=== PATIENT | male | born 1930 | race Caucasian/White ===

== ENCOUNTER → 2017-03-03 | Outpatient (CLI) | payer OTHER ==
[~2017-03-03] MED LIST: CLR10 PO; GLIP1TAB60 PO; METO25TA56 PO; PANT1INJ2 IV; PRAV80TA2 PO; PROB1CAP27; TYLOTC500 PO; VITACAP26
--- NOTE | 2017-03-03 09:10 | DIAGNOSTIC IMAGING REPORT ---
DOPPLER ULTRASOUND OF THE RENAL ARTERIES CLINICAL HISTORY: Renal bruit. COMPARISON STUDY: Renal ultrasound May 13, [address] of the abdomen and pelvis August 25, 2011. FINDINGS: This exam is mildly compromised due to suboptimal penetration and inability to suspend respiration. Peak systolic velocity within the abdominal aorta is 89 cm/s. Peak systolic velocity within the right renal artery is 80 cm/s. Peak systolic velocity within the left renal artery is 158 cm/s. Both renal veins were patent. There was a 1.3 cm right renal cyst. There were a few small left renal cysts. Systolic upstrokes within the segmental vessels of the kidneys were brisk. The bilateral renal artery stents shown on CT of August 17, 2011 are not well visualized by sonography. IMPRESSION: No sonographic evidence of renal artery stenosis. Electronically signed by: Gabriel Sanchez M.D. 03/03/2017 9:09 AM Dictated Date/Time: 03/03/2017 9:06 AM
== END | disposition home or self-care (01) ==
LOC: C.ULTR 08:19
PROVIDERS: ATTEND Nurse Practitioner
DX: R09.89 Other specified symptoms and signs involving the circulatory and respiratory systems (principal)

== ENCOUNTER → 2017-08-24 | Outpatient (CLI) | payer OTHER ==
[2017-08-24 12:16] LABS: BASO ABS # 0.04 K/uL (0-0.2); COMPLETE YES; EOS % 1.9 %; IG% 0.2 %; LYMPH % 21.7 %; MEAN CELL VOLUME 98.7 fL (80-100); MEAN CORPUSCULAR HEMOGLOBIN 32.8 pg (25-34); MEAN CORPUSCULAR HGB CONC 33.2 g/dl (32-36); MEAN PLATELET VOLUME 10.1 fL (7.4-10.4); MONO % 9.2 %; PLATELET COUNT 251 K/uL (130-400); RED BLOOD COUNT 3.14 M/uL (4.7-6.1); WHITE BLOOD COUNT 4.14 K/uL (4.8-10.8)
[2017-08-24 12:33] LABS: ALB/GLOB RATIO 0.8 (0.9-2); ALKALINE PHOSPHATASE 93 U/L (45-117); ALT/SGPT 39 U/L (12-78); AST/SGOT 31 U/L (15-37); BLOOD UREA NITROGEN 36 mg/dl (7-18); BUN/CREATININE RATIO 31.3 (10-20); CARBON DIOXIDE 23 mmol/L (21-32); CHLORIDE 105 mmol/L (98-107); CREATININE 1.14 mg/dl (0.60-1.40); GLUCOSE 88 mg/dl (70-99); SODIUM 136 mmol/L (136-145)
[2017-08-24 12:39] LABS: FERRITIN 28.5 ng/ml (8.0-388.0); PROSTATE SPECIFIC ANTIGEN 0.659 ng/ml (0.000-4.000)
== END | disposition home or self-care (01) ==
LOC: C.LABBFT 07:00
PROVIDERS: ATTEND Nurse Practitioner
DX: D64.9 Anemia, unspecified (principal); E78.00 Pure hypercholesterolemia, unspecified; Z12.5 Encounter for screening for malignant neoplasm of prostate

== ENCOUNTER 2019-01-11 15:03 | Inpatient (IN) ==
[2019-01-11] MEDS ORDERED: ACETAMINOPHEN 325 MG TAB PO PRN (17:33)
--- NOTE | 2019-01-11 17:59 | History & Physical Report ---
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 Lawson presents today from [facility] office due to failed outpatient treatment of cellulitis of the right foot. He has been on 5 of a 10 day Keflex regimen with some improvement but still with significant erythema and edema. He has some pain. Denies aches, chills or fevers. He had been trimming his toenails and believes that's what started the infection initially. He also has a history of anemia. His labs from the [facility] recently showed worsening hgb so he was to follow up with Dr. Dalton in 2 days. He denies any blood in his stools or dark or tarry stools. 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 [facility] due [facility] and so patient was put on Coumadin. Medications verified via outpatient records. Allergies Allergy/AdvReac Type Severity Reaction Status Date / Time No Known Allergies Allergy Unknown Verified 03/29/18 06:54 Home Medications Home Medications Medication Instructions Recorded Confirmed Type ASPIRIN (ASPIRIN EC) 81 mg PO QDL #0 03/17/18 01/11/19 History Ascorbic Acid (Vitamin C) 1 tab PO QAM #0 03/17/18 01/11/19 History FERROUS SULFATE (IRON) 1 tab PO QAM #0 03/17/18 01/11/19 History Glipizide 1 tab PO QAM #0 03/17/18 History Metoprolol Tartrate (Lopressor) 25 mg PO BID #0 tab 03/17/18 01/11/19 History (Lopressor) Omeprazole (Omeprazole Dr) 1 tab PO QAM #0 03/17/18 01/11/19 History Pravastatin Sod (Pravastatin 1 tab PEG HS #0 03/17/18 01/11/19 History Sodium) VITAMIN D 3 2 tab PO QAM #0 03/17/18 01/11/19 History WARFARIN SODIUM (COUMADIN) 1.5 mg PO 2XWK 30 Days #0 tab 03/17/18 01/11/19 History WARFARIN SODIUM (COUMADIN) 3 mg PO 5XWK #0 tab 03/17/18 History Past Med/Surg History Social History Preferred Language: Azeri Communication Ability: Effective 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: No Beliefs That Will Affect Care: None Current Living Situation: Spouse Other Information That Helps Us Care for You: No Feels Safe at Home: Yes Safety Concerns: Feels Safe At This Time Smoking Status: Former smoker Hx Alcohol Use: No Hx Substance Use: No Physical Exam Vital Signs (Past 24 Hours): Last Vital Signs Temp 36.8 C 01/11/19 16:44 Pulse 75 01/11/19 16:44 Resp 18 01/11/19 16:44 BP 131/72 01/11/19 16:44 Pulse Ox 92 01/11/19 16:44 Physical Exam: General: no distress Eyes: normal inspection, PERLL Respiratory: chest non tender, clear to auscultation, normal breath sounds, no respiratory distress, no accessory muscle use Cardiac: regular rate and rhythm, no rub or gallop, no murmur, no edema, no jvd GI/: active bowel sounds, no abd pain or tenderness, soft, non distended Extremities: normal range of motion, normal strength, non tender Neuro: alert, moves all extremities Psych: oriented x 3, normal mood and affect Skin: normal color, dry, bilateral erythema on lower legs, right foot with erythema and edema, dried yellow exudate between toes Code Status & VTE Plan Code Status DNR VTE Prophylaxis Plan VTE Prophylaxis will be ordered: Yes Supervising Physician Co-Signing Physician Notes [employer] Physician Supervision Note: I discussed with Pina Ruano NP and agree with findings and plan as documented in the note. Any exceptions or clarifications are listed here: None Patient is a direct admission for failing outpatient treatment for diabetic foot infection likely instigated by trimming of his nails. His foot is erythematous but does not appear boggy and there is no overt signs of osteomyelitis. The patient's blood glucoses have been in reasonable control and he is subtherapeutic on his anticoagulation at this time Vitals were reviewed physical exam is he is stable with cardiovascularly with clear lungs regular heart however his total knee show some minor erythema Back to be applied considering escalating his anticoagulant dosing for his A. fib thrombolic prevention control his diabetes with basal bolus insulin Documented By: Darnell Quijano
[2019-01-11] MEDS ORDERED: VANCOMYCIN CONSULT ACTIVE PRN (18:01)
[2019-01-11] MEDS ORDERED: VANCOMYCIN HCL 1,000 MG in SODIUM CHLORIDE 0.9% 250 ML IV SCH (18:15)
[2019-01-11 18:29] LABS: INR 1.2 (0.9-1.1); Prothrombin Time 12.5 Seconds (9.0-12.0)
[2019-01-11] MEDS ORDERED: VANCOMYCIN HCL 1,250 MG in SODIUM CHLORIDE 0.9% 500 ML IV ONE (18:30)
[2019-01-11] MEDS ORDERED: VANCOMYCIN HCL 1,250 MG in SODIUM CHLORIDE 0.9% 250 ML IV ONE (18:30)
[2019-01-11 18:31] LABS: Albumin Level 2.2 gm/dl (3.4-5.0); Blood Urea Nitrogen 21 mg/dl (7-18); Carbon Dioxide 27 mmol/L (21-32); Chloride 106 mmol/L (98-107); Glucose 66 mg/dl (70-99); Potassium 4.5 mmol/L (3.5-5.1); Sodium 138 mmol/L (136-145)
[2019-01-11 18:34] LABS: Alanine Aminotransferase 35 U/L (12-78); Aspartate Aminotransferase 26 U/L (15-37); BUN Creatinine Ratio 18.4 (10-20); Est GFR (African American) 68.6; Est GFR (Non-African American) 59.2
[2019-01-11 18:38] LABS: Albumin Globulin Ratio 0.7 (0.9-2); Alkaline Phosphatase 105 U/L (45-117); Bilirubin,Total 0.2 mg/dl (0.2-1); Iron 119 mcg/dl (35-175); Total Protein 5.2 gm/dl (6.4-8.2); Transferrin 158 mg/dl (200-360)
[2019-01-11 18:45] LABS: Ferritin 64.1 ng/ml (8-388)
[2019-01-11] MEDS ORDERED: WARFARIN SOD 5 MG TAB PO ONE (19:18)
[2019-01-11 20:10] LABS: Basophils # (auto) 0.03 K/uL (0-0.2); Basophils % (auto) 0.8 %; Eosinophils # (auto) 0.05 K/uL (0-0.5); Eosinophils % (auto) 1.3 %; Hematocrit (blood only) 27.9 % (42-52); Hemoglobin 9.1 g/dL (14.0-18.0); Lymphocytes # (auto) 0.71 K/uL (1.2-3.4); Lymphocytes % (auto) 18.1 %; Mean Corpuscular Hgb Conc 32.6 g/dL (32-36); Mean Corpuscular Volume 101.5 fL (80-100); Mean Platelet Volume 10.2 fL (7.4-10.4); Monocytes # (auto) 0.42 K/uL (0.11-0.59); Monocytes % (auto) 10.7 %; Neutrophils # (auto) 2.72 K/uL (1.4-6.5); Neutrophils % (auto) 69.1 %; Platelet Count 193 K/uL (130-400); RDW Coefficient of Variation 16.6 % (11.5-14.5); RDW Standard Deviation 61.6 fL (36.4-46.3); Red Blood Count 2.75 M/uL (4.7-6.1); Reticulocyte % 2.6 % (0.5-2.0); Reticulocytes # 0.07 10^6/uL (0.02-0.10); White Blood Count 3.93 K/uL (4.8-10.8)
[2019-01-11] MEDS: METOPROLOL TARTRATE 25 MG TAB PO SCH (21:59)
[2019-01-11] MEDS: PRAVASTATIN SOD 40 MG TAB PO SCH (22:02)
[2019-01-11] MEDS: INSULIN ASPART 100 UNITS/ML 3 ML PEN SC SCH (22:13)
[2019-01-11] MEDS ORDERED: PATIENT'S HEIGHT AND/OR WEIGHT NEEDED SCH (22:45)
[2019-01-12] MEDS: PATIENT'S HEIGHT AND/OR WEIGHT NEEDED SCH ×4 (00:20→07:14)
[2019-01-12] MEDS ORDERED: DEXTROSE 50% 50 ML SYRINGE IV PRN (05:15)
[2019-01-12] MEDS ORDERED: GLUCAGON FOR INJ 1 MG VIAL SQ PRN (05:15)
[2019-01-12] MEDS ORDERED: GLUCOSE 40% GEL 15 GM TUBE PO PRN (05:15)
[2019-01-12] MEDS ORDERED: GLUCOSE 10 TABS/TUBE PO PRN (05:15)
[2019-01-12] MEDS ORDERED: CARBOHYDRATES FOR HYPOGLYCEMIA PO PRN (05:15)
[2019-01-12] MEDS: METOPROLOL TARTRATE 25 MG TAB PO SCH ×2 (08:16→21:12)
[2019-01-12] MEDS: PANTOprazole 40 MG TAB PO SCH (08:16)
[2019-01-12] MEDS: ASPIRIN 81 MG ECTAB PO SCH (08:16)
[2019-01-12] MEDS: FERROUS SULFATE 325 MG TAB PO SCH (08:16)
[2019-01-12] MEDS: CHOLECALCIFEROL 1,000 UNITS TAB PO SCH (08:16)
--- NOTE | 2019-01-12 08:17 | Pharmacy Report ---
Pharmacy Abx Initial Consult - Date of Service January 12, 2019 - Pharmacy Dosing Scope Date of Consult: 01/12/19 Consultation requested by: Pina Ruano Pharmacy is consulted to initiate vancomycin IV dosing therapy, order appropriate labs and adjust drug dose/frequency. - Subjective The patient is a 88 year old M admitted on 01/11/19 16:23 as a direct admission. Patient was on day for PO Keflex for a diabetic foot infection. Infection is not healing properly. - Objective Height: 5 ft 7 in Weight: 58.4 kg Vital Signs (Past 12hrs): Vital Signs Temp Pulse Resp BP Pulse Ox 01/12/19 07:56 36.4 C L 68 20 133/42 L 99 01/11/19 23:33 36.4 C L 75 18 139/61 94 Lab Results (24hrs): Laboratory Tests (24 Hours) 01/11/19 01/11/19 18:04 18:04 WBC 3.93 L Neut # (Auto) 2.72 Creatinine 1.12 Est Cr Clr Drug Dosing Not Reportable Micro Results: 01/11/19 17:49 Blood Culture - Pending Blood 01/11/19 18:04 Blood Culture - Pending Blood - Risk Factors for Resistance * Antimicrobial use within the last 90 days (Keflex, day ) - Assessment & Plan Assessment 88 year old M admitted with worsening diabetic foot infection Plan vancomycin for treatment of diabetic foot infection Vancomycin IV * Estimated PK Parameters: Vd 0.7 L/kg, Jalil 0.037 hr-1, t1/2 18.7 hr * Loading dose: 1250 mg (21.5 mg/kg) * Maintenance dose: 1000 mg IV (17 mg/kg) every 18 hours. start 4 hours early since inadequate load given * Goal trough level for SSTI, failed outpatient therapy : 15 to 20 mcg/mL * Trough ordered for 01/14/19 prior to 1600 Pharmacy will continue to follow and will adjust dose/frequency as necessary. Thank you.
[2019-01-12] MEDS: INSULIN ASPART 100 UNITS/ML 3 ML PEN SC SCH ×4 (09:15→21:17)
[2019-01-12] MEDS: VANCOMYCIN HCL 1,000 MG in SODIUM CHLORIDE 0.9% 250 ML IV SCH (09:26)
[2019-01-12 09:27] LABS: INR 1.3 (0.9-1.1); Prothrombin Time 12.9 Seconds (9.0-12.0)
--- NOTE | 2019-01-12 11:15 | Ultrasound Report ---
US venous doppler LE RT CLINICAL HISTORY: Right leg pain and swelling COMPARISON STUDY: July 2011 FINDINGS: Real-time and color flow Doppler imaging were performed. Flow was seen within the femoral, popliteal and calf veins with no intraluminal thrombus demonstrated. The saphenous vein is patent. IMPRESSION: No evidence of right lower extremity DVT. Electronically signed by: Jhonny Mahoney M.D. 01/12/2019 11:13 AM
[2019-01-12] MEDS ORDERED: CEFEPIME CONSULT ACTIVE PRN (13:02)
--- NOTE | 2019-01-12 13:46 | Hospitalist Progress Note ---
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 - LE doppler negative for DVT (2) Anemia: Macrocytic H & H 9.1 and 27.9 Iron normal, TIBC and transferrin low, reticulocyte count elevated , B12 and Folate normal Continue po iron (3) Atrial fibrillation: Continue Coumadin, metoprolol In (4) CAD (coronary artery disease): continue metoprolol, pravastatin, ASA, INR 1.3 - will give 5 mg again today (5) DMII (diabetes mellitus, type 2): hypoglycemic on admission hold home sulfonylurea, will give ss bsgs ac & hs (6) History of GI bleed: due to ulcer continue ppi (7) DVT prophylaxis: Warfarin, SCDs Subjective Foot feels about the same as yesterday. No aches or chills Review of Systems Review of Systems: All systems reviewed & are unremarkable except as noted in HPI & below Physical Exam Physical Exam: General: no distress Eyes: normal inspection, PERLL Respiratory: chest non tender, clear to auscultation, normal breath sounds, no respiratory distress, no accessory muscle use Cardiac: regular rate and rhythm, no rub or gallop, no murmur, no jvd GI/: active bowel sounds, no abd pain or tenderness, soft, non distended Extremities: normal range of motion, normal strength, non tender Neuro/Psych: alert and oriented x 3, normal mood and affect Skin: normal color, dry, right lower extremity and foot with edema and erythema Results & Data Vital Signs (Past 12 Hours) Vital Signs Temp Pulse Resp BP Pulse Ox 01/12/19 07:56 36.4 C L 68 20 133/42 L 99
[2019-01-12] MEDS: CEFEPIME 2,000 MG in SYRINGE 0 ML IV SCH (14:17)
[2019-01-12] MEDS ORDERED: WARFARIN SOD 5 MG TAB PO SCH (16:00)
[2019-01-12] MEDS ORDERED: WARFARIN SOD 3 MG TAB PO SCH (16:00)
[2019-01-12] MEDS: PRAVASTATIN SOD 40 MG TAB PO SCH (21:12)
[2019-01-13] MEDS: VANCOMYCIN HCL 1,000 MG in SODIUM CHLORIDE 0.9% 250 ML IV SCH ×2 (04:10→22:13)
[2019-01-13 07:09] LABS: Hematocrit (blood only) 25.8 % (42-52); Hemoglobin 8.6 g/dL (14.0-18.0); Mean Corpuscular Hgb Conc 33.3 g/dL (32-36); Mean Corpuscular Volume 101.6 fL (80-100); Mean Platelet Volume 9.9 fL (7.4-10.4); Platelet Count 173 K/uL (130-400); RDW Coefficient of Variation 15.9 % (11.5-14.5); RDW Standard Deviation 59.4 fL (36.4-46.3); Red Blood Count 2.54 M/uL (4.7-6.1); White Blood Count 3.51 K/uL (4.8-10.8)
[2019-01-13 07:39] LABS: BUN Creatinine Ratio 23.8 (10-20); Calcium 7.7 mg/dl (8.5-10.1); Creatinine Clr Calc Pharmacy 47.1 ml/min; Est GFR (African American) 85.9; Est GFR (Non-African American) 74.1; Potassium 4.4 mmol/L (3.5-5.1)
[2019-01-13] MEDS: METOPROLOL TARTRATE 25 MG TAB PO SCH ×2 (07:48→21:35)
[2019-01-13] MEDS: PANTOprazole 40 MG TAB PO SCH (07:48)
[2019-01-13] MEDS: CHOLECALCIFEROL 1,000 UNITS TAB PO SCH (07:48)
[2019-01-13] MEDS: ASPIRIN 81 MG ECTAB PO SCH (07:49)
[2019-01-13] MEDS: FERROUS SULFATE 325 MG TAB PO SCH (07:49)
[2019-01-13] MEDS: INSULIN ASPART 100 UNITS/ML 3 ML PEN SC SCH ×4 (08:50→21:35)
[2019-01-13 09:46] LABS: INR 1.5 (0.9-1.1); Prothrombin Time 15.1 Seconds (9.0-12.0)
[2019-01-13] MEDS: CEFEPIME 2,000 MG in SYRINGE 0 ML IV SCH (13:44)
[2019-01-13] MEDS ORDERED: WARFARIN SOD 5 MG TAB PO ONE (16:00)
--- NOTE | 2019-01-13 16:56 | Magnetic Resonance Report ---
MR foot RT w/o con CLINICAL HISTORY: Great toe infection. Possible osteomyelitis. COMPARISON STUDY: No previous studies for comparison. FINDINGS: Images were acquired in the axial, sagittal and coronal planes. There is soft tissue edema, most pronounced dorsally. There is subtle T1 and T2 marrow edema involvin g the tuft of the distal phalanx of the great toe. There is adjacent soft tissue ulceration. The find ings are suspicious for early osteomyelitis. There are no fluid collections to indicate an abscess. No soft tissue masses are visualized on this noncontrast examination. IMPRESSION: 1. Subtle T1 and T2 marrow edema involving the tuft of distal phalanx of the great toe with an adjace nt soft tissue ulceration. The findings are suspicious for early osteomyelitis. 2. Soft tissue edema, most pronounced dorsally Electronically signed by: Jhonny Mahoney M.D. 01/13/2019 4:54 PM
--- NOTE | 2019-01-13 17:48 | Magnetic Resonance Report ---
MR ankle RT wo con CLINICAL HISTORY: Infection. Soft tissue edema. Evaluate for osteomyelitis. COMPARISON STUDY: No previous studies for comparison. FINDINGS: Imaging was performed in the axial, sagittal, and coronal planes. There are no areas of marrow replacement to indicate neoplasm. There are no areas of marrow edema to indicate an occult fracture or osteomyelitis. There is trace fl uid within the ankle joint. There are no fluid collections to indicate an abscess. There are no abnor mal soft tissue masses. There is no evidence for significant tendinopathy. There is minor subcutaneous edema. IMPRESSION: 1. No evidence of acute osteomyelitis 2. No evidence of occult fracture 3. No evidence of abscess Electronically signed by: Jhonny Mahoney M.D. 01/13/2019 5:46 PM
--- NOTE | 2019-01-13 18:12 | Hospitalist Progress Note ---
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 (2) Anemia: Macrocytic H & H 9.1 and 27.9 Iron normal, TIBC and transferrin low, reticulocyte count elevated, B12 and Folate normal Continue po iron (3) Atrial fibrillation: Hold Coumadin as above, continue metoprolol (4) CAD (coronary artery disease): continue metoprolol, pravastatin, ASA, INR 1.5 - will hold Coumadin as above (5) DMII (diabetes mellitus, type 2): hypoglycemic on admission hold home sulfonylurea, will give ss bsgs ac & hs (6) History of GI bleed: due to ulcer continue ppi (7) DVT prophylaxis: Warfarin held, SCDs Subjective Mr. Lawson reports feeling about the same today. He has continued discomfort in his foot but otherwise feels good. Review of Systems Review of Systems: All systems reviewed & are unremarkable except as noted in HPI & below Physical Exam Physical Exam: General: no distress Eyes: normal inspection, PERLL Respiratory: chest non tender, clear to auscultation, normal breath sounds, no respiratory distress, no accessory muscle use Cardiac: regular rate and rhythm, no rub or gallop, no murmur, no edema, no jvd GI/: active bowel sounds, no abd pain or tenderness, soft, non distended Extremities: normal range of motion, normal strength, non tender Neuro/Psych: alert and oriented x 3, normal mood and affect Skin: normal color, dry, right foot/le erythematous and edematous Results & Data Vital Signs (Past 12 Hours) Vital Signs Temp Pulse Resp BP Pulse Ox 01/13/19 15:21 36.6 C 78 18 100/59 L 99 01/13/19 07:12 36.5 C 80 18 139/63 98
[2019-01-13] MEDS ORDERED: PIPERACILL/TAZOBAC CONSULT ACTIVE PRN (18:45)
[2019-01-13] MEDS ORDERED: PIPERACILLIN/TAZOBACTAM 3.375 GM in DEXTROSE 5% 100 ML IV ONE (20:30)
[2019-01-13] MEDS: PRAVASTATIN SOD 40 MG TAB PO SCH (21:35)
[2019-01-14] MEDS ORDERED: PIPERACILLIN/TAZOBACTAM 3.375 GM in DEXTROSE 5% 100 ML IV ONE (02:00)
--- NOTE | 2019-01-14 07:30 | Ultrasound Report ---
RIGHT LOWER EXTREMITY ARTERIAL DOPPLER ULTRASOUND CLINICAL HISTORY: Poor wound healing. COMPARISON STUDY: No previous studies for comparison. TECHNIQUE: Grayscale and color and duplex Doppler sonography of the arterial system of the right lowe r extremity was performed. FINDINGS: Accurate ankle to brachial indices could not be obtained due to extensive vascular calcific ation with noncompressibility of vessels. Extensive atherosclerotic plaque within the right lower ext remity was noted. There was triphasic flow within the right common femoral. Biphasic flow is noted wi thin the right superficial femoral and proximal right popliteal arteries. There is monophasic flow wi thin the distal right popliteal artery as well as the right posterior tibial, peroneal and anterior t ibial arteries as well as the dorsalis pedis. No elevated velocities were identified. IMPRESSION: 1. Extensive atherosclerotic plaque within the right lower extremity. Unable to obtain accurate ankle to brachial indices given vessel noncompressibility. 2. Triphasic and biphasic flow within the right common femoral or superficial femoral arteries with m onophasic flow within the right calf vessels. Although no elevated velocities identified, the finding s raise the possibility of an intervening stenosis. Electronically signed by: Gabriel Sanchez M.D. 01/14/2019 7:29 AM
[2019-01-14] MEDS: METOPROLOL TARTRATE 25 MG TAB PO SCH ×2 (08:10→20:46)
[2019-01-14] MEDS: PANTOprazole 40 MG TAB PO SCH (08:10)
[2019-01-14] MEDS: ASPIRIN 81 MG ECTAB PO SCH (08:10)
[2019-01-14] MEDS: CHOLECALCIFEROL 1,000 UNITS TAB PO SCH (08:10)
[2019-01-14] MEDS: FERROUS SULFATE 325 MG TAB PO SCH (08:10)
[2019-01-14] MEDS: INSULIN ASPART 100 UNITS/ML 3 ML PEN SC SCH ×4 (08:21→20:45)
[2019-01-14 10:28] LABS: Basophils # (auto) 0.03 K/uL (0-0.2); Basophils % (auto) 0.6 %; Eosinophils # (auto) 0.04 K/uL (0-0.5); Eosinophils % (auto) 0.8 %; Hematocrit (blood only) 30.4 % (42-52); Hemoglobin 9.8 g/dL (14.0-18.0); Immature Granulocytes # (auto) 0.01 K/uL (0.00-0.02); Immature Granulocytes % (auto) 0.2 %; Lymphocytes # (auto) 0.75 K/uL (1.2-3.4); Lymphocytes % (auto) 15.9 %; Mean Corpuscular Hgb Conc 32.2 g/dL (32-36); Mean Corpuscular Volume 101.7 fL (80-100); Mean Platelet Volume 9.6 fL (7.4-10.4); Monocytes # (auto) 0.44 K/uL (0.11-0.59); Monocytes % (auto) 9.3 %; Neutrophils # (auto) 3.44 K/uL (1.4-6.5); Neutrophils % (auto) 73.2 %; Platelet Count 204 K/uL (130-400); RDW Standard Deviation 59.8 fL (36.4-46.3); Red Blood Count 2.99 M/uL (4.7-6.1); White Blood Count 4.71 K/uL (4.8-10.8)
[2019-01-14 10:43] LABS: INR 1.7 (0.9-1.1); Prothrombin Time 16.7 Seconds (9.0-12.0)
[2019-01-14 10:46] LABS: BUN Creatinine Ratio 16.6 (10-20); Calcium 7.9 mg/dl (8.5-10.1); Est GFR (African American) 57.8; Est GFR (Non-African American) 49.9; Potassium 4.5 mmol/L (3.5-5.1)
--- NOTE | 2019-01-14 10:47 | Hospitalist Progress Note ---
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 Unable to obtain accurate ankle to brachial indices given vessel noncompressibility. Triphasic and biphasic flow within the right common femoral or superficial femoral arteries with monophasic flow within the right calf vessels. Although no elevated velocities identified, the findings raise the possibility of an intervening stenosis. - LE doppler negative for DVT - MRI concerning for early osteomyelitis, will hold warfarin and consult orthopedic surgery (2) Anemia: Macrocytic H & H stable around 8.5-9 Iron normal, TIBC and transferrin low, reticulocyte count elevated, B12 and Folate normal Continue po iron Patient will need follow up with Heme/onc as he is missing his appt due to this hospitalization (3) Atrial fibrillation: Hold Coumadin as above, continue metoprolol (4) CAD (coronary artery disease): continue metoprolol, pravastatin, ASA, INR 1.7 - hold Coumadin as above (5) DMII (diabetes mellitus, type 2): hypoglycemic on admission hold home sulfonylurea, will give ss bsgs ac & hs (6) History of GI bleed: due to ulcer continue ppi (7) DVT prophylaxis: Warfarin held, SCDs Subjective Mr. Lawson's foot has occasional shooting pains in it but overall is not causing him too much discomfort. Review of Systems Review of Systems: All systems reviewed & are unremarkable except as noted in HPI & below Physical Exam Physical Exam: General: no distress Eyes: normal inspection, PERLL Respiratory: chest non tender, clear to auscultation, normal breath sounds, no respiratory distress, no accessory muscle use Cardiac: regular rate and rhythm, no rub or gallop, no murmur, no edema, no jvd GI/: active bowel sounds, no abd pain or tenderness, soft, non distended Extremities: normal range of motion, normal strength, non tender Neuro/Psych: alert and oriented x 3, normal mood and affect Skin: normal color, dry, right leg erythema and edema Results & Data Vital Signs (Past 12 Hours) Vital Signs Temp Pulse Resp BP Pulse Ox 01/14/19 08:29 36.4 C L 88 16 125/72 99 01/13/19 23:01 36.5 C 81 18 110/65 94
[2019-01-14] MEDS: PIPERACILLIN/TAZOBACTAM 3.375 GM in DEXTROSE 5% 100 ML IV SCH ×2 (11:07→18:28)
[2019-01-14] MEDS ORDERED: DAPTOMYCIN CONSULT ACTIVE PRN (13:56)
[2019-01-14] MEDS: DAPTOmycin 350 MG in SYRINGE 0 ML IV SCH (14:21)
[2019-01-14] MEDS ORDERED: VANCOMYCIN TROUGH ONE (15:30)
[2019-01-14] MEDS ORDERED: WARFARIN SOD 0.5 MG TAB PO SCH (16:00)
[2019-01-14] MEDS ORDERED: WARFARIN SOD 4 MG TAB PO SCH (16:00)
[2019-01-14] MEDS: PRAVASTATIN SOD 40 MG TAB PO SCH (20:48)
--- NOTE | 2019-01-15 01:00 | Consultation Report ---
DATE OF CONSULTATION: 01/14/2019 SUBJECTIVE: The patient was seen at the request of Dr. Brayden Patrick and the medical service regarding right foot redness and swelling with great toe pain. PERTINENT HISTORY: The patient had presented to [facility] from [facility]'s office due to failed outpatient treatment of cellulitis to the right foot. It had been on day 5 of a 10 day regimen of oral Keflex. He had some minor improvement compared to when he started the course of antibiotics; however, still had persistent erythema, edema and pain. He noted that he probably caused this himself and he was trimming his toenails to short, he noted that he trimmed the great toenail and the third toe nail to shorten and had some bleeding and then developed irritation, redness, swelling and presumably infection. He had been in the hospital for the last several days and orthopedics was then asked to consult regarding findings of possible early osteomyelitis and distal phalanx of the right great toe. PAST MEDICAL HISTORY: Cellulitis right foot, chronic AFib on Coumadin, coronary artery disease, bovine aortic valve replacement, GI bleed, chronic anemia, diabetes mellitus type 2. PAST SURGICAL HISTORY: Aortic valve replacement, colonoscopy. ALLERGIES: No known drug allergies. MEDICATIONS: Please note the list provided in the medical record. SOCIAL HISTORY: He is and lives with his spouse. He is retired. He is a former smoker. Denies alcohol or drug use. PHYSICAL EXAMINATION: This is an 88-year-old gentleman sitting in his bedside. He is alert and oriented x3. Speech clear and fluent. Affect is appropriate. Examination of the lower extremities demonstrates chronic venous stasis changes with 2/4 edema bilateral lower extremities, pitting to the mid tibial level. He has palpable pulses, both dorsalis pedis and posterior tibial pulses bilateral lower extremities. Right foot demonstrates erythema, increased warmth of the forefoot, scant hair growth bilateral lower extremities and dystrophic nails in the right foot, primarily the first and third toes. He has fusiform edema of the first, second and third toes of the right foot. No pain on passive stretch. No open ulcers or abrasions of bilateral feet. Radiographs and MRI reviewed, demonstrates possibility of early osteomyelitis, distal phalanx of the right great toe with signal changes in the distal phalanx on MRI. LABORATORIES: Reviewed. IMPRESSION: 1. Right great toe distal phalanx, early osteomyelitis. 2. Cellulitis to right foot. 3. Dystrophic nails, right foot first and third toes. 4. Chronic venous stasis changes. 5. Multiple medical comorbidities including diabetes mellitus type 2. RECOMMENDATION: At this time, recommend conservative management with IV antibiotics. Suggest midline or PICC line if patient tolerates and attempt conservative IV antibiotic management at this point. Should he fail IV antibiotic management, then surgical subtotal amputation of the right great toe would be indicated involving the distal phalanx and the nail bed and nail plate. Thank you for the opportunity to consult in the care of this patient.
[2019-01-15] MEDS: PIPERACILLIN/TAZOBACTAM 3.375 GM in DEXTROSE 5% 100 ML IV SCH ×3 (02:05→18:21)
[2019-01-15 04:18] LABS: Hemoglobin 8.2 g/dL (14.0-18.0); Mean Corpuscular Hgb Conc 32.8 g/dL (32-36); Mean Platelet Volume 10.1 fL (7.4-10.4); Platelet Count 168 K/uL (130-400); RDW Coefficient of Variation 15.5 % (11.5-14.5); RDW Standard Deviation 57.3 fL (36.4-46.3); Red Blood Count 2.45 M/uL (4.7-6.1); White Blood Count 3.17 K/uL (4.8-10.8)
[2019-01-15 04:52] LABS: BUN Creatinine Ratio 14.1 (10-20); Calcium 7.7 mg/dl (8.5-10.1); Est GFR (African American) 49.8; Est GFR (Non-African American) 42.9; Potassium 3.7 mmol/L (3.5-5.1)
[2019-01-15] MEDS: CHOLECALCIFEROL 1,000 UNITS TAB PO SCH (08:12)
[2019-01-15] MEDS: FERROUS SULFATE 325 MG TAB PO SCH (08:12)
[2019-01-15] MEDS: ASPIRIN 81 MG ECTAB PO SCH (08:12)
[2019-01-15] MEDS: PANTOprazole 40 MG TAB PO SCH (08:12)
[2019-01-15] MEDS: METOPROLOL TARTRATE 25 MG TAB PO SCH ×2 (08:12→20:13)
[2019-01-15] MEDS: INSULIN ASPART 100 UNITS/ML 3 ML PEN SC SCH ×4 (08:44→20:13)
[2019-01-15 09:02] LABS: Basophils # (auto) 0.03 K/uL (0-0.2); Basophils % (auto) 0.9 %; Eosinophils # (auto) 0.03 K/uL (0-0.5); Eosinophils % (auto) 0.9 %; Hematocrit (blood only) 29.1 % (42-52); Hemoglobin 9.4 g/dL (14.0-18.0); Lymphocytes # (auto) 0.55 K/uL (1.2-3.4); Lymphocytes % (auto) 16.9 %; Mean Corpuscular Hgb Conc 32.3 g/dL (32-36); Mean Corpuscular Volume 101.4 fL (80-100); Mean Platelet Volume 9.6 fL (7.4-10.4); Monocytes # (auto) 0.31 K/uL (0.11-0.59); Monocytes % (auto) 9.5 %; Neutrophils # (auto) 2.34 K/uL (1.4-6.5); Neutrophils % (auto) 71.8 %; Platelet Count 192 K/uL (130-400); RDW Coefficient of Variation 15.8 % (11.5-14.5); RDW Standard Deviation 58.7 fL (36.4-46.3); Red Blood Count 2.87 M/uL (4.7-6.1); White Blood Count 3.26 K/uL (4.8-10.8)
[2019-01-15 09:14] LABS: INR 1.5 (0.9-1.1); Prothrombin Time 14.8 Seconds (9.0-12.0)
[2019-01-15 09:40] LABS: BUN Creatinine Ratio 14.4 (10-20); Calcium 8.5 mg/dl (8.5-10.1); Est GFR (African American) 57.8; Est GFR (Non-African American) 49.9; Potassium 3.8 mmol/L (3.5-5.1)
--- NOTE | 2019-01-15 10:34 | Orthopedic Progress Note ---
Date of Service January 15, 2019 Assessment & Plan (1) Osteomyelitis of great toe of right foot: 1. Right great toe distal phalanx, early osteomyelitis. 2. Cellulitis to right foot. 3. Dystrophic nails, right foot first and third toes. 4. Chronic venous stasis changes. 5. Multiple medical comorbidities including diabetes mellitus type 2. Continue IV antibiotics. Will continue to follow. Subjective Patient seen sitting in bedside chair eating breakfast. No current complaints Physical Exam Physical Exam: Erythema to right foot with mild swelling of 1-3 digits. No open areas or drainage Results & Data Vital Signs (Past 12 Hours) Vital Signs Temp Pulse Pulse Resp BP Pulse Ox 01/15/19 07:24 36.5 C 81 18 99/64 L 100 01/14/19 23:55 36.5 C 72 18 107/69 100
--- NOTE | 2019-01-15 11:22 | Hospitalist Progress Note ---
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 Unable to obtain accurate ankle to brachial indices given vessel noncompressibility. Triphasic and biphasic flow within the right common femoral or superficial femoral arteries with monophasic flow within the right calf vessels. Although no elevated velocities identified, the findings raise the possibility of an intervening stenosis. Will consult Dr. Wiseman on Thursday to follow up with this - LE doppler negative for DVT - MRI concerning for early osteomyelitis - per surgery, no surgery at this time, should try a few weeks of IV abx at home. Will hold Coumadin again today and consent for PICC. Consult ID for guidance on home regimen (2) Anemia: Macrocytic H & H stable around 8.5-9 Iron normal, TIBC and transferrin low, reticulocyte count elevated, B12 and Folate normal Continue po iron Patient will need follow up with Heme/onc as he is missing his appt due to this hospitalization (3) Atrial fibrillation: Hold Coumadin as above, continue metoprolol (4) CAD (coronary artery disease): continue metoprolol, pravastatin, ASA, INR 1.5 - hold Coumadin as above (5) DMII (diabetes mellitus, type 2): hypoglycemic on admission hold home sulfonylurea, will give ss - will hold sulfonylurea at discharge given hypoglycemia at admission and have him fu with primary. He had apparently just recently started with this medication bsgs ac & hs (6) History of GI bleed: due to ulcer continue ppi (7) DVT prophylaxis: Warfarin held, SCDs Subjective Mr. Lawson reports that his foot feels better. He has no other complaints Review of Systems Review of Systems: All systems reviewed & are unremarkable except as noted in HPI & below Physical Exam Physical Exam: General: no distress Eyes: normal inspection, PERLL Respiratory: chest non tender, clear to auscultation, normal breath sounds, no respiratory distress, no accessory muscle use Cardiac: regular rate and rhythm, no rub or gallop, no murmur, no edema, no jvd GI/: active bowel sounds, no abd pain or tenderness, soft, non distended Extremities: normal range of motion, normal strength, non tender Neuro/Psych: alert and oriented x 3, normal mood and affect Skin: normal color, dry, right foot erythema/edema improving Results & Data Vital Signs (Past 12 Hours) Vital Signs Temp Pulse Pulse Resp BP Pulse Ox 01/15/19 07:24 36.5 C 81 18 99/64 L 100 01/14/19 23:55 36.5 C 72 18 107/69 100
--- NOTE | 2019-01-15 11:58 | Infectious Disease Consult ---
Date of Consultation January 15, 2019 Assessment & Plan (1) Osteomyelitis of great toe of right foot: Patient with early osteomyelitis of the right great toe and cellulitis of the right foot, with clinical response to IV antibiotics. Patient will require prolonged antibiotic therapy, may be able to avoid IVs if patient has appropriate clinical response. For now would continue on current IV therapy with daptomycin and Zosyn. Will follow. (2) Cellulitis: History of Present Illness Reason for Consultation: Cellulitis/osteomyelitis, failed outpatient treatment Attending Physician: Darnell Quijano MD History of Present Illness 88-year-old male with history of diabetes mellitus, coronary artery disease, atrial fibrillation, who approximately 1 week ago developed progressively worsening redness and swelling and pain of his right foot and right great toe. He was seen as an outpatient and started on cephalexin but symptoms progressively worsened and he was admitted to the hospital. He has been started on daptomycin and Zosyn and has shown significant clinical improvement. Had x- rays and MRI of the foot which is worrisome for developing osteomyelitis of the right great toe. Previously had fevers, now resolved. Pain in the foot minimal. Tolerating his antibiotics without apparent difficulty. Allergies Allergy/AdvReac Type Severity Reaction Status Date / Time No Known Allergies Allergy Unknown Verified 03/29/18 06:54 Home Medications Home Medications Medication Instructions Recorded Confirmed Type ASPIRIN (ASPIRIN EC) 81 mg PO QDL #0 03/17/18 01/11/19 History Ascorbic Acid (Vitamin C) 1 tab PO QAM #0 03/17/18 01/11/19 History FERROUS SULFATE (IRON) 1 tab PO QAM #0 03/17/18 01/11/19 History Glipizide 1 tab PO QAM #0 03/17/18 History Metoprolol Tartrate (Lopressor) 25 mg PO BID #0 tab 03/17/18 01/11/19 History (Lopressor) Omeprazole (Omeprazole Dr) 1 tab PO QAM #0 03/17/18 01/11/19 History Pravastatin Sod (Pravastatin 1 tab PEG HS #0 03/17/18 01/11/19 History Sodium) VITAMIN D 3 2 tab PO QAM #0 03/17/18 01/11/19 History WARFARIN SODIUM (COUMADIN) 1.5 mg PO 2XWK 30 Days #0 tab 03/17/18 01/11/19 History WARFARIN SODIUM (COUMADIN) 3 mg PO 5XWK #0 tab 03/17/18 History Patient History Social History Preferred Language: Serbian Communication Ability: Effective Dye Box Operator Required: No Beliefs That Will Affect Care: None Current Living Situation: Spouse Other Information That Helps Us Care for You: No Feels Safe at Home: Yes Safety Concerns: Feels Safe At This Time Smoking Status: Former smoker Tobacco Type: cigarettes Cigarettes Per Day: 20 Smoking End Date: 1988 Hx Alcohol Use: No Hx Substance Use: No Review of Systems Review of Systems: All systems reviewed & are unremarkable except as noted in HPI & below Physical Exam Constitutional: WD/WN, vitals as above comfortable; no acute distress Eyes: PERRL, conjunctivae normal, anicteric sclerae ENMT: external ear and nose normal, oropharynx normal Neck: trachea midline, no thyromegaly neck nontender Respiratory: normal respiratory effort, lungs clear to auscultation normal percussion; does not use accessory muscles Cardiovascular: Rate/Rhythm: regular rate and regular rhythm Heart Sounds: normal S1 and normal S2; no gallop, no murmur and no cardiac rub Vessels: no JVD Gastrointestinal (Abdomen): normal bowel sounds, soft, nontender, no hepatosplenomegaly Musculoskeletal: no cyanosis or clubbing, extremities motor strength 5/5 Spine: thoracic spine normal to inspection and lumbar spine normal to inspection; no cervical spinal tenderness Skin: no rashes, warm and dry normal turgor and + erythema (Fading right foot) Neurologic: patellar DTR's 2+ bilat, sensation intact no focal motor deficits Psychiatric: A+Ox3, euthymic affect Orientation: cooperative Lymphatic: no cervical or axillary lymphadenopathy no inguinal lymphadenopathy Results & Data Vital Signs (Past 12 Hours) Vital Signs Temp Pulse Pulse Resp BP Pulse Ox 01/15/19 07:24 36.5 C 81 18 99/64 L 100 01/14/19 23:55 36.5 C 72 18 107/69 100 Laboratory Results Short CBC 01/15/19 01/15/19 Range/Units 03:51 08:48 WBC 3.17 L 3.26 L (4.8-10.8) K/uL Hgb 8.2 L 9.4 L (14.0-18.0) g/dL Hct 25.0 L 29.1 L (42-52) % Plt Count 168 192 (130-400) K/uL BMP 01/15/19 01/15/19 03:51 08:48 Sodium 137 138 Potassium 3.7 D 3.8 Chloride 106 106 Carbon Dioxide 26 25 BUN 21 H 19 H Creatinine 1.46 H 1.29 Glucose 95 84 Calcium 7.7 L 8.5 Cardiac Enzymes 01/15/19 Range/Units 03:51 Total Creatine Kinase 105 (39-308) U/L Diagnostic Findings Microbiology 01/11/19 18:04 Blood Blood Culture - Preliminary No growth to date. 01/11/19 17:49 Blood Blood Culture - Preliminary No growth to date. RIGHT LOWER EXTREMITY ARTERIAL DOPPLER ULTRASOUND CLINICAL HISTORY: Poor wound healing. COMPARISON STUDY: No previous studies for comparison. TECHNIQUE: Grayscale and color and duplex Doppler sonography of the arterial system of the right lower extremity was performed. FINDINGS: Accurate ankle to brachial indices could not be obtained due to extensive vascular calcification with noncompressibility of vessels. Extensive atherosclerotic plaque within the right lower extremity was noted. There was triphasic flow within the right common femoral. Biphasic flow is noted within the right superficial femoral and proximal right popliteal arteries. There is monophasic flow within the distal right popliteal artery as well as the right posterior tibial, peroneal and anterior tibial arteries as well as the dorsalis pedis. No elevated velocities were identified. IMPRESSION: 1. Extensive atherosclerotic plaque within the right lower extremity. Unable to obtain accurate ankle to brachial indices given vessel noncompressibility. 2. Triphasic and biphasic flow within the right common femoral or superficial femoral arteries with monophasic flow within the right calf vessels. Although no elevated velocities identified, the findings raise the possibility of an intervening stenosis. Electronically signed by: Gabriel Sanchez M.D. 01/14/2019 7:29 AM Dictated: 01/14/19 0725
[2019-01-15] MEDS: DAPTOmycin 350 MG in SYRINGE 0 ML IV SCH (13:20)
[2019-01-15] MEDS: PRAVASTATIN SOD 40 MG TAB PO SCH (20:13)
[2019-01-16] MEDS: PIPERACILLIN/TAZOBACTAM 3.375 GM in DEXTROSE 5% 100 ML IV SCH ×3 (02:11→18:49)
[2019-01-16 06:14] LABS: Hematocrit (blood only) 25.9 % (42-52); Hemoglobin 8.3 g/dL (14.0-18.0); Mean Corpuscular Volume 103.6 fL (80-100); Mean Platelet Volume 9.9 fL (7.4-10.4); Platelet Count 181 K/uL (130-400); RDW Coefficient of Variation 15.6 % (11.5-14.5); RDW Standard Deviation 59.5 fL (36.4-46.3); White Blood Count 3.23 K/uL (4.8-10.8)
[2019-01-16 06:42] LABS: INR 1.3 (0.9-1.1); Prothrombin Time 12.9 Seconds (9.0-12.0)
[2019-01-16] MEDS: FERROUS SULFATE 325 MG TAB PO SCH (07:57)
[2019-01-16] MEDS: CHOLECALCIFEROL 1,000 UNITS TAB PO SCH (07:57)
[2019-01-16] MEDS: ASPIRIN 81 MG ECTAB PO SCH (07:57)
[2019-01-16] MEDS: METOPROLOL TARTRATE 25 MG TAB PO SCH ×2 (07:57→20:34)
[2019-01-16] MEDS: PANTOprazole 40 MG TAB PO SCH (07:57)
--- NOTE | 2019-01-16 08:29 | Orthopedic Progress Note ---
Date of Service January 16, 2019 Assessment & Plan (1) Osteomyelitis of great toe of right foot: 1. Right great toe distal phalanx, early osteomyelitis. 2. Cellulitis to right foot. 3. Dystrophic nails, right foot first and third toes. 4. Chronic venous stasis changes. 5. Multiple medical comorbidities including diabetes mellitus type 2. Continue IV antibiotics. Seems to be improved mildly from yesterday. Will continue to follow. Subjective Mr. Lawson reports that his foot feels better, did have some discomfort this morning in bed so had to get up. He has no other complaints Physical Exam Physical Exam: Right foot-erythema and swelling noted. Erythema seems improved from yesterday. No open areas. Results & Data Vital Signs (Past 12 Hours) Vital Signs Temp Pulse Resp BP Pulse Ox 01/16/19 08:02 36.5 C 80 16 106/66 98 01/16/19 00:05 36.6 C 72 18 105/64 99
[2019-01-16] MEDS: INSULIN ASPART 100 UNITS/ML 3 ML PEN SC SCH ×4 (08:54→20:43)
--- NOTE | 2019-01-16 11:24 | Hospitalist Progress Note ---
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 Unable to obtain accurate ankle to brachial indices given vessel noncompressibility. Triphasic and biphasic flow within the right common femoral or superficial femoral arteries with monophasic flow within the right calf vessels. Although no elevated velocities identified, the findings raise the possibility of an intervening stenosis. Patient sees Dr. Wiseman on he could be consulted on Thursday to follow up with this - LE doppler negative for DVT - MRI concerning for early osteomyelitis - per surgery, no surgery at this time, should try a few weeks of IV abx at home. Restart Coumadin this evening - Consulted ID for guidance on home regimen (2) Anemia: Macrocytic H & H stable around 8.5-9 Iron normal, TIBC and transferrin low, reticulocyte count elevated, B12 and Marie te normal Continue po iron Patient will need follow up with Heme/onc as he is missing his appt due to this hospitalization (3) Atrial fibrillation: Restart Coumadin, continue metoprolol (4) CAD (coronary artery disease): continue metoprolol, pravastatin, ASA, INR 1.3 - restart Coumadin as above (5) DMII (diabetes mellitus, type 2): hypoglycemic on admission hold home sulfonylurea, will give ss - hold sulfonylurea at discharge given hypoglycemia at admission and have him fu with primary. He had apparently just recently started with this medication bsgs ac & hs (6) History of GI bleed: due to ulcer continue ppi (7) DVT prophylaxis: Warfarin, SCDs Supervising Physician Co-Signing Physician Notes I supervised Pina Ruano NP on the care of this patient. We discussed the patient's status and plan of care. The plan is as written in her note. Subjective Mr. Lawson is up to a chair, he has some pain in his foot at times but is overall comfortable Review of Systems Review of Systems: All systems reviewed & are unremarkable except as noted in HPI & below Physical Exam Physical Exam: General: no distress Eyes: normal inspection, PERLL Respiratory: chest non tender, clear to auscultation, normal breath sounds, no respiratory distress, no accessory muscle use Cardiac: regular rate and rhythm, no rub or gallop, no murmur, no edema, no jvd GI/: active bowel sounds, no abd pain or tenderness, soft, non distended Extremities: normal range of motion, normal strength, non tender Neuro/Psych: alert and oriented x 3, normal mood and affect Skin: normal color, dry, small amount of improvement in erythema around right foot and lower leg Results & Data Vital Signs (Past 12 Hours) Vital Signs Temp Pulse Resp BP Pulse Ox 01/16/19 08:02 36.5 C 80 16 106/66 98 01/16/19 00:05 36.6 C 72 18 105/64 99
[2019-01-16 13:05] LABS: Creatinine Clr Calc Pharmacy 36.5 ml/min; Est GFR (African American) 63.1; Est GFR (Non-African American) 54.4
[2019-01-16] MEDS: DAPTOmycin 350 MG in SYRINGE 0 ML IV SCH (14:21)
[2019-01-16] MEDS: PRAVASTATIN SOD 40 MG TAB PO SCH (20:34)
[2019-01-17] MEDS: PIPERACILLIN/TAZOBACTAM 3.375 GM in DEXTROSE 5% 100 ML IV SCH ×2 (01:57→11:10)
[2019-01-17 06:19] LABS: INR 1.1 (0.9-1.1); Prothrombin Time 11.4 Seconds (9.0-12.0)
[2019-01-17 06:23] LABS: Hematocrit (blood only) 24.5 % (42-52); Hemoglobin 7.8 g/dL (14.0-18.0); Mean Corpuscular Hgb Conc 31.8 g/dL (32-36); Mean Corpuscular Volume 103.4 fL (80-100); Mean Platelet Volume 9.8 fL (7.4-10.4); Platelet Count 164 K/uL (130-400); RDW Standard Deviation 59.8 fL (36.4-46.3); Red Blood Count 2.37 M/uL (4.7-6.1); White Blood Count 3.64 K/uL (4.8-10.8)
[2019-01-17 06:40] LABS: BUN Creatinine Ratio 9.8 (10-20); Creatinine Clr Calc Pharmacy 31.6 ml/min; Est GFR (African American) 50.2; Est GFR (Non-African American) 43.3; Potassium 4.2 mmol/L (3.5-5.1)
--- NOTE | 2019-01-17 07:47 | Orthopedic Progress Note ---
Date of Service January 17, 2019 Assessment & Plan (1) Osteomyelitis of great toe of right foot: 1. Right great toe distal phalanx, early osteomyelitis. 2. Cellulitis to right foot. 3. Dystrophic nails, right foot first and third toes. 4. Chronic venous stasis changes. 5. Multiple medical comorbidities including diabetes mellitus type 2. Continue IV antibiotics. Will sign off at this time and follow up with Dr. Macdonald's clinic in 2-3 weeks for re-evaluation. Discussed possible partial amputation if IV antibiotics do not help with the bone infection. WBAT RLE. Subjective Mr. Lawson is up to a chair. No complaints today. The pain is controlled in the right foot. States it "feels pretty good today." Physical Exam Constitutional: WD/WN, vitals as above Musculoskeletal: Right foot: 2+ edema of the lower leg. Erythema at the dorsum of the foot and dorsal 2nd/3rd toes. The great toe has mild erythema at the lateral aspect. No drainage from the great toe noted. Dystrophic nails of the great toe, 2nd and 3rd toes. No obvious tenderness with palpation of the foot today. Psychiatric: A+Ox3, euthymic affect Results & Data Vital Signs (Past 12 Hours) Vital Signs Temp Pulse Resp BP Pulse Ox 01/17/19 07:33 36.6 C 79 18 116/62 97 01/16/19 22:39 36.6 C 84 16 95 01/16/19 20:33 83 18 112/65
[2019-01-17] MEDS: PANTOprazole 40 MG TAB PO SCH (07:54)
[2019-01-17] MEDS: METOPROLOL TARTRATE 25 MG TAB PO SCH (07:54)
[2019-01-17] MEDS: CHOLECALCIFEROL 1,000 UNITS TAB PO SCH (07:54)
[2019-01-17] MEDS: FERROUS SULFATE 325 MG TAB PO SCH (07:54)
[2019-01-17] MEDS: ASPIRIN 81 MG ECTAB PO SCH (07:54)
[2019-01-17] MEDS: INSULIN ASPART 100 UNITS/ML 3 ML PEN SC SCH ×2 (08:53→12:43)
--- NOTE | 2019-01-17 11:02 | XRay Report ---
XR chest 1V portable HISTORY: 88 years-old Male left PICC tip placement status post placement of a left-sided PICC COMPARISON: Chest radiograph 09/21/2015 TECHNIQUE: Portable AP view of the chest FINDINGS: Left-sided PICC has been placed, distal tip terminating within the expected location of the inferior SVC. No postprocedural pneumothorax. Heart is normal in size with prior median sternotomy with cardia c valvular prosthesis. Calcification the thoracic aortic arch. Mild left hemidiaphragm elevation with subsegmental left basilar opacities. No overt pulmonary edema or lobar airspace consolidation. 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 IMPRESSION: 1. Left-sided PICC is noted with distal tip terminating in the expected location of the inferior SVC. 2. No pneumothorax. 3. Mild left hemidiaphragm elevation with left basilar opacities suggestive of probable atelectasis. The above report was generated using voice recognition software. It may contain grammatical, syntax o r spelling errors. Electronically signed by: Codey Dumas M.D. 01/17/2019 11:00 AM
[2019-01-17] MEDS: DAPTOmycin 350 MG in SYRINGE 0 ML IV SCH (12:44)
--- NOTE | 2019-01-17 14:33 | Infectious Disease Progress Nt ---
Date of Service January 17, 2019 Assessment & Plan (1) Osteomyelitis of great toe of right foot: Patient with early osteomyelitis of the right great toe and cellulitis of the right foot, with clinical response to IV antibiotics. Patient will require prolonged antibiotic therapy, would prefer IV antibiotics if can be arranged and daptomycin would likely give best coverage. Otherwise would consider use of Zyvox. Discussed with hospitalist. Will follow. (2) Cellulitis: Subjective Patient seen in follow-up for right foot cellulitis and right great toe osteomyelitis. Feeling better today, pain in right foot has improved. Currently 1 out of 10 in intensity. Remains afebrile. Tolerating antibiotics without apparent difficulty. No other new complaints. Review of Systems Review of Systems: All systems reviewed & are unremarkable except as noted in HPI & below Physical Exam Constitutional: WD/WN, vitals as above comfortable; no acute distress Eyes: PERRL, conjunctivae normal, anicteric sclerae ENMT: external ear and nose normal, oropharynx normal Neck: trachea midline, no thyromegaly neck nontender Respiratory: normal respiratory effort, lungs clear to auscultation normal percussion; does not use accessory muscles Cardiovascular: Rate/Rhythm: regular rate and regular rhythm Heart Sounds: normal S1 and normal S2; no gallop, no murmur and no cardiac rub Vessels: no JVD Gastrointestinal (Abdomen): normal bowel sounds, soft, nontender, no hepatosplenomegaly Musculoskeletal: no cyanosis or clubbing, extremities motor strength 5/5 Spine: thoracic spine normal to inspection and lumbar spine normal to inspection; no cervical spinal tenderness Skin: no rashes, warm and dry normal turgor and + erythema (Fading right foot) Neurologic: patellar DTR's 2+ bilat, sensation intact no focal motor deficits Psychiatric: A+Ox3, euthymic affect Orientation: cooperative Lymphatic: no cervical or axillary lymphadenopathy no inguinal lymphadenopathy Results & Data Vital Signs (Past 12 Hours) Vital Signs Temp Pulse Resp BP Pulse Ox 01/17/19 07:33 36.6 C 79 18 116/62 97 Laboratory Results Short CBC 01/17/19 Range/Units 05:56 WBC 3.64 L (4.8-10.8) K/uL Hgb 7.8 L (14.0-18.0) g/dL Hct 24.5 L (42-52) % Plt Count 164 (130-400) K/uL BMP 01/17/19 05:56 Sodium 137 Potassium 4.2 Chloride 105 Carbon Dioxide 28 BUN 14 Creatinine 1.45 H Glucose 103 H Calcium 8.0 L Diagnostic Findings Microbiology 01/11/19 18:04 Blood Blood Culture - Final No growth 01/11/19 17:49 Blood Blood Culture - Final No growth
--- NOTE | 2019-01-19 21:43 | Discharge Summary ---
Date of Service date of admission - January 11, 2019 date of discharge - January 17, 2019 Admission HPI Per Admitting Provider Mr. Lawson presents today from Ange Christy's office due to failed outpatient treatment of cellulitis of the right foot. He has been on 5 of a 10 day Keflex regimen with some improvement but still with significant erythema and edema. He has some pain. Denies aches, chills or fevers. He had been trimming his toenails and believes that's what started the infection initially. He also has a history of anemia. [facility] so he was to follow up with Dr. Dalton in 2 days. He denies any blood in his stools or dark or tarry stools. Principal Diagnosis right foot cellulitis with probable osteomyelitis of the right great toe Discharge Exam Constitutional + thin; no acute distress ENMT external ear and nose normal, oropharynx normal Respiratory normal respiratory effort, lungs clear to auscultation Cardiovascular Rate/Rhythm: regular rate; + abnormal rhythm (irregular ) Heart Sounds: normal S1, normal S2 and + murmur (1/6 MILLER ) Vessels: no JVD Extremities: no edema pulses, right foot, 1+ at best; left foot - 1+ pulses Gastrointestinal (Abdomen) normal bowel sounds, soft, nontender, no hepatosplenomegaly Skin onychomycosis of all toenails of right foot; minimal amount of erythema on right foot; in between first/2nd toes in webspace is macerated skin due to the toes rubbing together. Psychiatric A+Ox3, euthymic affect Discharge Data Allergies Allergy/AdvReac Type Severity Reaction Status Date / Time No Known Allergies Allergy Unknown Verified 03/29/18 06:54 Consultations 1. Orthopedic Surgery - Saqib Macdonald DO 2. Infectious Disease - Ab Germain MD 3. Physical Therapy Ordered Studies 1. RLE venous doppler negative for DVT. 2. Arterial Duplex Study, RLE - IMPRESSION: 1. Extensive atherosclerotic plaque within the right lower extremity. Unable to obtain accurate ankle to brachial indices given vessel noncompressibility. 2. Triphasic and biphasic flow within the right common femoral or superficial femoral arteries with monophasic flow within the right calf vessels. Although no elevated velocities identified, the findings raise the possibility of an intervening stenosis. 3. Right ankle MRI - IMPRESSION: 1. No evidence of acute osteomyelitis 2. No evidence of occult fracture 3. No evidence of abscess 4. MRI right foot - IMPRESSION: 1. Subtle T1 and T2 marrow edema involving the tuft of distal phalanx of the great toe with an adjacent soft tissue ulceration. The findings are suspicious for early osteomyelitis. 2. Soft tissue edema, most pronounced dorsally 5. 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 He initially received broad-spectrum IV antibiotics and at time of discharge was transitioned to monotherapy with once daily IV daptomycin. He had a LUE PICC line placed in order to complete a probable 6-week course of IV antibiotics. He was seen in consult by Dr. Saqib Macdonald from [facility] who will see the patient in 2-3 weeks post-discharge. The patient can weight-bear as tolerated on the right foot. While on IV daptomycin he should have weekly CBC, BMP, CPK, and Sed rate. (2) Cellulitis: The patient was treated with IV zosyn and IV daptomycin while hospitalized. His right foot cellulitis resolved prior to discharge. He was seen in consult by infectious disease and orthopedics for the right great toe osteomyelitis. Infectious disease recommended a 6-week course of IV daptomycin for the osteomyelitis. See discussion above in "osteomyelitis." (3) Anemia: Chronic. Baseline hemoglobin 8 to 10. Discharge hemoglobin was 7.8. Iron level was normal, TIBC and transferrin were low, reticulocyte count was elevated, and B12/Folate were normal. The anemia appears to be due to "chronic disease." I recommended that he INCREASE his iron to twice daily dosing. He should follow up with Heme/onc (Dr. Miguel Dalton) after discharge for surveillance of this issue. (4) Atrial fibrillation: Stable while here. Coumadin was held in the event he needed surgical intervention on the foot. Since no surgery occurred he will restart his Coumadin at his previous dosing. He will remain on metoprolol. INR 1.1 on day of discharge. (5) CAD (coronary artery disease): He will continue metoprolol, pravastatin, ASA. No ischemic symptoms while hospitalized. (6) DMII (diabetes mellitus, type 2): He was taking a sulfonylurea at home for T2DM. He had significant hypoglycemia at time of admission. Hemoglobin a1c was <5.5% in August 2018. I recommended he NOT resume the sulfonylurea at discharge and to simply monitor his BSGs at home. (7) History of GI bleed: He will continue PPI therapy. (8) Chronic kidney disease, stage 3a: Discharge creatinine was 1.4. Baseline CrCl is about 30. Total Time Total Time Spent Total Time Spent (In Minutes): 50 Total Time Includes: Examination of the Patient, Discharge Planning, Medication Reconciliation and Communication With Other Providers Discharge Plan Discharge Items Patient Disposition: Home - Self-Care Reason For Visit: CELLULITIS ON FOOT AND LEG Discharge Diagnosis: cellulitis of right foot - resolved. bone infection of right great toe. Discharge Goals: Diagnostic testing and Therapeutic intervention Activity: Resume your previous activity Non-emergency contact: Primary Care Provider Call non-emergency contact if: you have any medication questions, your symptoms worsen and your temperature is above 100.5 Follow-up/Referrals: [facility] [place] Cardiology [Provider Group] - 01/18/19 8:50 am (Please, follow up at [facility] Cardiology Office for a PT and INR check on ThursdayJanuary 18 at 8:50 am. *If you need to change this appointment, call the office at [phone].) Brittney Fitzgerald PA-C [Physician Incinerator Operator] - 01/25/19 2:30 pm (Please, follow up at [facility] [place] Office with Brittney Fitzgerald PA-C on ThursdayJanuary 25 at 2:30 pm. *If you need to change this appointment, call the office at [phone].) Kana Martínez PA-C [Physician Incinerator Operator] - (Follow up with Dr. Macdonald's clinic in 2-3 weeks after discharge. Call to make appointment.) Diet: Carb Consistent or DM2 and Gluten Free Other Ambulatory Orders: Basic Metabolic Panel (Routine) Timeframe: 1 Week Location: Determined by Patient Ordered By: Garrison Liang Complete Blood Count with Diff (Routine) Timeframe: 1 Week Location: Determined by Patient Ordered By: Garrison Liang Creatine Kinase (Routine) Timeframe: 1 Week Location: Determined by Patient Ordered By: Garrison Liang Erythrocyte Sedimentation Rate (Routine) Timeframe: 1 Week Location: Determined by Patient Ordered By: Garrison Liang Addtl Provider Instructions: From Garrison Liang - Hospitalist - You were admitted for skin infection of right foot along with bone infection of the right great toe. You were seen by the orthopedic team as well as infectious disease team. Orthopedics recommended against surgery at this time. Infectious disease is recommending a 6-week course of IV antibiotics via your PICC line. Your first infusion is at the [facility] "[facility]" (medical treatment unit) at 10am on 01/18/19. You will go there daily for IV antibiotics. Your treatment course may last up to 6 weeks in duration. It is ok to shower but keep the PICC line covered, clean, and dry. No tub baths or immersion of the arm with the PICC line. No swimming. Additionally the wound care nurse recommends placing the following in between your big toe and the 2nd toe next to it - Kaltostat rope, small piece between toes add change every day. You have had a chronic anemia (low blood count) for some time. The exact cause is uncertain. Please INCREASE your iron tablet to twice daily. You will need follow-up for this anemia. You will need blood work in 1 week - see the four order slips. This can be done in 1 week at the [facility] when you present for your antibiotic. Follow-up appointments - see separate section. Diabetes -- your hemoglobin a1c in August 2019 was less than 5.5%. This is quite low for a diabetic. When you came to the hospital recently your blood sugars were running in the 50s and 60s. I would STOP your glipizide and simply CHECK your sugars daily for now. We can always restart medication down the line if needed. Return to [facility] if -- * you have fevers over 100.5 degrees * you have severe diarrhea * you have worsening redness of the right foot * you have worsening pain of the right foot * you have drainage from any skin opening of the right foot Prescriptions: New daptomycin 350 mg recon soln 350 mg IV DAILY 42 Days Qty: 42 RF: 0 Continued ASPIRIN (ASPIRIN EC) 81 MG tablet 81 mg PO QDL Qty: 0 RF: 0 Ascorbic Acid (Vitamin C) 500 MG tablet 1 tab PO QAM Qty: 0 RF: 0 Metoprolol Tartrate (Lopressor) (Lopressor) 50 MG tablet 25 mg PO BID Qty: 0 RF: 0 Omeprazole (Omeprazole Dr) 40 MG capsule 1 tab PO QAM Qty: 0 RF: 0 VITAMIN D 3 2 tab PO QAM Qty: 0 RF: 0 WARFARIN SODIUM (COUMADIN) 3 MG tablet 3 mg PO 5XWK Qty: 0 RF: 0 WARFARIN SODIUM (COUMADIN) 3 MG tablet 1.5 mg PO 2XWK 30 Days Qty: 0 RF: 0 Changed FERROUS SULFATE (IRON) 325 MG tablet 1 tab PO BID Qty: 60 RF: 2 Discontinued Glipizide 5 MG tablet 1 tab PO QAM Qty: 0 RF: 0 Pravastatin Sod (Pravastatin Sodium) 40 MG tablet 1 tab PEG HS Qty: 0 RF: 0 Stand-Alone Forms: [facility] Discharge Orders: Discharge Order (Routine); Ordered 01/17/19 Ordered By: Garrison Liang Admission Data Admit Date/Time: 01/11/19 16:23 Attending Provider: Garrison Liang Admit Provider: Brayden Patrick Primary Care Provider: Ange Christy Other Providers: Pina Ruano ; Albin Macdonald ; Ab Germain Service: Medical Other Interventions: Discharge Summary Assessment (RN) Last Done: 01/17/19 16:44 Pending Studies at Discharge: No DC Date/Time DO NOT enter until pt leaves facility: 01/17/19 18:25
== END 2019-01-17 18:25 | disposition home or self-care (01) | DRG 603 ==
LOC: SUATTDRO 16:23 → 4W 16:23

== ENCOUNTER 2019-02-15 15:22 | Inpatient (IN) ==
[2019-02-15] MEDS ORDERED: PIPERACILL/TAZOBAC CONSULT ACTIVE PRN (17:12)
[2019-02-15] MEDS ORDERED: ACETAMINOPHEN 325 MG TAB PO PRN (17:16)
[2019-02-15] MEDS ORDERED: POLYETHYLENE (MIRALAX) 17 GM PACK PO PRN (17:16)
[2019-02-15] MEDS ORDERED: ONDANSETRON 4 MG TAB PO PRN (17:16)
[2019-02-15 17:56] LABS: Hematocrit (blood only) 29.1 % (42-52); Mean Corpuscular Hgb Conc 34.4 g/dL (32-36); Mean Corpuscular Volume 95.1 fL (80-100); Mean Platelet Volume 10.1 fL (7.4-10.4); Platelet Count 188 K/uL (130-400); RDW Coefficient of Variation 13.5 % (11.5-14.5); RDW Standard Deviation 47.5 fL (36.4-46.3); Red Blood Count 3.06 M/uL (4.7-6.1); White Blood Count 3.17 K/uL (4.8-10.8)
--- NOTE | 2019-02-15 17:56 | History & Physical Report ---
Date of Service February 15, 2019 Assessment & Plan (1) Osteomyelitis of right foot: - Presented with worsening right foot cellulitis/osteomyelitis following recent admission 01/11-01/17. - Foot MRI 01/13 showed T1 and T2 marrow edema involving distal phalanx of great toe with ulceration, ?osteomyelitis. - Discharged with course of IV Daptomycin, failed outpt IV abx. - Will start Zosyn, continue Dapto IV for empiric coverage. - Blood cultures pending collection; no discharge is present to obtain wound culture. - Consult orthopedics -- may require amputation in future. - Consult ID, follows with Dr. Germain as outpatient. - Consult Dr. Wiseman with cardiology for vascular intervention in setting of significant PAD. - Tylenol prn pain; may need to add narcotics if necessary. (2) Peripheral arterial disease: - Arterial duplex on 01/13 showed extensive plaque within RLE, could not obtain ABIs. - Consulting cardiology for intervention due to failure of IV abx in setting of osteomyelitis. - Holding Coumadin for possible procedure but okay to continue aspirin; holding statin in setting of Daptomycin therapy. - No indication for repeat arterial duplex unless requested by cardiology. - NPO after midnight for possible procedure; holding Warfarin. (3) Chronic kidney disease, stage 3a: - Renally dose all meds. - Labs from admission are pending. (4) DMII (diabetes mellitus, type 2): - Most recent A1C was WNL in Aug 2018. - Was hypoglycemic at home on oral meds -- instructed to d/c all meds. - No indication for ac/hs gluc checks, monitor qAM. (5) CAD (coronary artery disease): - S/p CABG. - Continue Metoprolol 25 mg BID as prescribed. - Holding statin in setting of Dapto therapy -Okay to continue aspirin 81 mg daily (6) Atrial fibrillation: - Currently rate controlled. - Will hold home Warfarin for procedure; INR was 1.9 this afternoon. - Continue beta onur as prescribed. - INR is 1.9, will hold Vit K and administer on 02/16 if procedure is planned. (7) Anemia of chronic disease: - Continue ferrous sulfate 325 mg BID. - Monitor CBC daily. (8) H/O aortic valve replacement: In 2010, valve is functioning well most recent echocardiogram performed as an outpatient This is a bovine bioprosthetic valve (9) HLD (hyperlipidemia): - Holding statin in setting of Daptomycin therapy. (10) History of GI bleed: - PPI daily. (11) DVT prophylaxis: - SCDs; holding pharmacologic ppx for procedure. Dispo: Med/surg for treatment of right foot osteomyelitis; cardiology, orthopedics and ID consulted. History of Present Illness Chief Complaint: Right foot cellulitis/osteomyelitis Primary Care Provider: DEMAR Rosario Mr. Ross is an 88 year old male with past medical history of anemia of chronic disease, A. fib on Coumadin, CAD status post 2v CABG, severe now status post bovine AVR, type II DM, CKD Stage III and ANDREE with stent, PAD, subclavian artery stenosis, HTN, HL, history of peptic ulcer disease with GI bleed, and recent right foot osteomyelitis who presented from the ID clinic for worsening cellulitis/osteomyelitis of the right foot. Pt. was admitted 01/11-01/17 for right foot osteomyelitis; he was discharged to home with a PICC line and has been receiving daily Daptomycin IV infusions. He presented to the ID clinic with worsening erythema of the right foot; pt. also did not have sufficient pulses of the right lower extremity/foot. Pt. reports feeling well overall with exception of right foot pain. Pain is worse with rest, improves with moving/ambulating. Denies fever/chills, SOB, chest pain, increased LE edema, URI symptoms, abd pain, constipation or diarrhea, dysuria or hematuria. Allergies Allergy/AdvReac Type Severity Reaction Status Date / Time No Known Allergies Allergy Unknown Verified 02/15/19 07:39 Home Medications Home Medications Medication Instructions Recorded Confirmed Type ascorbic acid (vitamin C) 500 mg PO DAILY #0 03/17/18 02/15/19 History aspirin 81 mg PO DAILY #0 03/17/18 02/15/19 History cholecalciferol (vitamin D3) 2,000 unit PO DAILY #0 03/17/18 02/15/19 History [Vitamin D3] metoprolol tartrate 0 mg PO BID #0 tab 03/17/18 02/15/19 History omeprazole 40 mg PO DAILY #0 03/17/18 02/15/19 History warfarin 0 mg PO DAILY #0 tab 03/17/18 02/15/19 History ferrous sulfate 325 mg PO BID 01/22/19 02/15/19 History lisinopril 0 mg PO DAILY 02/06/19 02/15/19 History Past Med/Surg History Medical History A-fib Anemia of chronic disease CKD (chronic kidney disease), stage III Coronary artery disease GERD (gastroesophageal reflux disease) HTN (hypertension), benign History of peptic ulcer disease History of stent insertion of renal artery Right, in the Hyperlipidemia Subclavian artery stenosis Diabetes mellitus (Acute) type 2 Osteomyelitis (Acute) Surgical History History of cholecystectomy History of left inguinal hernia repair Aortic valve replaced (Acute) Hx of CABG (Acute) Family History Father Family history non-contributory Social History Preferred Language: Bangladeshi Communication Ability: Effective Beliefs That Will Affect Care: None Current Living Situation: Spouse Other Information That Helps Us Care for You: No Feels Safe at Home: Yes Safety Concerns: Feels Safe At This Time Smoking Status: Former smoker Tobacco Type: cigarettes Cigarettes Per Day: 20 Do You Dip or Chew Tobacco: No Smoking End Date: 1988 Second Hand Exposure: No Tobacco Cessation Education Requested by Patient: No Hx Alcohol Use: No Hx Substance Use: No Review of Systems Review of Systems: All systems reviewed & are unremarkable except as noted in HPI & below Constitutional: no fever, no chills, no fatigue, no weakness and no anorexia Ear, Nose, Mouth, Throat: no nasal congestion, no nasal discharge, no post nasal drip, no sinus pain/pressure and no sore throat Respiratory: no cough, no dyspnea, no dyspnea on exertion and no wheezing Cardiovascular: no chest pain, no palpitations, no lightheadedness, no syncope and no edema Gastrointestinal: no abdominal pain, no nausea, no vomiting, no constipation and no diarrhea/loose stools Genitourinary: no dysuria, no difficulty urinating and no hematuria Musculoskeletal: no back pain, no joint pain, no swelling and no myalgia Integumentary: + non-healing lesions (Right foot/toe ), + sores and + erythema Hematologic / Lymphatic: no easy bleeding and no easy bruising Allergy / Immunological: no rash Physical Exam Physical Exam: General: Resting comfortably in no apparent distress HEENT: NC/AT; PERRLA with EOMI; [place] conjunctiva, MMM. No erythema of posterior pharynx Neck: Supple and nontender Cardiac: Irregular, rate controlled. Lungs: CTA bilaterally; No rhonchi, wheezing, or rales Abdomen: Bowel normoactive X 4; Nontender to palpation Back: NO spinous tenderness Extremities: Warm. +1 bilat LE edema, likely chronic. Tenderness to palpation over right foot; skin exam as noted below. Very difficult to palpate dorsalis pedis and posterior tibial pulse of right foot, used doppler machine to find very weak pulses. Neuro: No focal weakness Skin: erythema noted over right foot, extending from ankle to all digits, increased over great toe to third toe. Open wound noted on left lateral side of 2nd toe, no discharge or foul odor noted. Supervising Physician Co-Signing Physician Notes PA Supervision Note: I personally saw and examined the patient. I verified all cerrato points and agree with HALLE Ambriz with the following exceptions and/or additions: Patient here for failure of outpatient IV antibiotic therapy with daptomycin for worsening right foot osteomyelitis and cellulitis. Was sent over here by infectious disease Dr. Germain to add additional IV antibiotics and have vascular evaluation for severe PAD. Patient denies chest pain or shortness of breath, does have some pain in the foot that travels up the leg that is an 8 out of 10. He reports the swelling is may be a little bit worse than previous and the redness is worse. History reviewed and agree with above Vitals reviewed Gen: AAOx3, NAD, thin HEENT: Anicteric sclerae, EOMI CV: Irregularly irregular with normal rate, 2/6 MILLER at the [facility] Pulm: Mild bibasilar crackles that clear with deep inspiration, breathing unlabored Abd: +BS soft NT ND no masses or hernias Ext: 1+ woody edema of the legs to the mid tibia bilaterally right greater than left, nonpalpable pulses on the right dorsalis pedis and posterior tibialis, 1+ dorsalis pedis pulse on the left Skin: Right dorsal foot and all of toes on the right with erythema, wound in the lateral second toe with scab in place, no active drainage, tenderness and edema especially of the second toe Neuro: Full strength throughout 88-year-old male with history as above with severe PAD, CAD status post CABG and bioprosthetic AVR, diabetes, hypertension, hyperlipidemia, CKD stage III, here with worsening cellulitis and osteomyelitis of the right toe and foot. -Admit to medical and add on IV Zosyn to his current IV daptomycin Plan for cardiology interventional evaluation to see if any improvement of blood flow in the right lower extremity could be obtained for improved healing -Orthopedic consult to assess for need for amputation although patient reports he would decline this -Add hydrocodone for pain control
[2019-02-15 18:05] LABS: INR 1.9 (0.9-1.1); Prothrombin Time 18.9 Seconds (9.0-12.0)
[2019-02-15] MEDS ORDERED: DAPTOMYCIN CONSULT ACTIVE PRN ×2 (18:05→18:14)
[2019-02-15] MEDS ORDERED: PIPERACILLIN/TAZOBACTAM 4.5 GM in DEXTROSE 5% 100 ML IV ONE (18:15)
[2019-02-15 18:24] LABS: Alanine Aminotransferase 29 U/L (12-78); Albumin Level 2.4 gm/dl (3.4-5.0); Aspartate Aminotransferase 21 U/L (15-37); BUN Creatinine Ratio 24.7 (10-20); Blood Urea Nitrogen 30 mg/dl (7-18); Carbon Dioxide 23 mmol/L (21-32); Chloride 104 mmol/L (98-107); Creatinine Clr Calc Pharmacy 36.4 ml/min; Est GFR (African American) 62.5; Est GFR (Non-African American) 53.9; Glucose 83 mg/dl (70-99); Magnesium 1.5 mg/dl (1.8-2.4); Potassium 4.3 mmol/L (3.5-5.1); Sodium 133 mmol/L (136-145)
[2019-02-15 18:27] LABS: Albumin Globulin Ratio 0.7 (0.9-2); Alkaline Phosphatase 122 U/L (45-117); Bilirubin,Total 0.3 mg/dl (0.2-1); C Reactive Protein < 0.29 mg/dl (0-0.29); Globulin 3.3 gm/dl (2.5-4.0); Total Protein 5.7 gm/dl (6.4-8.2)
[2019-02-15] MEDS ORDERED: MAGNESIUM OXIDE 400 MG TAB PO ONE (18:30)
[2019-02-15] MEDS: DOCUSATE SODIUM/SENNA 50/8.6MG TAB PO SCH (20:41)
[2019-02-15] MEDS: METOPROLOL TARTRATE 25 MG TAB PO SCH (20:41)
[2019-02-15] MEDS: MAGNESIUM SULFATE / D5W 1 GM/100 ML BAG IV SCH ×2 (20:48→21:42)
[2019-02-15] MEDS: HYDROCODONE/ACETAMOPHEN 5/325MG TAB PO PRN (22:33)
[2019-02-15] MEDS: PIPERACILLIN/TAZOBACTAM 3.375 GM in DEXTROSE 5% 100 ML IV SCH (22:48)
[2019-02-16] MEDS ORDERED: DAPTOmycin 350 MG in SYRINGE 0 ML IV SCH (06:00)
[2019-02-16] MEDS: PIPERACILLIN/TAZOBACTAM 3.375 GM in DEXTROSE 5% 100 ML IV SCH ×3 (06:23→22:03)
[2019-02-16 06:37] LABS: Hematocrit (blood only) 28.2 % (42-52); Hemoglobin 9.6 g/dL (14.0-18.0); Mean Corpuscular Volume 95.3 fL (80-100); Mean Platelet Volume 10.1 fL (7.4-10.4); Platelet Count 190 K/uL (130-400); RDW Coefficient of Variation 13.7 % (11.5-14.5); RDW Standard Deviation 47.8 fL (36.4-46.3); Red Blood Count 2.96 M/uL (4.7-6.1); White Blood Count 3.04 K/uL (4.8-10.8)
[2019-02-16 06:46] LABS: INR 1.9 (0.9-1.1); Prothrombin Time 18.6 Seconds (9.0-12.0)
[2019-02-16 07:14] LABS: BUN Creatinine Ratio 20.1 (10-20); Calcium 8.2 mg/dl (8.5-10.1); Creatinine Clr Calc Pharmacy 28.2 ml/min; Est GFR (African American) 45.9; Est GFR (Non-African American) 39.6; Potassium 4.1 mmol/L (3.5-5.1)
[2019-02-16] MEDS ORDERED: SODIUM CHLORIDE 0.9% 1000ML 500 ML IV ONE (08:09)
[2019-02-16] MEDS: METOPROLOL TARTRATE 25 MG TAB PO SCH ×2 (08:58→22:00)
--- NOTE | 2019-02-16 09:28 | Cardiology Consultation ---
Date of Consultation February 16, 2019 Assessment & Plan (1) Osteomyelitis of right foot: 2. Ulceration of right lower extremity 3. Peripheral arterial disease 4. Coronary artery disease status post CABGx2 5. Bioprosthetic AVR 6. Atrial fibrillation 7. CKD 8. Type 2 DM Patient with a traumatic, nonhealing wound of his right lower extremity. He has evidence of osteomyelitis of right great toe with worsening cellulitis despite outpatient IV antibiotics. Arterial duplex reviewed with Dr. Wiseman. Patient appears to have significant tibial disease. Recommend lower extremity angiogram with possible intervention. Due to elevated INR and creatinine will plan for procedure tomorrow morning. Continue to hold warfarin. Recommend IV fluids today. Supervising Physician Co-Signing Physician Notes Patient seen and examined. Agree with assessment and plan as oultined by Physician Racecar Driver Zaira Robledo. Briefly, Mr. Lawson is a pleasant 88-year-old man known to me from the outpatient setting with a history of prior bioprosthetic AVR and two-vessel CABG, mild CKD, type 2 diabetes, atrial fibrillation on Coumadin, prior renal artery stenting who was admitted with right lower extremity distal ulceration, cellulitis and osteomyelitis involving his great toe. Cellulitis not responding to outpatient IV antibiotics per ID. No systemic infectious signs. Patient feeling well today with reasonably controlled right lower extremity pain. On exam appears comfortable, 1+ right lower extremity edema, nonpalpable DP/PT pulses on the right, diminished capillary refill, small superficial ulceration involving nailbed of second digit. Mild surrounding erythema extending into forefoot. Arterial duplex reviewed. Patent with multiphasic waveforms until popliteal artery which appears stenotic on 2D and heavily calcified. Diminished, monophasic waveforms and tibial arteries with heavy calcification. Foot perfusion appears impaired and in the setting of osteomyelitis, distal ulceration feel potential benefit from revascularization. Plan for angiogram tomorrow pending improvement in renal function. History of Present Illness Reason for Consultation: Peripheral arterial disease Attending Physician: Garrison Liang History of Present Illness Mr. Lawson is an 88 year old male with a medical history significant for aortic stenosis status post bioprosthetic AVR (2010), coronary artery disease status post 2 vessel CABG (vein graft to LAD, vein graft to OM; 2010), atrial fibrillation, peptic ulcer disease with prior GI bleed, type 2 diabetes, CKD and peripheral arterial disease with history of renal artery stenting. Several months ago patient developed wound of right foot after cutting his toenails. He was initially treated by his PCP with oral antibiotics but due to worsening cellulitis was admitted to [facility] on 01/11/19. MRI of his foot demonstrated probable osteomyelitis of distal phalanx of right great toe. Orthopedics at that time recommended trial of conservative therapy. Lower extremity arterial duplex noted extensive plaque in the right lower extremity with monophasic flow in the calf vessels. ABIs were unable to be obtained. TBI from November 2018 was 0.47 with toe pressure of 73 mmHg. Patient was discharged home on IV antibiotics with daptomycin. He was seen by Dr. Germain in the office yesterday and due to evidence of worsening cellulitis was sent to the hospital. Blood cultures are pending. Patient reports intermittent pain in his right foot which has been more bothersome over the past 1-2 weeks. Also notes some swelling of his lower extremities. No claudication symptoms. No chest pain or shortness of breath. No fever, chills or sweats. Allergies Allergy/AdvReac Type Severity Reaction Status Date / Time No Known Allergies Allergy Unknown Verified 02/15/19 07:39 Home Medications Home Medications Medication Instructions Recorded Confirmed Type ascorbic acid (vitamin C) 500 mg PO DAILY #0 03/17/18 02/15/19 History aspirin 81 mg PO DAILY #0 03/17/18 02/15/19 History cholecalciferol (vitamin D3) 2,000 unit PO DAILY #0 03/17/18 02/15/19 History [Vitamin D3] metoprolol tartrate 0 mg PO BID #0 tab 03/17/18 02/15/19 History omeprazole 40 mg PO DAILY #0 03/17/18 02/15/19 History warfarin 0 mg PO DAILY #0 tab 03/17/18 02/15/19 History ferrous sulfate 325 mg PO BID 01/22/19 02/15/19 History lisinopril 0 mg PO DAILY 02/06/19 02/15/19 History Patient History Medical History A-fib Anemia of chronic disease CKD (chronic kidney disease), stage III Coronary artery disease GERD (gastroesophageal reflux disease) HTN (hypertension), benign History of peptic ulcer disease History of stent insertion of renal artery Right, in the Hyperlipidemia Subclavian artery stenosis Diabetes mellitus (Acute) type 2 Osteomyelitis (Acute) Surgical History History of cholecystectomy History of left inguinal hernia repair Aortic valve replaced (Acute) Hx of CABG (Acute) Family History Father Family history non-contributory Social History Preferred Language: Hebrew Communication Ability: Effective Beliefs That Will Affect Care: None marital status: Current Living Situation: Spouse Other Information That Helps Us Care for You: No Feels Safe at Home: Yes Safety Concerns: Feels Safe At This Time Smoking Status: Former smoker Tobacco Type: cigarettes Cigarettes Per Day: 20 Do You Dip or Chew Tobacco: No Smoking End Date: 1988 Second Hand Exposure: No Tobacco Cessation Education Requested by Patient: No Hx Alcohol Use: No Hx Substance Use: No Review of Systems Review of Systems: All systems reviewed & are unremarkable except as noted in HPI & below Physical Exam Physical Exam: General: No acute distress, comfortable. HEENT: Head is normal. PERRLA. EOMI. Sclerae anicteric. Ears, nose and throat unremarkable. Mucous membranes moist. Neck: Normal carotid upstrokes, no bruits. No appreciable JVD. Lungs: Clear to auscultation bilaterally without rales, rhonchi or wheezes. Cardiac: Irregularly irregular. [place] valve sound. Grade 2/6 systolic murmur. Abdomen: Soft and nontender. Bowel sounds normal. No mass or organomegaly. No abdominal bruit. Extremities/vascular: --Ulceration of medial right second toe, eschar present. Surrounding erythema extending to surrounding toes and distal dorsum of foot --1+ lower extremity edema bilaterally; hyperpigmentation bilaterally --Right radial pulse 2+, left radial pulse 1+, PT/DP pulses nonpalpable bilaterally, femoral pulses palpable Results & Data Vital Signs (Past 12 Hours) Vital Signs Temp Pulse Pulse Resp BP Pulse Ox 02/16/19 07:45 36.4 C L 68 16 124/68 95 02/16/19 07:05 48 L 02/16/19 02:50 48 L 02/15/19 23:27 36.4 C L 44 L 16 123/60 97 02/15/19 23:25 40 L Laboratory Results Laboratory Results - last 24 hr 02/15/19 02/15/19 02/15/19 17:05 17:35 17:35 WBC 3.17 L RBC 3.06 L Hgb 10.0 L Hct 29.1 L MCV 95.1 MCH 32.7 MCHC 34.4 RDW Std Deviation 47.5 H RDW Coeff of Gilbert 13.5 Plt Count 188 MPV 10.1 ESR 5 PT INR Sodium Potassium Chloride Carbon Dioxide Anion Gap BUN Creatinine Est Cr Clr Drug Dosing Est GFR ( Amer) Est GFR (Non-Af Amer) BUN/Creatinine Ratio Glucose POC Glucose 82 Calcium Magnesium Total Bilirubin AST ALT Alkaline Phosphatase C-Reactive Protein Total Protein Albumin Globulin Albumin/Globulin Ratio 02/15/19 02/15/19 02/16/19 17:35 17:35 05:39 WBC 3.04 L RBC 2.96 L Hgb 9.6 L Hct 28.2 L MCV 95.3 MCH 32.4 MCHC 34.0 RDW Std Deviation 47.8 H RDW Coeff of Gilbert 13.7 Plt Count 190 MPV 10.1 ESR PT 18.9 H INR 1.9 H Sodium 133 L Potassium 4.3 Chloride 104 Carbon Dioxide 23 Anion Gap 6.0 BUN 30 H Creatinine 1.21 Est Cr Clr Drug Dosing 36.4 Est GFR ( Amer) 62.5 Est GFR (Non-Af Amer) 53.9 BUN/Creatinine Ratio 24.7 H Glucose 83 POC Glucose Calcium 8.0 L Magnesium 1.5 L Total Bilirubin 0.3 AST 21 ALT 29 Alkaline Phosphatase 122 H C-Reactive Protein < 0.29 Total Protein 5.7 L Albumin 2.4 L Globulin 3.3 Albumin/Globulin Ratio 0.7 L 02/16/19 02/16/19 02/16/19 05:39 05:39 06:27 WBC RBC Hgb Hct MCV MCH MCHC RDW Std Deviation RDW Coeff of Gilbert Plt Count MPV ESR PT 18.6 H INR 1.9 H Sodium 136 Potassium 4.1 Chloride 105 Carbon Dioxide 23 Anion Gap 8.0 BUN 31 H Creatinine 1.56 H D Est Cr Clr Drug Dosing 28.2 Est GFR ( Amer) 45.9 Est GFR (Non-Af Amer) 39.6 BUN/Creatinine Ratio 20.1 H Glucose 83 POC Glucose 84 Calcium 8.2 L Magnesium 2.0 Total Bilirubin AST ALT Alkaline Phosphatase C-Reactive Protein Total Protein Albumin Globulin Albumin/Globulin Ratio 02/16/19 08:02 WBC RBC Hgb Hct MCV MCH MCHC RDW Std Deviation RDW Coeff of Gilbert Plt Count MPV ESR PT INR Sodium Potassium Chloride Carbon Dioxide Anion Gap BUN Creatinine Est Cr Clr Drug Dosing Est GFR ( Amer) Est GFR (Non-Af Amer) BUN/Creatinine Ratio Glucose POC Glucose 91 Calcium Magnesium Total Bilirubin AST ALT Alkaline Phosphatase C-Reactive Protein Total Protein Albumin Globulin Albumin/Globulin Ratio
[2019-02-16] MEDS: ASPIRIN 81 MG ECTAB PO SCH (10:19)
[2019-02-16] MEDS: FERROUS SULFATE 325 MG TAB PO SCH ×2 (10:20→18:08)
[2019-02-16] MEDS: DOCUSATE SODIUM/SENNA 50/8.6MG TAB PO SCH ×2 (10:21→22:03)
[2019-02-16] MEDS: PANTOprazole 40 MG TAB PO SCH (10:21)
--- NOTE | 2019-02-16 10:48 | Infectious Disease Consult ---
Date of Consultation February 16, 2019 Assessment & Plan (1) Osteomyelitis of right foot: continue current abx, await vascular findings, suspect failure of supply of abx vs failure of abx choice. will follow cultures. (2) Peripheral arterial disease: History of Present Illness Attending Physician: Garrison Liang pt admitted from ID office due to worsening right first toe. was seen by Dr. Germain in hospital on 01/15 for osteomyelitis right toe, no previous cultures, blood cultures negative. pt has + response to IV dapto and plan was to continued prolonged course of emperic dapto. pt was tolerating well but had increased redness in toe, was seen in office and sent for admission. In ER he was continued on dapto and zosyn was added. Vascular eval also obtained, he is planning for angiogram in am. no pain in foot on my exam. tolerating abx, states only pain with deep palpation. otherwise he states he is doing well. he denies f/c. no n/v/d/abd pain, no cp, sob, cough. ESR on last admission was 5, creat 1.5, wbc 3. afebrile since admission and denies fever at home. 02/15 blood culture pending. denies any open wounds, drainage or bleeding from foot. Allergies Allergy/AdvReac Type Severity Reaction Status Date / Time No Known Allergies Allergy Unknown Verified 02/15/19 07:39 Home Medications Home Medications Medication Instructions Recorded Confirmed Type ascorbic acid (vitamin C) 500 mg PO DAILY #0 03/17/18 02/15/19 History aspirin 81 mg PO DAILY #0 03/17/18 02/15/19 History cholecalciferol (vitamin D3) 2,000 unit PO DAILY #0 03/17/18 02/15/19 History [Vitamin D3] metoprolol tartrate 0 mg PO BID #0 tab 03/17/18 02/15/19 History omeprazole 40 mg PO DAILY #0 03/17/18 02/15/19 History warfarin 0 mg PO DAILY #0 tab 03/17/18 02/15/19 History ferrous sulfate 325 mg PO BID 01/22/19 02/15/19 History lisinopril 0 mg PO DAILY 02/06/19 02/15/19 History Patient History Medical History A-fib Anemia of chronic disease CKD (chronic kidney disease), stage III Coronary artery disease GERD (gastroesophageal reflux disease) HTN (hypertension), benign History of peptic ulcer disease History of stent insertion of renal artery Right, in the Hyperlipidemia Subclavian artery stenosis Diabetes mellitus (Acute) type 2 Osteomyelitis (Acute) Surgical History History of cholecystectomy History of left inguinal hernia repair Aortic valve replaced (Acute) Hx of CABG (Acute) Family History Father Family history non-contributory Social History Preferred Language: Mongolian Communication Ability: Effective Beliefs That Will Affect Care: None Current Living Situation: Spouse Other Information That Helps Us Care for You: No Feels Safe at Home: Yes Safety Concerns: Feels Safe At This Time Smoking Status: Former smoker Tobacco Type: cigarettes Cigarettes Per Day: 20 Do You Dip or Chew Tobacco: No Smoking End Date: 1988 Second Hand Exposure: No Tobacco Cessation Education Requested by Patient: No Hx Alcohol Use: No Hx Substance Use: No Review of Systems Review of Systems: All systems reviewed & are unremarkable except as noted in HPI & below Physical Exam Constitutional: WD/WN, vitals as above Eyes: PERRL, conjunctivae normal, anicteric sclerae ENMT: external ear and nose normal, oropharynx normal Neck: normal visual inspection Respiratory: normal respiratory effort, lungs clear to auscultation Cardiovascular: RRR, no murmur, no edema Gastrointestinal (Abdomen): normal bowel sounds, soft, nontender, no hepatosplenomegaly Musculoskeletal: no cyanosis or clubbing, extremities motor strength 5/5 Skin: no rashes, warm and dry right foot with min edema and erythema first toe to mid foot, no warmth, non tender, no open wounds. Psychiatric: A+Ox3, euthymic affect Results & Data Vital Signs (Past 12 Hours) Vital Signs Temp Pulse Pulse Resp BP Pulse Ox 02/16/19 07:45 36.4 C L 68 16 124/68 95 02/16/19 07:05 48 L 02/16/19 02:50 48 L 02/15/19 23:27 36.4 C L 44 L 16 123/60 97 02/15/19 23:25 40 L
--- NOTE | 2019-02-16 11:35 | Orthopedic Consultation ---
Date of Consultation February 16, 2019 Assessment & Plan (1) Osteomyelitis of right foot: Patient has been continued on his current IV daptomycin. Continue wound care to right second toe. He has been seen by the [facility] cardiology/vascular team today. They are planning for angiogram tomorrow of the right lower extremity. I have discussing the case with Drs. Macdonald/Alisha and the possibility of a repeat MRI. We will see what the angiogram shows and order appropriate radiologic imaging as per their request. Patient seen and examined agree with above assessment and plan. History of Present Illness Reason for Consultation: Failed IV antibiotic treatment for early osteomyelitis of right great toe. Attending Physician: Garrison Liang History of Present Illness Patient is an 88-year-old white male known to our practice and was seen in December of this year at [facility], with a medical history significant for aortic stenosis status post bioprosthetic AVR (2010), coronary artery disease status post 2 vessel CABG (vein graft to LAD, vein graft to OM; 2010), atrial fibrillation, peptic ulcer disease with prior GI bleed, type 2 diabetes, CKD and peripheral arterial disease with history of renal artery stenting. At that time in December, the patient came in with cellulitis and early signs of osteomyelitis of the right great toe at the distal phalanx. Patient also had a small ulceration on the second toe of the right foot that continues to not heal. Patient was started on IV daptomycin and was treated on outpatient basis. The came back into the ID team office yesterday to be seen and had cellulitis again of the right foot that continued to worsen. He is now admitted due to failure of outpt treatment and for continued IV antibiotic therapy for his cellulitis and we have been asked to see him regarding his osteomyelitis and second toe ulcer. Allergies Allergy/AdvReac Type Severity Reaction Status Date / Time No Known Allergies Allergy Unknown Verified 02/15/19 07:39 Home Medications Home Medications Medication Instructions Recorded Confirmed Type ascorbic acid (vitamin C) 500 mg PO DAILY #0 03/17/18 02/15/19 History aspirin 81 mg PO DAILY #0 03/17/18 02/15/19 History cholecalciferol (vitamin D3) 2,000 unit PO DAILY #0 03/17/18 02/15/19 History [Vitamin D3] metoprolol tartrate 0 mg PO BID #0 tab 03/17/18 02/15/19 History omeprazole 40 mg PO DAILY #0 03/17/18 02/15/19 History warfarin 0 mg PO DAILY #0 tab 03/17/18 02/15/19 History ferrous sulfate 325 mg PO BID 01/22/19 02/15/19 History lisinopril 0 mg PO DAILY 02/06/19 02/15/19 History Patient History Medical History A-fib Anemia of chronic disease CKD (chronic kidney disease), stage III Coronary artery disease GERD (gastroesophageal reflux disease) HTN (hypertension), benign History of peptic ulcer disease History of stent insertion of renal artery Right, in the 1990s Hyperlipidemia Subclavian artery stenosis Diabetes mellitus (Acute) type 2 Osteomyelitis (Acute) Surgical History History of cholecystectomy History of left inguinal hernia repair Aortic valve replaced (Acute) Hx of CABG (Acute) Family History Father Family history non-contributory Social History Preferred Language: Samoan Communication Ability: Effective Beliefs That Will Affect Care: None marital status: Current Living Situation: Spouse Other Information That Helps Us Care for You: No Feels Safe at Home: Yes Safety Concerns: Feels Safe At This Time Smoking Status: Former smoker Tobacco Type: cigarettes Cigarettes Per Day: 20 Do You Dip or Chew Tobacco: No Smoking End Date: 1988 Second Hand Exposure: No Tobacco Cessation Education Requested by Patient: No Hx Alcohol Use: No Hx Substance Use: No Physical Exam Physical Exam: Focusing the exam on the right foot, the patient has noted erythema over all the toes and dorsum of his foot. He states that this point is looking much better than it did when he first came in. He has no open wounds on the right great toe and the right great toe has only mild discomfort on palpation. Second toe has an ulceration medially that is covered with partial eschar and slough not overtly draining. The toe is tender on palpation and gentle range of motion. He has no pain of the third, fourth, and fifth toes at this time with palpation and gentle passive range of motion. He denies any decreased sensation in the toes at this time. He has good range of motion of his right ankle. Noted edema of the lower extremities. Dorsalis pedis pulse not palpable at this time. Results & Data Vital Signs (Past 12 Hours) Vital Signs Temp Pulse Resp BP Pulse Ox 02/16/19 07:45 36.4 C L 68 16 124/68 95 02/16/19 07:05 48 L 02/16/19 02:50 48 L
[2019-02-16] MEDS: SODIUM CHLORIDE 0.9% 1000ML 1,000 ML IV SCH (14:11)
[2019-02-16 14:31] LABS: BUN Creatinine Ratio 19.6 (10-20); Calcium 8.2 mg/dl (8.5-10.1); Creatinine Clr Calc Pharmacy 31.2 ml/min; Est GFR (African American) 51.9; Est GFR (Non-African American) 44.8; Potassium 4.3 mmol/L (3.5-5.1)
--- NOTE | 2019-02-16 14:50 | Hospitalist Progress Note ---
Date of Service February 16, 2019 Assessment & Plan (1) Osteomyelitis of right foot: - Presented with worsening right foot cellulitis/osteomyelitis following recent admission 01/11-01/17. Was receiving daily Dapto IV as outpatient. - Foot MRI 01/13 showed T1 and T2 marrow edema involving distal phalanx of great toe with ulceration, ?osteomyelitis. - Plan to repeat foot MRI w/ contrast per ortho recs. - Continue Zosyn/Dapto IV for empiric coverage. - Blood cultures pending. - Consulted orthopedics, appreciate input. May require amputation in future. - Consulted ID, appreciate input. - Consulted Dr. Wiseman, plan for lower extremity angiogram on 02/17/19. (2) Peripheral arterial disease: - Arterial duplex on 01/13 showed extensive plaque within RLE, could not obtain ABIs. - Consulted cardiology due to failure of IV abx in setting of osteomyelitis and significant tibial disease. - Holding Coumadin for procedure; holding statin in setting of Dapto therapy. - Plan for lower extremity angiogram on 02/17/19. (3) KYLE (acute kidney injury): - Creatinine increased to 1.56, now trending down to 1.41; baseline ~0.9- 1.3. - Likely pre-renal related to dehydration. - Received 500 cc bolus; will continue IV fluids at 80 cc/hr. - Monitor renal function daily. (4) Chronic kidney disease, stage 3a: - Renally dose all meds. (5) DMII (diabetes mellitus, type 2): - Most recent A1C was WNL in Aug 2018. - Was hypoglycemic at home on oral meds -- instructed to d/c all meds. - Monitor glucose qAM. (6) CAD (coronary artery disease): - S/p CABG. - Continue Metoprolol 25 mg BID & Aspirin 81 mg daily as prescribed. - Holding statin in setting of Dapto therapy (7) Atrial fibrillation: - Currently rate controlled. - Will hold home Warfarin for procedure. - Continue beta onur as prescribed. - INR is 1.9 this morning, will hold Vit K reversal agent. (8) Anemia of chronic disease: - Continue ferrous sulfate 325 mg BID. - Monitor CBC daily. (9) H/O aortic valve replacement: - In 2010; Valve is functioning well per most recent TTE performed as an outpatient - This is a bovine bioprosthetic valve. (10) HLD (hyperlipidemia): - Holding statin in setting of Dapto therapy. (11) History of GI bleed: - PPI daily. (12) DVT prophylaxis: - SCDs; holding pharmacologic ppx for procedure. Dispo: Med/surg for treatment of right foot osteomyelitis with IV abx; plan for LE angiogram on 02/17/19. Supervising Physician Co-Signing Physician Notes Attending Attestation - Chart reviewed in detail, care plan d/w PA Grace Ambriz. I agree w/ the cerrato components of her documentation. Pt with worsening right foot infection, possibly due to poor arterial circulation. Coumadin on hold; arteriogram by Dr Wiseman planned for 02/17. Cont IV abx in meantime along with pain control. Garrison Liang MD Subjective Pt. is doing well with exception of right foot osteo. Has intermittent pain in right foot. Denies chest pain, SOB, N/V, constipation. Review of Systems Review of Systems: All systems reviewed & are unremarkable except as noted in HPI & below Constitutional: no fever, no chills, no fatigue and no weakness Respiratory: no cough, no dyspnea, no dyspnea on exertion and no wheezing Cardiovascular: + edema (Bilat LE ); no chest pain, no palpitations, no lightheadedness and no syncope Gastrointestinal: no abdominal pain, no nausea, no vomiting and no constipation Genitourinary: no difficulty urinating Musculoskeletal: no back pain and no joint pain Integumentary: + non-healing lesions, + skin ulcer and + erythema Allergy / Immunological: no rash Physical Exam Physical Exam: General: Resting comfortably in no apparent distress HEENT: NC/AT; PERRLA with EOMI; [place] conjunctiva, MMM. No erythema of posterior pharynx Neck: Supple and nontender Cardiac: Irregular, rate controlled. Lungs: CTA bilaterally; No rhonchi, wheezing, or rales Abdomen: Bowel normoactive X 4; Nontender to palpation Extremities: Warm. +1-2 bilat LE edema. Skin exam as noted below. Cannot palpate right dorsalis pedis and posterior tibial pulse. Neuro: No focal weakness Skin: erythema noted over right foot improving. Open wound noted on left lateral side of 2nd toe, no discharge or foul odor noted. Results & Data Vital Signs (Past 12 Hours) Vital Signs Temp Pulse Resp BP Pulse Ox 02/16/19 07:45 36.4 C L 68 16 124/68 95 02/16/19 07:05 48 L 02/16/19 02:50 48 L Laboratory Results 02/16/19 02/16/19 02/16/19 Range/Units 13:44 11:49 08:02 WBC (4.8-10.8) K/uL RBC (4.7-6.1) M/uL Hgb (14.0-18.0) g/dL Hct (42-52) % MCV (80-100) fL MCH (25-34) pg MCHC (32-36) g/dL RDW Std Deviation (36.4-46.3) fL RDW Coeff of Gilbert (11.5-14.5) % Plt Count (130-400) K/uL MPV (7.4-10.4) fL ESR (0-14) mm/hr PT (9.0-12.0) Seconds INR (0.9-1.1) Sodium 135 L (136-145) mmol/L Potassium 4.3 (3.5-5.1) mmol/L Chloride 106 (98-107) mmol/L Carbon Dioxide 22 (21-32) mmol/L Anion Gap 7.0 (3-11) BUN 28 H (7-18) mg/dl Creatinine 1.41 H (0.6-1.4) mg/dl Est Cr Clr Drug Dosing 31.2 ml/min Est GFR ( Amer) 51.9 Est GFR (Non-Af Amer) 44.8 BUN/Creatinine Ratio 19.6 (10-20) Glucose 186 H (70-99) mg/dl POC Glucose 169 H 91 (70-99) Calcium 8.2 L (8.5-10.1) mg/dl Magnesium (1.8-2.4) mg/dl Total Bilirubin (0.2-1) mg/dl AST (15-37) U/L ALT (12-78) U/L Alkaline Phosphatase (45-117) U/L C-Reactive Protein (0-0.29) mg/dl Total Protein (6.4-8.2) gm/dl Albumin (3.4-5.0) gm/dl Globulin (2.5-4.0) gm/dl Albumin/Globulin Ratio (0.9-2) 02/16/19 02/16/19 02/16/19 Range/Units 06:27 05:39 05:39 WBC (4.8-10.8) K/uL RBC (4.7-6.1) M/uL Hgb (14.0-18.0) g/dL Hct (42-52) % MCV (80-100) fL MCH (25-34) pg MCHC (32-36) g/dL RDW Std Deviation (36.4-46.3) fL RDW Coeff of Gilbert (11.5-14.5) % Plt Count (130-400) K/uL MPV (7.4-10.4) fL ESR (0-14) mm/hr PT 18.6 H (9.0-12.0) Seconds INR 1.9 H (0.9-1.1) Sodium 136 (136-145) mmol/L Potassium 4.1 (3.5-5.1) mmol/L Chloride 105 (98-107) mmol/L Carbon Dioxide 23 (21-32) mmol/L Anion Gap 8.0 (3-11) BUN 31 H (7-18) mg/dl Creatinine 1.56 H D (0.6-1.4) mg/dl Est Cr Clr Drug Dosing 28.2 ml/min Est GFR ( Amer) 45.9 Est GFR (Non-Af Amer) 39.6 BUN/Creatinine Ratio 20.1 H (10-20) Glucose 83 (70-99) mg/dl POC Glucose 84 (70-99) Calcium 8.2 L (8.5-10.1) mg/dl Magnesium 2.0 (1.8-2.4) mg/dl Total Bilirubin (0.2-1) mg/dl AST (15-37) U/L ALT (12-78) U/L Alkaline Phosphatase (45-117) U/L C-Reactive Protein (0-0.29) mg/dl Total Protein (6.4-8.2) gm/dl Albumin (3.4-5.0) gm/dl Globulin (2.5-4.0) gm/dl Albumin/Globulin Ratio (0.9-2) 05/22/19 05/21/19 05/21/19 Range/Units 05:39 17:35 17:35 WBC 3.04 L (4.8-10.8) K/uL RBC 2.96 L (4.7-6.1) M/uL Hgb 9.6 L (14.0-18.0) g/dL Hct 28.2 L (42-52) % MCV 95.3 (80-100) fL MCH 32.4 (25-34) pg MCHC 34.0 (32-36) g/dL RDW Std Deviation 47.8 H (36.4-46.3) fL RDW Coeff of Gilbert 13.7 (11.5-14.5) % Plt Count 190 (130-400) K/uL MPV 10.1 (7.4-10.4) fL ESR (0-14) mm/hr PT 18.9 H (9.0-12.0) Seconds INR 1.9 H (0.9-1.1) Sodium 133 L (136-145) mmol/L Potassium 4.3 (3.5-5.1) mmol/L Chloride 104 (98-107) mmol/L Carbon Dioxide 23 (21-32) mmol/L Anion Gap 6.0 (3-11) BUN 30 H (7-18) mg/dl Creatinine 1.21 (0.6-1.4) mg/dl Est Cr Clr Drug Dosing 36.4 ml/min Est GFR ( Amer) 62.5 Est GFR (Non-Af Amer) 53.9 BUN/Creatinine Ratio 24.7 H (10-20) Glucose 83 (70-99) mg/dl POC Glucose (70-99) Calcium 8.0 L (8.5-10.1) mg/dl Magnesium 1.5 L (1.8-2.4) mg/dl Total Bilirubin 0.3 (0.2-1) mg/dl AST 21 (15-37) U/L ALT 29 (12-78) U/L Alkaline Phosphatase 122 H (45-117) U/L C-Reactive Protein < 0.29 (0-0.29) mg/dl Total Protein 5.7 L (6.4-8.2) gm/dl Albumin 2.4 L (3.4-5.0) gm/dl Globulin 3.3 (2.5-4.0) gm/dl Albumin/Globulin Ratio 0.7 L (0.9-2) 02/15/19 02/15/19 02/15/19 Range/Units 17:35 17:35 17:05 WBC 3.17 L (4.8-10.8) K/uL RBC 3.06 L (4.7-6.1) M/uL Hgb 10.0 L (14.0-18.0) g/dL Hct 29.1 L (42-52) % MCV 95.1 (80-100) fL MCH 32.7 (25-34) pg MCHC 34.4 (32-36) g/dL RDW Std Deviation 47.5 H (36.4-46.3) fL RDW Coeff of Gilbert 13.5 (11.5-14.5) % Plt Count 188 (130-400) K/uL MPV 10.1 (7.4-10.4) fL ESR 5 (0-14) mm/hr PT (9.0-12.0) Seconds INR (0.9-1.1) Sodium (136-145) mmol/L Potassium (3.5-5.1) mmol/L Chloride (98-107) mmol/L Carbon Dioxide (21-32) mmol/L Anion Gap (3-11) BUN (7-18) mg/dl Creatinine (0.6-1.4) mg/dl Est Cr Clr Drug Dosing ml/min Est GFR ( Amer) Est GFR (Non-Af Amer) BUN/Creatinine Ratio (10-20) Glucose (70-99) mg/dl POC Glucose 82 (70-99) Calcium (8.5-10.1) mg/dl Magnesium (1.8-2.4) mg/dl Total Bilirubin (0.2-1) mg/dl AST (15-37) U/L ALT (12-78) U/L Alkaline Phosphatase (45-117) U/L C-Reactive Protein (0-0.29) mg/dl Total Protein (6.4-8.2) gm/dl Albumin (3.4-5.0) gm/dl Globulin (2.5-4.0) gm/dl Albumin/Globulin Ratio (0.9-2)
[2019-02-16] MEDS ORDERED: GADOBUTROL 65ML VIAL IV PRN (21:34)
--- NOTE | 2019-02-16 21:53 | Magnetic Resonance Report ---
MR foot RT wo/w con CLINICAL HISTORY: Foot infection possible osteomyelitis. COMPARISON STUDY: MRI dated 01/13/2019 FINDINGS: Imaging was performed in the axial, sagittal, and coronal planes. Imaging was performed bef ore and after the administration of 5.5 cc of intravenous Gadavist. The study is somewhat limited from a technical standpoint due to motion artifact. There is diffuse soft tissue edema. There are no fluid collections to indicate a focal abscess. There is mild T2 edema involving the thir d fourth and fifth distal phalanges. The findings are consistent with an osteitis. There is no defini tive T1 marrow edema to indicate osteomyelitis. The previously described T1 and T2 edema involving th e tuft of distal phalanx of the great toe is less pronounced. IMPRESSION: 1. Moderately limited study from a technical standpoint secondary to motion artifact. This makes excl usion of subtle osteomyelitis difficult 2. Resolving marrow edema involving the tuft of distal phalanx the great toe. The findings suggest re solving osteomyelitis 3. Osteitis but no evidence of osteomyelitis involving the tuft of the distal phalanges of the third fourth and fifth digits 4. Dorsal soft tissue edema 5. No evidence of soft tissue abscess Electronically signed by: Jhonny Mahoney M.D. 02/16/2019 9:52 PM
[2019-02-16] MEDS: HYDROCODONE/ACETAMOPHEN 5/325MG TAB PO PRN (23:57)
[2019-02-17] MEDS: SODIUM CHLORIDE 0.9% 1000ML 1,000 ML IV SCH (03:13)
[2019-02-17] MEDS: PIPERACILLIN/TAZOBACTAM 3.375 GM in DEXTROSE 5% 100 ML IV SCH ×3 (05:38→22:13)
[2019-02-17 06:19] LABS: Hematocrit (blood only) 26.2 % (42-52); Hemoglobin 8.9 g/dL (14.0-18.0); Mean Corpuscular Volume 94.9 fL (80-100); Mean Platelet Volume 9.7 fL (7.4-10.4); Platelet Count 166 K/uL (130-400); RDW Coefficient of Variation 13.7 % (11.5-14.5); RDW Standard Deviation 47.5 fL (36.4-46.3); Red Blood Count 2.76 M/uL (4.7-6.1); White Blood Count 2.67 K/uL (4.8-10.8)
[2019-02-17 06:49] LABS: BUN Creatinine Ratio 18.1 (10-20); Creatinine Clr Calc Pharmacy 36.1 ml/min; Est GFR (African American) 61.8; Est GFR (Non-African American) 53.4; Potassium 4.2 mmol/L (3.5-5.1)
[2019-02-17 07:17] LABS: INR 1.7 (0.9-1.1); Prothrombin Time 16.5 Seconds (9.0-12.0)
--- NOTE | 2019-02-17 08:12 | Orthopedic Progress Note ---
Date of Service February 17, 2019 Assessment & Plan (1) Osteomyelitis of right foot: Patient's foot continues to improve on the current antibiotic regimen. MRI results as noted above. Planning for angiogram today with Dr. Wiseman. We will wait and see with the results of the angiogram are. I will have Dr. Macdonald review the MRI results. Most likely he will see the patient tomorrow between surgical cases to give his input. Subjective Patient is currently sitting in his chair at the bedside with his feet propped up on his bed. He states that it feels better to have his feet propped up because when he has his foot hanging down that he has increased pain in the second toe. No new complaints today. Physical Exam Physical Exam: In looking at his right foot, it is markedly improved with much less erythema. He still has some discomfort with the second toe on range of motion and palpation. His second toe ulcer looks about the same with it may be a little more eschar forming but no drainage. Results & Data Vital Signs (Past 12 Hours) Vital Signs Temp Pulse Resp BP Pulse Ox 02/17/19 06:54 36.5 C 59 L 16 146/72 H 98 02/16/19 23:13 36.4 C L 65 18 156/70 H 96 02/16/19 21:59 72 149/71 H Diagnostic Findings MR foot RT wo/w con CLINICAL HISTORY: Foot infection possible osteomyelitis. COMPARISON STUDY: MRI dated 01/13/2019 FINDINGS: Imaging was performed in the axial, sagittal, and coronal planes. Imaging was performed before and after the administration of 5.5 cc of intravenous Gadavist. The study is somewhat limited from a technical standpoint due to motion artifact. There is diffuse soft tissue edema. There are no fluid collections to indicate a focal abscess. There is mild T2 edema involving the third fourth and fifth distal phalanges. The findings are consistent with an osteitis. There is no definitive T1 marrow edema to indicate osteomyelitis. The previously described T1 and T2 edema involving the tuft of distal phalanx of the great toe is less pronounced. IMPRESSION: 1. Moderately limited study from a technical standpoint secondary to motion artifact. This makes exclusion of subtle osteomyelitis difficult 2. Resolving marrow edema involving the tuft of distal phalanx the great toe. The findings suggest resolving osteomyelitis 3. Osteitis but no evidence of osteomyelitis involving the tuft of the distal phalanges of the third fourth and fifth digits 4. Dorsal soft tissue edema 5. No evidence of soft tissue abscess
[2019-02-17] MEDS ORDERED: NITROGLYCERIN/D5W 100MCG/ML 20ML SYR ONE (08:21)
[2019-02-17] MEDS ORDERED: NITROGLYCERIN 5 MG/ML 10 ML VIAL ONE (08:23)
[2019-02-17] MEDS ORDERED: NiCARDipine HCL INJ 2.5 MG/ML 10 ML AMP ONE (08:26)
[2019-02-17] MEDS ORDERED: LIDOCAINE HCL 1% 20 ML VIAL ONE (08:26)
--- NOTE | 2019-02-17 09:39 | Cardiology Progress Note ---
Date of Service February 17, 2019 Assessment & Plan (1) Osteomyelitis of right foot: 2. Ulceration of right lower extremity 3. Peripheral arterial disease 4. Coronary artery disease status post CABGx2 5. Bioprosthetic AVR 6. Atrial fibrillation 7. CKD 8. Type 2 DM Proceed with bilateral LE angiogram. Subjective Feeling well today. Some pain overnight in right leg. No other new concerns. Review of Systems Review of Systems: All systems reviewed & are unremarkable except as noted in HPI & below Physical Exam Constitutional: WD/WN, vitals as above Eyes: + anicteric sclerae Respiratory: normal respiratory effort, lungs clear to auscultation Cardiovascular: Rate/Rhythm: regular rate Heart Sounds: no murmur Extremities: + edema (1+ RLE) Non-palpable DP/PT pulses on right. dimished cap refill. ulcer on medial aspect of 2nd digit and involving nailbed of 3rd. Gastrointestinal (Abdomen): Percussion/Palpation: abdomen soft; abdomen nontender Skin: no rashes Psychiatric: Orientation: alert Results & Data Vital Signs (Past 12 Hours) Vital Signs Temp Pulse Pulse Resp BP Pulse Ox 02/17/19 09:23 36.5 C 63 20 155/74 H 100 02/17/19 06:54 36.5 C 59 L 16 146/72 H 98 02/16/19 23:13 36.4 C L 65 18 156/70 H 96 02/16/19 21:59 72 149/71 H
--- NOTE | 2019-02-17 09:40 | Pre Anesthesia Assessment ---
Date of Service February 17, 2019 Pre Sedation Assessment Vital Signs Temp Pulse Pulse Resp BP Pulse Ox 02/17/19 09:23 36.5 C 63 20 155/74 H 100 02/17/19 06:54 36.5 C 59 L 16 146/72 H 98 02/16/19 23:13 36.4 C L 65 18 156/70 H 96 02/16/19 21:59 72 149/71 H 02/16/19 15:14 36.2 C L 66 18 121/63 92 Cardiovascular RRR, no murmur, no edema Respiratory normal respiratory effort, lungs clear to auscultation Pre-Sedation Airway Assessment Smoking Status: Former smoker Hx Sleep Apnea: No Hx Difficult Intubation: No Short, Thick Neck: No Thyromental Distance: > or= 3.5 Finger Breadths Oral Cavity: + Dentures Mallampati Class: I ASA: ASA3 NPO Status Date of Last Intake of Fluids: 02/16/19 Time of Last Intake of Fluids: 20:00 Date of Last Intake of Solid Food: 02/16/19 Time of Last Intake of Solid Foods: 20:00 Procedure Planning Contraindications for Sedation: none Current Medications Reviewed: Yes Notes The planned sedation has been discussed with the patient. Informed Consent was obtained. I have identified the patient, determined the appropriateness of sedation and have assessed the patient immediately prior to the procedure. All medicine(s) and interventions are by my order.
[2019-02-17] MEDS ORDERED: HEPARIN SOD (PORCINE) 1000 UNIT/ML 10 ML VIAL ONE (09:49)
[2019-02-17] MEDS ORDERED: fentaNYL citrate 100 MCG/2 ML VIAL ONE (09:49)
[2019-02-17] MEDS ORDERED: MIDAZOLAM HCL 1 MG/ML 2ML VIAL ONE (09:49)
--- NOTE | 2019-02-17 10:38 | Infectious Disease Progress Nt ---
Date of Service February 17, 2019 Assessment & Plan (1) Osteomyelitis of right foot: continue current abx, await vascular findings, repeat mri with osteitis not osteomyelitis, may be able to give shorter course of abx, will follow. (2) Peripheral arterial disease: Subjective pt scheduled for angiogram. tolerating dapto and zosyn. repeat mri limited but less suspicious for ostemyelitis, recent ESR only 5 (last admission). remains afebrile, wbc 2.6, creat 1.2. No wound cultures for review, blood cultures 02/15 negative to date. Results & Data Vital Signs (Past 12 Hours) Vital Signs Temp Pulse Pulse Pulse Resp BP Pulse Ox 02/17/19 10:27 48 L 12 126/56 L 98 02/17/19 10:22 43 L 14 122/56 L 99 02/17/19 10:17 43 L 14 125/55 L 100 02/17/19 10:12 40 L 15 128/53 L 95 02/17/19 10:07 42 L 20 138/55 L 96 02/17/19 09:57 47 L 15 145/58 H 99 02/17/19 09:23 36.5 C 63 20 155/74 H 100 02/17/19 06:54 36.5 C 59 L 16 146/72 H 98 02/16/19 23:13 36.4 C L 65 18 156/70 H 96 Laboratory Results Microbiology 02/15/19 17:45 Blood Aerobic Blood Culture - Preliminary No growth in Aerobic bottle after 24 hours. 02/15/19 17:45 Blood Anaerobic Blood Culture - Preliminary No growth in Anaerobic bottle after 24 hours. 02/15/19 17:35 Blood Aerobic Blood Culture - Preliminary No growth in Aerobic bottle after 24 hours. 02/15/19 17:35 Blood Anaerobic Blood Culture - Preliminary No growth in Anaerobic bottle after 24 hours.
[2019-02-17] MEDS ORDERED: VISIPAQUE IV PRN (11:41)
--- NOTE | 2019-02-17 11:58 | Post Anesthesia Assessment ---
Date of Service February 17, 2019 Post Sedation Assessment Vital Signs Temp Pulse Pulse Pulse Resp BP Pulse Ox 02/17/19 11:47 44 L 15 148/70 H 97 02/17/19 11:42 42 L 15 142/66 H 97 02/17/19 11:37 54 L 16 143/81 H 96 02/17/19 11:32 42 L 16 142/69 H 95 02/17/19 11:27 50 L 15 148/70 H 96 02/17/19 11:22 45 L 15 139/56 L 97 02/17/19 11:17 42 L 15 133/57 L 95 02/17/19 11:12 39 L 15 145/56 H 98 02/17/19 11:07 44 L 15 138/57 L 97 02/17/19 11:02 41 L 14 128/53 L 98 02/17/19 10:57 43 L 15 127/52 L 98 02/17/19 10:52 38 L 13 128/51 L 98 02/17/19 10:47 39 L 14 117/53 L 97 02/17/19 10:42 42 L 12 123/62 99 02/17/19 10:37 43 L 12 121/47 L 99 02/17/19 10:32 36 L 12 118/53 L 98 02/17/19 10:27 48 L 12 126/56 L 98 02/17/19 10:22 43 L 14 122/56 L 99 02/17/19 10:17 43 L 14 125/55 L 100 02/17/19 10:12 40 L 15 128/53 L 95 02/17/19 10:07 42 L 20 138/55 L 96 02/17/19 09:57 47 L 15 145/58 H 99 02/17/19 09:23 36.5 C 63 20 155/74 H 100 02/17/19 06:54 36.5 C 59 L 16 146/72 H 98 02/16/19 23:13 36.4 C L 65 18 156/70 H 96 02/16/19 21:59 72 149/71 H 02/16/19 15:14 36.2 C L 66 18 121/63 92 Recovery Score Activity: Moves 4 extremities Respiration: Deep Breath/Cough Circulation: +/-20% PreAnes Value Consciousness: Fully Awake Oxygen Saturation: O2 needed for >90% Post Sedation Plan On clinical assessment, the patient appears to have tolerated the sedation without complications. Patient is recovering as anticipated. Patient will continue to be monitored by nursing and may be discharged when sedation discharge criteria are met per below protocol. Upon Completions of procedure and additional 15 minutes continue every 5 minute vital signs and the P.A.R. score; then discharge to a Phase I or Fast Track to Phase II per the following guidelines: * Discharge Patient to appropriate Phase II area if PAR is 8 or greater or return to pre- procedure baseline. The post - procedure orders will be as directed. * If PAR score is less than 8 or not return to pre-procedure baseline then patient will follow Phase I monitoring till PAR is reached for Phase II. The Phase I may be done in procedure room or may call to secure a Phase I area. * If naloxone or flumazenil are used for reversal, hold in Phase I for continued monitoring from when last reversal dose was given for a minimum of 60 minutes or longer pending the nurse and/or physician discretion of patient condition before discharge to Phase II. Please call the Sedation Physician to re-evaluate and complete post-note for discharge to Phase II area. Do NOT discharge from procedure sedation or Phase 1 until post- sedation evaluation note is complete by procedure /sedation MD Sedation Discharge Instructions to be given to the patient at discharge to home.
--- NOTE | 2019-02-17 12:05 | Post Operative Brief Note ---
Immediate Post Op Note v1 Date of Surgery February 17, 2019 Pre & Post Diagnosis Operation Date: 02/17/19 09:30 Pre-Op Diagnosis: Peripheral Arterial Disease Post-Op Diagnosis: Peripheral Arterial Disease Procedure Operation Date: 02/17/19 09:30 Actual Procedures p Bilateral Lower Extremity Angiogram, Percutaneous Transluminal Angioplasty and Stenting of Bilateral Iliac Arteries , Mechanical Closure of Bilateral Femoral Artery; Moderate Sedation From 1007 to (Bilateral) - Manuelito Wiseman MD Surgeon Larry Wiseman MD [employer] Former Jacqueline Estimated Blood Loss 30 Findings Consistent with Post-Op Diagnosis 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 Mild RT popliteal disease. Patent peroneal. Short proximal [employer] occlusion then reconstitutes in the mid seg ment and patent to foot giving off patent medial and lateral plantar arteries. Occluded STEFFANY. Moderate to severe LT common iliac, external iliac disease. Successful bilateral ostial common iliac artery stenting with 2 covered stents (RT VBX 8.0 x 39, LT VBX 8.0 x 39).
[2019-02-17] MEDS ORDERED: CLOPIDOGREL BISULFATE 300 MG TAB PO STA (12:10)
[2019-02-17] MEDS ORDERED: SODIUM CHLORIDE 0.9% 500 ML IV SCH (12:15)
--- NOTE | 2019-02-17 12:30 | Hospitalist Progress Note ---
Date of Service February 17, 2019 Assessment & Plan (1) Osteomyelitis of right foot: - Presented with worsening right foot cellulitis/osteomyelitis following recent admission 01/11-01/17. Was receiving daily Dapto IV as outpatient. - Foot MRI 01/13 showed T1 and T2 marrow edema involving distal phalanx of great toe with ulceration, ?osteomyelitis. - Repeat MRI of foot showed resolving osteomyelitis. - Continue Zosyn/Dapto IV for empiric coverage. - Blood cultures negative to date. - Consulted orthopedics, will be evaluated by Dr. Macdonald on 02/18. - Consulted ID, appreciate input. - Consulted Dr. Wiseman, s/p bilateral ostial common iliac artery stenting with 2 covered stents this morning. (2) Peripheral arterial disease: - Arterial duplex on 01/13 showed extensive plaque within RLE, could not obtain ABIs. - Consulted cardiology due to failure of IV abx in setting of osteomyelitis and significant tibial disease. - Holding statin in setting of Dapto therapy. - Continue aspirin; will add Plavix 75 mg daily starting 02/18/19. - S/p bilateral ostial common iliac artery stenting with 2 covered stents this morning. - Plan for toe brachial index on 02/18; may require further intervention/?stenting pending results for below the knee stenosis. (3) Bradycardia: - Has been bradycardic with HR 40-50's throughout most of this admission; telemetry with A. flutter and significant bradycardia (into the 30's) following procedure. - Will hold beta onur and monitor for improvement. - Cardiology following, discussed with primary clinical statistics manager Dr. Wiseman. (4) KYLE (acute kidney injury): - Creatinine peaked at 1.56, now improved; baseline ~0.9-1.3. - Was likely pre-renal related to dehydration. - Monitor volume status; receiving IV fluids post procedure. (5) Chronic kidney disease, stage 3a: - Renally dose all meds. (6) HTN (hypertension): - Holding home Metoprolol due to bradycardia. - Will restart home Lisinopril 5 mg PO daily. (7) DMII (diabetes mellitus, type 2): - Most recent A1C was WNL in Aug 2018. - Was hypoglycemic at home on oral meds -- instructed to d/c all meds. - Monitor glucose qAM. (8) CAD (coronary artery disease): - S/p CABG. - Continue Aspirin 81 mg daily as prescribed. - Holding statin in setting of Dapto therapy; holding Metoprolol due to bradycardia. (9) Atrial fibrillation: - Currently bradycardic on monitor, in A. flutter. - Holding home Warfarin for procedure. - Holding beta onur due to bradycardia. - INR was 1.7, did not receive reversal agent prior to procedure. (10) Anemia of chronic disease: - Continue ferrous sulfate 325 mg BID. - Monitor CBC daily. (11) H/O aortic valve replacement: - In 2010; Valve is functioning well per most recent TTE performed as an outpatient - This is a bovine bioprosthetic valve. (12) HLD (hyperlipidemia): - Holding statin in setting of Dapto therapy. (13) History of GI bleed: - PPI daily. (14) DVT prophylaxis: - SCDs; holding pharmacologic ppx for procedure. Dispo: Med/surg for treatment of right foot osteomyelitis with IV abx; s/p LE angiogram with stent placement this morning. May require repeat vascular intervention over next 2-3 days. Supervising Physician Co-Signing Physician Notes Attending Attestation - Chart reviewed in detail, care plan d/w HALLE Ambriz. I agree w/ the cerrato components of her documentation. s/p arteriogram today by Dr Wiseman with intervention on b/l iliac artery stenoses. Remains on IV antibiotic therapy. Agree with holding AV mary agents for a.flutter in light of bradycardia. Fortunately he is NOT symptomatic from the bradycardia. Cont to monitor on telemetry. Garrison Liang MD Subjective Pt. is doing well post op. He complains of pain in left groin region but states pain in right foot is now significantly improved. Erythema of right foot resolving, lesion on 2nd toe is unchanged. Pt. is significantly bradycardic on exam, A. flutter with bradycardia into the 30's following procedure on monitor. Will discuss with cardiology -- baseline HR has been 40-50's since admission. Review of Systems Review of Systems: All systems reviewed & are unremarkable except as noted in HPI & below Constitutional: no fever, no chills, no fatigue and no weakness Respiratory: no cough, no dyspnea, no dyspnea on exertion and no wheezing Cardiovascular: no chest pain, no palpitations, no lightheadedness and no edema Gastrointestinal: no abdominal pain, no nausea and no constipation Genitourinary: no difficulty urinating Musculoskeletal: + joint pain; no back pain Integumentary: + lesions; no erythema Neurologic: no dizziness Allergy / Immunological: no rash Physical Exam Physical Exam: General: Resting comfortably in no apparent distress HEENT: NC/AT; PERRLA with EOMI; [place] conjunctiva, MMM. No erythema of posterior pharynx Neck: Supple and nontender Cardiac: Irregular, bradycardic. Lungs: CTA bilaterally; No rhonchi, wheezing, or rales Abdomen: Bowel normoactive X 4; Nontender to palpation Extremities: Warm. +1 bilat LE edema. Skin exam as noted below. Cannot palpate right dorsalis pedis and posterior tibial pulse. Neuro: No focal weakness Skin: erythema noted over right foot resolved. Open wound noted on left lateral side of 2nd toe is unchanged. Results & Data Vital Signs (Past 12 Hours) Vital Signs Temp Pulse Pulse Pulse Resp BP Pulse Ox 02/17/19 12:03 51 L 14 147/69 H 94 02/17/19 11:58 45 L 16 147/61 H 94 02/17/19 11:57 46 L 15 147/61 H 97 02/17/19 11:52 48 L 16 147/61 H 98 02/17/19 11:47 44 L 15 148/70 H 97 02/17/19 11:42 42 L 15 142/66 H 97 02/17/19 11:37 54 L 16 143/81 H 96 02/17/19 11:32 42 L 16 142/69 H 95 02/17/19 11:27 50 L 15 148/70 H 96 02/17/19 11:22 45 L 15 139/56 L 97 02/17/19 11:17 42 L 15 133/57 L 95 02/17/19 11:12 39 L 15 145/56 H 98 02/17/19 11:07 44 L 15 138/57 L 97 02/17/19 11:02 41 L 14 128/53 L 98 02/17/19 10:57 43 L 15 127/52 L 98 02/17/19 10:52 38 L 13 128/51 L 98 02/17/19 10:47 39 L 14 117/53 L 97 02/17/19 10:42 42 L 12 123/62 99 02/17/19 10:37 43 L 12 121/47 L 99 02/17/19 10:32 36 L 12 118/53 L 98 02/17/19 10:27 48 L 12 126/56 L 98 02/17/19 10:22 43 L 14 122/56 L 99 02/17/19 10:17 43 L 14 125/55 L 100 02/17/19 10:12 40 L 15 128/53 L 95 02/17/19 10:07 42 L 20 138/55 L 96 02/17/19 09:57 47 L 15 145/58 H 99 02/17/19 09:23 36.5 C 63 20 155/74 H 100 02/17/19 06:54 36.5 C 59 L 16 146/72 H 98 Laboratory Results 02/17/19 02/17/19 02/17/19 Range/Units 11:20 06:55 05:42 WBC (4.8-10.8) K/uL RBC (4.7-6.1) M/uL Hgb (14.0-18.0) g/dL Hct (42-52) % MCV (80-100) fL MCH (25-34) pg MCHC (32-36) g/dL RDW Std Deviation (36.4-46.3) fL RDW Coeff of Gilbert (11.5-14.5) % Plt Count (130-400) K/uL MPV (7.4-10.4) fL PT 16.5 H INR 1.7 H Activ Coag Time Kaolin 230 H (94-140) SECONDS Sodium 138 (136-145) mmol/L Potassium 4.2 (3.5-5.1) mmol/L Chloride 110 H (98-107) mmol/L Carbon Dioxide 22 (21-32) mmol/L Anion Gap 7.0 (3-11) BUN 22 H (7-18) mg/dl Creatinine 1.22 (0.6-1.4) mg/dl Est Cr Clr Drug Dosing 36.1 ml/min Est GFR ( Amer) 61.8 Est GFR (Non-Af Amer) 53.4 BUN/Creatinine Ratio 18.1 (10-20) Glucose 89 (70-99) mg/dl POC Glucose (70-99) Calcium 8.0 L (8.5-10.1) mg/dl 02/17/19 02/17/19 02/17/19 Range/Units 05:42 05:42 05:37 WBC 2.67 L (4.8-10.8) K/uL RBC 2.76 L (4.7-6.1) M/uL Hgb 8.9 L (14.0-18.0) g/dL Hct 26.2 L (42-52) % MCV 94.9 (80-100) fL MCH 32.2 (25-34) pg MCHC 34.0 (32-36) g/dL RDW Std Deviation 47.5 H (36.4-46.3) fL RDW Coeff of Gilbert 13.7 (11.5-14.5) % Plt Count 166 (130-400) K/uL MPV 9.7 (7.4-10.4) fL PT Cancelled INR Cancelled Activ Coag Time Kaolin (94-140) SECONDS Sodium (136-145) mmol/L Potassium (3.5-5.1) mmol/L Chloride (98-107) mmol/L Carbon Dioxide (21-32) mmol/L Anion Gap (3-11) BUN (7-18) mg/dl Creatinine (0.6-1.4) mg/dl Est Cr Clr Drug Dosing ml/min Est GFR ( Amer) Est GFR (Non-Af Amer) BUN/Creatinine Ratio (10-20) Glucose (70-99) mg/dl POC Glucose 94 (70-99) Calcium (8.5-10.1) mg/dl 02/16/19 02/16/19 Range/Units 13:44 11:49 WBC (4.8-10.8) K/uL RBC (4.7-6.1) M/uL Hgb (14.0-18.0) g/dL Hct (42-52) % MCV (80-100) fL MCH (25-34) pg MCHC (32-36) g/dL RDW Std Deviation (36.4-46.3) fL RDW Coeff of Gilbert (11.5-14.5) % Plt Count (130-400) K/uL MPV (7.4-10.4) fL PT INR Activ Coag Time Kaolin (94-140) SECONDS Sodium 135 L (136-145) mmol/L Potassium 4.3 (3.5-5.1) mmol/L Chloride 106 (98-107) mmol/L Carbon Dioxide 22 (21-32) mmol/L Anion Gap 7.0 (3-11) BUN 28 H (7-18) mg/dl Creatinine 1.41 H (0.6-1.4) mg/dl Est Cr Clr Drug Dosing 31.2 ml/min Est GFR ( Amer) 51.9 Est GFR (Non-Af Amer) 44.8 BUN/Creatinine Ratio 19.6 (10-20) Glucose 186 H (70-99) mg/dl POC Glucose 169 H (70-99) Calcium 8.2 L (8.5-10.1) mg/dl
[2019-02-17] MEDS: FERROUS SULFATE 325 MG TAB PO SCH ×2 (12:39→17:37)
[2019-02-17] MEDS: METOPROLOL TARTRATE 25 MG TAB PO SCH (12:40)
[2019-02-17] MEDS: DOCUSATE SODIUM/SENNA 50/8.6MG TAB PO SCH ×2 (12:41→20:55)
[2019-02-17] MEDS: PANTOprazole 40 MG TAB PO SCH (12:41)
[2019-02-17] MEDS: DAPTOmycin 350 MG in SYRINGE 0 ML IV SCH (12:59)
[2019-02-17] MEDS: ASPIRIN 81 MG ECTAB PO SCH (12:59)
[2019-02-17] MEDS: LISINOPRIL 5 MG TAB PO SCH (13:52)
--- NOTE | 2019-02-17 22:19 | Operative Report ---
Post Operative Report Pre & Post Diagnosis Operation Date: 02/17/19 09:30 Pre-Op Diagnosis: Peripheral Arterial Disease Post-Op Diagnosis: Peripheral Arterial Disease Procedure Operation Date: 02/17/19 09:30 Actual Procedures p Bilateral Lower Extremity Angiogram, Percutaneous Transluminal Angioplasty and Stenting of Bilateral Iliac Arteries , Mechanical Closure of Bilateral Femoral Artery; Moderate Sedation From 1007 to 1203.(Bilateral) - Manuelito Wiseman MD Surgeon Larry Wiseman MD Machine Sander Jacqueline Estimated Blood Loss 30 Findings Consistent with Post-Op Diagnosis Aorta: Ectatic, calcified no significant stenosis Left lower extremity: Common iliac -calcified, 50 to 60% proximal disease External iliac -heavily calcified, tortuous, 60% focal disease Internal iliac -calcified, diffuse disease MECHANICAL APPRENTICE -heavily calcified distally at bifurcation with moderate stenosis Right lower extremity: Common iliac -heavily calcified 80 to 90% ostial stenosis External iliac -calcified, mild diffuse disease Internal iliac -calcified, diffuse disease MECHANICAL APPRENTICE -calcified, minimal Profunda - Minimal disease SFA - Mild diffuse atherosclerosis Popliteal -40% calcified disease TPT -mild disease AT -severe diffuse disease before occluded proximally PT -Short proximal occlusion, reconstitutes in the mid segment and extends into the foot giving rise to medial and lateral plantar arteries Peroneal -patent Specimens None Complications none Disposition Accompanied Patient To Recovery: No Disposition: PCU Description of Procedure Left common femoral access obtained under ultrasound guide, short 5Fr sheath place LLE angiogram performed with RIM catheter Noted to have severe ostial right common iliac disease and moderate to severe left common iliac disease Upsized to 7 Fr sheath in left MECHANICAL APPRENTICE Under ultrasound guidance right MECHANICAL APPRENTICE access obtained and 7 Fr sheath placed With aid of an angled glide catheter glide advantage wire navigated across right JUNG stenosis in retrograde fashion from right MECHANICAL APPRENTICE Ostial RT JUNG stenosis dilated with 5.0 balloon Proximal JUNG/external iliac dilated with 5.0 balloon. Kissing stent delivery to bilateral ostial CIAs (RT 8.0 x 29 mm VBX, LT 8.0 x 29 mm VBX). Post procedure good angiographic result, no evidence of dissection or perforation. Access closure: RT MECHANICAL APPRENTICE Starclose, LT MECHANICAL APPRENTICE Starclose failed--manual compression. Summary: 1. Right lower extremity -- 80-90% ostial common iliac stenosis, 40% popliteal disease. 2 vessel run-off to foot via peroneal and FREEZER ASSISTANT (FREEZER ASSISTANT with short proximal occlusion). 2. Left lower extremity -- 60% proximal common iliac stenosis, 50% external iliac stenosis, moderate to severe MECHANICAL APPRENTICE disease. 3. Successful stenting of bilateral ostial common iliac arteries with 2 covered stents (LT 8.0 x 39 VBX, RT 8.0 x 39 VBX). Recommendations: Start clopidogrel for 1 month Check TBI in AM. If toe pressures suggestive of persistent ischemia consider intervention to RT posterior tibial artery. Continue ASCVD risk factor modification Can resume coumadin tomorrow if no need for additional intervention. I attest to the content of the Intraoperative Record and any orders documented therein. Any exceptions are noted below.
[2019-02-18] MEDS ORDERED: DAPTOmycin 350 MG in SYRINGE 0 ML IV SCH (06:00)
[2019-02-18] MEDS: PIPERACILLIN/TAZOBACTAM 3.375 GM in DEXTROSE 5% 100 ML IV SCH (06:04)
[2019-02-18 06:39] LABS: Hematocrit (blood only) 22.6 % (42-52); Hemoglobin 8.1 g/dL (14.0-18.0); Mean Corpuscular Hgb Conc 35.8 g/dL (32-36); Mean Corpuscular Volume 94.2 fL (80-100); Mean Platelet Volume 9.7 fL (7.4-10.4); Platelet Count 141 K/uL (130-400); RDW Coefficient of Variation 13.5 % (11.5-14.5); White Blood Count 3.64 K/uL (4.8-10.8)
[2019-02-18 06:49] LABS: INR 1.3 (0.9-1.1); Prothrombin Time 13.2 Seconds (9.0-12.0)
[2019-02-18 07:07] LABS: BUN Creatinine Ratio 12.9 (10-20); Calcium 7.8 mg/dl (8.5-10.1); Creatinine Clr Calc Pharmacy 30.6 ml/min; Est GFR (African American) 48.2; Est GFR (Non-African American) 41.6; Potassium 4.4 mmol/L (3.5-5.1)
[2019-02-18] MEDS: PANTOprazole 40 MG TAB PO SCH (08:11)
[2019-02-18] MEDS: FERROUS SULFATE 325 MG TAB PO SCH ×2 (08:11→17:20)
[2019-02-18] MEDS: CLOPIDOGREL BISULFATE 75 MG TAB PO SCH (08:11)
[2019-02-18] MEDS: DOCUSATE SODIUM/SENNA 50/8.6MG TAB PO SCH ×2 (08:12→20:07)
[2019-02-18] MEDS: ASPIRIN 81 MG ECTAB PO SCH (08:12)
[2019-02-18] MEDS: LISINOPRIL 5 MG TAB PO SCH (08:12)
--- NOTE | 2019-02-18 09:33 | Ultrasound Report ---
US ankle/brachial index ltd CLINICAL HISTORY: 88 years-old Male presenting with post LE stent. TECHNIQUE: Ankle brachial indices were obtained. COMPARISON: None. FINDINGS: Brachial: Right: 122 mmHg. Left: mmHg. Ankle (posterior tibial): Right: 115 mmHg. Left: 83 mmHg. Ankle (dorsalis pedis): Right: 104 mmHg. Left: 221 mmHg. Ankle/brachial index: Right: 0.94, Left: 1.81. Reference ranges: Normal STANTON 1.0-1.4; 0.9-0.99 borderline; less than 0.9 abnormal. IMPRESSION: 1. Borderline abnormal right ankle-brachial index. 2. Normal left ankle brachial index. Electronically signed by: Deondre Schulz M.D. 02/18/2019 9:32 AM
[2019-02-18] MEDS: DAPTOmycin 350 MG in SYRINGE 0 ML IV SCH (09:38)
--- NOTE | 2019-02-18 10:17 | Infectious Disease Progress Nt ---
Date of Service February 18, 2019 Assessment & Plan (1) Osteomyelitis of right foot: will continue dapto for now, follow blood cultures, negative to date. for surgery eval. would suggest he complete course of dapto upon d/c, improvement on MRI and now with increased vascular supply hope is that he will continue to improved. (2) Peripheral arterial disease: Subjective pt s/o vascular procedure, tolerated well. afebrile continues on abx. blood cultures negative, surgery eval later today. tolerating abx. MRI improved. wbc 3.6, creat 1.5 today. Results & Data Vital Signs (Past 12 Hours) Vital Signs Temp Pulse Pulse Resp BP Pulse Ox 02/18/19 07:40 36.5 C 82 18 139/66 100 02/18/19 06:20 81 02/18/19 03:11 36.7 C 82 18 132/65 94 02/18/19 00:16 36.8 C 59 L 18 125/60 99 Laboratory Results Microbiology 02/15/19 17:45 Blood Aerobic Blood Culture - Preliminary No growth in Aerobic bottle after 48 hours. 02/15/19 17:45 Blood Anaerobic Blood Culture - Preliminary No growth in Anaerobic bottle after 48 hours. 02/15/19 17:35 Blood Aerobic Blood Culture - Preliminary No growth in Aerobic bottle after 48 hours. 02/15/19 17:35 Blood Anaerobic Blood Culture - Preliminary No growth in Anaerobic bottle after 48 hours.
--- NOTE | 2019-02-18 11:20 | Cardiology Progress Note ---
Date of Service February 18, 2019 Assessment & Plan (1) Osteomyelitis of right foot: 2. Ulceration of right lower extremity 3. Peripheral arterial disease 4. Coronary artery disease status post CABGx2 5. Bioprosthetic AVR 6. Atrial fibrillation 7. CKD 8. Type 2 DM Stable post procedure today. Mild KYLE, mild drop in hemoglobin. STANTON on right 0.94 (PT). Unable to get TBIs Foot reasonably perfused. Feel would benefit from intervention to RT [place] HAND. Can schedule as an outpatient. Can resume coumadin. continue plavix. Ok from a vascular standpoint for discharge over the weekend. Subjective Feeling well today. No pain at access sites. No other new complaints. SCr 1.5 Hgb 8.1 Physical Exam Physical Exam: ecchymosis at LT groin access site, pulse intact. RT groin without ecchymosis/hematoma. Pulse intact Constitutional: WD/WN, vitals as above Eyes: + anicteric sclerae ENMT: Mallampati Class: I Respiratory: normal respiratory effort, lungs clear to auscultation Cardiovascular: RRR, no murmur, no edema Rate/Rhythm: regular rate Heart Sounds: no murmur Extremities: + edema (1+ RLE) Gastrointestinal (Abdomen): Percussion/Palpation: abdomen soft; abdomen nontender Skin: no rashes Psychiatric: Orientation: alert Results & Data Vital Signs (Past 12 Hours) Vital Signs Temp Pulse Pulse Resp BP Pulse Ox 02/18/19 07:40 36.5 C 82 18 139/66 100 02/18/19 06:20 81 02/18/19 03:11 36.7 C 82 18 132/65 94 02/18/19 00:16 36.8 C 59 L 18 125/60 99
--- NOTE | 2019-02-18 11:53 | Hospitalist Progress Note ---
Date of Service February 18, 2019 Assessment & Plan (1) Osteomyelitis of right foot: - Presented with worsening right foot cellulitis/osteomyelitis following recent admission 01/11-01/17. Was receiving daily Dapto IV as outpatient. - Foot MRI 01/13 showed T1 and T2 marrow edema involving distal phalanx of great toe with ulceration, ?osteomyelitis. - Repeat MRI of foot showed resolving osteomyelitis. - Continue Dapto IV; d/c Zosyn per ID recs. - Blood cultures negative. - Consulted orthopedics, appreciate input. - Consulted ID, appreciate input. - Consulted Dr. Wiseman, s/p bilateral ostial common iliac artery stenting with 2 covered stents on 02/17/19. Will likely require repeat vascular intervention as outpatient. (2) Peripheral arterial disease: - Arterial duplex on 01/13 showed extensive plaque within RLE, could not obtain ABIs. - Consulted cardiology due to failure of IV abx in setting of osteomyelitis and significant tibial disease. - Holding statin in setting of Dapto therapy. - Continue aspirin; added Plavix 75 mg daily. - S/p bilateral ostial common iliac artery stenting with 2 covered stents on 02/17/19. - Toe brachial index completed this morning; will likely need further vascular intervention, can be completed as outpatient. F/u with cardiology. (3) Bradycardia: - Has been bradycardic with HR 40's, as low as 30's; telemetry with A. fib/flutter. - Continue to hold beta onur and monitor for improvement. - Cardiology following, discussed with primary extractions technologist Dr. Wiseman. No intervention indicated. (4) KYLE (acute kidney injury): - Creatinine is fluctuating, was increased to 1.50; baseline ~0.9-1.3. - Likely pre-renal related to dehydration vs. contrast during angioplasty on 02/17. - Monitor volume status; holding IV fluids. (5) Chronic kidney disease, stage 3a: - Renally dose all meds. (6) HTN (hypertension): - Holding home Metoprolol due to bradycardia. - Restarted home Lisinopril 5 mg PO daily. (7) DMII (diabetes mellitus, type 2): - Most recent A1C was WNL in Aug 2018. - Was hypoglycemic at home on oral meds -- instructed to d/c all meds. - Monitor glucose qAM. (8) CAD (coronary artery disease): - S/p CABG. - Continue Aspirin 81 mg daily as prescribed. - Holding statin in setting of Dapto therapy; holding Metoprolol due to bradycardia. (9) Atrial fibrillation: - In A. fib on monitor, bradycardic intermittently. - Will resume home Warfarin this evening, 5 mg daily. - Holding beta onur due to bradycardia. - INR is subtherapeutic, will monitor daily. (10) Anemia of chronic disease: - Continue ferrous sulfate 325 mg BID. - Monitor CBC daily. (11) H/O aortic valve replacement: - In 2010; Valve is functioning well per most recent TTE performed as an outpatient - This is a bovine bioprosthetic valve. (12) HLD (hyperlipidemia): - Holding statin in setting of Dapto therapy. (13) History of GI bleed: - PPI daily. (14) DVT prophylaxis: - SCDs; resume Coumadin this evening. Dispo: Med/surg for treatment of right foot osteomyelitis with IV abx; s/p LE angiogram with stent placement on 02/17 PT/OT ordered, discharge over weekend pending recs. Will need to resume IV abx in infusion center, arranged to start on Thursday at 8 am. Will need to follow up with cardiology over next 7-10 days. Supervising Physician Co-Signing Physician Notes Attending Attestation - Chart reviewed in detail, care plan d/w HALLE Ambriz. I agree w/ the cerrato components of her documentation. Telemetry with ongoing bradycardia due to slow a flutter but not as severe relative to yesterday. AV mary agents on hold. POD #1 from iliac artery stenosis s/p stenting of same. Cont IV daptomycin. Dispo planning. Garrison Liang MD Subjective Pt. is doing well post op. Denies foot pain, chest pain, SOB, N/V, diarrhea or constipation. Will order PT/OT for discharge planning. Will likely need outpatient vascular intervention following toe brachial index results. Review of Systems Review of Systems: All systems reviewed & are unremarkable except as noted in HPI & below Constitutional: no fever, no chills, no fatigue and no weakness Respiratory: no cough, no dyspnea, no dyspnea on exertion and no wheezing Cardiovascular: no chest pain, no palpitations and no edema Gastrointestinal: no abdominal pain, no nausea and no constipation Genitourinary: no difficulty urinating Musculoskeletal: no back pain and no joint pain Integumentary: no non-healing lesions Allergy / Immunological: no rash Physical Exam Physical Exam: General: Resting comfortably in no apparent distress HEENT: NC/AT; PERRLA with EOMI; [place] conjunctiva, MMM. No erythema of posterior pharynx Neck: Supple and nontender Cardiac: Irregular, regular rate. Lungs: CTA bilaterally; No rhonchi, wheezing, or rales Abdomen: Bowel normoactive X 4; Nontender to palpation Extremities: Skin exam - see below. Barely palpable right dorsalis pedis and posterior tibial pulse on RLE. Neuro: No focal weakness Skin: erythema noted over right foot resolved. Open wound noted on left lateral side of 2nd toe unchanged. Results & Data Vital Signs (Past 12 Hours) Vital Signs Temp Pulse Pulse Resp BP Pulse Ox 02/18/19 07:40 36.5 C 82 18 139/66 100 02/18/19 06:20 81 02/18/19 03:11 36.7 C 82 18 132/65 94 02/18/19 00:16 36.8 C 59 L 18 125/60 99 Laboratory Results 02/18/19 02/18/19 02/18/19 Range/Units 11:17 07:36 05:55 WBC (4.8-10.8) K/uL RBC (4.7-6.1) M/uL Hgb (14.0-18.0) g/dL Hct (42-52) % MCV (80-100) fL MCH (25-34) pg MCHC (32-36) g/dL RDW Std Deviation (36.4-46.3) fL RDW Coeff of Gilbert (11.5-14.5) % Plt Count (130-400) K/uL MPV (7.4-10.4) fL PT (9.0-12.0) Seconds INR (0.9-1.1) Sodium 136 (136-145) mmol/L Potassium 4.4 (3.5-5.1) mmol/L Chloride 108 H (98-107) mmol/L Carbon Dioxide 24 (21-32) mmol/L Anion Gap 4.0 (3-11) BUN 19 H (7-18) mg/dl Creatinine 1.50 H (0.6-1.4) mg/dl Est Cr Clr Drug Dosing 30.6 ml/min Est GFR ( Amer) 48.2 Est GFR (Non-Af Amer) 41.6 BUN/Creatinine Ratio 12.9 (10-20) Glucose 88 (70-99) mg/dl POC Glucose 153 H 98 (70-99) Calcium 7.8 L (8.5-10.1) mg/dl 02/18/19 02/18/19 02/17/19 Range/Units 05:55 05:55 16:22 WBC 3.64 L (4.8-10.8) K/uL RBC 2.40 L (4.7-6.1) M/uL Hgb 8.1 L (14.0-18.0) g/dL Hct 22.6 L (42-52) % MCV 94.2 (80-100) fL MCH 33.8 (25-34) pg MCHC 35.8 (32-36) g/dL RDW Std Deviation 47.0 H (36.4-46.3) fL RDW Coeff of Gilbert 13.5 (11.5-14.5) % Plt Count 141 (130-400) K/uL MPV 9.7 (7.4-10.4) fL PT 13.2 H (9.0-12.0) Seconds INR 1.3 H (0.9-1.1) Sodium (136-145) mmol/L Potassium (3.5-5.1) mmol/L Chloride (98-107) mmol/L Carbon Dioxide (21-32) mmol/L Anion Gap (3-11) BUN (7-18) mg/dl Creatinine (0.6-1.4) mg/dl Est Cr Clr Drug Dosing ml/min Est GFR ( Amer) Est GFR (Non-Af Amer) BUN/Creatinine Ratio (10-20) Glucose (70-99) mg/dl POC Glucose 106 H (70-99) Calcium (8.5-10.1) mg/dl
[2019-02-18] MEDS: WARFARIN SOD 5 MG TAB PO SCH (15:37)
[2019-02-18 16:10] LABS: Hematocrit (blood only) 24.2 % (42-52); Hemoglobin 8.1 g/dL (14.0-18.0)
--- NOTE | 2019-02-18 23:25 | Consultation Report ---
DATE OF CONSULTATION: 02/18/2019 PERTINENT HISTORY: This is an 88-year-old gentleman seen at request of Dr. Garrison Liang for a question regarding right great toe osteomyelitis. The patient has been seen at [facility] during consultation in 12/2018 and he was continued on conservative management with IV antibiotics. The patient had admission on 02/15/2019 due to worsening cellulitis, possible osteomyelitis of the right foot. He was admitted. After he was doing well with the IV daptomycin infusions, he had worsening erythema of the right foot. He had been feeling well with the exception of right foot pain. He is having pain with rest, improves with moving and ambulating. Denies fevers, chills, shortness of breath, and chest pain. Admitted to the hospital, continued on IV antibiotics and Orthopedics was consulted. The patient then had a repeat MRI of the foot which actually showed improvement with the MRI; however, he has had worsening vascular function and then underwent bilateral arterial procedure by Dr. Wiseman. PAST MEDICAL HISTORY: Anemia of chronic disease, AFib, coronary artery disease, severe aortic stenosis, type 2 diabetes mellitus, CKD stage III, peripheral artery disease, hypertension, hyperlipidemia, gastroesophageal reflux disease, osteomyelitis of the right foot. PAST SURGICAL HISTORY: CABG x2, status post bovine arterial valve replacement, coronary artery stenting, bilateral femoral arteries angioplasties, cholecystectomy, left inguinal hernia repair. ALLERGIES: No known drug allergies. MEDICATIONS: Please note the list within the medical record. SOCIAL HISTORY: and lives with his spouse. He is retired. He is a former smoker. Denies alcohol or drug use. PHYSICAL EXAMINATION: GENERAL: This is an 88-year-old gentleman sitting in his bedside chair with a granddaughter present. He is alert and oriented x3. Speech clear and fluent. Affect is appropriate. EXTREMITIES: Examination of the lower extremities demonstrates chronic venous stasis changes bilateral lower extremities. Edema is 2+/4 bilateral lower extremities pitting to mid tibia. He has weakly palpable pulses. Feet are warm. Both lower extremities demonstrate some erythema, however, the right appears to be worse than the left. He has scant hair growth on bilateral lower extremities, dystrophic nails particularly on the right foot in the first and third toes. He has edema of the first, second and third toes of the right foot compared to the left. He has an open ulceration of the second toe medial aspect with nguyễn's wool over the ulceration. No significant foul odor. No discharge or purulence. There is an eschar over the ulceration measuring approximately 8 mm x 8 mm. Radiographs and MRI reviewed. MRI during this hospital admission compared to previous MRI demonstrates decreased marrow edema within the great toe. No obvious osteomyelitis of any other lesser toes. No fluid collections or abscess formation. LABORATORIES: Reviewed. IMPRESSION: 1. Right great toe osteitis/improving osteomyelitis. 2. Ulcer, second toe. 3. Cellulitis, right foot. 4. Dystrophic nails right foot first and third toes. 5. Chronic venous stasis changes. 6. Diabetes mellitus type 2. 7. Peripheral vascular disease. 8. Multiple medical comorbidities. RECOMMENDATION: In light of the fact the patient has had recent arterial procedure bilateral lower extremities and has demonstrated improvement on the MRI. Would recommend continued conservative management, despite his recent exacerbation of symptoms prior to admission. Continue IV antibiotics, monitoring with infectious disease and followup in clinic with Orthopedics in 1-2 weeks for reassessment. I did explain to the patient that if he should have another exacerbation of cellulitis with question of osteomyelitis, he may be better served having a partial amputation of the first and second toes as those are the most likely culprits of his repetitive recurrent cellulitis and possibly resolving osteomyelitis. He understands this and will follow up on as needed basis. At this time, I recommend nonoperative management. Thank you for the opportunity to consult care of this patient.
[2019-02-19] MEDS: HYDROCODONE/ACETAMOPHEN 5/325MG TAB PO PRN (01:30)
[2019-02-19 06:21] LABS: Hematocrit (blood only) 24.4 % (42-52); Hemoglobin 8.3 g/dL (14.0-18.0); Mean Corpuscular Volume 96.4 fL (80-100); Mean Platelet Volume 9.3 fL (7.4-10.4); Platelet Count 146 K/uL (130-400); RDW Standard Deviation 49.4 fL (36.4-46.3); Red Blood Count 2.53 M/uL (4.7-6.1); White Blood Count 4.07 K/uL (4.8-10.8)
[2019-02-19 06:30] LABS: INR 1.1 (0.9-1.1); Prothrombin Time 11.5 Seconds (9.0-12.0)
[2019-02-19 06:47] LABS: Calcium 8.2 mg/dl (8.5-10.1); Creatinine Clr Calc Pharmacy 36.7 ml/min; Est GFR (Non-African American) 51.8; Magnesium 1.7 mg/dl (1.8-2.4); Potassium 4.6 mmol/L (3.5-5.1)
[2019-02-19] MEDS: PANTOprazole 40 MG TAB PO SCH (07:54)
[2019-02-19] MEDS: FERROUS SULFATE 325 MG TAB PO SCH (07:54)
[2019-02-19] MEDS: ASPIRIN 81 MG ECTAB PO SCH (07:54)
[2019-02-19] MEDS: CLOPIDOGREL BISULFATE 75 MG TAB PO SCH (07:54)
[2019-02-19] MEDS: LISINOPRIL 5 MG TAB PO SCH (07:55)
[2019-02-19] MEDS: DOCUSATE SODIUM/SENNA 50/8.6MG TAB PO SCH (07:58)
[2019-02-19] MEDS ORDERED: MAGNESIUM OXIDE 400 MG TAB PO ONE (08:00)
[2019-02-19] MEDS: DAPTOmycin 350 MG in SYRINGE 0 ML IV SCH (09:19)
[2019-02-19] MEDS: WARFARIN SOD 5 MG TAB PO SCH (15:52)
--- NOTE | 2019-02-19 16:17 | Discharge Summary ---
Date of Service February 19, 2019 Admission HPI Per Admitting Provider Mr. Ross is an 88 year old male with past medical history of anemia of chronic disease, A. fib on Coumadin, CAD status post 2v CABG, severe now status post bovine AVR, type II DM, CKD Stage III and ANDREE with stent, PAD, subclavian artery stenosis, HTN, HL, history of peptic ulcer disease with GI bleed, and recent right foot osteomyelitis who presented from the ID clinic for worsening cellulitis/osteomyelitis of the right foot. Pt. was admitted 01/11-01/17 for right foot osteomyelitis; he was discharged to home with a PICC line and has been receiving daily Daptomycin IV infusions. He presented to the ID clinic with worsening erythema of the right foot; pt. also did not have sufficient pulses of the right lower extremity/foot. Pt. reports feeling well overall with exception of right foot pain. Pain is worse with rest, improves with moving/ambulating. Denies fever/chills, SOB, chest pain, increased LE edema, URI symptoms, abd pain, constipation or diarrhea, dysuria or hematuria. Admission Exam Per Admitting Provider General: Resting comfortably in no apparent distress HEENT: NC/AT; PERRLA with EOMI; Harvest conjunctiva, MMM. No erythema of posterior pharynx Neck: Supple and nontender Cardiac: Irregular, rate controlled. Lungs: CTA bilaterally; No rhonchi, wheezing, or rales Abdomen: Bowel normoactive X 4; Nontender to palpation Back: NO spinous tenderness Extremities: Warm. +1 bilat LE edema, likely chronic. Tenderness to palpation over right foot; skin exam as noted below. Very difficult to palpate dorsalis pe dis and posterior tibial pulse of right foot, used doppler machine to find very weak pulses. Neuro: No focal weakness Skin: erythema noted over right foot, extending from ankle to all digits, increa sed over great toe to third toe. Open wound noted on left lateral side of 2nd toe, no discharge or foul odor noted. Principal Diagnosis Osteomyelitis of the right foot Discharge Exam General: Resting comfortably in no apparent distress HEENT: NC/AT; PERRLA with EOMI; Harvest conjunctiva, MMM. No erythema of posterior pharynx Neck: Supple and nontender Cardiac: Irregular, regular rate. Lungs: CTA bilaterally; No rhonchi, wheezing, or rales Abdomen: Bowel normoactive X 4; Nontender to palpation Extremities: Skin exam - see below. Non palpable right dorsalis pedis and posterior tibial pulse on RLE. Neuro: No focal weakness Skin: Open wound noted on left lateral side of 2nd toe. Discharge Data Allergies Allergy/AdvReac Type Severity Reaction Status Date / Time No Known Allergies Allergy Unknown Verified 02/26/19 08:44 Consultations 02/15/19 17:12 Consult Infectious Diseases Routine 02/15/19 17:14 Consult Orthopedic Surgery Routine 02/15/19 17:45 Consult Cardiology Routine 02/19/19 09:39 Consult [facility] heat pump installer Routine Procedures Performed Operation Date: 02/17/19 09:30 Actual Procedures p Bilateral Lower Extremity Angiogram, Percutaneous Transluminal Angioplasty and Stenting of Bilateral Iliac Arteries , Mechanical Closure of Bilateral Femoral Artery; Moderate Sedation From 1007 to 1203.(Bilateral) - Manuelito Wiseman MD Ordered Studies 02/16/19 14:47 MR foot RT wo/w con Urgent 02/17/19 07:19 EV angio LE BI Routine US guide vascular access Routine 02/18/19 22:50 US ankle/brachial index ltd Routine Hospital Course (1) Osteomyelitis of right foot: Presented with worsening right foot cellulitis/osteomyelitis following recent admission 01/11-01/17. Was receiving daily Dapto IV as outpatient. Foot MRI 01/13 showed T1 and T2 marrow edema involving distal phalanx of great toe with ulceration, ?osteomyelitis. Repeat MRI of foot showed resolving osteomyelitis. Started Dapto/Zosyn at admission; d/c'ed Zosyn, will continue Dapto IV as outpt in infusion center. Blood cultures were negative. Consulted orthopedics, appreciate input. Will f/u as outpt in 2-3 weeks. Consulted ID, appreciate input. Will f/u in 1-[address] Wiseman, s/p bilateral ostial common iliac artery stenting with 2 covered stents on 02/17/19. Will likely require repeat vascular intervention as outpatient, f/u with cardiology in 1-2 weeks. (2) Peripheral arterial disease: Arterial duplex on 01/13 showed extensive plaque within RLE, could not obtain ABIs. Consulted cardiology due to failure of IV abx in setting of osteomyelitis and significant tibial disease. Held statin in setting of Dapto therapy. Continued aspirin; added Plavix 75 mg daily. S/p bilateral ostial common iliac artery stenting with 2 covered stents on 02/17/19. Toe brachial index completed this morning; will likely need further vascular intervention, can be completed as outpatient. F/u with cardiology. (3) Bradycardia: Was bradycardic with HR into the 30's on monitor. Held beta onur with improvement. HR improved to 60-70's. HR did not increase with ambulation prior to discharge. Will continue to hold beta onur at discharge. (4) KYLE (acute kidney injury): Creatinine fluctuated, baseline ~0.9-1.3. (5) Chronic kidney disease, stage 3a: Renally dosed all meds. (6) HTN (hypertension): D/c'ed home beta onur due to bradycardia. Home Lisinopril 5 mg PO daily. (7) DMII (diabetes mellitus, type 2): Most recent A1C was WNL in Aug 2018. Does not take meds at home, did not require blood glucose monitoring. (8) CAD (coronary artery disease): S/p CABG. Continued Aspirin 81 mg daily as prescribed. Held statin in setting of Dapto therapy; d/c'ed beta onur due to bradycardia. (9) Atrial fibrillation: In A. fib on monitor, bradycardic intermittently. Resumed home Warfarin at 5 mg daily; was subtherapeutic on discharge. Should continue 3 mg PO daily. Script provided for outpt INR in 3 days. D/c'ed beta onur due to bradycardia. (10) Anemia of chronic disease: Continued ferrous sulfate 325 mg BID. (11) H/O aortic valve replacement: In 2010; Valve is functioning well per most recent TTE performed as an outpatient This is a bovine bioprosthetic valve. (12) HLD (hyperlipidemia): Held statin in setting of Dapto therapy. (13) History of GI bleed: PPI daily. (14) DVT prophylaxis: SCDs; resumed Coumadin. Discharged to home on 02/19/19. Total Time Total Time Spent Total Time Spent (In Minutes): >30 minutes Total Time Includes: Examination of the Patient, Discharge Planning, Medication Reconciliation, Communication With Other Providers and Other Discharge Plan Discharge Items Patient Disposition: Home - Self-Care Reason For Visit: CELLULITIS RT GREAT TOE, OSTEOMYLITIS Discharge Diagnosis: Osteomyelitis Right Great Toe Condition: Good Discharge Goals: Decrease discomfort, Improve disease control, Improve function, Increase independence, Improve nutritional status, Prevent disease and Therapeutic intervention Activity: As commented below Exercise/Sports: Gradually increase as tolerated Non-emergency contact: Primary Care Provider and Oncology Navigator Call non-emergency contact if: you have any medication questions, your symptoms worsen, your pain is not controlled, your pain is worsening, your pain is unusual for you, your pain is concerning for you, you have a fever, your wound has increased redness, your wound has increased drainage and your wound pain has increased Follow-up/Referrals: Ab Germain MD [Physician] - 02/23/19 3:45 pm (Please follow up with infectious disease in 1-2 weeks. ) Ange Christy CRNP [Primary Care Provider] - Manuelito Wiseman MD [Physician] - 02/25/19 2:15 pm (Please follow up with cardiology in 1-2 weeks.) Albin Macdonald DO [Surgeon] - (Please follow up with orthopedics in 2-3 weeks. ) Diet: Carb Consistent or DM2 Other Ambulatory Orders: Prothrombin Time INR (Timed) Timeframe: 3 Days Location: Determined by Patient Ordered By: Grace Barkley Provider Instructions: 1. Osteomyelitis of the right foot/toe * Please continue daily Daptomycin infusions starting ThursdayFebruary 20 at 8 am. * Please continue daily wound care for open toe lesion. * Please schedule a follow up with orthopedics in 2-3 weeks for evaluation. * Please schedule an appointment with infectious disease in 1-2 weeks for evaluation. 2. Peripheral Arterial Disease * Please continue Aspirin as prescribed. * Plavix 75 mg daily has been added -- prescription for new medication was sent to your pharmacy. * Please hold statin therapy in the setting of Daptomycin IV (due to interaction) * Please schedule an appointment with cardiology (Dr. Wiseman) in 1-2 weeks. 3. Bradycardia (low heart rate) * Metoprolol has been discontinued due to low heart rates during this admission. * You will need to discuss resuming this medication with Dr. Wiseman. 4. Atrial Fibrillation * Please hold home Metoprolol due to low heart rate. * Please continue Coumadin 3 mg daily. * You will need a follow up PT/INR level in 3 days (on Thursday) -- script was provided at discharge. Results will be faxed to DEMAR Jenkins. 5. Please schedule follow up appointment with EDMAR Jenkins, in 1-2 weeks to discuss this hospital admission. Prescriptions: New clopidogrel 75 mg Tablet 75 mg PO QAM 30 Days Qty: 30 RF: 0 daptomycin 350 mg recon soln 350 mg IV DAILY Qty: 1 RF: 0 Continued omeprazole 40 mg Capsule,Delayed Release(Dr/Ec) 40 mg PO DAILY Qty: 0 RF: 0 aspirin 81 mg Tablet,Delayed Release (Dr/Ec) 81 mg PO DAILY Qty: 0 RF: 0 ascorbic acid (vitamin C) 500 mg Tablet 500 mg PO DAILY Qty: 0 RF: 0 cholecalciferol (vitamin D3) [Vitamin D3] 1,000 unit Capsule 2,000 unit PO DAILY Qty: 0 RF: 0 ferrous sulfate 325 mg (65 mg iron) Tablet 325 mg PO BID RF: 0 lisinopril 5 mg tablet PO DAILY RF: 0 Changed warfarin 3 mg Tablet 3 mg PO DAILY Qty: 0 RF: 0 Discontinued metoprolol tartrate 25 mg Tablet PO BID Qty: 0 RF: 0 Stand-Alone Forms: [facility] Discharge Orders: Discharge Order (Routine); Ordered 02/19/19 Ordered By: Grace Ambriz Admission Data Admit Date/Time: 02/15/19 15:32 Attending Provider: Garrison Liang Admit Provider: Sarah Otoole Primary Care Provider: Ange Christy Other Providers: Manuelito Wiseman ; Albin Macdonald ; Sea rBito ; Keena Nava Service: Medical Other Interventions: Discharge Summary Assessment (RN) Last Done: 02/19/19 14:51 Pending Studies at Discharge: Yes Studies:: Blood cultures 02/15: negative to date. DC Date/Time DO NOT enter until pt leaves facility: 02/19/19 16:27 Supervising Physician Co-Signing Physician Notes Attending Discharge note and attestation - Pt seen/examined, chart reviewed, discharge care plan d/w HALLE Ambriz on day of discharge. I agree w/ the cerrato components of her discharge documentation. 88yo male with multiple medical problems - well known to me from previous hospital stay - who presented with worsening cellulitis of the right foot in the setting of known osteomyelitis. The foot had worsened despite use of IV daptomycin as an outpatient. During this stay seen by orthopedics, ID, and cardiology (Dr Larry Wiseman). Repeat MRI of the right foot, when compared with MRI in December, actually showed improved right great toe osteomyelitis. Orthopedics did not recommend surgical intervention in light of improved MRI findings. ID advised ongoing use of IV daptomycin at d/c. And Dr Wiseman performed b/l iliac artery stenting. Course complicated by a.fib/flutter with bradycardia. Beta onur was held, and bradycardia improved. At discharge he will need plavix for at least 1 month for new stents of the iliac arteries, ongoing IV daptomycin for right foot infection, and close ortho/ID/cardiology follow-up. Discharge exam- gen - NAD heart - irregular, s1, s2, 1-2/6 systolic murmur RUSB lungs - CTA b/l abd - soft NT ext - no edema musculo - right foot - dystrophic toenails, right great edema with mild erythema, mild erythema of other toes/dorsum of foot; but not hot or tender vascular - right foot - 2+ pulses Garrison Liang MD
== END 2019-02-19 16:27 | disposition home or self-care (01) | DRG 253 ==
LOC: 3W 15:32 → SUATTDRO 15:32 → 2S 02-17 12:17
DX: L97.511 Non-pressure chronic ulcer of other part of right foot limited to breakdown of skin; L03.115 Cellulitis of right lower limb; Z87.891 Personal history of nicotine dependence; Z79.82 Long term (current) use of aspirin; E78.5 Hyperlipidemia, unspecified; I25.10 Atherosclerotic heart disease of native coronary artery without angina pectoris; Z79.01 Long term (current) use of anticoagulants; Z95.1 Presence of aortocoronary bypass graft; M86.9 Osteomyelitis, unspecified; I70.221 Atherosclerosis of native arteries of extremities with rest pain, right leg; I70.202 Unspecified atherosclerosis of native arteries of extremities, left leg; Z79.899 Other long term (current) drug therapy; E11.621 Type 2 diabetes mellitus with foot ulcer; E11.51 Type 2 diabetes mellitus with diabetic peripheral angiopathy without gangrene; N18.3 Chronic kidney disease, stage 3 (moderate); I48.91 Unspecified atrial fibrillation; K21.9 Gastro-esophageal reflux disease without esophagitis; I12.9 Hypertensive chronic kidney disease with stage 1 through stage 4 chronic kidney disease, or unspecified chronic kidney disease; E11.22 Type 2 diabetes mellitus with diabetic chronic kidney disease; N17.9 Acute kidney failure, unspecified; Z95.2 Presence of prosthetic heart valve; D63.1 Anemia in chronic kidney disease; E11.69 Type 2 diabetes mellitus with other specified complication

== ENCOUNTER 2019-03-07 08:11 | Inpatient (IN) ==
--- NOTE | 2019-03-07 09:32 | XRay Report ---
XR foot RT min 3V routine CLINICAL HISTORY: 88 years-old Male presenting with right 2nd toe ? osteo, foot cellulitis. TECHNIQUE: Frontal, oblique, and lateral views of the right foot were obtained. COMPARISON: Correlation made to MR from 02/16/2019. FINDINGS: Severe osteopenia. Joint space loss, subchondral sclerosis, and osteophytosis at the first metatarsop halangeal joint consistent with degenerative change. The right second toe is radiographically normal allowing for the degree of osteopenia. No osseous erosion or periosteal reaction. Joint spaces preser katja. No acute fracture or malalignment. Enthesophyte at the origin of the plantar fascia. Some degree of joint space loss is also suggested at the ankle mortise. Advanced atherosclerosis. Surgical clip noted in the soft tissues of the lower leg. IMPRESSION: 1. No radiographic evidence of osteomyelitis allowing for the severity of osteopenia, which degrades evaluation. 2. 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 3. No acute osseous injury. Electronically signed by: Deondre Schulz M.D. 03/07/2019 9:31 AM
[2019-03-07] MEDS ORDERED: ONDANSETRON INJ 2 MG/ML 2 ML VIAL IV STA (09:48)
[2019-03-07] MEDS ORDERED: MoRPHine SULFATE 2 MG/ML CARP IV STA (09:48)
--- NOTE | 2019-03-07 10:32 | Emergency Department Note ---
Entered by Dorinda Mao acting as a scribe for Audi Ruiz DO History of Present Illness General Chief complaint: Toe Injury/Pain Stated complaint: LEFT TOE BLISTERED Time Seen by Provider: 03/07/19 08:19 Source: family Mode of arrival: ambulatory Limitations: no limitations History of Present Illness Provider complaint: infection Onset (ago): week(s) 1 Location: foot and right Pain Consistency: + other (worsening) Quality: + other (ulcer) Treatments prior to arrival: other (antibiotics) The patient is an 88 year old male with a past medical history of diabetes who presents to the ER with a worsening wound infection that began a week ago. The patients family member at bedside reports that the patient has had an ulcer in his right second toe for about a week and has been being [facility] She states that they were at the [facility] today and referred to the ER after noticing his toe was black and cold. She also notes that he has been evaluated by Dr. Wiseman and that it was planned to have a stent placed for blood toe. Home Medications Home Medications Medication Instructions Recorded Confirmed Type ascorbic acid (vitamin C) 500 mg PO DAILY #0 03/17/18 03/07/19 History aspirin 81 mg PO DAILY #0 03/17/18 03/07/19 History cholecalciferol (vitamin D3) 2,000 unit PO DAILY #0 03/17/18 03/07/19 History [Vitamin D3] omeprazole 40 mg PO DAILY #0 03/17/18 03/07/19 History ferrous sulfate 325 mg PO BID 01/22/19 03/07/19 History lisinopril 0 mg PO DAILY 02/06/19 03/07/19 History clopidogrel 75 mg PO QAM 30 Days #30 tab 02/19/19 03/07/19 Rx daptomycin 350 mg IV DAILY #1 ea 02/19/19 03/07/19 Rx warfarin 3 mg PO DAILY #0 tab 02/19/19 03/07/19 Rx hydrocodone 5 mg-acetaminophen 325 See Rx Instructions PO Q4H PRN #60 03/02/19 03/07/19 Rx mg tablet tab Allergies Allergy/AdvReac Type Severity Reaction Status Date / Time No Known Allergies Allergy Unknown Verified 03/07/19 08:45 Past Med/Surg History Medical History Inguinal hernia (Resolved) Cellulitis (Resolved) History of GI bleed (Resolved) KYLE (acute kidney injury) (Resolved) S/P arteriogram of extremity (Acute) 2 stents in the lower legs Diabetes mellitus (Acute) type 2 Osteomyelitis (Acute) A-fib Anemia of chronic disease CKD (chronic kidney disease), stage III Coronary artery disease GERD (gastroesophageal reflux disease) HTN (hypertension), benign History of peptic ulcer disease History of stent insertion of renal artery Right, in the 1990s Hyperlipidemia Subclavian artery stenosis Surgical History H/O aortic valve replacement with tissue graft (Resolved) H/O left inguinal hernia repair (Resolved) H/O aortic valve replacement (Resolved) Aortic valve replaced (Acute) Hx of CABG (Acute) History of cholecystectomy History of left inguinal hernia repair Family History Father Family history non-contributory Social History Preferred Language: Sinhala Communication Ability: Effective Beliefs That Will Affect Care: None marital status: Current Living Situation: Spouse Feels Safe at Home: Yes Smoking Status: Former smoker Tobacco Type: cigarettes Cigarettes Per Day: 20 Second Hand Exposure: No Hx Alcohol Use: No Hx Substance Use: No Review of Systems See HPI for pertinent positives & negatives. and A total of 10 systems reviewed and were otherwise negative Physical Exam Vital Signs Vital Signs - 24 hr 03/07/19 08:16 Temperature 36.4 C L Temperature Source Oral Sepsis Recent Fever Within 48 Hours No Sepsis New/Unexplained Change in Mental Status No Sepsis Action Taken by Nursing No Action Required Pulse Rate 67 Pulse Rhythm Regular Respiratory Rate 20 Respiratory Effort / Characteristics Non-Labored Spontaneous Respiratory Depth Normal Respiratory Pattern Regular Blood Pressure 164/77 H Blood Pressure Mean 106 Blood Pressure Position Sitting Pulse Oximetry 98 Oxygen Delivery Method Room Air CONSTITUTIONAL/VITAL SIGNS: Reviewed / noted above. GENERAL: Non-toxic in appearance. INTEGUMENTARY: Warm, dry, and [place]. HEAD: Normocephalic. EYES: without scleral icterus or trauma. ENT/OROPHARYNX: clear and moist. LYMPHADENOPATHY/NECK: Is supple without lymphadenopathy or meningismus. RESPIRATORY: Lungs clear and equal. CARDIOVASCULAR: Regular rate and rhythm. GI/ABDOMEN: Soft and nontender. No organomegaly or pulsatile mass. No rebound or guarding. Normal bowel sounds. EXTREMITIES: Right foot reveals some dorsal erythema.The right second toe is cool and light purple distally with a blackened eschar proximally. No drainage. BACK: No CVA tenderness. NEUROLOGICAL: Intact without focal deficits. PSYCHIATRIC: normal affect. MUSCULOSKELETAL: Normally developed with good muscle tone. Course 0850: Past medical records reviewed. The patient was evaluated in room A2. A complete history and physical examination was performed. 0954: I discussed the patients case with MANI Cardzoo. He rec ommends admission of the patient. 1015: I reviewed the patient's case with Dr. Glass - [facility] Hospitalist. She will evaluate the patient for further management. Administered Medications Discontinued Medications Morphine Sulfate (Morphine Sulfate) 2 mg IV NOW STA Stop: 03/07/19 09:49 Last Admin: 03/07/19 09:53 Dose: 2 mg Documented by: [id number] Ondansetron HCl (Zofran) 4 mg IV NOW STA Stop: 03/07/19 09:49 Last Admin: 03/07/19 09:53 Dose: 4 mg Documented by: [id number] Medical Decision Making Differential Diagnosis Differential diagnosis: cellulitis, abscess, MRSA, infection, DVT, necrotizing fasciitis, dermatitis, drug eruption, as well as others were entertained. Medical Records Attestation: I reviewed the patient's medical records. Home Medications Current Medication List: was personally reviewed by me Laboratory Data Attestation: I reviewed the patient's lab results. Imaging Data Radiologist's Impression: Radiology results as stated below per my review and the radiologist's interpretation: XR foot RT min 3V routine CLINICAL HISTORY: 88 years-old Male presenting with right 2nd toe ? osteo, foot cellulitis. TECHNIQUE: Frontal, oblique, and lateral views of the right foot were obtained. COMPARISON: Correlation made to MR from 02/16/2019. FINDINGS: Severe osteopenia. Joint space loss, subchondral sclerosis, and osteophytosis at the first metatarsophalangeal joint consistent with degenerative change. The right second toe is radiographically normal allowing for the degree of osteopenia. No osseous erosion or periosteal reaction. Joint spaces preserved. No acute fracture or malalignment. Enthesophyte at the origin of the plantar fascia. Some degree of joint space loss is also suggested at the ankle mortise. Advanced atherosclerosis. Surgical clip noted in the soft tissues of the lower leg. IMPRESSION: 1. No radiographic evidence of osteomyelitis allowing for the severity of osteopenia, which degrades evaluation. 2. 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 3. No acute osseous injury. Electronically signed by: Deondre Schulz M.D. 03/07/2019 9:31 AM Blood Pressure Blood Pressure Findings: Elevated blood pressure Blood Pressure Disposition: further management by hospitalist MDM Narrative This is an 88-year-old male who presents to the ED with a chief complaint of ischemia to the right middle toe and foot infection. The patient's symptoms have been ongoing for the past month or more. Over the past 2 or 3 days, the right middle toe has shown coolness and discoloration compared to the other toes. The patient has been seen by Dr. Wiseman for possible vascular stent in the right leg, Dr. Germain for his infection and Dr. Macdonald for his foot. The patient has the noted exam above. The right middle toe appears to be ischemic and is cool to touch compared to the other toes. It is also discolored. X-ray of the foot did not reveal osteomyelitis. Hemoglobin is 9.4. Sodium is 129. BUN is 28. Sed rate is 6. The patient was told the results. I spoke with Toi adame. He request that the patient be admitted via the hospitalist. I spoke with Sandy Glass, the patient was seen by her. Impression & Plan Cellulitis of right foot, Ischemic ulcer of toe of right foot Discharge Plan Visit Data Chief Complaint: Toe Injury/Pain Stated Complaint: LEFT TOE BLISTERED ED Provider: Audi Ruiz Discharge Problem: Cellulitis of right foot, Ischemic ulcer of toe of right foot Patient Disposition: Being Evaluated by Hospitalist Forms Stand Alone Forms: My [facility]onym[facility] Prescriptions Prescriptions: No Action omeprazole 40 mg Capsule,Delayed Release(Dr/Ec) 40 mg PO DAILY Qty: 0 RF: 0 aspirin 81 mg Tablet,Delayed Release (Dr/Ec) 81 mg PO DAILY Qty: 0 RF: 0 ascorbic acid (vitamin C) 500 mg Tablet 500 mg PO DAILY Qty: 0 RF: 0 cholecalciferol (vitamin D3) [Vitamin D3] 1,000 unit Capsule 2,000 unit PO DAILY Qty: 0 RF: 0 hydrocodone-acetaminophen 5-325 mg tablet See Rx Instructions PO Q4H PRN (Reason: pain) Qty: 60 RF: 0 clopidogrel 75 mg Tablet 75 mg PO QAM 30 Days Qty: 30 RF: 0 daptomycin 350 mg recon soln 350 mg IV DAILY Qty: 1 RF: 0 warfarin 3 mg Tablet 3 mg PO DAILY Qty: 0 RF: 0 ferrous sulfate 325 mg (65 mg iron) Tablet 325 mg PO BID RF: 0 lisinopril 5 mg tablet PO DAILY RF: 0 Referrals Referrals: Ange Christy CRNP [Primary Care Provider] - Discharge Problem: Ischemic ulcer of toe of right foot Qualifiers: Non-pressure ulcer stage: unspecified non-pressure ulcer stage Qualified Code( s): L97.519 - Non-pressure chronic ulcer of other part of right foot with unspecified severity The scribe's documentation has been prepared under my direction and personally reviewed by me in its entirety. I confirm that the note above accurately reflects all work, treatment, procedures, and medical decision making performed by me.
[2019-03-07 10:53] LABS: Basophils # (auto) 0.01 K/uL (0-0.2); Basophils % (auto) 0.3 %; Eosinophils # (auto) 0.01 K/uL (0-0.5); Eosinophils % (auto) 0.3 %; Hematocrit (blood only) 28.3 % (42-52); Hemoglobin 9.3 g/dL (14.0-18.0); Lymphocytes # (auto) 0.39 K/uL (1.2-3.4); Lymphocytes % (auto) 12.4 %; Mean Corpuscular Hgb Conc 32.9 g/dL (32-36); Mean Corpuscular Volume 96.3 fL (80-100); Mean Platelet Volume 9.5 fL (7.4-10.4); Monocytes # (auto) 0.27 K/uL (0.11-0.59); Monocytes % (auto) 8.6 %; Neutrophils # (auto) 2.46 K/uL (1.4-6.5); Neutrophils % (auto) 78.4 %; Platelet Count 262 K/uL (130-400); RDW Coefficient of Variation 14.4 % (11.5-14.5); RDW Standard Deviation 50.9 fL (36.4-46.3); Red Blood Count 2.94 M/uL (4.7-6.1); White Blood Count 3.14 K/uL (4.8-10.8)
[2019-03-07 10:59] LABS: BUN Creatinine Ratio 23.2 (10-20); Calcium 8.3 mg/dl (8.5-10.1); Creatinine Clr Calc Pharmacy 41.5 ml/min; Est GFR (African American) 68.6; Est GFR (Non-African American) 59.2; Potassium 4.5 mmol/L (3.5-5.1)
[2019-03-07 11:01] LABS: INR 3.3 (0.9-1.1); Partial Thromboplastin Ratio 1.9; Prothrombin Time 31.1 Seconds (9.0-12.0)
[2019-03-07 11:06] LABS: Partial Thromboplastin Time 50.4 Seconds (21.0-31.0)
--- NOTE | 2019-03-07 11:23 | History & Physical Report ---
Date of Service March 07, 2019 Assessment & Plan (1) Gangrene of toe of right foot: XR neg MRI pending Appearance is c/w osteomyelitis Ortho c/s pending Continue dapto for now (2) Atrial fibrillation: continue home meds Holding coumadin for elevated INR and possible need for OR Has had issues with INR being subtherapeutic recently, current dose was 3mg daily Heparin drip (3) DMII (diabetes mellitus, type 2): No current meds due to hypoglycemia Monitor (4) CAD (coronary artery disease): Aspirin/plavix Monitor Heparin given significant disease (5) Chronic kidney disease, stage 3a: Hx of renal stent Cr WNL on admission (6) HLD (hyperlipidemia): Has been off of medication for this (7) Peripheral arterial disease: Follows with Dr. Wiseman Planning for stenting on 03/15 Heparin drip while off of aspirin, plavix, warfarin (8) HTN (hypertension): continue home meds (9) DVT prophylaxis: Heparin for DVT proph History of Present Illness Primary Care Provider: DEMAR Rosario 88 y/o M c/o R 2nd toe discoloration. states that pt had been noted with dry and flaking skin on the R 2nd toe with underlying redness. She states [facility] and advised to use Eucerin cream. Over the last few days pt has had an eruption of black discoloration after the flaking skin peeled away and his toe his now purple distal to that black discoloration. There is swelling. There are no issues with other toes. No bleeding noted. He has pain to this toe. He has been following with Dr. Germain and has been on dapto for an ongoing cellulitis. He has been seen by Dr. Macdonald in the past. No hx with [facility]. Pt follows with Dr. Wiseman for vascular care. He has hx of stenting and there was plan for a new stent on 03/15. Pt has no other current health concerns. Pt denies fever, SOB, chest pain, abd pain, n/v/c/d, LE pain or swelling. Allergies Allergy/AdvReac Type Severity Reaction Status Date / Time No Known Allergies Allergy Unknown Verified 03/07/19 08:45 Home Medications Home Medications Medication Instructions Recorded Confirmed Type ascorbic acid (vitamin C) 500 mg PO DAILY #0 03/17/18 03/07/19 History aspirin 81 mg PO DAILY #0 03/17/18 03/07/19 History cholecalciferol (vitamin D3) 2,000 unit PO DAILY #0 03/17/18 03/07/19 History [Vitamin D3] omeprazole 40 mg PO DAILY #0 03/17/18 03/07/19 History ferrous sulfate 325 mg PO BID 01/22/19 03/07/19 History lisinopril 0 mg PO DAILY 02/06/19 03/07/19 History clopidogrel 75 mg PO QAM 30 Days #30 tab 02/19/19 03/07/19 Rx daptomycin 350 mg IV DAILY #1 ea 02/19/19 03/07/19 Rx warfarin 3 mg PO DAILY #0 tab 02/19/19 03/07/19 Rx hydrocodone 5 mg-acetaminophen 325 See Rx Instructions PO Q4H PRN #60 03/02/19 03/07/19 Rx mg tablet tab Past Med/Surg History Medical History Inguinal hernia (Resolved) Cellulitis (Resolved) History of GI bleed (Resolved) KYLE (acute kidney injury) (Resolved) Diabetes mellitus (Acute) type 2 Osteomyelitis (Acute) S/P arteriogram of extremity (Acute) 2 stents in the lower legs A-fib Anemia of chronic disease CKD (chronic kidney disease), stage III Coronary artery disease GERD (gastroesophageal reflux disease) HTN (hypertension), benign History of peptic ulcer disease History of stent insertion of renal artery Right, in the Hyperlipidemia Subclavian artery stenosis Surgical History H/O aortic valve replacement with tissue graft (Resolved) H/O left inguinal hernia repair (Resolved) H/O aortic valve replacement (Resolved) Aortic valve replaced (Acute) Hx of CABG (Acute) History of cholecystectomy History of left inguinal hernia repair Family History Father Unknown family medical history Social History Preferred Language: Swedish Communication Ability: Effective Chief Unit Forester Required: No Beliefs That Will Affect Care: None marital status: Current Living Situation: Spouse Other Information That Helps Us Care for You: No Feels Safe at Home: Yes Safety Concerns: Feels Safe At This Time Smoking Status: Former smoker Tobacco Type: cigarettes Cigarettes Per Day: 20 Do You Dip or Chew Tobacco: No Smoking End Date: 1988 Second Hand Exposure: No Tobacco Cessation Education Requested by Patient: No Hx Alcohol Use: Yes (hx of heavy use, quit in 1995) Hx Substance Use: No Review of Systems Review of Systems: Pertinent positives and negatives reviewed in HPI--all others negative Physical Exam Constitutional: WD/WN, vitals as above Eyes: normal visual mcallister by confrontation and + anicteric sclerae Neck: normal visual inspection and trachea midline Respiratory: normal respiratory effort, lungs clear to auscultation Cardiovascular: Rate/Rhythm: regular rate and regular rhythm Gastrointestinal (Abdomen): Inspection/Auscultation: abdomen not distended Percussion/Palpation: abdomen soft; abdomen nontender Musculoskeletal: Head/Neck/Chest: normocephalic and head atraumatic peripheral pulses intact Skin: b/l feet cool to touch R 2nd toe with black discoloration just distal to toe base and purple discoloration distal to that TTP along foot bridge Neurologic: awake; not confused Speech / Cognition: normal speech Psychiatric: A+Ox3, euthymic affect Results & Data Vital Signs (Past 12 Hours) Vital Signs Temp Pulse Pulse Resp BP BP Pulse Ox 03/07/19 11:18 66 20 148/92 H 98 03/07/19 10:32 65 20 151/82 H 98 03/07/19 08:16 36.4 C L 67 20 164/77 H 98 Diagnostic Findings R foot XR: neg for osteo Code Status & VTE Plan Code Status Other: Full code, although pt states no prolonged mechanical life support, feeding tubes, etc
[2019-03-07] MEDS ORDERED: GLUCAGON FOR INJ 1 MG VIAL SQ PRN (12:33)
[2019-03-07] MEDS ORDERED: ACETAMINOPHEN 325 MG TAB PO PRN (12:33)
[2019-03-07] MEDS ORDERED: GLUCOSE 10 TABS/TUBE PO PRN (12:33)
[2019-03-07] MEDS ORDERED: Heparin IV Standard *NO* Bolus IV SCH (12:33)
[2019-03-07] MEDS ORDERED: DEXTROSE 50% 50 ML SYRINGE IV PRN (12:33)
[2019-03-07] MEDS ORDERED: MAGNESIUM HYDROXIDE SUSP 30 ML UDC PO PRN (12:33)
[2019-03-07] MEDS ORDERED: Heparin Adult STANDARD Wt-Based Dextrose 5% 25,000 units/500 mL IV SCH (13:30)
[2019-03-07] MEDS: INSULIN ASPART 100 UNITS/ML 3 ML PEN SC SCH ×3 (13:38→21:07)
--- NOTE | 2019-03-07 14:37 | Infectious Disease Consult ---
Date of Consultation March 07, 2019 Assessment & Plan (1) Gangrene of toe of right foot: Patient with gangrene of the right second toe in the setting of diabetes and severe peripheral arterial disease. Await MRI scanning to assess for osteomyelitis, plain x-ray shows no evidence. Would continue on daptomycin for now. Will follow. History of Present Illness Reason for Consultation: Daptomycin use, patient known to you Attending Physician: Sandy Glass DO History of Present Illness 88-year-old male well-known to the infectious disease service, with a history of diabetes mellitus, peripheral neuropathy, severe peripheral arterial disease, status post recent iliac artery stenting, under treatment for osteomyelitis with daptomycin, with improvement last seen on MRI February 16. Now presents with 1 week history of ulceration of his right second toe, with blackening of the toe and blistering of the skin. No significant spreading erythema. Denies any fever or chills. Has MRI pending. Currently without pain. Allergies Allergy/AdvReac Type Severity Reaction Status Date / Time No Known Allergies Allergy Unknown Verified 03/07/19 08:45 Home Medications Home Medications Medication Instructions Recorded Confirmed Type ascorbic acid (vitamin C) 500 mg PO DAILY #0 03/17/18 03/07/19 History aspirin 81 mg PO DAILY #0 03/17/18 03/07/19 History cholecalciferol (vitamin D3) 2,000 unit PO DAILY #0 03/17/18 03/07/19 History [Vitamin D3] omeprazole 40 mg PO DAILY #0 03/17/18 03/07/19 History ferrous sulfate 325 mg PO BID 01/22/19 03/07/19 History lisinopril 0 mg PO DAILY 02/06/19 03/07/19 History clopidogrel 75 mg PO QAM 30 Days #30 tab 02/19/19 03/07/19 Rx daptomycin 350 mg IV DAILY #1 ea 02/19/19 03/07/19 Rx warfarin 3 mg PO DAILY #0 tab 02/19/19 03/07/19 Rx hydrocodone 5 mg-acetaminophen 325 See Rx Instructions PO Q4H PRN #60 03/02/19 03/07/19 Rx mg tablet tab Patient History Medical History Inguinal hernia (Resolved) Cellulitis (Resolved) History of GI bleed (Resolved) KYLE (acute kidney injury) (Resolved) Diabetes mellitus (Acute) type 2 Osteomyelitis (Acute) S/P arteriogram of extremity (Acute) 2 stents in the lower legs A-fib Anemia of chronic disease CKD (chronic kidney disease), stage III Coronary artery disease GERD (gastroesophageal reflux disease) HTN (hypertension), benign History of peptic ulcer disease History of stent insertion of renal artery Right, in the Hyperlipidemia Subclavian artery stenosis Surgical History H/O aortic valve replacement with tissue graft (Resolved) H/O left inguinal hernia repair (Resolved) H/O aortic valve replacement (Resolved) Aortic valve replaced (Acute) Hx of CABG (Acute) History of cholecystectomy History of left inguinal hernia repair Family History Father Unknown family medical history Social History Preferred Language: Portuguese Communication Ability: Effective State Pilot Required: No Beliefs That Will Affect Care: None marital status: Current Living Situation: Spouse Other Information That Helps Us Care for You: No Feels Safe at Home: Yes Safety Concerns: Feels Safe At This Time Smoking Status: Former smoker Tobacco Type: cigarettes Cigarettes Per Day: 20 Do You Dip or Chew Tobacco: No Smoking End Date: 1988 Second Hand Exposure: No Tobacco Cessation Education Requested by Patient: No Hx Alcohol Use: Yes (hx of heavy use, quit in 1995) Hx Substance Use: No Review of Systems Review of Systems: All systems reviewed & are unremarkable except as noted in HPI & below Physical Exam Constitutional: WD/WN, vitals as above comfortable; no acute distress Eyes: PERRL, conjunctivae normal, anicteric sclerae ENMT: external ear and nose normal, oropharynx normal Neck: trachea midline, no thyromegaly neck nontender Respiratory: normal respiratory effort, lungs clear to auscultation normal percussion; does not use accessory muscles Cardiovascular: Rate/Rhythm: regular rate and regular rhythm Heart Sounds: normal S1 and normal S2; no gallop, no murmur and no cardiac rub Vessels: normal peripheral pulses; no JVD Gastrointestinal (Abdomen): normal bowel sounds, soft, nontender, no hepatosplenomegaly Musculoskeletal: no cyanosis or clubbing, extremities motor strength 5/5 Spine: thoracic spine normal to inspection and lumbar spine normal to inspection; no cervical spinal tenderness Skin: normal turgor; no rashes Right second toe with gangrenous changes, some early skin sloughing Neurologic: moves all extremities and awake; no focal motor deficits Psychiatric: A+Ox3, euthymic affect Orientation: cooperative Lymphatic: no cervical or axillary lymphadenopathy no inguinal lymphadenopathy Results & Data Vital Signs (Past 12 Hours) Vital Signs Temp Pulse Pulse Resp BP BP Pulse Ox 03/07/19 12:35 36.4 C L 66 15 168/72 H 94 03/07/19 11:29 36.4 C L 66 20 148/92 H 98 03/07/19 11:18 66 20 148/92 H 98 03/07/19 10:32 65 20 151/82 H 98 03/07/19 08:16 36.4 C L 67 20 164/77 H 98 Laboratory Results Short CBC 03/07/19 Range/Units 10:30 WBC 3.14 L (4.8-10.8) K/uL Hgb 9.3 L (14.0-18.0) g/dL Hct 28.3 L (42-52) % Plt Count 262 (130-400) K/uL BMP 03/07/19 10:30 Sodium 130 L Potassium 4.5 Chloride 96 L Carbon Dioxide 26 BUN 26 H Creatinine 1.12 Glucose 126 H Calcium 8.3 L Diagnostic Findings Laboratory Results - last 48 hr 03/07/19 03/07/19 03/07/19 10:30 10:30 10:30 WBC 3.14 L RBC 2.94 L Hgb 9.3 L Hct 28.3 L MCV 96.3 MCH 31.6 MCHC 32.9 RDW Std Deviation 50.9 H RDW Coeff of Gilbert 14.4 Plt Count 262 MPV 9.5 Immature Gran % (Auto) 0.0 Neut % (Auto) 78.4 Lymph % (Auto) 12.4 [place] % (Auto) 8.6 Eos % (Auto) 0.3 Baso % (Auto) 0.3 Immature Gran # (Auto) 0.00 Neut # (Auto) 2.46 Lymph # (Auto) 0.39 L [place] # (Auto) 0.27 Eos # (Auto) 0.01 Baso # (Auto) 0.01 ESR 5 PT INR APTT PTT Ratio Sodium 130 L Potassium 4.5 Chloride 96 L Carbon Dioxide 26 Anion Gap 8.0 BUN 26 H Creatinine 1.12 Est Cr Clr Drug Dosing 41.5 Est GFR ( Amer) 68.6 Est GFR (Non-Af Amer) 59.2 BUN/Creatinine Ratio 23.2 H Glucose 126 H POC Glucose Calcium 8.3 L 03/07/19 03/07/19 10:30 13:02 WBC RBC Hgb Hct MCV MCH MCHC RDW Std Deviation RDW Coeff of [place] Plt Count MPV Immature Gran % (Auto) Neut % (Auto) Lymph % (Auto) [place] % (Auto) Eos % (Auto) Baso % (Auto) Immature Gran # (Auto) Neut # (Auto) Lymph # (Auto) [place] # (Auto) Eos # (Auto) Baso # (Auto) ESR PT 31.1 H INR 3.3 H APTT 50.4 H* PTT Ratio 1.9 Sodium Potassium Chloride Carbon Dioxide Anion Gap BUN Creatinine Est Cr Clr Drug Dosing Est GFR ( Amer) Est GFR (Non-Af Amer) BUN/Creatinine Ratio Glucose POC Glucose 118 H Calcium XR foot RT min 3V routine CLINICAL HISTORY: 88 years-old Male presenting with right 2nd toe ? osteo, foot cellulitis. TECHNIQUE: Frontal, oblique, and lateral views of the right foot were obtained. COMPARISON: Correlation made to MR from 02/16/2019. FINDINGS: Severe osteopenia. Joint space loss, subchondral sclerosis, and osteophytosis at the first metatarsophalangeal joint consistent with degenerative change. The right second toe is radiographically normal allowing for the degree of osteopenia. No osseous erosion or periosteal reaction. Joint spaces preserved. No acute fracture or malalignment. Enthesophyte at the origin of the plantar fascia. Some degree of joint space loss is also suggested at the ankle mortise. Advanced atherosclerosis. Surgical clip noted in the soft tissues of the lower leg. IMPRESSION: 1. No radiographic evidence of osteomyelitis allowing for the severity of osteopenia, which degrades evaluation. 2. 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 3. No acute osseous injury.
[2019-03-07] MEDS: ONDANSETRON INJ 2 MG/ML 2 ML VIAL IV PRN (18:27)
--- NOTE | 2019-03-07 19:42 | Magnetic Resonance Report ---
MR foot RT w/o con HISTORY: Right second toe swelling. possible osteo TECHNIQUE: Multiplanar multisequence MRI of the right foot was performed without contrast. COMPARISON STUDY: Prior right foot MRI 02/16/2019 use for comparison. FINDINGS: The study is difficult from a technical standpoint due to the motion artifact. There is tom gamaliel subcutaneous edema within the forefoot. No definite fluid collections to suggest an abscess. The flexor and extensor tendons appear intact. There appears be increased T2 signal within the distal pha langes of the first, third, fourth, and fifth toes. However, no definite abnormal T1 signal. Therefor e, this favors areas of osteitis without evidence for osteomyelitis. No definite pleural effusion edelmira ntified. However, this is difficult to assess due to the motion artifact. IMPRESSION: 1. Study is difficult from a technical standpoint due to the mild motion artifact. 2. However, there does not appear to be significant change compared to the prior study. 2. Areas of osteitis without definite evidence for osteomyelitis within the distal phalanges of the f irst, third, fourth, and fifth toes as described above. Electronically signed by: Pipo Basurto M.D. 03/07/2019 7:40 PM
[2019-03-07] MEDS ORDERED: PROMETHAZINE HCL 6.25 MG in SODIUM CHLORIDE 0.9% 50 ML IV STA (19:53)
--- NOTE | 2019-03-07 20:07 | Orthopedic Consultation ---
Date of Consultation March 07, 2019 Assessment & Plan (1) Gangrene of toe of right foot: Will likely benefit from surgical debridement and likely amputation of the second digit. Will discuss with Dr. Macdonald, to review MRI results to determine appropriate treatment plan moving forward. Continue IV antibiotics per infectious disease at this time. Ice and elevation of the right lower extremity, may weight-bear as tolerated through the heel, postop shoe, pain control. Thank you for the consultation. History of Present Illness Reason for Consultation: Right foot 2nd digit necrosis Attending Physician: Sandy Glass DO History of Present Illness The patient is an 88-year-old male with significant past medical history for diabetes type 2, A. fib, anemia of chronic disease, GERD, hypertension, hyperlipidemia, peripheral vascular disease status post stents, recent history for cellulitis of his right foot with an admission 01/11/2019 and underwent angio presents now with Cellulitis of the right foot and gangrene of the second toe. Admitted to the hospital for further inpatient treatment. Patient admits to pain to the right foot. States that 2 days prior to today's evaluation he noticed discoloration of the second toe and increasing in his pain. Currently denies fevers and chills. Denies trauma. Follows with Dr. Macdonald. Allergies Allergy/AdvReac Type Severity Reaction Status Date / Time No Known Allergies Allergy Unknown Verified 03/07/19 08:45 Home Medications Home Medications Medication Instructions Recorded Confirmed Type ascorbic acid (vitamin C) 500 mg PO DAILY #0 03/17/18 03/07/19 History aspirin 81 mg PO DAILY #0 03/17/18 03/07/19 History cholecalciferol (vitamin D3) 2,000 unit PO DAILY #0 03/17/18 03/07/19 History [Vitamin D3] omeprazole 40 mg PO DAILY #0 03/17/18 03/07/19 History ferrous sulfate 325 mg PO BID 01/22/19 03/07/19 History lisinopril 0 mg PO DAILY 02/06/19 03/07/19 History clopidogrel 75 mg PO QAM 30 Days #30 tab 02/19/19 03/07/19 Rx daptomycin 350 mg IV DAILY #1 ea 02/19/19 03/07/19 Rx warfarin 3 mg PO DAILY #0 tab 02/19/19 03/07/19 Rx hydrocodone 5 mg-acetaminophen 325 See Rx Instructions PO Q4H PRN #60 03/02/19 03/07/19 Rx mg tablet tab Patient History Medical History Inguinal hernia (Resolved) Cellulitis (Resolved) History of GI bleed (Resolved) KYLE (acute kidney injury) (Resolved) Diabetes mellitus (Acute) type 2 Osteomyelitis (Acute) S/P arteriogram of extremity (Acute) 2 stents in the lower legs A-fib Anemia of chronic disease CKD (chronic kidney disease), stage III Coronary artery disease GERD (gastroesophageal reflux disease) HTN (hypertension), benign History of peptic ulcer disease History of stent insertion of renal artery Right, in the 1990s Hyperlipidemia Subclavian artery stenosis Surgical History H/O aortic valve replacement with tissue graft (Resolved) H/O left inguinal hernia repair (Resolved) H/O aortic valve replacement (Resolved) Aortic valve replaced (Acute) Hx of CABG (Acute) History of cholecystectomy History of left inguinal hernia repair Family History Father Unknown family medical history Social History Preferred Language: Lithuanian Communication Ability: Effective 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 Beliefs That Will Affect Care: None marital status: Current Living Situation: Spouse Other Information That Helps Us Care for You: No Feels Safe at Home: Yes Safety Concerns: Feels Safe At This Time Smoking Status: Former smoker Tobacco Type: cigarettes Cigarettes Per Day: 20 Do You Dip or Chew Tobacco: No Smoking End Date: 1988 Second Hand Exposure: No Tobacco Cessation Education Requested by Patient: No Hx Alcohol Use: Yes (hx of heavy use, quit in 1995) Hx Substance Use: No Review of Systems Review of Systems: All systems reviewed & are unremarkable except as noted in HPI & below Constitutional: as per Subjective / HPI Physical Exam Physical Exam: RLE NVSI +EHL/FHL/TA/GS SILT grossly, +2 DP pulse, compartments soft NT, Tenderness to palpation to dorsal foot and second digit. Positive edema dorsal forefoot and mild cellulitis, dusky appearing second digit necrosis, no active drainage or purulence noted. Constitutional: WD/WN, vitals as above Results & Data Vital Signs (Past 12 Hours) Vital Signs Temp Pulse Pulse Resp BP BP Pulse Ox 03/07/19 15:12 36.4 C L 66 16 145/75 H 97 03/07/19 12:35 36.4 C L 66 15 168/72 H 94 03/07/19 11:29 36.4 C L 66 20 148/92 H 98 03/07/19 11:18 66 20 148/92 H 98 03/07/19 10:32 65 20 151/82 H 98 03/07/19 08:16 36.4 C L 67 20 164/77 H 98 Diagnostic Findings XR foot RT min 3V routine CLINICAL HISTORY: 88 years-old Male presenting with right 2nd toe ? osteo, foot cellulitis. TECHNIQUE: Frontal, oblique, and lateral views of the right foot were obtained. COMPARISON: Correlation made to MR from 02/16/2019. FINDINGS: Severe osteopenia. Joint space loss, subchondral sclerosis, and osteophytosis at the first metatarsophalangeal joint consistent with degenerative change. The right second toe is radiographically normal allowing for the degree of osteopenia. No osseous erosion or periosteal reaction. Joint spaces preserved. No acute fracture or malalignment. Enthesophyte at the origin of the plantar fascia. Some degree of joint space loss is also suggested at the ankle mortise. Advanced atherosclerosis. Surgical clip noted in the soft tissues of the lower leg. IMPRESSION: 1. No radiographic evidence of osteomyelitis allowing for the severity of osteopenia, which degrades evaluation. 2. 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 3. No acute osseous injury. MR foot RT w/o con HISTORY: Right second toe swelling. possible osteo TECHNIQUE: Multiplanar multisequence MRI of the right foot was performed without contrast. COMPARISON STUDY: Prior right foot MRI 02/16/2019 use for comparison. FINDINGS: The study is difficult from a technical standpoint due to the motion artifact. There is dorsal subcutaneous edema within the forefoot. No definite fluid collections to suggest an abscess. The flexor and extensor tendons appear intact. There appears be increased T2 signal within the distal phalanges of the first, third, fourth, and fifth toes. However, no definite abnormal T1 signal. Therefore, this favors areas of osteitis without evidence for osteomyelitis. No definite pleural effusion identified. However, this is difficult to assess due to the motion artifact. IMPRESSION: 1. Study is difficult from a technical standpoint due to the mild motion artifact. 2. However, there does not appear to be significant change compared to the prior study. 2. Areas of osteitis without definite evidence for osteomyelitis within the distal phalanges of the first, third, fourth, and fifth toes as described above.
[2019-03-07 20:32] LABS: Partial Thromboplastin Time 81.1 Seconds (21.0-31.0)
[2019-03-07] MEDS: FERROUS SULFATE 325 MG TAB PO SCH (20:40)
[2019-03-07] MEDS ORDERED: DAPTOmycin 350 MG in SYRINGE 0 ML IV SCH (22:00)
[2019-03-08] MEDS: ONDANSETRON INJ 2 MG/ML 2 ML VIAL IV PRN ×2 (01:08→14:47)
[2019-03-08 02:57] LABS: Partial Thromboplastin Ratio > 5.1
[2019-03-08 03:07] LABS: Partial Thromboplastin Time > 139.0 Seconds (21.0-31.0)
[2019-03-08 04:27] LABS: Basophils # (auto) 0.02 K/uL (0-0.2); Basophils % (auto) 0.5 %; Eosinophils # (auto) 0.02 K/uL (0-0.5); Eosinophils % (auto) 0.5 %; Hematocrit (blood only) 28.9 % (42-52); Hemoglobin 9.7 g/dL (14.0-18.0); Lymphocytes # (auto) 0.68 K/uL (1.2-3.4); Mean Corpuscular Hgb Conc 33.6 g/dL (32-36); Mean Corpuscular Volume 94.4 fL (80-100); Mean Platelet Volume 9.1 fL (7.4-10.4); Monocytes # (auto) 0.42 K/uL (0.11-0.59); Monocytes % (auto) 9.9 %; Neutrophils # (auto) 3.12 K/uL (1.4-6.5); Neutrophils % (auto) 73.1 %; Platelet Count 278 K/uL (130-400); RDW Coefficient of Variation 14.2 % (11.5-14.5); RDW Standard Deviation 48.9 fL (36.4-46.3); Red Blood Count 3.06 M/uL (4.7-6.1); White Blood Count 4.26 K/uL (4.8-10.8)
[2019-03-08 04:43] LABS: BUN Creatinine Ratio 18.2 (10-20); Calcium 7.7 mg/dl (8.5-10.1); Creatinine Clr Calc Pharmacy 37.5 ml/min; Est GFR (African American) 60.6; Est GFR (Non-African American) 52.3; Potassium 4.5 mmol/L (3.5-5.1)
[2019-03-08 04:47] LABS: INR 3.1 (0.9-1.1); Partial Thromboplastin Ratio 2.7; Prothrombin Time 29.2 Seconds (9.0-12.0)
[2019-03-08 04:52] LABS: Partial Thromboplastin Time 73.6 Seconds (21.0-31.0)
[2019-03-08 07:16] LABS: Estimated Average Glucose 100 mg/dl; Hemoglobin A1C 5.1 % (4.5-5.6)
[2019-03-08] MEDS: LISINOPRIL 5 MG TAB PO SCH (08:38)
[2019-03-08] MEDS: FERROUS SULFATE 325 MG TAB PO SCH ×2 (08:38→21:23)
[2019-03-08] MEDS: PANTOprazole 40 MG TAB PO SCH (08:38)
[2019-03-08] MEDS: ASCORBIC ACID 500 MG TAB PO SCH (08:38)
[2019-03-08] MEDS: INSULIN ASPART 100 UNITS/ML 3 ML PEN SC SCH ×4 (08:43→21:20)
[2019-03-08] MEDS ORDERED: DAPTOmycin 500 MG VIAL IV SCH (09:00)
--- NOTE | 2019-03-08 10:30 | Infectious Disease Progress Nt ---
Date of Service March 08, 2019 Assessment & Plan (1) Gangrene of toe of right foot: Patient with gangrene of the right second toe in the setting of diabetes and severe peripheral arterial disease. Patient will likely require amputation of the toe. We will continue current antibiotics pending orthopedic follow-up. Will follow. Subjective Patient seen in follow-up for gangrene of the right second toe. Orthopedic consultation reviewed. Remains afebrile. Tolerating antibiotic without apparent difficulty. No increase in pain. MRI scan shows no evidence of worsening osteomyelitis. Review of Systems Review of Systems: All systems reviewed & are unremarkable except as noted in HPI & below Physical Exam Constitutional: WD/WN, vitals as above comfortable; no acute distress Eyes: PERRL, conjunctivae normal, anicteric sclerae ENMT: external ear and nose normal, oropharynx normal Neck: trachea midline, no thyromegaly neck nontender Respiratory: normal respiratory effort, lungs clear to auscultation normal percussion; does not use accessory muscles Cardiovascular: Rate/Rhythm: regular rate and regular rhythm Heart Sounds: normal S1 and normal S2; no gallop, no murmur and no cardiac rub Vessels: normal peripheral pulses; no JVD Gastrointestinal (Abdomen): normal bowel sounds, soft, nontender, no hepatosplenomegaly Musculoskeletal: no cyanosis or clubbing, extremities motor strength 5/5 Spine: thoracic spine normal to inspection and lumbar spine normal to inspection; no cervical spinal tenderness Skin: normal turgor; no rashes Neurologic: moves all extremities and awake; no focal motor deficits Psychiatric: A+Ox3, euthymic affect Orientation: cooperative Lymphatic: no cervical or axillary lymphadenopathy no inguinal lymphadenopathy Results & Data Vital Signs (Past 12 Hours) Vital Signs Temp Pulse Resp BP Pulse Ox Pulse Ox 03/08/19 07:38 36.6 C 63 15 133/56 L 96 03/07/19 23:45 96 03/07/19 22:48 36.6 C 59 L 16 112/52 L 96 Laboratory Results Short CBC 03/07/19 03/08/19 Range/Units 10:30 04:08 WBC 3.14 L 4.26 L (4.8-10.8) K/uL Hgb 9.3 L 9.7 L (14.0-18.0) g/dL Hct 28.3 L 28.9 L (42-52) % Plt Count 262 278 (130-400) K/uL BMP 03/07/19 03/08/19 10:30 04:08 Sodium 130 L 127 L Potassium 4.5 4.5 Chloride 96 L 96 L Carbon Dioxide 26 25 BUN 26 H 23 H Creatinine 1.12 1.24 Glucose 126 H 106 H Calcium 8.3 L 7.7 L Diagnostic Findings Ordering Phy: Sandy Glass DO cc: ~ MR foot RT w/o con HISTORY: Right second toe swelling. possible osteo TECHNIQUE: Multiplanar multisequence MRI of the right foot was performed without contrast. COMPARISON STUDY: Prior right foot MRI 02/16/2019 use for comparison. FINDINGS: The study is difficult from a technical standpoint due to the motion artifact. There is dorsal subcutaneous edema within the forefoot. No definite fluid collections to suggest an abscess. The flexor and extensor tendons appear intact. There appears be increased T2 signal within the distal phalanges of the first, third, fourth, and fifth toes. However, no definite abnormal T1 signal. Therefore, this favors areas of osteitis without evidence for osteomyelitis. No definite pleural effusion identified. However, this is difficult to assess due to the motion artifact. IMPRESSION: 1. Study is difficult from a technical standpoint due to the mild motion artifact. 2. However, there does not appear to be significant change compared to the prior study. 2. Areas of osteitis without definite evidence for osteomyelitis within the distal phalanges of the first, third, fourth, and fifth toes as described above. Electronically signed by: Pipo Basurto M.D. 03/07/2019 7:40 PM Dictated: 03/07/191935 Transcribed: 03/07/191935
--- NOTE | 2019-03-08 15:13 | Orthopedic Progress Note ---
Date of Service March 08, 2019 Assessment & Plan (1) Gangrene of toe of right foot: Planning for amputation of right second toe. Dr. Macdonald is reviewing the MRI and discussing the case with LEROY CORLEY who is operating here tomorrow. Will need to bring the INR down as close to 1.5 as possible. Heparin will be discontinued 4 to 6 hours prior to surgery. Most likely, surgery would be in the late afternoon. Subjective Patient currently lying in bed resting. Easily aroused. No complaints this time. Physical Exam Physical Exam: Right second toe with gangrene on the dorsum of the toe that travels medially and laterally at the PIP joint. It has a slight foul odor at this time but no overt drainage. Results & Data Vital Signs (Past 12 Hours) Vital Signs Temp Pulse Resp BP Pulse Ox 03/08/19 14:58 36.6 C 71 16 130/65 98 03/08/19 07:38 36.6 C 63 15 133/56 L 96
[2019-03-08] MEDS ORDERED: PHYTONADIONE 5 MG TAB PO STA (16:22)
[2019-03-08] MEDS ORDERED: METOCLOPRAMIDE HCL 5 MG TABLET PO ONE (16:39)
[2019-03-08] MEDS: ASPIRIN 81 MG ECTAB PO SCH (17:09)
--- NOTE | 2019-03-08 18:53 | Hospitalist Progress Note ---
Date of Service March 08, 2019 Assessment & Plan (1) Gangrene of toe of right foot: XR neg IMPRESSION: Areas of osteitis without definite evidence for osteomyelitis within the distal phalanges of the first, third, fourth, and fifth toes as described above. Ortho to take patient to OR tomorrow Continue dapto per ID Patient denies any current chest pain or sob. No chest pain with exertion. Has history of CABG and tissue valve replacement. No heart failure history. DM but last few A1cs have been wnl and patient does not require medication. RCRI is 6%. Hyponatremic on chemistry today, will repeat for morning. Has been fluid restricted today. Asymptomatic (2) Atrial fibrillation: continue home meds Reverse coumadin with 10 mg po vitamin k and recheck at midnight Patient is higher risk for clotting but is also high risk for bleed - CHADs VASc 5, HAS BLED 3 - will avoid bridging (3) DMII (diabetes mellitus, type 2): No current meds due to hypoglycemia Monitor (4) CAD (coronary artery disease): Aspirin/plavix - discussed with surgery - will hold Plavix but give ASA as patient had recent iliac stenting end of January (5) Chronic kidney disease, stage 3a: Hx of renal stent Cr WNL on admission (6) HLD (hyperlipidemia): Has been off of medication for this (7) Peripheral arterial disease: Follows with Dr. Wiseman - Dr. Wiseman currently out of town - will have patient follow with him upon his return Planning for stenting on 03/15 ASA, plavix as above (8) HTN (hypertension): continue home meds (9) DVT prophylaxis: Heparin for DVT proph (10) Hyponatremia: Na 127, FR Asymptomatic, recheck am. Subjective Mr. Lawson is comfortable. No complaints. Answered family's questions and updated daughter again this afternoon Review of Systems Review of Systems: All systems reviewed & are unremarkable except as noted in HPI & below Physical Exam Physical Exam: General: no distress Eyes: normal inspection, PERLL Respiratory: chest non tender, clear to auscultation, normal breath sounds, no respiratory distress, no accessory muscle use Cardiac: irregular rate and rhythm, no rub or gallop, no murmur, no edema, no jvd GI/: active bowel sounds, no abd pain or tenderness, soft, non distended Extremities: normal range of motion, normal strength, non tender Neuro/Psych: alert and oriented x 3, normal mood and affect Skin: normal color, dry, right second toe dusky with area of eschar Results & Data Vital Signs (Past 12 Hours) Vital Signs Temp Pulse Resp BP Pulse Ox 03/08/19 14:58 36.6 C 71 16 130/65 98 03/08/19 07:38 36.6 C 63 15 133/56 L 96
[2019-03-08] MEDS: PROMETHAZINE HCL 6.25 MG in SODIUM CHLORIDE 0.9% 50 ML IV PRN (20:52)
[2019-03-08] MEDS: DAPTOmycin 375 MG in SYRINGE 0 ML IV SCH (21:37)
--- NOTE | 2019-03-08 22:12 | XRay Report ---
KUB CLINICAL HISTORY: Abdominal distention. Generalized abdominal pain. FINDINGS: 2 AP supine abdominal radiographs are compared to study dated 08/27/2011. There is a nonobs tructed abdominal bowel gas pattern. No evidence of intraperitoneal free air is seen on these supine images. There are no abnormal abdominal calcifications. Vascular coils and cholecystectomy clips are seen in the right upper quadrant. Bilateral renal artery stents are noted. There are also bilateral i liac artery stents. Phleboliths are observed in the pelvis. The skeletal structures are osteopenic. L umbosacral spondylosis and scoliosis is observed. IMPRESSION: Nonobstructed abdominal bowel gas pattern. Electronically signed by: Piero Escalante M.D. 03/08/2019 10:11 PM
[2019-03-08] MEDS ORDERED: Nursing to Pharmacy Communication ONE (23:49)
[2019-03-09] MEDS: INSULIN ASPART 100 UNITS/ML 3 ML PEN SC SCH ×5 (00:08→21:06)
[2019-03-09 01:00] LABS: INR 2.7 (0.9-1.1); Prothrombin Time 26.1 Seconds (9.0-12.0)
[2019-03-09] MEDS ORDERED: PHYTONADIONE 5 MG TAB PO STA (01:30)
[2019-03-09] MEDS: ONDANSETRON INJ 2 MG/ML 2 ML VIAL IV PRN (05:34)
[2019-03-09 06:12] LABS: INR 2.5 (0.9-1.1); Partial Thromboplastin Ratio 1.6; Partial Thromboplastin Time 43.5 Seconds (21.0-31.0); Prothrombin Time 24.4 Seconds (9.0-12.0)
--- NOTE | 2019-03-09 07:15 | Ultrasound Report ---
US arterial duplex LE BI HISTORY: 88 years-old Male decreased STANTON peripheral arterial disease COMPARISON: Duplex arterial study of the right lower extremity 01/14/2019, STANTON study 02/18/2018. TECHNIQUE: Multiple real-time sonographic images of the bilateral lower extremity arterial structures were obtained assessing grayscale appearance, color and spectral flow FINDINGS: RIGHT: Extensive atherosclerotic plaque of the right lower extremity. Triphasic waveforms within the common femoral and profunda femoris arteries. Biphasic waveforms within the superficial femoral and poplite al arteries. Monophasic waveforms noted about the calf arteries. No significantly elevated peak systo lic velocities identified. LEFT: Extensive atherosclerotic plaque of the left lower extremity. Triphasic waveforms noted within the co mmon femoral and profunda femoris arteries. Biphasic waveforms within the superficial femoral and pop liteal arteries proximally. Monophasic waveforms about the distal popliteal artery. Monophasic wavefo kiran are noted about the left calf arteries. Markedly blunted waveforms about the posterior tibial art dayami with blunted waveforms demonstrated spectral broadening about the dorsalis petrous artery. No sig nificantly elevated peak systolic velocities to suggest high-grade stenosis. No occlusion. IMPRESSION: 1. Extensive atherosclerotic plaque about the bilateral lower extremities. 2. Triphasic waveforms noted within the bilateral common femoral arteries with biphasic waveforms abo ut the superficial femoral arteries. 3. Monophasic waveforms about the lower legs bilaterally, left greater than right. 4. No arterial occlusion or significantly elevated peak systolic velocities identified to suggest hig h-grade stenosis. The above report was generated using voice recognition software. It may contain grammatical, syntax o r spelling errors. Electronically signed by: Codey Dumas M.D. 03/09/2019 7:14 AM
--- NOTE | 2019-03-09 07:56 | Anesthesiology Consultation ---
Date of Service March 09, 2019 Assessment & Plan (1) Encounter for pre-operative examination: Chart Review Chart Review: Acceptable Risk for Surgery and Patient NOT seen in Pre Admission Testing Consults Requested none Proposed Anesthesia Risk / Benefits Reviewed With: PT / POA / Parent / Guardian, Accepts Plan and Informed Consent Obtained History Surgery Operation Date: 03/10/19 13:05 Proposed Procedures p Right 2nd Toe Amputation - Miki Ramos MD Height/Weight Height: 5 ft 7 in Weight: 62 kg Allergies Allergy/AdvReac Type Severity Reaction Status Date / Time No Known Allergies Allergy Unknown Verified 03/07/19 08:45 Medications Home Medications Medication Instructions Recorded Confirmed Last Taken ascorbic acid (vitamin C) 500 mg PO DAILY #0 03/17/18 03/07/19 03/07/19 aspirin 81 mg PO DAILY #0 03/17/18 03/07/19 03/06/19 cholecalciferol (vitamin D3) 2,000 unit PO DAILY #0 03/17/18 03/07/19 03/07/19 [Vitamin D3] omeprazole 40 mg PO DAILY #0 03/17/18 03/07/19 03/06/19 ferrous sulfate 325 mg PO BID 01/22/19 03/07/19 03/07/19 lisinopril 0 mg PO DAILY 02/06/19 03/07/19 03/06/19 clopidogrel 75 mg PO QAM 30 Days #30 tab 02/19/19 03/07/19 03/06/19 daptomycin 350 mg IV DAILY #1 ea 02/19/19 03/07/19 03/06/19 warfarin 3 mg PO DAILY #0 tab 02/19/19 03/07/19 03/07/19 hydrocodone 5 mg-acetaminophen 325 See Rx Instructions PO Q4H PRN #60 03/02/19 03/07/19 03/06/19 mg tablet tab Active Medications Generic Name Dose Route Start Last Admin Trade Name Freq PRN Reason Stop Dose Admin Acetaminophen 650 mg 03/07/19 12:33 03/08/19 03:39 Tylenol PO 04/06/19 12:32 650 mg Q4H PRN Administration pain/fever Ascorbic Acid 500 mg 03/08/19 09:00 03/09/19 12:58 Vitamin C PO 04/07/19 08:59 500 mg DAILY NIKIA Administration Aspirin 81 mg 03/08/19 16:30 03/09/19 12:58 Ecotrin Ectab PO 04/07/19 16:29 81 mg DAILY NIKIA Administration Ferrous Sulfate 325 mg 03/07/19 21:00 03/09/19 12:59 Feosol PO 04/06/19 20:59 325 mg BID NIKIA Administration Heparin Sodium (Beef Lung) 5 ml 03/08/19 01:55 03/09/19 13:11 Heparin Sod 10 Unit/Ml Flush FLUSH 04/07/19 01:54 5 ml PRN PRN Administration Flush Daptomycin 375 mg/ Syringe 7.5 mls @ 3.75 mls/min 03/08/19 22:00 03/08/19 21:37 IV 04/18/19 21:59 3.75 mls/min Q24H NIKIA Administration Protocol Promethazine HCl 6.25 mg/ 50.25 mls @ 201 mls/hr 03/08/19 19:49 03/09/19 09:16 Sodium Chloride IV 04/07/19 19:48 Infused Q6H PRN Infusion Nausea And Vomiting Insulin Aspart 0 units 03/09/19 12:00 03/09/19 13:02 Novolog Flexpen SC 04/08/19 11:59 4 units ACHS NIKIA Administration Lisinopril 5 mg 03/08/19 09:00 03/09/19 12:58 Zestril PO 04/07/19 08:59 5 mg DAILY NIKIA Administration Ondansetron HCl 4 mg 03/07/19 12:33 03/09/19 05:34 Zofran IV 04/06/19 12:32 4 mg Q6H PRN Administration Nausea Pantoprazole Sodium 40 mg 03/08/19 09:00 03/09/19 12:57 Protonix PO 04/07/19 08:59 40 mg DAILY NIKIA Administration Protocol NPO Date Last Intake of Fluids: 03/08/19 Time Last Intake of Fluids: 23:59 Date Last Intake of Solids: 03/08/19 Time Last Intake of Solids: 23:59 Past Medical History Medical History Inguinal hernia (Resolved) Cellulitis (Resolved) History of GI bleed (Resolved) KYLE (acute kidney injury) (Resolved) Peripheral vascular disease Diabetes mellitus (Acute) type 2 Osteomyelitis (Acute) S/P arteriogram of extremity (Acute) 2 stents in the lower legs A-fib Anemia of chronic disease CKD (chronic kidney disease), stage III Coronary artery disease GERD (gastroesophageal reflux disease) HTN (hypertension), benign History of peptic ulcer disease History of stent insertion of renal artery Right, in the Hyperlipidemia Subclavian artery stenosis Exercise / Class Metabolic Activity III < 4 Walking/Shop/Light housework uses walker - no cp or sob Past Family History Family History Father Unknown family medical history Past Surgical History Surgical History H/O aortic valve replacement with tissue graft (Resolved) H/O left inguinal hernia repair (Resolved) H/O aortic valve replacement (Resolved) History of thoracentesis Aortic valve replaced (Acute) Hx of CABG (Acute) History of cholecystectomy History of left inguinal hernia repair Past Anesthesia History No Hx of Anesthesia Complications History of PONV No Hx of PONV and No Hx of Motion Sickness Social History Smoking Status: Former smoker tobacco type: cigarettes Smoking cigarettes per day: 20 Do You Dip or Chew Tobacco: No Smoking End Date: 1988 Hx Alcohol Use: Yes (hx of heavy use, quit in 1995) Hx Substance Use: No substance use type: does not use Physical Exam Vital Signs Last Vital Signs Temp 36.5 C 03/09/19 11:05 Pulse 66 03/09/19 11:05 Resp 14 03/09/19 11:05 BP 141/67 H 03/09/19 11:05 Pulse Ox 94 03/09/19 11:05 Constitutional not obese ENMT Mouth: + dentures and + edentulous Thyromental Distance: > or= 3.5 Finger Breadths Mallampati Class: I Neck normal visual inspection; neck extension not limited Respiratory normal respiratory effort Auscultation: lungs clear to auscultation bilaterally Cardiovascular Rate/Rhythm: + abnormal rate and + abnormal rhythm Heart Sounds: no murmur Psychiatric Orientation: alert and oriented x 3 Testing Laboratory Results 03/08/19 04:08 03/08/19 04:08 03/08/19 03/09/19 03/09/19 10:56 00:45 05:42 PT 26.1 H 24.4 H INR 2.7 H 2.5 H APTT 53.0 H* 43.5 H Electrocardiogram Date: 02/15/19 Findings: + AFIB @ (61) Left axis deviation, Incomplete right bundle branch block, When compared with ECG of 19-MAR-2018 09:53, Atrial fibrillation has replaced Sinus rhythm, Inverted T waves have replaced nonspecific T wave abnormality in Lateral leads Echocardiogram Date: 09/22/15 EF: >70% grade 1 DD, mild cLVH, no RWMA, bioprosthetic AV with expected transvalvular velocity and gradient
[2019-03-09] MEDS ORDERED: PHYTONADIONE 10 MG in SODIUM CHLORIDE 0.9% 50 ML IV STA (07:57)
[2019-03-09] MEDS: PROMETHAZINE HCL 6.25 MG in SODIUM CHLORIDE 0.9% 50 ML IV PRN (08:57)
[2019-03-09 09:16] LABS: Hematocrit (blood only) 27.3 % (42-52); Hemoglobin 9.4 g/dL (14.0-18.0); Mean Corpuscular Hgb Conc 34.4 g/dL (32-36); Mean Corpuscular Volume 96.1 fL (80-100); Mean Platelet Volume 9.7 fL (7.4-10.4); Platelet Count 291 K/uL (130-400); RDW Coefficient of Variation 14.4 % (11.5-14.5); RDW Standard Deviation 50.1 fL (36.4-46.3); Red Blood Count 2.84 M/uL (4.7-6.1); White Blood Count 3.41 K/uL (4.8-10.8)
[2019-03-09 09:24] LABS: BUN Creatinine Ratio 21.3 (10-20); Calcium 7.9 mg/dl (8.5-10.1); Creatinine Clr Calc Pharmacy 45.1 ml/min; Est GFR (African American) 75.9; Est GFR (Non-African American) 65.5; Potassium 3.9 mmol/L (3.5-5.1)
[2019-03-09 11:14] LABS: Prothrombin Time 19.8 Seconds (9.0-12.0)
[2019-03-09] MEDS ORDERED: Nursing to Pharmacy Communication ONE (11:42)
--- NOTE | 2019-03-09 12:06 | Communication Note ---
Date of Service: March 09, 2019 Discussed case with Pina BENZ. INR still 2.0 after 10mg IV Vit K given this AM. INR still too high for OR today. Plan for OR tomorrow if INR 1.5 or less.
[2019-03-09] MEDS: PANTOprazole 40 MG TAB PO SCH (12:57)
[2019-03-09] MEDS: ASPIRIN 81 MG ECTAB PO SCH (12:58)
[2019-03-09] MEDS: ASCORBIC ACID 500 MG TAB PO SCH (12:58)
[2019-03-09] MEDS: LISINOPRIL 5 MG TAB PO SCH (12:58)
[2019-03-09] MEDS: FERROUS SULFATE 325 MG TAB PO SCH ×2 (12:59→21:05)
--- NOTE | 2019-03-09 13:05 | Hospitalist Progress Note ---
Date of Service March 09, 2019 Assessment & Plan (1) Gangrene of toe of right foot: XR neg MRI IMPRESSION: Areas of osteitis without definite evidence for osteomyelitis within the distal phalanges of the first, third, fourth, and fifth toes as described above. Ortho to take patient to OR tomorrow Continue dapto per ID Patient denies any current chest pain or sob. No chest pain with exertion. Has history of CABG and tissue valve replacement. No heart failure history. DM but last few A1cs have been wnl and patient does not require medication. RCRI is 6%. Hyponatremic on chemistry today, will repeat for morning. Has been fluid restricted today. Asymptomatic (2) Atrial fibrillation: continue home meds Patient has had 30 mg total of Vitamin K, INR 2.0, continue reversing for surgery tomorrow Patient is higher risk for clotting but is also high risk for bleed - CHADs VASc 5, HAS BLED 3 - will avoid bridging (3) DMII (diabetes mellitus, type 2): No current meds due to hypoglycemia Monitor (4) CAD (coronary artery disease): Aspirin/plavix - discussed with surgery - will hold Plavix but give ASA as patient had recent iliac stenting end of January (5) Chronic kidney disease, stage 3a: Hx of renal stent Cr WNL on admission (6) HLD (hyperlipidemia): Has been off of medication for this (7) Peripheral arterial disease: Follows with Dr. Wiseman - Dr. Wiseman currently out of town - will have patient follow with him upon his return Planning for stenting on 03/15 ASA, plavix as above Repeat arterial doppler showed: IMPRESSION: 1. Extensive atherosclerotic plaque about the bilateral lower extremities. 2. Triphasic waveforms noted within the bilateral common femoral arteries with biphasic waveforms about the superficial femoral arteries. 3. Monophasic waveforms about the lower legs bilaterally, left greater than right. 4. No arterial occlusion or significantly elevated peak systolic velocities identified to suggest high-grade stenosis. (8) HTN (hypertension): continue home meds (9) DVT prophylaxis: SCDs, reversing coumadin (10) Hyponatremia: Na improved to 132, FR Asymptomatic, recheck am. Subjective Mr. Lawson has been a bit nauseas today but felt much better after some phenergan. His pain is well controlled. Review of Systems Review of Systems: All systems reviewed & are unremarkable except as noted in HPI & below Physical Exam Physical Exam: General: no distress Eyes: normal inspection, PERLL Respiratory: chest non tender, clear to auscultation, normal breath sounds, no respiratory distress, no accessory muscle use Cardiac: regular rate and rhythm, no rub or gallop, no murmur, no edema, no jvd GI/: active bowel sounds, no abd pain or tenderness, soft, non distended Extremities: normal range of motion, normal strength, non tender Neuro/Psych: alert and oriented x 3, normal mood and affect Skin: normal color, dry Results & Data Vital Signs (Past 12 Hours) Vital Signs Temp Pulse Pulse Pulse Resp BP Pulse Ox 03/09/19 11:05 36.5 C 66 14 141/67 H 94 03/09/19 10:05 36.5 C 66 14 143/69 H 94 03/09/19 09:37 36.5 C 66 14 140/67 94 03/09/19 09:03 36.3 C L 66 14 138/65 94 03/09/19 07:46 36.5 C 74 14 148/67 H 93
[2019-03-09 13:35] LABS: INR 1.7 (0.9-1.1); Prothrombin Time 16.9 Seconds (9.0-12.0)
--- NOTE | 2019-03-09 14:36 | Infectious Disease Progress Nt ---
Date of Service March 09, 2019 Assessment & Plan (1) Gangrene of toe of right foot: Patient with gangrene of the right second toe in the setting of diabetes and severe peripheral arterial disease. Patient will require amputation of the toe. We will continue current antibiotics pending surgery. Will follow. Subjective Patient seen in follow-up for gangrenous toe. Remains comfortable, afebrile, no new complaints. Awaiting correction of INR for surgery. Review of Systems Review of Systems: All systems reviewed & are unremarkable except as noted in HPI & below Physical Exam Constitutional: WD/WN, vitals as above comfortable; no acute distress Eyes: PERRL, conjunctivae normal, anicteric sclerae ENMT: external ear and nose normal, oropharynx normal Neck: trachea midline, no thyromegaly neck nontender Respiratory: normal respiratory effort, lungs clear to auscultation normal percussion; does not use accessory muscles Cardiovascular: Rate/Rhythm: regular rate and regular rhythm Heart Sounds: normal S1 and normal S2; no gallop, no murmur and no cardiac rub Vessels: normal peripheral pulses; no JVD Gastrointestinal (Abdomen): normal bowel sounds, soft, nontender, no hepatosplenomegaly Musculoskeletal: no cyanosis or clubbing, extremities motor strength 5/5 Spine: thoracic spine normal to inspection and lumbar spine normal to inspection; no cervical spinal tenderness Skin: normal turgor; no rashes Gangrenous right second toe Neurologic: moves all extremities and awake; no focal motor deficits Psychiatric: A+Ox3, euthymic affect Orientation: cooperative Lymphatic: no cervical or axillary lymphadenopathy no inguinal lymphadenopathy Results & Data Vital Signs (Past 12 Hours) Vital Signs Temp Pulse Pulse Pulse Resp BP Pulse Ox 03/09/19 11:05 36.5 C 66 14 141/67 H 94 03/09/19 10:05 36.5 C 66 14 143/69 H 94 03/09/19 09:37 36.5 C 66 14 140/67 94 03/09/19 09:03 36.3 C L 66 14 138/65 94 03/09/19 07:46 36.5 C 74 14 148/67 H 93 Laboratory Results Short CBC 03/09/19 Range/Units 05:41 WBC 3.41 L (4.8-10.8) K/uL Hgb 9.4 L (14.0-18.0) g/dL Hct 27.3 L (42-52) % Plt Count 291 (130-400) K/uL BMP 03/09/19 05:41 Sodium 132 L Potassium 3.9 Chloride 100 Carbon Dioxide 24 BUN 22 H Creatinine 1.03 Glucose 88 Calcium 7.9 L
[2019-03-09] MEDS: CARBOHYDRATES FOR HYPOGLYCEMIA PO PRN (17:08)
[2019-03-09] MEDS: DAPTOmycin 375 MG in SYRINGE 0 ML IV SCH (21:06)
[2019-03-10] MEDS ORDERED: Nursing to Pharmacy Communication ONE (01:31)
[2019-03-10 05:32] LABS: Hematocrit (blood only) 27.1 % (42-52); Hemoglobin 9.2 g/dL (14.0-18.0); Mean Corpuscular Hgb Conc 33.9 g/dL (32-36); Mean Corpuscular Volume 95.8 fL (80-100); Platelet Count 252 K/uL (130-400); RDW Coefficient of Variation 14.5 % (11.5-14.5); RDW Standard Deviation 51.2 fL (36.4-46.3); Red Blood Count 2.83 M/uL (4.7-6.1)
[2019-03-10 05:47] LABS: INR 1.4 (0.9-1.1); Partial Thromboplastin Ratio 1.4; Partial Thromboplastin Time 36.7 Seconds (21.0-31.0); Prothrombin Time 13.7 Seconds (9.0-12.0)
[2019-03-10] MEDS: INSULIN ASPART 100 UNITS/ML 3 ML PEN SC SCH ×2 (05:57→12:38)
[2019-03-10] MEDS: PANTOprazole 40 MG TAB PO SCH (07:45)
[2019-03-10] MEDS: FERROUS SULFATE 325 MG TAB PO SCH ×2 (07:45→20:26)
[2019-03-10] MEDS: LISINOPRIL 5 MG TAB PO SCH (07:45)
[2019-03-10] MEDS: ASCORBIC ACID 500 MG TAB PO SCH (07:45)
[2019-03-10] MEDS: ASPIRIN 81 MG ECTAB PO SCH (07:45)
[2019-03-10 08:40] LABS: BUN Creatinine Ratio 18.3 (10-20); Creatinine Clr Calc Pharmacy 42.3 ml/min; Est GFR (African American) 70.1; Est GFR (Non-African American) 60.5; Potassium 4.5 mmol/L (3.5-5.1)
[2019-03-10] MEDS ORDERED: INSULIN ASPART 100 UNITS/ML 3 ML PEN SC SCH (13:10)
--- NOTE | 2019-03-10 13:11 | Hospitalist Progress Note ---
Date of Service March 10, 2019 Assessment & Plan (1) Gangrene of toe of right foot: - XR was negative. - MRI IMPRESSION: Areas of osteitis without definite evidence for osteomyelitis within the distal phalanges of the first, third, fourth, and fifth toes as described above. - BC negative to date. - Orthopedics consulted, will go to the OR today. - ID following, continue Daptomycin IV. - Patient denies any current chest pain or sob. No chest pain with exertion. Has history of CABG and tissue valve replacement. No heart failure history. DM but last few A1cs have been wnl and patient does not require medication. RCRI is 6% - Continue Aspirin, holding Plavix for procedure. (2) Atrial fibrillation: - Holding home Warfarin for procedure; required reversal of INR. - Monitor INR daily -- will resume Warfarin post op per ortho. - Patient is higher risk for clotting but is also high risk for bleed - CHADs VASc 5, HAS BLED 3 - avoid bridging therapy. (3) DMII (diabetes mellitus, type 2): - Most recent A1C was 5.1 - No indication for insulin. (4) CAD (coronary artery disease): - Holding Plavix, continue Aspirin due to recent iliac stenting at end of January. (5) Chronic kidney disease, stage 3a: - Monitor renal function daily. (6) HLD (hyperlipidemia): - Not currently on statin agent. (7) Peripheral arterial disease: - Follows with Dr. Wiseman - Dr. Wiseman currently out of town - will have patient follow with him upon his return - Planning for stenting on 03/15 - Continue aspirin, holding plavix as noted above. - Repeat arterial doppler showed: IMPRESSION: 1. Extensive atherosclerotic plaque about the bilateral lower extremities. 2. Triphasic waveforms noted within the bilateral common femoral arteries with biphasic waveforms about the superficial femoral arteries 3. Monophasic waveforms about the lower legs bilaterally, left greater than right. 4. No arterial occlusion or significantly elevated peak systolic velocities identified to suggest high-grade stenosis. (8) HTN (hypertension): - Continue home ACEI with close monitoring of renal function. (9) Hyponatremia: - Now resolved. (10) DVT prophylaxis: - SCDs; holding Coumadin for procedure. Subjective Pt. is doing well. Denies pain in right foot, chest pain, SOB, N/V, consti pation. Will go to the OR today. Review of Systems Review of Systems: All systems reviewed & are unremarkable except as noted in HPI & below Constitutional: no fever, no chills, no fatigue, no weakness and no anorexia Respiratory: no cough, no dyspnea, no dyspnea on exertion and no wheezing Cardiovascular: no chest pain, no palpitations and no edema Gastrointestinal: no abdominal pain, no nausea, no vomiting and no constipa tion Genitourinary: no difficulty urinating Musculoskeletal: + joint pain; no back pain Integumentary: + non-healing lesions Allergy / Immunological: no rash Physical Exam Physical Exam: General: Resting comfortably HEENT: NC/AT; PERRLA with EOMI; [place] conjunctiva, MMM. No erythema of posterior pharynx Neck: Supple and nontender Cardiac: RRR Lungs: CTA bilaterally Abdomen: Bowel normoactive X 4; Nontender to palpation Extremities: Warm. No edema present. Right second toe with necrosis, open drainage. Neuro: No focal weakness Skin: No rash Results & Data Vital Signs (Past 12 Hours) Vital Signs Temp Pulse Resp BP Pulse Ox 03/10/19 07:17 36.2 C L 69 19 157/77 H 98 Laboratory Results 03/10/19 03/10/19 03/10/19 Range/Units 12:01 05:55 05:25 WBC (4.8-10.8) K/uL RBC (4.7-6.1) M/uL Hgb (14.0-18.0) g/dL Hct (42-52) % MCV (80-100) fL MCH (25-34) pg MCHC (32-36) g/dL RDW Std Deviation (36.4-46.3) fL RDW Coeff of Gilbert (11.5-14.5) % Plt Count (130-400) K/uL MPV (7.4-10.4) fL PT (9.0-12.0) Seconds INR (0.9-1.1) APTT (21.0-31.0) Seconds PTT Ratio Sodium 139 D (136-145) mmol/L Potassium 4.5 D (3.5-5.1) mmol/L Chloride 106 (98-107) mmol/L Carbon Dioxide 26 (21-32) mmol/L Anion Gap 7.0 (3-11) BUN 20 H (7-18) mg/dl Creatinine 1.10 (0.6-1.4) mg/dl Est Cr Clr Drug Dosing 42.3 ml/min Est GFR ( Amer) 70.1 Est GFR (Non-Af Amer) 60.5 BUN/Creatinine Ratio 18.3 (10-20) Glucose 83 (70-99) mg/dl POC Glucose 102 H 92 (70-99) Calcium 8.0 L (8.5-10.1) mg/dl Stool Occult Bld Scrn (Negative) Stl C. diff Tox B Gene 03/10/19 03/10/19 03/09/19 Range/Units 05:22 05:22 21:00 WBC 4.30 L (4.8-10.8) K/uL RBC 2.83 L (4.7-6.1) M/uL Hgb 9.2 L (14.0-18.0) g/dL Hct 27.1 L (42-52) % MCV 95.8 (80-100) fL MCH 32.5 (25-34) pg MCHC 33.9 (32-36) g/dL RDW Std Deviation 51.2 H (36.4-46.3) fL RDW Coeff of Gilbert 14.5 (11.5-14.5) % Plt Count 252 (130-400) K/uL MPV 9.0 (7.4-10.4) fL PT 13.7 H (9.0-12.0) Seconds INR 1.4 H (0.9-1.1) APTT 36.7 H (21.0-31.0) Seconds PTT Ratio 1.4 Sodium (136-145) mmol/L Potassium (3.5-5.1) mmol/L Chloride (98-107) mmol/L Carbon Dioxide (21-32) mmol/L Anion Gap (3-11) BUN (7-18) mg/dl Creatinine (0.6-1.4) mg/dl Est Cr Clr Drug Dosing ml/min Est GFR ( Amer) Est GFR (Non-Af Amer) BUN/Creatinine Ratio (10-20) Glucose (70-99) mg/dl POC Glucose 100 H (70-99) Calcium (8.5-10.1) mg/dl Stool Occult Bld Scrn (Negative) Stl C. diff Tox B Gene 03/09/19 03/09/19 03/09/19 Range/Units 18:30 18:30 17:24 WBC (4.8-10.8) K/uL RBC (4.7-6.1) M/uL Hgb (14.0-18.0) g/dL Hct (42-52) % MCV (80-100) fL MCH (25-34) pg MCHC (32-36) g/dL RDW Std Deviation (36.4-46.3) fL RDW Coeff of Gilbert (11.5-14.5) % Plt Count (130-400) K/uL MPV (7.4-10.4) fL PT (9.0-12.0) Seconds INR (0.9-1.1) APTT (21.0-31.0) Seconds PTT Ratio Sodium (136-145) mmol/L Potassium (3.5-5.1) mmol/L Chloride (98-107) mmol/L Carbon Dioxide (21-32) mmol/L Anion Gap (3-11) BUN (7-18) mg/dl Creatinine (0.6-1.4) mg/dl Est Cr Clr Drug Dosing ml/min Est GFR ( Amer) Est GFR (Non-Af Amer) BUN/Creatinine Ratio (10-20) Glucose (70-99) mg/dl POC Glucose 73 (70-99) Calcium (8.5-10.1) mg/dl Stool Occult Bld Scrn Positive A (Negative) Stl C. diff Tox B Gene TNP 03/09/19 03/09/19 Range/Units 17:08 17:04 WBC (4.8-10.8) K/uL RBC (4.7-6.1) M/uL Hgb (14.0-18.0) g/dL Hct (42-52) % MCV (80-100) fL MCH (25-34) pg MCHC (32-36) g/dL RDW Std Deviation (36.4-46.3) fL RDW Coeff of Gilbert (11.5-14.5) % Plt Count (130-400) K/uL MPV (7.4-10.4) fL PT (9.0-12.0) Seconds INR (0.9-1.1) APTT (21.0-31.0) Seconds PTT Ratio Sodium (136-145) mmol/L Potassium (3.5-5.1) mmol/L Chloride (98-107) mmol/L Carbon Dioxide (21-32) mmol/L Anion Gap (3-11) BUN (7-18) mg/dl Creatinine (0.6-1.4) mg/dl Est Cr Clr Drug Dosing ml/min Est GFR ( Amer) Est GFR (Non-Af Amer) BUN/Creatinine Ratio (10-20) Glucose (70-99) mg/dl POC Glucose 66 L* 68 L* (70-99) Calcium (8.5-10.1) mg/dl Stool Occult Bld Scrn (Negative) Stl C. diff Tox B Gene
[2019-03-10] MEDS ORDERED: LIDOCAINE HCL 2% 2 ML VIAL/AMP(20MG/ML) INFIL ONE (13:27)
[2019-03-10] MEDS ORDERED: fentaNYL citrate 100 MCG/2 ML VIAL ONE (13:27)
[2019-03-10] MEDS ORDERED: PROPOFOL IV EMULSION 10 MG/ML 20 ML VIAL IV ONE ×2 (13:27→16:30)
[2019-03-10] MEDS ORDERED: CEFAZOLIN 1,000 MG/7.5 ML IV PUSH IV ONE (15:02)
[2019-03-10] MEDS ORDERED: BACITRACIN INJ 50,000 UNIT VIAL ONE (15:03)
[2019-03-10] MEDS ORDERED: LIDOCAINE HCL 1% 20 ML VIAL ONE (15:04)
--- NOTE | 2019-03-10 15:05 | History & Physical Bridge Note ---
Date of Service March 10, 2019 History & Physical Bridge Note I have examined the patient, reviewed the History & Physical and in the interval since the performance of the History & Physical I have noted the following changes of clinical significance: no changes noted
--- NOTE | 2019-03-10 16:51 | Post Operative Brief Note ---
Immediate Post Op Note v1 Date of Surgery March 10, 2019 Pre & Post Diagnosis Operation Date: 03/10/19 13:05 Pre-Op Diagnosis: gangrene right second toe Post-Op Diagnosis: gangrene right second toe Procedure Operation Date: 03/10/19 13:05 Actual Procedures p Right 2nd Toe Amputation - Miki Ramos MD Surgeon Miki Ramos MD Online Retailer none Estimated Blood Loss 1 Findings Consistent with Post-Op Diagnosis Specimens toe Anesthesia Type Local Complications none Disposition Accompanied Patient To Recovery: No Disposition: Recovery Room Overlapping Procedure I was immediately available: during the entire case.
--- NOTE | 2019-03-10 17:07 | Anesthesiology Progress Note ---
Date of Service March 10, 2019 Anesthesia Post Procedure Vital Signs Vital Signs: Temp Pulse Pulse Pulse Resp BP Pulse Ox 03/10/19 17:00 97.2 F L 57 L 12 158/73 H 100 03/10/19 16:50 55 L 13 158/82 H 100 03/10/19 16:42 98.1 F 66 16 148/64 H 100 03/10/19 14:22 97.9 F 78 20 164/113 H 99 03/10/19 07:17 97.2 F L 69 19 157/77 H 98 03/09/19 22:55 98.2 F 72 16 137/53 L 98 Pain Intensity Bilateral Foot: Pain Intensity: 3 Transfer of Care Handoff Completed per policy Notes Mental Status: alert / awake / arousable and participated in evaluation Patient Amnestic to Procedure: Yes Nausea / Vomiting: adequately controlled Pain: adequately controlled Airway Patency, RR, SpO2: stable & adequate BP & HR: stable & adequate Hydration State: stable & adequate Anesthetic Complications: no major complications apparent and Pt Satisfied with anesthetic care
[2019-03-10] MEDS ORDERED: MAGNESIUM HYDROXIDE SUSP 30 ML UDC PO PRN (17:13)
[2019-03-10] MEDS ORDERED: SODIUM CHLORIDE 0.9% 1000ML 1,000 ML IV SCH (17:13)
[2019-03-10] MEDS ORDERED: NALOXONE HCL 0.4 MG/1 ML VIAL/CARP IV PRN (17:13)
[2019-03-10] MEDS: HYDROCODONE/ACETAMOPHEN 5/325MG TAB PO PRN (20:24)
--- NOTE | 2019-03-10 21:01 | Infectious Disease Progress Nt ---
Date of Service March 10, 2019 Assessment & Plan (1) Gangrene of toe of right foot: Patient with gangrene of the right second toe in the setting of diabetes and severe peripheral arterial disease. Now s/p amputation of the toe. We will continue current antibiotics pending further culture results.. Will follow. Subjective Patient seen in follow-up for gangrenous right second toe. Now status post amputation. Expected postoperative discomfort. Remains afebrile and hemodynamically stable. Review of Systems Review of Systems: All systems reviewed & are unremarkable except as noted in HPI & below Physical Exam Constitutional: WD/WN, vitals as above comfortable; no acute distress Eyes: PERRL, conjunctivae normal, anicteric sclerae ENMT: external ear and nose normal, oropharynx normal Neck: trachea midline, no thyromegaly neck nontender Respiratory: normal respiratory effort, lungs clear to auscultation normal percussion; does not use accessory muscles Cardiovascular: Rate/Rhythm: regular rate and regular rhythm Heart Sounds: normal S1 and normal S2; no gallop, no murmur and no cardiac rub Vessels: normal peripheral pulses; no JVD Gastrointestinal (Abdomen): normal bowel sounds, soft, nontender, no hepatosplenomegaly Musculoskeletal: no cyanosis or clubbing, extremities motor strength 5/5 Spine: thoracic spine normal to inspection and lumbar spine normal to inspection; no cervical spinal tenderness Skin: normal turgor; no rashes Surgical dressing intact Neurologic: moves all extremities and awake; no focal motor deficits Psychiatric: A+Ox3, euthymic affect Orientation: cooperative Lymphatic: no cervical or axillary lymphadenopathy no inguinal lymphadenopathy Results & Data Vital Signs (Past 12 Hours) Vital Signs Temp Pulse Pulse Pulse Pulse Resp BP 03/10/19 20:15 36.2 C L 77 16 157/76 H 03/10/19 19:10 36.4 C L 59 L 18 148/70 H 03/10/19 19:09 36.3 C L 68 15 162/77 H 03/10/19 18:13 36.4 C L 81 17 185/80 H 03/10/19 17:45 36.3 C L 60 18 162/79 H 03/10/19 17:10 36.3 C L 64 18 169/87 H 03/10/19 17:00 36.2 C L 57 L 12 158/73 H 03/10/19 16:50 55 L 13 158/82 H 03/10/19 16:42 36.7 C 66 16 148/64 H 03/10/19 14:22 36.6 C 78 20 164/113 H Pulse Ox 03/10/19 20:15 03/10/19 19:10 100 03/10/19 19:09 99 03/10/19 18:13 100 03/10/19 17:45 100 03/10/19 17:10 98 03/10/19 17:00 100 03/10/19 16:50 100 03/10/19 16:42 100 03/10/19 14:22 99
[2019-03-10] MEDS: DAPTOmycin 375 MG in SYRINGE 0 ML IV SCH (22:04)
--- NOTE | 2019-03-10 23:33 | Operative Report ---
DATE OF OPERATION: 03/10/2019 DATE OF PROCEDURE: 03/10/2019 INDICATION FOR PROCEDURE: The patient is an 88-year-old male with a long history of issues with his right foot. He started with osteomyelitis of his great toe, was treated conservatively, did better with that, developed an cellulitis infection of his second toe which were on the gangrene. He had multiple comorbidities including coronary artery disease, peripheral vascular disease, type 2 diabetes, aortic valve replacements. He also has hypertension. He has developed gangrene over the second toe at this time now and presents for amputation of second toe. PREOPERATIVE DIAGNOSES: Gangrene, right second toe; history of prior cellulitis. POSTOPERATIVE DIAGNOSES: Gangrene, right second toe; history of prior cellulitis. PROCEDURE: Right second toe amputation with disarticulation at the metatarsophalangeal joint. SURGEON: Miki Ramos MD COIN BOX INSPECTOR: None. ANESTHESIA: IV sedation with local infiltration. COMPLICATIONS: None. BLOOD LOSS: 1 mL or less. SPECIMENS: Second gangrenous toe. OPERATIVE PROCEDURE: The patient was identified and his right lower extremity was prepped and draped with ChloraPrep. First, attention was taken to perform a digital block. I performed digital block in the second toe using 1% plain lidocaine. Then, some of the skin was debrided, so we could see the true liner demarcation between the gangrene and the skin with good blood supply. Then, the incision was marked. Then, the leg was elevated and we exsanguinated the leg with an Esmarch bandage and kept the Esmarch about the ankle for tourniquet. A fishmouth type incision was made at the base of the second toe on the right foot. We stayed just proximal to the line of demarcation of the gangrenous skin. The skin was incised sharply. Subcutaneous tissues were dissected down to identify both the digital nerve and artery on the medial lateral aspect of the second toe. The arteries were dissected out, tied off with silk tie and allowed to retract and the nerves were cut and allowed to retract. Flexor tendon was cut and allowed to retract. The extensor tendons were cut. Then, I dissected around the base of the proximal phalanx with a periosteal elevator to get back to the metatarsophalangeal joint and upon manipulating the toe, the toe snapped off and we removed the specimen. Remainder of the proximal piece, we had to remove piecemeal because of a so friable that I removed it in several pieces using a rongeur and soft tissue dissection, removed the soft tissues from the remainder of the proximal phalanx. The entire phalynx was removed .The wound was copiously irrigated out with saline with bacitracin, the skin was closed with interrupted 3-0 nylon vertical mattress sutures and closure was complete and the tourniquet was taken off and he had good capillary refill back to all the toes that remained. He did have some nail issues where the nail was sloughing off of the great toe and there was also some crusty skin and the sloughing nail tissue off the third toe which was debrided back to better appearing tissue. This was cleaned. Xeroform bandages were placed. Xeroform was placed over the incisional area that we placed a sterile gauze, Kerlix gauze, some Webril and then an Nghia wrap. The patient tolerated the procedure well. I attest to the content of the Intraoperative Record and any orders documented therein. Any exceptions are noted below. JAIME
[2019-03-11] MEDS: HYDROCODONE/ACETAMOPHEN 5/325MG TAB PO PRN ×3 (00:38→22:19)
[2019-03-11] MEDS: MoRPHine SULFATE 2 MG/ML CARP IV PRN (04:43)
[2019-03-11 06:09] LABS: Hematocrit (blood only) 26.9 % (42-52); Mean Corpuscular Hgb Conc 33.5 g/dL (32-36); Mean Corpuscular Volume 95.4 fL (80-100); Platelet Count 256 K/uL (130-400); RDW Coefficient of Variation 14.6 % (11.5-14.5); Red Blood Count 2.82 M/uL (4.7-6.1); White Blood Count 5.97 K/uL (4.8-10.8)
[2019-03-11 06:21] LABS: INR 1.3 (0.9-1.1); Prothrombin Time 13.1 Seconds (9.0-12.0)
[2019-03-11 06:36] LABS: BUN Creatinine Ratio 17.9 (10-20); Calcium 7.7 mg/dl (8.5-10.1); Creatinine Clr Calc Pharmacy 39.4 ml/min; Est GFR (African American) 64.4; Est GFR (Non-African American) 55.5; Magnesium 1.5 mg/dl (1.8-2.4); Potassium 4.3 mmol/L (3.5-5.1)
[2019-03-11] MEDS: ONDANSETRON INJ 2 MG/ML 2 ML VIAL IV PRN ×2 (08:27→21:31)
[2019-03-11] MEDS: ASCORBIC ACID 500 MG TAB PO SCH (09:06)
[2019-03-11] MEDS: ASPIRIN 81 MG ECTAB PO SCH (09:06)
[2019-03-11] MEDS: FERROUS SULFATE 325 MG TAB PO SCH ×2 (09:06→22:20)
[2019-03-11] MEDS: PANTOprazole 40 MG TAB PO SCH (09:06)
[2019-03-11] MEDS: LISINOPRIL 5 MG TAB PO SCH (09:06)
[2019-03-11] MEDS: INSULIN ASPART 100 UNITS/ML 3 ML PEN SC SCH ×4 (09:08→22:27)
[2019-03-11] MEDS: MAGNESIUM SULFATE / D5W 1 GM/100 ML BAG IV SCH ×2 (09:11→10:13)
[2019-03-11] MEDS: CLOPIDOGREL BISULFATE 75 MG TAB PO SCH (10:20)
[2019-03-11] MEDS: PROMETHAZINE HCL 6.25 MG in SODIUM CHLORIDE 0.9% 50 ML IV PRN (11:22)
--- NOTE | 2019-03-11 11:54 | Orthopedic Progress Note ---
Date of Service March 11, 2019 Assessment & Plan (1) Gangrene of toe of right foot: POD 1 s/p Right 2nd toe amputation secondary to gangrene. PT/OT. WBAT on the heel only Plan for dressing change tomorrow. Can change pain medications if nausea continues. Subjective POD 1 s/p right second toe amputation. Pt sitting up in bed reading the paper. Having some pain in the operative area. Denies SOB,CP,LH. Did have an episode of N/V earlier this AM. No problems since. Physical Exam Physical Exam: Dressings C/D/I. Moving the other toes/ankle well. Results & Data Vital Signs (Past 12 Hours) Vital Signs Temp Pulse Resp BP Pulse Ox 03/11/19 06:55 36.7 C 73 20 153/79 H 99 03/11/19 03:55 36.6 C 76 17 157/77 H 97
--- NOTE | 2019-03-11 13:47 | Infectious Disease Progress Nt ---
Date of Service March 11, 2019 Assessment & Plan (1) Gangrene of toe of right foot: Patient with gangrene of the right second toe in the setting of diabetes and severe peripheral arterial disease. Now s/p amputation of the toe. We will continue current antibiotics pending further culture results.. Will follow. Subjective Patient seen in follow-up for gangrenous right second toe. Now status post amputation. Expected postoperative discomfort. Remains afebrile and hemodynamically stable. Review of Systems Review of Systems: All systems reviewed & are unremarkable except as noted in HPI & below Physical Exam Constitutional: WD/WN, vitals as above comfortable; no acute distress Eyes: PERRL, conjunctivae normal, anicteric sclerae ENMT: external ear and nose normal, oropharynx normal Neck: trachea midline, no thyromegaly neck nontender Respiratory: normal respiratory effort, lungs clear to auscultation normal percussion; does not use accessory muscles Cardiovascular: Rate/Rhythm: regular rate and regular rhythm Heart Sounds: normal S1 and normal S2; no gallop, no murmur and no cardiac rub Vessels: normal peripheral pulses; no JVD Gastrointestinal (Abdomen): normal bowel sounds, soft, nontender, no hepatosplenomegaly Musculoskeletal: no cyanosis or clubbing, extremities motor strength 5/5 Spine: thoracic spine normal to inspection and lumbar spine normal to inspection; no cervical spinal tenderness Skin: normal turgor; no rashes Surgical dressing intact right foot Neurologic: moves all extremities and awake; no focal motor deficits Psychiatric: A+Ox3, euthymic affect Orientation: cooperative Lymphatic: no cervical or axillary lymphadenopathy no inguinal lymphadenopathy Results & Data Vital Signs (Past 12 Hours) Vital Signs Temp Pulse Resp BP Pulse Ox 03/11/19 12:00 36.6 C 69 18 116/74 98 03/11/19 06:55 36.7 C 73 20 153/79 H 99 03/11/19 03:55 36.6 C 76 17 157/77 H 97
--- NOTE | 2019-03-11 13:52 | Hospitalist Progress Note ---
Date of Service March 11, 2019 Assessment & Plan (1) Gangrene of toe of right foot: - XR was negative. - MRI IMPRESSION: Areas of osteitis without definite evidence for osteomyelitis within the distal phalanges of the first, third, fourth, and fifth toes as described above. - BC negative to date. - Orthopedics consulted, OR for toe amputation and debridement 03/10. - ID following, continue Daptomycin IV. - PT/OT. (2) Atrial fibrillation: - Procedure required reversal of INR. - Monitor INR daily -- resume Warfarin today - Patient is higher risk for clotting but is also high risk for bleed - CHADs VASc 5, HAS BLED 3 - avoid bridging therapy. (3) DMII (diabetes mellitus, type 2): - Most recent A1C was 5.1 - No indication for insulin. (4) CAD (coronary artery disease): - Resume Plavix, continue Aspirin due to recent iliac stenting at end of January. (5) Chronic kidney disease, stage 3a: - Monitor renal function daily. (6) HLD (hyperlipidemia): - Not currently on statin agent. (7) Peripheral arterial disease: - Follows with Dr. Wiseman - Planning for follow up with Dr. Wiseman 03/15 - Continue aspirin and plavix as noted above. - Repeat arterial doppler showed: IMPRESSION: 1. Extensive atherosclerotic plaque about the bilateral lower extremities. 2. Triphasic waveforms noted within the bilateral common femoral arteries with biphasic waveforms about the superficial femoral arteries 3. Monophasic waveforms about the lower legs bilaterally, left greater than right. 4. No arterial occlusion or significantly elevated peak systolic velocities identified to suggest high-grade stenosis. (8) HTN (hypertension): - Continue home ACEI with close monitoring of renal function. (9) Hyponatremia: - Now resolved. (10) DVT prophylaxis: - SCDs; Coumadin restarted (11) Nausea & vomiting: continue phenergan and Zofran prn KUB without obstruction, no abdominal pain or distention Subjective Mr. Lawson continues to be nauseas with vomiting. He otherwise has no complaints. Review of Systems Review of Systems: All systems reviewed & are unremarkable except as noted in HPI & below Physical Exam Physical Exam: General: no distress Eyes: normal inspection, PERLL Respiratory: chest non tender, clear to auscultation, normal breath sounds, no respiratory distress, no accessory muscle use Cardiac: regular rate and rhythm, no rub or gallop, no murmur, no edema, no jvd GI/: active bowel sounds, no abd pain or tenderness, soft, non distended Extremities: normal range of motion, normal strength, non tender Neuro/Psych: alert and oriented x 3, normal mood and affect Skin: normal color, dry Results & Data Vital Signs (Past 12 Hours) Vital Signs Temp Pulse Resp BP Pulse Ox 03/11/19 12:00 36.6 C 69 18 116/74 98 03/11/19 06:55 36.7 C 73 20 153/79 H 99 03/11/19 03:55 36.6 C 76 17 157/77 H 97 PG Care Time/CCT Total # of Minutes Spent Total Time Spent with Patient: Total time spent is greater than 50% in coordination of care (as documented) at patient's floor/unit and/or counseling patient:
--- NOTE | 2019-03-11 14:30 | XRay Report ---
KUB HISTORY: nausea, vomiting COMPARISON: KUB 03/08/2019. FINDINGS: Borderline dilated gas-filled loops of large and small bowel. This favors a mild ileus. No evidence for bowel obstruction. Vascular stents are noted. Embolization coils within the right upper quadrant, unchanged. Prior cholecystectomy. Vascular calcifications. No renal calculi. No ureteral ca lculi. No pneumoperitoneum or pneumatosis. IMPRESSION: Multiple borderline dilated gas-filled loops of large and small bowel seen throughout the abdomen. Th is favors a mild ileus. Electronically signed by: Pipo Basurto M.D. 03/11/2019 2:28 PM
[2019-03-11] MEDS: WARFARIN SOD 5 MG TAB PO SCH (15:58)
--- NOTE | 2019-03-11 16:33 | Cardiology Progress Note ---
Date of Service March 11, 2019 Assessment & Plan (1) Peripheral arterial disease: 2. 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 PAF on coumadin 4. Type 2 DM 5. CAD post 2vCABG 6. History of bioprosthetic AVR 7. Anemia Reviewed recent repeat lower extremity arterial duplex. Triphasic waveforms to popliteal artery. Patent RELIEF MAN, peroneal. Prior STANTON normal post intervention. On exam normal capillary refill in remaining digits. For now think that arterial perfusion should be adequate for wound healing. Will defer additional procedures. Continue clopidogrel. On longstanding coumadin due to PAF. INRs have variable for sometime as an outpatient. Discussed transition to NOAC with patient and family. No interested at this time. Will continue coumadin. On discharge follow-up with me with repeat TBI in 2 weeks. Subjective Some pain at right ankle from dressing. Denies significant pain at toes. Reports some vomiting after breakfast this morning. Currently though feeling well. No other new complaints. Review of Systems Review of Systems: All systems reviewed & are unremarkable except as noted in HPI & below Physical Exam Physical Exam: General: Comfortable, no acute distress Eyes: Sclerae anicteric, extraocular movements intact HENT: Oropharynx clear mucous membranes moist Lungs: Clear to auscultation bilaterally, no rhonchi or wheezes Cardiac: Regular rate and rhythm, 2/6 systolic ejection murmur Vascular: Surgical site dressed, clean, no surrounding erythema. Normal capillary refill in digits 134 and 5 Abdomen: Soft, nontender, nondistended, positive bowel sounds. Extremities: Edema improved from last visit Neuro: Nonfocal Psych: Alert and oriented Results & Data Vital Signs (Past 12 Hours) Vital Signs Temp Pulse Resp BP Pulse Ox 03/11/19 15:22 36.6 C 66 16 130/60 99 03/11/19 12:00 36.6 C 69 18 116/74 98 03/11/19 06:55 36.7 C 73 20 153/79 H 99
[2019-03-11] MEDS: CARBOHYDRATES FOR HYPOGLYCEMIA PO PRN ×2 (20:59→21:20)
[2019-03-11] MEDS: DAPTOmycin 375 MG in SYRINGE 0 ML IV SCH (21:28)
[2019-03-12] MEDS: MoRPHine SULFATE 2 MG/ML CARP IV PRN (00:10)
[2019-03-12] MEDS: HYDROCODONE/ACETAMOPHEN 5/325MG TAB PO PRN (02:17)
[2019-03-12 06:05] LABS: Hemoglobin 8.9 g/dL (14.0-18.0); Mean Corpuscular Volume 96.8 fL (80-100); Platelet Count 240 K/uL (130-400); RDW Coefficient of Variation 14.6 % (11.5-14.5); RDW Standard Deviation 52.1 fL (36.4-46.3); Red Blood Count 2.79 M/uL (4.7-6.1); White Blood Count 5.35 K/uL (4.8-10.8)
[2019-03-12 06:18] LABS: INR 1.4 (0.9-1.1); Prothrombin Time 13.6 Seconds (9.0-12.0)
[2019-03-12 06:33] LABS: Albumin Level 2.1 gm/dl (3.4-5.0); Bilirubin Direct 0.2 mg/dl (0-0.2); Calcium 7.5 mg/dl (8.5-10.1); Creatinine Clr Calc Pharmacy 39.7 ml/min; Est GFR (Non-African American) 56.1; Magnesium 1.7 mg/dl (1.8-2.4); Potassium 4.4 mmol/L (3.5-5.1)
[2019-03-12 06:36] LABS: Bilirubin,Total 0.4 mg/dl (0.2-1); Total Protein 4.9 gm/dl (6.4-8.2)
[2019-03-12] MEDS: ONDANSETRON INJ 2 MG/ML 2 ML VIAL IV PRN ×3 (08:34→23:27)
--- NOTE | 2019-03-12 08:42 | Orthopedic Progress Note ---
Date of Service March 12, 2019 Assessment & Plan (1) Gangrene of toe of right foot: POD 2 s/p Right 2nd toe amputation secondary to gangrene. PT/OT. WBAT on the heel only Plan for dressing change today. Can change pain medications if nausea continues. Results & Data Vital Signs (Past 12 Hours) Vital Signs Temp Pulse Pulse Resp BP Pulse Ox 03/12/19 08:13 36.3 C L 68 16 130/70 98 03/11/19 23:32 36.7 C 85 18 134/64 98
[2019-03-12] MEDS: ASPIRIN 81 MG ECTAB PO SCH (09:20)
[2019-03-12] MEDS: LISINOPRIL 5 MG TAB PO SCH (09:20)
[2019-03-12] MEDS: CLOPIDOGREL BISULFATE 75 MG TAB PO SCH (09:20)
[2019-03-12] MEDS: ASCORBIC ACID 500 MG TAB PO SCH (09:20)
[2019-03-12] MEDS: PANTOprazole 40 MG TAB PO SCH (09:20)
[2019-03-12] MEDS: FERROUS SULFATE 325 MG TAB PO SCH ×2 (09:20→20:41)
[2019-03-12] MEDS: INSULIN ASPART 100 UNITS/ML 3 ML PEN SC SCH ×4 (09:40→21:13)
[2019-03-12] MEDS: PROMETHAZINE HCL 6.25 MG in SODIUM CHLORIDE 0.9% 50 ML IV PRN ×2 (10:23→17:47)
[2019-03-12] MEDS: OXYCODONE HCL IR 5 MG TAB (IMMEDIATE RELEASE) PO PRN (10:47)
--- NOTE | 2019-03-12 14:37 | Hospitalist Progress Note ---
Date of Service March 12, 2019 Assessment & Plan (1) Gangrene of toe of right foot: - MRI IMPRESSION: Areas of osteitis without definite evidence for osteomyelitis within the distal phalanges of the first, third, fourth, and fifth toes as described above. - BC negative to date. - Orthopedics consulted, OR toe amputation and debridement 03/10. - ID following, continue Daptomycin IV. - PT/OT. - dressing changed today, hopefully able to dc tomorrow (2) Atrial fibrillation: - Procedure required reversal of INR. - Monitor INR daily -- resumed Warfarin 03/11 today - Patient is higher risk for clotting but is also high risk for bleed - CHADs [facility] Sc 5, HAS BLED 3 - avoid bridging therapy. - will give 7.5 mg Warfarin today - INR was 1.4 (3) DMII (diabetes mellitus, type 2): - Most recent A1C was 5.1 - SS discontinued for hypoglycemia (4) CAD (coronary artery disease): - ASA, Plavic - recent iliac stenting at end of January. (5) Chronic kidney disease, stage 3a: - Monitor renal function daily. (6) HLD (hyperlipidemia): - Not currently on statin agent. (7) Peripheral arterial disease: - Follows with Dr. Wiseman - Planning for follow up with Dr. Wiseman 03/15 - Continue aspirin and plavix as noted above. - Repeat arterial doppler showed: IMPRESSION: 1. Extensive atherosclerotic plaque about the bilateral lower extremities. 2. Triphasic waveforms noted within the bilateral common femoral arteries with biphasic waveforms about the superficial femoral arteries 3. Monophasic waveforms about the lower legs bilaterally, left greater than right. 4. No arterial occlusion or significantly elevated peak systolic velocities identified to suggest high-grade stenosis. (8) HTN (hypertension): - Continue home ACEI with close monitoring of renal function. (9) Hyponatremia: - Now resolved. (10) DVT prophylaxis: - SCDs; Coumadin (11) Nausea & vomiting: continue phenergan and Zofran prn KUB without obstruction, no abdominal pain or distention Will discontinue morphine and hydrocodone and try oxycodone instead Subjective Continues to be nauseas. No other complaints. Review of Systems Review of Systems: All systems reviewed & are unremarkable except as noted in HPI & below Physical Exam Physical Exam: General: no distress Eyes: normal inspection, PERLL Respiratory: chest non tender, clear to auscultation, normal breath sounds, no respiratory distress, no accessory muscle use Cardiac: regular rate and rhythm, no rub or gallop, no murmur, no edema, no jvd GI/: active bowel sounds, no abd pain or tenderness, soft, non distended Extremities: normal range of motion, normal strength, non tender Neuro/Psych: alert and oriented x 3, normal mood and affect Skin: normal color, dry Results & Data Vital Signs (Past 12 Hours) Vital Signs Temp Pulse Resp BP Pulse Ox 03/12/19 11:59 36.2 C L 78 16 96/58 L 98 03/12/19 08:13 36.3 C L 68 16 130/70 98 PG Care Time/CCT Total # of Minutes Spent Total Time Spent with Patient: Total time spent is greater than 50% in coordination of care (as documented) at patient's floor/unit and/or counseling patient:
[2019-03-12] MEDS ORDERED: WARFARIN SOD 5 MG TAB PO ONE (16:00)
[2019-03-12] MEDS ORDERED: WARFARIN SOD 2.5 MG TAB PO ONE (16:00)
[2019-03-12] MEDS ORDERED: WARFARIN SOD 5 MG TAB PO STA (17:09)
[2019-03-12] MEDS: SODIUM CHLORIDE 0.9% 1000ML 1,000 ML IV SCH (17:49)
[2019-03-12] MEDS: ACETAMINOPHEN 500 MG TAB PO SCH (20:41)
[2019-03-12] MEDS: DAPTOmycin 375 MG in SYRINGE 0 ML IV SCH (21:08)
[2019-03-13] MEDS: OXYCODONE HCL IR 5 MG TAB (IMMEDIATE RELEASE) PO PRN ×2 (01:27→23:55)
[2019-03-13] MEDS: ACETAMINOPHEN 500 MG TAB PO SCH ×3 (06:15→21:52)
[2019-03-13] MEDS: SODIUM CHLORIDE 0.9% 1000ML 1,000 ML IV SCH ×2 (06:15→19:32)
[2019-03-13 06:21] LABS: INR 1.5 (0.9-1.1); Prothrombin Time 14.9 Seconds (9.0-12.0)
--- NOTE | 2019-03-13 09:12 | Orthopedic Progress Note ---
Date of Service March 13, 2019 Assessment & Plan (1) Gangrene of toe of right foot: POD 3 s/p Right 2nd toe amputation secondary to gangrene. PT/OT. WBAT on the heel only Can change pain medications if nausea continues. Ortho will sign off, please contact us if questions. Follow with Dr. Ramos at [facility] 10-12 days post op, call [phone] for appt. Daily dressing changes and wound checks to right foot. Weight bear as tolerated on the heel only with walker. Elevate as needed. Pain medications as needed. Subjective POD #3, Patient sitting comfortably at bedside. Denies significant foot pain. Physical Exam Physical Exam: Sitting comfortably at bedside. Right Foot dressings c/d/i, no bleeding or drainage. Dressings changed yesterday and wound benign. Patient A&Ox3 Results & Data Vital Signs (Past 12 Hours) Vital Signs Temp Pulse Resp BP Pulse Ox 03/13/19 07:05 36.6 C 85 16 133/72 97 03/12/19 23:18 36.6 C 92 H 16 106/62 97
[2019-03-13] MEDS: ONDANSETRON INJ 2 MG/ML 2 ML VIAL IV PRN (09:35)
[2019-03-13] MEDS: INSULIN ASPART 100 UNITS/ML 3 ML PEN SC SCH ×4 (09:40→22:10)
[2019-03-13] MEDS: LISINOPRIL 5 MG TAB PO SCH (09:47)
[2019-03-13] MEDS: CLOPIDOGREL BISULFATE 75 MG TAB PO SCH (09:47)
[2019-03-13] MEDS: ASPIRIN 81 MG ECTAB PO SCH (09:47)
[2019-03-13] MEDS: ASCORBIC ACID 500 MG TAB PO SCH (09:47)
[2019-03-13] MEDS: FERROUS SULFATE 325 MG TAB PO SCH ×2 (09:47→21:39)
[2019-03-13] MEDS: PANTOprazole 40 MG TAB PO SCH (09:47)
[2019-03-13] MEDS: PROMETHAZINE HCL 6.25 MG in SODIUM CHLORIDE 0.9% 50 ML IV PRN (11:46)
--- NOTE | 2019-03-13 12:43 | Hospitalist Progress Note ---
Date of Service March 13, 2019 Assessment & Plan (1) Gangrene of toe of right foot: - MRI IMPRESSION: Areas of osteitis without definite evidence for osteomyelitis within the distal phalanges of the first, third, fourth, and fifth toes as described above. - BC negative to date. - Orthopedics consulted, OR toe amputation and debridement 03/10. - ID following, continue Daptomycin IV. - PT/OT - return home - dressing changed 03/12, hopefully able to dc tomorrow if nausea resolves and able to eat and drink consistently (2) Atrial fibrillation: - Procedure required reversal of INR. - Monitor INR daily -- resumed Warfarin 03/11 - Patient is higher risk for clotting but is also high risk for bleed - CHADs VASc 5, HAS BLED 3 - avoid bridging therapy. - INR 1.5 (3) DMII (diabetes mellitus, type 2): - Most recent A1C was 5.1 - SS discontinued for hypoglycemia (4) CAD (coronary artery disease): - ASA, Plavix - recent iliac stenting at end of January. (5) Chronic kidney disease, stage 3a: - Monitor renal function daily. (6) HLD (hyperlipidemia): - Not currently on statin agent. (7) Peripheral arterial disease: - Follows with Dr. Wiseman - Planning for follow up with Dr. Wiseman 03/15 - Continue aspirin and plavix as noted above. - Repeat arterial doppler showed: IMPRESSION: 1. Extensive atherosclerotic plaque about the bilateral lower extremities. 2. Triphasic waveforms noted within the bilateral common femoral arteries with biphasic waveforms about the superficial femoral arteries 3. Monophasic waveforms about the lower legs bilaterally, left greater than right. 4. No arterial occlusion or significantly elevated peak systolic velocities identified to suggest high-grade stenosis. (8) HTN (hypertension): - Continue home ACEI (9) Hyponatremia: - Now resolved. (10) DVT prophylaxis: - SCDs; Coumadin (11) Nausea & vomiting: continue phenergan and Zofran prn, will add Reglan achs for one day KUB without obstruction, does show mild ileus Will discontinue morphine and hydrocodone and try oxycodone instead Subjective Continues to be quite nauseas although nursing did update me that patient had a large bowel movement and did feel better after that. No abdominal pain. Foot pain well controlled Review of Systems Review of Systems: All systems reviewed & are unremarkable except as noted in HPI & below Physical Exam Physical Exam: General: no distress Eyes: normal inspection, PERLL Respiratory: chest non tender, clear to auscultation, normal breath sounds, no respiratory distress, no accessory muscle use Cardiac: regular rate and rhythm, no rub or gallop, no murmur, no edema, no jvd GI/: active bowel sounds, no abd pain or tenderness, soft, non distended Extremities: normal range of motion, normal strength, non tender Neuro/Psych: alert and oriented x 3, normal mood and affect Skin: normal color, dry Results & Data Vital Signs (Past 12 Hours) Vital Signs Temp Pulse Resp BP Pulse Ox 03/13/19 07:05 36.6 C 85 16 133/72 97 PG Care Time/CCT Total # of Minutes Spent Total Time Spent with Patient: Total time spent is greater than 50% in coordination of care (as documented) at patient's floor/unit and/or counseling patient:
[2019-03-13] MEDS: WARFARIN SOD 5 MG TAB PO SCH (17:42)
[2019-03-13] MEDS: METOCLOPRAMIDE HCL 5 MG TABLET PO SCH ×2 (17:42→21:39)
[2019-03-13] MEDS: DAPTOmycin 375 MG in SYRINGE 0 ML IV SCH (21:39)
[2019-03-14 05:18] LABS: Basophils # (auto) 0.01 K/uL (0-0.2); Basophils % (auto) 0.2 %; Eosinophils # (auto) 0.05 K/uL (0-0.5); Eosinophils % (auto) 1.2 %; Hematocrit (blood only) 27.2 % (42-52); Hemoglobin 9.1 g/dL (14.0-18.0); Immature Granulocytes # (auto) 0.01 K/uL (0.00-0.02); Immature Granulocytes % (auto) 0.2 %; Lymphocytes # (auto) 0.81 K/uL (1.2-3.4); Lymphocytes % (auto) 20.1 %; Mean Corpuscular Hgb Conc 33.5 g/dL (32-36); Mean Corpuscular Volume 95.4 fL (80-100); Monocytes # (auto) 0.63 K/uL (0.11-0.59); Monocytes % (auto) 15.7 %; Neutrophils # (auto) 2.51 K/uL (1.4-6.5); Neutrophils % (auto) 62.6 %; Platelet Count 222 K/uL (130-400); RDW Coefficient of Variation 14.8 % (11.5-14.5); RDW Standard Deviation 51.8 fL (36.4-46.3); Red Blood Count 2.85 M/uL (4.7-6.1); White Blood Count 4.02 K/uL (4.8-10.8)
[2019-03-14 05:33] LABS: INR 1.9 (0.9-1.1); Prothrombin Time 18.9 Seconds (9.0-12.0)
[2019-03-14 05:43] LABS: Calcium 7.2 mg/dl (8.5-10.1); Creatinine Clr Calc Pharmacy 45.1 ml/min; Est GFR (African American) 75.9; Est GFR (Non-African American) 65.5; Potassium 3.9 mmol/L (3.5-5.1)
[2019-03-14] MEDS: ACETAMINOPHEN 500 MG TAB PO SCH ×3 (06:10→22:32)
[2019-03-14] MEDS: SODIUM CHLORIDE 0.9% 1000ML 1,000 ML IV SCH (08:13)
[2019-03-14] MEDS: METOCLOPRAMIDE HCL 5 MG TABLET PO SCH ×4 (08:14→20:46)
[2019-03-14] MEDS: ASCORBIC ACID 500 MG TAB PO SCH (08:14)
[2019-03-14] MEDS: CLOPIDOGREL BISULFATE 75 MG TAB PO SCH (08:14)
[2019-03-14] MEDS: LISINOPRIL 5 MG TAB PO SCH (08:14)
[2019-03-14] MEDS: PANTOprazole 40 MG TAB PO SCH (08:14)
[2019-03-14] MEDS: ASPIRIN 81 MG ECTAB PO SCH (08:14)
[2019-03-14] MEDS: FERROUS SULFATE 325 MG TAB PO SCH ×2 (08:14→20:46)
[2019-03-14] MEDS: INSULIN ASPART 100 UNITS/ML 3 ML PEN SC SCH ×4 (08:50→21:21)
[2019-03-14] MEDS ORDERED: CALCIUM GLUCONATE 10% 1,000 MG in SODIUM CHLORIDE 0.9% 50 ML IV ONE (09:00)
--- NOTE | 2019-03-14 14:52 | Infectious Disease Progress Nt ---
Date of Service March 14, 2019 Assessment & Plan (1) Gangrene of toe of right foot: Patient with gangrene of the right second toe in the setting of diabetes and severe peripheral arterial disease. Now s/p amputation of the toe. Continue daptomycin, would give minimum of 2 weeks more then will see in follow- up to determined need for additional Rx. Subjective POD #3, Patient sitting comfortably at bedside. Denies significant foot pain. Review of Systems Review of Systems: All systems reviewed & are unremarkable except as noted in HPI & below Physical Exam Constitutional: WD/WN, vitals as above comfortable; no acute distress Eyes: PERRL, conjunctivae normal, anicteric sclerae ENMT: external ear and nose normal, oropharynx normal Neck: trachea midline, no thyromegaly neck nontender Respiratory: normal respiratory effort, lungs clear to auscultation normal percussion; does not use accessory muscles Cardiovascular: Rate/Rhythm: regular rate and regular rhythm Heart Sounds: normal S1 and normal S2; no gallop, no murmur and no cardiac rub Vessels: normal peripheral pulses; no JVD Gastrointestinal (Abdomen): normal bowel sounds, soft, nontender, no hepatosplenomegaly Musculoskeletal: no cyanosis or clubbing, extremities motor strength 5/5 Spine: thoracic spine normal to inspection and lumbar spine normal to inspection; no cervical spinal tenderness Skin: normal turgor; no rashes Dressing intact, no increase in erythema of foot Neurologic: moves all extremities and awake; no focal motor deficits Psychiatric: A+Ox3, euthymic affect Orientation: cooperative Lymphatic: no cervical or axillary lymphadenopathy no inguinal lymphadenopathy Results & Data Vital Signs (Past 12 Hours) Vital Signs Temp Pulse Resp BP Pulse Ox 03/14/19 11:55 36.4 C L 74 150/64 H 95 03/14/19 07:45 36.5 C 87 16 108/56 L 92 Laboratory Results Short CBC 03/14/19 Range/Units 05:02 WBC 4.02 L (4.8-10.8) K/uL Hgb 9.1 L (14.0-18.0) g/dL Hct 27.2 L (42-52) % Plt Count 222 (130-400) K/uL BMP 03/14/19 05:02 Sodium 139 Potassium 3.9 Chloride 111 H Carbon Dioxide 21 BUN 34 H Creatinine 1.03 Glucose 77 Calcium 7.2 L
--- NOTE | 2019-03-14 15:33 | Discharge Summary ---
Date of Service March 14, 2019 Admission HPI Per Admitting Provider 88 y/o M c/o R 2nd toe discoloration. states that pt had been noted with dry and flaking skin on the R 2nd toe with underlying redness. She states he was seen by the [facility] clinical coordinator and advised to use Eucerin cream. Over the last few days pt has had an eruption of black discoloration after the flaking skin peeled away and his toe his now purple distal to that black discoloration. There is swelling. There are no issues with other toes. No bleeding noted. He has pain to this toe. He has been following with Dr. Germain and has been on dapto for an ongoing cellulitis. He has been seen by Dr. Macdonald in the past. No hx with [facility]. Pt follows with Dr. Wiseman for vascular care. He has hx of stenting and there was plan for a new stent on 03/15. Pt has no other current health concerns. Pt denies fever, SOB, chest pain, abd pain, n/v/c/d, LE pain or swelling. Admission Exam Per Admitting Provider Constitutional: WD/WN, vitals as above Eyes: normal visual mcallister by confrontation and + anicteric sclerae Neck: normal visual inspection and trachea midline Respiratory: normal respiratory effort, lungs clear to auscultation Cardiovascular: Rate/Rhythm: regular rate and regular rhythm Gastrointestinal (Abdomen): Inspection/Auscultation: abdomen not distended Percussion/Palpation: abdomen soft; abdomen nontender Musculoskeletal: Head/Neck/Chest: normocephalic and head atraumatic peripheral pulses intact Skin: b/l feet cool to touch R 2nd toe with black discoloration just distal to toe base and purple discoloration distal to that TTP along foot bridge Neurologic: awake; not confused Speech / Cognition: normal speech Psychiatric: A+Ox3, euthymic affect Principal Diagnosis Gangrene of the right foot Discharge Exam General: Resting comfortably in no apparent distress HEENT: NC/AT; PERRLA with EOMI; [place] conjunctiva, MMM. No erythema of posterior pharynx Neck: Supple and nontender Cardiac: RRR Lungs: CTA bilaterally Abdomen: Bowel normoactive X 4; Nontender to palpation Extremities: Warm. +2 bilat LE pitting edema. Dressing in place over right toe. Neuro: No focal weakness Skin: No rash Discharge Data Allergies Allergy/AdvReac Type Severity Reaction Status Date / Time No Known Allergies Allergy Unknown Verified 03/07/19 08:45 Consultations 03/07/19 10:33 ED Decision to Admit Stat 03/07/19 12:33 Consult Case Management - Discharge Planning Routine Consult Infectious Diseases Routine Consult Orthopedic Surgery Routine Procedures Performed Operation Date: 03/10/19 13:05 Actual Procedures p Right 2nd Toe Amputation - Miki Ramos MD Ordered Studies 03/07/19 12:33 MR foot RT w/o con Stat 03/08/19 16:35 US arterial duplex LE BI Routine Hospital Course (1) Gangrene of toe of right foot: MRI IMPRESSION: Areas of osteitis without definite evidence for osteomyelitis within the distal phalanges of the first, third, fourth, and fifth toes as described above. BC negative to date. Orthopedics consulted, s/p toe amputation and debridement on 03/10. ID following, will continue Daptomycin for 2 weeks in [facility] then f/u with Dr. Germain in the clinic. Will need to change dressing at home. F/u with orthopedics in 10-12 days post op. WBAT on right heel only. Discharged to home on 03/14/19. (2) Atrial fibrillation: Procedure required reversal of INR. Monitor INR daily -- resumed Warfarin 03/11 INR was 1.9 on day of discharge -- instructed to take 3 mg daily. Script provided for INR in 3 days with anticoagulation clinic. (3) DMII (diabetes mellitus, type 2): Most recent A1C was 5.1 Did not require SSI coverage -- was hypoglycemic. (4) CAD (coronary artery disease): ASA, Plavix - recent iliac stenting at end of January. (5) Chronic kidney disease, stage 3a: Monitored renal function daily. (6) HLD (hyperlipidemia): Not currently on statin agent. (7) Peripheral arterial disease: Follows with Dr. Wiseman. Will need to follow up as outpatient. Continued aspirin and plavix as noted above. Repeat arterial doppler showed: 1. Extensive atherosclerotic plaque about the bilateral lower extremities. 2. Triphasic waveforms noted within the bilateral common femoral arteries with biphasic waveforms about the superficial femoral arteries 3. Monophasic waveforms about the lower legs bilaterally, left greater than right. 4. No arterial occlusion or significantly elevated peak systolic velocities identified to suggest high-grade stenosis. (8) HTN (hypertension): Continued home ACEI (9) Hyponatremia: Now resolved. (10) Nausea & vomiting: KUB was negative for obstruction, showed possible ileus. Received IV fluids, Reglan scheduled ac/hs. N/V resolved by time of disharge. (11) DVT prophylaxis: SCDs; Coumadin. Total Time Total Time Spent Total Time Spent (In Minutes): >30 minutes Total Time Includes: Examination of the Patient, Discharge Planning, Medication Reconciliation, Communication With Other Providers and Other Discharge Plan Discharge Items Patient Disposition: Home - Home Health Services Reason For Visit: OSTEOMYELITIS Discharge Diagnosis: Gangrene of the right foot/toe Condition: Good Discharge Goals: Improve disease control, Improve function, Increase independence, Improve nutritional status and Prevent disease Activity: As commented below Weightbearing: Right partial Weightbearing Comment: Right weight bear as tolerated on the heel only Non-emergency contact: Primary Care Provider and Surgeon Call non-emergency contact if: you have any medication questions, your symptoms worsen, your pain is not controlled, your pain is worsening, your pain is unusual for you, your pain is concerning for you, you have a fever, your wound has increased redness and your wound has increased drainage Follow-up/Referrals: Ab Germain MD [Physician] - 03/29/19 1:30 pm (A follow up appt. has been made for you with Dr. Germain on March 29 at 1:30pm.) Fito Oakley III, MD [Physician] - 03/28/19 1:50 pm (Please follow up with Dr. Oakley at PCP office on March 28 at 1:50pm.) Ange Christy CRNP [Primary Care Provider] - Manuelito Wiseman MD [Physician] - (F/u within the next 7 days. ) Albin Macdonald DO [Surgeon] - 03/22/19 3:00 pm (A follow up appt. has been made with Jaleel Figueroa PA-C for March 22 at 3:00pm.) Diet: Carb Consistent or DM2 and Gluten Free Other Ambulatory Orders: Prothrombin Time INR (Timed) Timeframe: 3 Days Location: Determined by Patient Ordered By: Grace Barkley Provider Instructions: 1. Gangrene of the right foot/toe * S/p right 2nd toe amputation on 03/10/19. * Please take Zyvox 600 mg twice daily to complete a 2 week course. Prescription was sent to your pharmacy. * Continue weight bearing as tolerated on the right heel; use a walker at all times. * Pain control: Tylenol 1 gm every 8 hours scheduled with Oxycodone 5 mg every 6 hours as needed. * Please follow up with Dr. Macdonald as scheduled on 03/22/19. * Please follow up with Dr. Germain as scheduled on 03/29/19. * Continue dressing changes with Optifoam every 1-2 days. 2. Atrial Fibrillation * Please continue Coumadin 2.5 mg daily. * A script was provided for a PT/INR in 3 days -- results will be faxed to your clerical production worker. 3 Peripheral arterial disease * Continue aspirin/plavix as prescribed. * Please follow up with Dr. Wiseman as an outpatient for re-evaluation. 4. Please follow up with Dr. Oakley as scheduled on 03/28/19. Prescriptions: New linezolid [Zyvox] 600 mg tablet 600 mg PO BID Qty: 26 RF: 0 Continued omeprazole 40 mg Capsule,Delayed Release(Dr/Ec) 40 mg PO DAILY Qty: 0 RF: 0 aspirin 81 mg Tablet,Delayed Release (Dr/Ec) 81 mg PO DAILY Qty: 0 RF: 0 ascorbic acid (vitamin C) 500 mg Tablet 500 mg PO DAILY Qty: 0 RF: 0 cholecalciferol (vitamin D3) [Vitamin D3] 1,000 unit Capsule 2,000 unit PO DAILY Qty: 0 RF: 0 clopidogrel 75 mg Tablet 75 mg PO QAM 30 Days Qty: 30 RF: 0 ferrous sulfate 325 mg (65 mg iron) Tablet 325 mg PO BID RF: 0 Changed lisinopril 5 mg tablet 5 mg PO DAILY Qty: 0 RF: 0 warfarin 3 mg Tablet 2.5 mg PO DAILY Qty: 0 RF: 0 Discontinued hydrocodone-acetaminophen 5-325 mg tablet See Rx Instructions PO Q4H PRN (Reason: pain) Qty: 60 RF: 0 daptomycin 350 mg recon soln 350 mg IV DAILY Qty: 1 RF: 0 Stand-Alone Forms: [employer], Opioid Pain Management [employer]/Other Patient Handouts: Surgery Prevent DVT After, Coumadin Admission Data Admit Date/Time: 03/07/19 10:59 Attending Provider: Garrison Liang Admit Provider: Sandy Glass Primary Care Provider: Ange Christy Other Providers: Sandy Glass ; Ab Germian ; Albin Macdonald Service: Medical Other Interventions: Discharge Summary Assessment (RN) Last Done: 03/14/19 15:35 Pending Studies at Discharge: No Supervising Physician Co-Signing Physician Notes Attending note - patient was to be discharged today, but discharge ultimately was canceled. please see my attestation note on Ms Ambriz's progress note with date of 03/14/19. Garrison Liang MD
--- NOTE | 2019-03-14 17:11 | Hospitalist Progress Note ---
Date of Service March 14, 2019 Assessment & Plan (1) Gangrene of toe of right foot: - MRI IMPRESSION: Areas of osteitis without definite evidence for osteomyelitis within the distal phalanges of the first, third, fourth, and fifth toes as described above. - BC negative to date. - Orthopedics consulted, s/p toe amputation and debridement on 03/10. - ID following, continue Daptomycin for 2 weeks in [facility] then f/u with Dr. Germain in the clinic. - F/u with orthopedics in 10-12 days post op. WBAT on right heel only. Consider walking boot. - Will need daily dressing changes -- cannot have home nursing due to infusion appt. Will need patient education on dressing changes -- at this point, they do not feel comfortable with home care. (2) Atrial fibrillation: - Procedure required reversal of INR. - Monitor INR daily -- resumed Warfarin 03/11 - Continue Warfarin 5 mg daily. (3) DMII (diabetes mellitus, type 2): - Most recent A1C was 5.1 - Does not require SSI coverage -- hypoglycemic. (4) CAD (coronary artery disease): - ASA, Plavix - recent iliac stenting at end of January. (5) Chronic kidney disease, stage 3a: - Monitor renal function daily. (6) HLD (hyperlipidemia): - Not currently on statin agent. (7) Peripheral arterial disease: - Follows with Dr. Wiseman. Will need to follow up as outpatient. - Continue aspirin and plavix as noted above. - Repeat arterial doppler showed: 1. Extensive atherosclerotic plaque about the bilateral lower extremities. 2. Triphasic waveforms noted within the bilateral common femoral arteries with biphasic waveforms about the superficial femoral arteries 3. Monophasic waveforms about the lower legs bilaterally, left greater than right. 4. No arterial occlusion or significantly elevated peak systolic velocities identified to suggest high-grade stenosis. (8) HTN (hypertension): - Continue home ACEI (9) Hyponatremia: - Now resolved. (10) Nausea & vomiting: - KUB was negative for obstruction, showed possible ileus. - Reglan scheduled ac/hs. (11) DVT prophylaxis: - SCDs; Coumadin. Dispo: Discharge to home pending home arrangements -- at this point, patient and his do not feel comfortable with dressing changes. Supervising Physician Co-Signing Physician Notes Attending Note and Attestation - Pt seen/examined, chart reviewed, care plan d/w HALLE Ambriz. I agree w/ the cerrato components of her documentation. In preparation for discharge home I went to see Mr Lawson. While performing my exam his came into the room and sat down. After completing my exam I introduced myself to his . She seemed upset and I asked her what was bothering her / on her mind. She reported symptoms of caregiver fatigue, was bothered by the fact he has had numerous hospitalizations, complained about the fact she would need to bring him to the [facility] for IV antibiotics, etc. I offered support to the and told her that she needed to feel comfortable with the discharge plan. I also offered to cancel his discharge to try and secure more services to help them outside the hospital. She kept saying "I'm just going to take him home." In the midst of this conversation she also expressed concern about his recent n ausea/emesis and "only having liquids this morning." Exam - gen- NAD, thin mouth- MMM, no thrush heart- irregular, s1, s2 lungs- CTA b/l abd- minimal distension, BS+, NT ext- right foot- 2nd toe absent; dressings intact vascular- right foot- pulses 2+ A/P: right 2nd toe gangrene - s/p amputation. PAD. a.fib on chronic coumadin. recent nausea/emesis post-op -- likely ileus but improved (has tolerated diet today). CKD stage 3. A short time following my visit Ms Ambriz and I were informed that the indeed DID change her mind about hospital discharge and wishes for him to stay. This will allow us more time to see if we can help her with post-discharge care. does seem to have caregiver burn-out and will ask social work tomorrow to look into ways to help the patient and his . Cont to follow GI issues carefully. Cont antibiotics. Garrison Liang MD Subjective Pt. is doing well today. Nausea/vomiting now resolved. He had multiple large BMs yesterday. Denies pain in foot. Will hold discharge as pt. and his are not prepared for home care. Review of Systems Review of Systems: All systems reviewed & are unremarkable except as noted in HPI & below Constitutional: no fever, no chills, no fatigue and no weakness Respiratory: no cough, no dyspnea and no dyspnea on exertion Cardiovascular: no chest pain, no palpitations and no edema Gastrointestinal: no abdominal pain, no nausea, no vomiting and no cons tipation Genitourinary: no difficulty urinating Musculoskeletal: no back pain and no joint pain Integumentary: no non-healing lesions Allergy / Immunological: no rash Physical Exam Physical Exam: General: Resting comfortably in no apparent distress HEENT: NC/AT; PERRLA with EOMI; [place] conjunctiva, MMM. No erythema of posterior pharynx Neck: Supple and nontender Cardiac: RRR Lungs: CTA bilaterally Abdomen: Bowel normoactive X 4; Nontender to palpation Extremities: Warm. +2 bilat LE pitting edema. Dressing in place over right toe. Neuro: No focal weakness Skin: No rash Results & Data Vital Signs (Past 12 Hours) Vital Signs Temp Pulse Resp BP Pulse Ox 03/14/19 15:35 36.3 C L 85 18 149/71 H 100 03/14/19 11:55 36.4 C L 74 150/64 H 95 03/14/19 07:45 36.5 C 87 16 108/56 L 92 Laboratory Results 03/14/19 03/14/19 03/14/19 Range/Units 12:23 08:21 05:02 WBC (4.8-10.8) K/uL RBC (4.7-6.1) M/uL Hgb (14.0-18.0) g/dL Hct (42-52) % MCV (80-100) fL MCH (25-34) pg MCHC (32-36) g/dL RDW Std Deviation (36.4-46.3) fL RDW Coeff of Gilbert (11.5-14.5) % Plt Count (130-400) K/uL MPV (7.4-10.4) fL Immature Gran % (Auto) % Neut % (Auto) % Lymph % (Auto) % Williamson % (Auto) % Eos % (Auto) % Baso % (Auto) % Immature Gran # (Auto) (0.00-0.02) K/uL Neut # (Auto) (1.4-6.5) K/uL Lymph # (Auto) (1.2-3.4) K/uL Williamson # (Auto) (0.11-0.59) K/uL Eos # (Auto) (0-0.5) K/uL Baso # (Auto) (0-0.2) K/uL PT 18.9 H (9.0-12.0) Seconds INR 1.9 H (0.9-1.1) Sodium (136-145) mmol/L Potassium (3.5-5.1) mmol/L Chloride (98-107) mmol/L Carbon Dioxide (21-32) mmol/L Anion Gap (3-11) BUN (7-18) mg/dl Creatinine (0.6-1.4) mg/dl Est Cr Clr Drug Dosing ml/min Est GFR ( Amer) Est GFR (Non-Af Amer) BUN/Creatinine Ratio (10-20) Glucose (70-99) mg/dl POC Glucose 91 73 (70-99) Calcium (8.5-10.1) mg/dl 03/14/19 03/14/19 03/13/19 Range/Units 05:02 05:02 21:06 WBC 4.02 L (4.8-10.8) K/uL RBC 2.85 L (4.7-6.1) M/uL Hgb 9.1 L (14.0-18.0) g/dL Hct 27.2 L (42-52) % MCV 95.4 (80-100) fL MCH 31.9 (25-34) pg MCHC 33.5 (32-36) g/dL RDW Std Deviation 51.8 H (36.4-46.3) fL RDW Coeff of Gilbert 14.8 H (11.5-14.5) % Plt Count 222 (130-400) K/uL MPV 9.0 (7.4-10.4) fL Immature Gran % (Auto) 0.2 % Neut % (Auto) 62.6 % Lymph % (Auto) 20.1 % Williamson % (Auto) 15.7 % Eos % (Auto) 1.2 % Baso % (Auto) 0.2 % Immature Gran # (Auto) 0.01 (0.00-0.02) K/uL Neut # (Auto) 2.51 (1.4-6.5) K/uL Lymph # (Auto) 0.81 L (1.2-3.4) K/uL Williamson # (Auto) 0.63 H (0.11-0.59) K/uL Eos # (Auto) 0.05 (0-0.5) K/uL Baso # (Auto) 0.01 (0-0.2) K/uL PT (9.0-12.0) Seconds INR (0.9-1.1) Sodium 139 (136-145) mmol/L Potassium 3.9 (3.5-5.1) mmol/L Chloride 111 H (98-107) mmol/L Carbon Dioxide 21 (21-32) mmol/L Anion Gap 7.0 (3-11) BUN 34 H (7-18) mg/dl Creatinine 1.03 (0.6-1.4) mg/dl Est Cr Clr Drug Dosing 45.1 ml/min Est GFR ( Amer) 75.9 Est GFR (Non-Af Amer) 65.5 BUN/Creatinine Ratio 33.0 H (10-20) Glucose 77 (70-99) mg/dl POC Glucose 115 H (70-99) Calcium 7.2 L (8.5-10.1) mg/dl 03/13/19 Range/Units 17:11 WBC (4.8-10.8) K/uL RBC (4.7-6.1) M/uL Hgb (14.0-18.0) g/dL Hct (42-52) % MCV (80-100) fL MCH (25-34) pg MCHC (32-36) g/dL RDW Std Deviation (36.4-46.3) fL RDW Coeff of Gilbert (11.5-14.5) % Plt Count (130-400) K/uL MPV (7.4-10.4) fL Immature Gran % (Auto) % Neut % (Auto) % Lymph % (Auto) % [place] % (Auto) % Eos % (Auto) % Baso % (Auto) % Immature Gran # (Auto) (0.00-0.02) K/uL Neut # (Auto) (1.4-6.5) K/uL Lymph # (Auto) (1.2-3.4) K/uL Williamson # (Auto) (0.11-0.59) K/uL Eos # (Auto) (0-0.5) K/uL Baso # (Auto) (0-0.2) K/uL PT (9.0-12.0) Seconds INR (0.9-1.1) Sodium (136-145) mmol/L Potassium (3.5-5.1) mmol/L Chloride (98-107) mmol/L Carbon Dioxide (21-32) mmol/L Anion Gap (3-11) BUN (7-18) mg/dl Creatinine (0.6-1.4) mg/dl Est Cr Clr Drug Dosing ml/min Est GFR ( Amer) Est GFR (Non-Af Amer) BUN/Creatinine Ratio (10-20) Glucose (70-99) mg/dl POC Glucose 97 (70-99) Calcium (8.5-10.1) mg/dl PG Care Time/CCT Total # of Minutes Spent Total Time Spent with Patient: Total time spent is greater than 50% in coordination of care (as documented) at patient's floor/unit and/or counseling patient:
[2019-03-14] MEDS: WARFARIN SOD 5 MG TAB PO SCH (18:21)
[2019-03-14] MEDS: ONDANSETRON INJ 2 MG/ML 2 ML VIAL IV PRN (22:31)
[2019-03-14] MEDS: DAPTOmycin 375 MG in SYRINGE 0 ML IV SCH (22:32)
[2019-03-15] MEDS: PROMETHAZINE HCL 6.25 MG in SODIUM CHLORIDE 0.9% 50 ML IV PRN (01:11)
[2019-03-15] MEDS ORDERED: LORazepam 1 MG/2 ML VIAL IV STA (02:38)
[2019-03-15 06:04] LABS: Hematocrit (blood only) 27.5 % (42-52); Hemoglobin 9.4 g/dL (14.0-18.0); Mean Corpuscular Hgb Conc 34.2 g/dL (32-36); Mean Corpuscular Volume 94.8 fL (80-100); Mean Platelet Volume 9.4 fL (7.4-10.4); Platelet Count 225 K/uL (130-400); RDW Coefficient of Variation 14.6 % (11.5-14.5); RDW Standard Deviation 50.8 fL (36.4-46.3); White Blood Count 3.85 K/uL (4.8-10.8)
[2019-03-15 06:15] LABS: INR 2.5 (0.9-1.1); Prothrombin Time 23.6 Seconds (9.0-12.0)
[2019-03-15 06:20] LABS: Calcium 7.7 mg/dl (8.5-10.1); Creatinine Clr Calc Pharmacy 43.3 ml/min; Est GFR (African American) 70.9; Est GFR (Non-African American) 61.1; Potassium 4.2 mmol/L (3.5-5.1)
[2019-03-15] MEDS: ACETAMINOPHEN 500 MG TAB PO SCH ×3 (06:24→23:18)
[2019-03-15 06:45] LABS: Basophils # (auto) 0.01 K/uL (0-0.2); Basophils % (auto) 0.3 %; Echinocytes 1+; Eosinophils # (auto) 0.02 K/uL (0-0.5); Eosinophils % (auto) 0.5 %; Giant Platelets 1+; Immature Granulocytes # (auto) 0.02 K/uL (0.00-0.02); Immature Granulocytes % (auto) 0.5 %; Lymphocytes # (auto) 0.66 K/uL (1.2-3.4); Lymphocytes % (auto) 17.1 %; Monocytes # (auto) 0.35 K/uL (0.11-0.59); Monocytes % (auto) 9.1 %; Neutrophils # (auto) 2.79 K/uL (1.4-6.5); Neutrophils % (auto) 72.5 %
[2019-03-15] MEDS: INSULIN ASPART 100 UNITS/ML 3 ML PEN SC SCH (10:25)
--- NOTE | 2019-03-15 11:23 | XRay Report ---
XR KUB/Abdomen 1 view CLINICAL HISTORY: Rule out obstruction ABDOMINAL DISTENTION COMPARISON STUDY: 03/11/2019 FINDINGS: There is gas present within large and small bowel loops. There are no transition zones patricia brittany bowel obstruction. There are bilateral iliac stents. There are bilateral renal artery stents. Am bulation: The visualized right upper quadrant. There are surgical clips within the right upper quadra nt consistent with a prior cholecystectomy. IMPRESSION: Gaseous prominence of both large and small bowel loops, but no transition zones to indic ate bowel obstruction. Electronically signed by: Jhonny Mahoney M.D. 03/15/2019 11:22 AM
[2019-03-15] MEDS: ASPIRIN 81 MG ECTAB PO SCH (14:07)
--- NOTE | 2019-03-15 14:08 | Hospitalist Progress Note ---
Date of Service March 15, 2019 Assessment & Plan (1) Gangrene of toe of right foot: - MRI IMPRESSION: Areas of osteitis without definite evidence for osteomyelitis within the distal phalanges of the first, third, fourth, and fifth toes as described above. - BC were negative. - Orthopedics consulted, s/p toe amputation and debridement on 03/10. - ID following, will convert Daptomycin IV to Zyvox PO to avoid infusion appointments and allow for home nursing -- continue for a 2 week course. Will need close follow up in the ID clinic. - Will change dressing to Optifoam -- change q2-3 days at home. His is comfortable with dressing changes, discussed during rounds. (2) Nausea & vomiting: - Previous KUB was negative for obstruction. - Developed recurrent N/V overnight, responded well to Phenergan/Ativan but pt. was lethargic due to sedating meds. - Repeat KUB showed bowel gas pattern, negative for obstruction or ileus. - Continue Phenergan, Zofran prn; avoid further doses of Ativan IV. (3) Lethargy: - Likely medication induced related to Phenergan/Ativan combination overnight. - VBG is pending this afternoon. - Avoid sedating meds, including further doses of Ativan PO/IV. (4) Atrial fibrillation: - Procedure required reversal of INR. - Monitor INR daily -- was therapeutic at 2.5 today. - Continue Warfarin - will decrease to 3 mg daily. (5) DMII (diabetes mellitus, type 2): - Most recent A1C was 5.1 - Does not require SSI coverage. (6) CAD (coronary artery disease): - ASA, Plavix - recent iliac stenting at end of January. (7) Chronic kidney disease, stage 3a: - Monitor renal function daily. (8) HLD (hyperlipidemia): - Not currently on statin agent. (9) Peripheral arterial disease: - Follows with Dr. Wiseman. Will need to follow up as outpatient. - Continue aspirin and plavix as noted above. - Repeat arterial doppler showed: 1. Extensive atherosclerotic plaque about the bilateral lower extremities. 2. Triphasic waveforms noted within the bilateral common femoral arteries with biphasic waveforms about the superficial femoral arteries 3. Monophasic waveforms about the lower legs bilaterally, left greater than right. 4. No arterial occlusion or significantly elevated peak systolic velocities identified to suggest high-grade stenosis. (10) HTN (hypertension): - Continue home ACEI. (11) Hyponatremia: - Now resolved. (12) DVT prophylaxis: - SCDs; Coumadin. Dispo: Discharge to home pending resolution of lethargy (medication induced) and nausea/vomiting. Will need home nursing arranged. Supervising Physician Co-Signing Physician Notes Attending Note and Attestation - Chart reviewed, care plan d/w HAL[facility] Ambriz. I agree w/ the cerrato components of her documentation. Pt with toxic encephalopathy s/p IV ativan/phenergan overnight due to recurrent nausea/emesis. Latter - ongoing post-op ileus? other? supportive care for now. NO FURTHER SEDATING MEDS INCLUDING ANTI-EMETICS WITH SEDATING PROPERTIES. Labs acceptable today. KUB findings noted. cont antibiotics for right foot. Garrison Liang MD Subjective Pt. had nausea/vomiting overnight, received Phenergan and Ativan -- he is very sedated this morning, likely related to medication side effects. Last BM was on Thursday -- had multiple large BMs. KUB showed bowel gas pattern, negative for obstruction. Will continue to monitor over next 24 hours, avoid additional doses of sedating meds. Review of Systems Review of Systems: Unobtainable due to cognitive status (Pt. is very lethargic. ) Physical Exam Physical Exam: General: Resting comfortably, very lethargic. HEENT: NC/AT; PERRLA with EOMI; [place] conjunctiva, MMM. No erythema of posterior pharynx Neck: Supple and nontender Cardiac: RRR Lungs: CTA bilaterally Abdomen: Bowel normoactive X 4; Nontender to palpation Extremities: Warm. +1 bilat LE pitting edema. Dressing on right foot, did not remove. Skin: No rash Results & Data Vital Signs (Past 12 Hours) Vital Signs Temp Pulse Resp BP Pulse Ox 03/15/19 07:01 36.5 C 93 H 15 144/74 H 99 Laboratory Results 03/15/19 03/15/19 03/15/19 Range/Units 11:53 08:02 05:50 WBC (4.8-10.8) K/uL RBC (4.7-6.1) M/uL Hgb (14.0-18.0) g/dL Hct (42-52) % MCV (80-100) fL MCH (25-34) pg MCHC (32-36) g/dL RDW Std Deviation (36.4-46.3) fL RDW Coeff of Gilbert (11.5-14.5) % Plt Count (130-400) K/uL MPV (7.4-10.4) fL Immature Gran % (Auto) % Neut % (Auto) % Lymph % (Auto) % Stephens % (Auto) % Eos % (Auto) % Baso % (Auto) % Immature Gran # (Auto) (0.00-0.02) K/uL Neut # (Auto) (1.4-6.5) K/uL Lymph # (Auto) (1.2-3.4) K/uL Stephens # (Auto) (0.11-0.59) K/uL Eos # (Auto) (0-0.5) K/uL Baso # (Auto) (0-0.2) K/uL Giant Platelets Echinocytes PT 23.6 H (9.0-12.0) Seconds INR 2.5 H (0.9-1.1) Sodium (136-145) mmol/L Potassium (3.5-5.1) mmol/L Chloride (98-107) mmol/L Carbon Dioxide (21-32) mmol/L Anion Gap (3-11) BUN (7-18) mg/dl Creatinine (0.6-1.4) mg/dl Est Cr Clr Drug Dosing ml/min Est GFR ( Amer) Est GFR (Non-Af Amer) BUN/Creatinine Ratio (10-20) Glucose (70-99) mg/dl POC Glucose 96 113 H (70-99) Calcium (8.5-10.1) mg/dl 03/15/19 03/15/19 03/14/19 Range/Units 05:50 05:50 20:48 WBC 3.85 L (4.8-10.8) K/uL RBC 2.90 L (4.7-6.1) M/uL Hgb 9.4 L (14.0-18.0) g/dL Hct 27.5 L (42-52) % MCV 94.8 (80-100) fL MCH 32.4 (25-34) pg MCHC 34.2 (32-36) g/dL RDW Std Deviation 50.8 H (36.4-46.3) fL RDW Coeff of Gilbert 14.6 H (11.5-14.5) % Plt Count 225 (130-400) K/uL MPV 9.4 (7.4-10.4) fL Immature Gran % (Auto) 0.5 % Neut % (Auto) 72.5 % Lymph % (Auto) 17.1 % Stephens % (Auto) 9.1 % Eos % (Auto) 0.5 % Baso % (Auto) 0.3 % Immature Gran # (Auto) 0.02 (0.00-0.02) K/uL Neut # (Auto) 2.79 (1.4-6.5) K/uL Lymph # (Auto) 0.66 L (1.2-3.4) K/uL Stephens # (Auto) 0.35 (0.11-0.59) K/uL Eos # (Auto) 0.02 (0-0.5) K/uL Baso # (Auto) 0.01 (0-0.2) K/uL Giant Platelets 1+ Echinocytes 1+ PT (9.0-12.0) Seconds INR (0.9-1.1) Sodium 139 (136-145) mmol/L Potassium 4.2 (3.5-5.1) mmol/L Chloride 110 H (98-107) mmol/L Carbon Dioxide 22 (21-32) mmol/L Anion Gap 8.0 (3-11) BUN 33 H (7-18) mg/dl Creatinine 1.09 (0.6-1.4) mg/dl Est Cr Clr Drug Dosing 43.3 ml/min Est GFR ( Amer) 70.9 Est GFR (Non-Af Amer) 61.1 BUN/Creatinine Ratio 30.0 H (10-20) Glucose 114 H (70-99) mg/dl POC Glucose 114 H (70-99) Calcium 7.7 L (8.5-10.1) mg/dl 03/14/19 Range/Units 17:30 WBC (4.8-10.8) K/uL RBC (4.7-6.1) M/uL Hgb (14.0-18.0) g/dL Hct (42-52) % MCV (80-100) fL MCH (25-34) pg MCHC (32-36) g/dL RDW Std Deviation (36.4-46.3) fL RDW Coeff of Gilbert (11.5-14.5) % Plt Count (130-400) K/uL MPV (7.4-10.4) fL Immature Gran % (Auto) % Neut % (Auto) % Lymph % (Auto) % Stephens % (Auto) % Eos % (Auto) % Baso % (Auto) % Immature Gran # (Auto) (0.00-0.02) K/uL Neut # (Auto) (1.4-6.5) K/uL Lymph # (Auto) (1.2-3.4) K/uL Stephens # (Auto) (0.11-0.59) K/uL Eos # (Auto) (0-0.5) K/uL Baso # (Auto) (0-0.2) K/uL Giant Platelets Echinocytes PT (9.0-12.0) Seconds INR (0.9-1.1) Sodium (136-145) mmol/L Potassium (3.5-5.1) mmol/L Chloride (98-107) mmol/L Carbon Dioxide (21-32) mmol/L Anion Gap (3-11) BUN (7-18) mg/dl Creatinine (0.6-1.4) mg/dl Est Cr Clr Drug Dosing ml/min Est GFR ( Amer) Est GFR (Non-Af Amer) BUN/Creatinine Ratio (10-20) Glucose (70-99) mg/dl POC Glucose 132 H (70-99) Calcium (8.5-10.1) mg/dl PG Care Time/CCT Total # of Minutes Spent Total Time Spent with Patient: Total time spent is greater than 50% in coordi nation of care (as documented) at patient's floor/unit and/or counseling patient:
[2019-03-15] MEDS: ASCORBIC ACID 500 MG TAB PO SCH (14:09)
[2019-03-15] MEDS: PANTOprazole 40 MG TAB PO SCH (14:09)
[2019-03-15] MEDS: LISINOPRIL 5 MG TAB PO SCH (14:09)
[2019-03-15] MEDS: FERROUS SULFATE 325 MG TAB PO SCH ×3 (14:09→20:06)
[2019-03-15] MEDS: CLOPIDOGREL BISULFATE 75 MG TAB PO SCH (14:10)
[2019-03-15] MEDS: LINEZOLID 600 MG TAB PO SCH ×2 (14:15→20:04)
[2019-03-15 14:42] LABS: Base Excess VBG -5.9 mEq/L; Oxygen Saturation VBG 73.2 %; pH VBG 7.41 (7.36-7.41)
[2019-03-15] MEDS: WARFARIN SOD 3 MG TAB PO SCH (16:22)
--- NOTE | 2019-03-15 19:29 | Infectious Disease Progress Nt ---
Date of Service March 15, 2019 Assessment & Plan (1) Gangrene of toe of right foot: Patient with gangrene of the right second toe in the setting of diabetes and severe peripheral arterial disease. Now s/p amputation of the toe. Given difficulty with treating with daptomycin, patient be tried on oral Zyvox 600 mg twice daily. Will follow. Subjective POD #3, Patient sitting comfortably at bedside. Denies significant foot pain. Review of Systems Review of Systems: All systems reviewed & are unremarkable except as noted in HPI & below Physical Exam Constitutional: WD/WN, vitals as above comfortable; no acute distress Eyes: PERRL, conjunctivae normal, anicteric sclerae ENMT: external ear and nose normal, oropharynx normal Neck: trachea midline, no thyromegaly neck nontender Respiratory: normal respiratory effort, lungs clear to auscultation normal percussion; does not use accessory muscles Cardiovascular: Rate/Rhythm: regular rate and regular rhythm Heart Sounds: normal S1 and normal S2; no gallop, no murmur and no cardiac rub Vessels: normal peripheral pulses; no JVD Gastrointestinal (Abdomen): normal bowel sounds, soft, nontender, no hepatosplenomegaly Musculoskeletal: no cyanosis or clubbing, extremities motor strength 5/5 Spine: thoracic spine normal to inspection and lumbar spine normal to insp ection; no cervical spinal tenderness Skin: normal turgor; no rashes Neurologic: moves all extremities and awake; no focal motor deficits Psychiatric: A+Ox3, euthymic affect Orientation: cooperative Lymphatic: no cervical or axillary lymphadenopathy no inguinal lymphadenopathy Results & Data Vital Signs (Past 12 Hours) Vital Signs Temp Pulse Resp BP Pulse Ox 03/15/19 15:13 36.5 C 92 H 16 128/73 98 Laboratory Results Short CBC 03/15/19 Range/Units 05:50 WBC 3.85 L (4.8-10.8) K/uL Hgb 9.4 L (14.0-18.0) g/dL Hct 27.5 L (42-52) % Plt Count 225 (130-400) K/uL [facility] 03/15/19 05:50 Sodium 139 Potassium 4.2 Chloride 110 H Carbon Dioxide 22 BUN 33 H Creatinine 1.09 Glucose 114 H Calcium 7.7 L Diagnostic Findings XR KUB/Abdomen 1 view CLINICAL HISTORY: Rule out obstruction ABDOMINAL DISTENTION COMPARISON STUDY: 03/11/2019 FINDINGS: There is gas present within large and small bowel loops. There are no transition zones indicate bowel obstruction. There are bilateral iliac stents. There are bilateral renal artery stents. Ambulation: The visualized right upper quadrant. There are surgical clips within the right upper quadrant consistent with a prior cholecystectomy. IMPRESSION: Gaseous prominence of both large and small bowel loops, but no transition zones to indicate bowel obstruction. Electronically signed by: Jhonny Mahoney M.D. 03/15/2019 11:22 AM Dictated: 03/15/19 1121 Transcribed: 03/15/19 1121
[2019-03-16 06:12] LABS: Basophils # (auto) 0.01 K/uL (0-0.2); Basophils % (auto) 0.2 %; Eosinophils # (auto) 0.03 K/uL (0-0.5); Eosinophils % (auto) 0.6 %; Hematocrit (blood only) 28.7 % (42-52); Hemoglobin 9.7 g/dL (14.0-18.0); Immature Granulocytes # (auto) 0.01 K/uL (0.00-0.02); Immature Granulocytes % (auto) 0.2 %; Lymphocytes # (auto) 0.59 K/uL (1.2-3.4); Lymphocytes % (auto) 12.5 %; Mean Corpuscular Hgb Conc 33.8 g/dL (32-36); Mean Corpuscular Volume 94.1 fL (80-100); Mean Platelet Volume 9.6 fL (7.4-10.4); Monocytes # (auto) 0.44 K/uL (0.11-0.59); Monocytes % (auto) 9.3 %; Neutrophils # (auto) 3.63 K/uL (1.4-6.5); Neutrophils % (auto) 77.2 %; Platelet Count 231 K/uL (130-400); RDW Coefficient of Variation 14.8 % (11.5-14.5); RDW Standard Deviation 50.6 fL (36.4-46.3); Red Blood Count 3.05 M/uL (4.7-6.1); White Blood Count 4.71 K/uL (4.8-10.8)
[2019-03-16] MEDS: ACETAMINOPHEN 500 MG TAB PO SCH ×3 (06:22→21:25)
[2019-03-16 06:47] LABS: BUN Creatinine Ratio 26.8 (10-20); Calcium 7.5 mg/dl (8.5-10.1); Est GFR (African American) 64.4; Est GFR (Non-African American) 55.5; Potassium 3.9 mmol/L (3.5-5.1)
[2019-03-16 08:46] LABS: INR 2.6 (0.9-1.1)
[2019-03-16] MEDS: ASCORBIC ACID 500 MG TAB PO SCH (09:45)
[2019-03-16] MEDS: LINEZOLID 600 MG TAB PO SCH ×2 (09:45→20:11)
[2019-03-16] MEDS: FERROUS SULFATE 325 MG TAB PO SCH ×2 (09:45→20:11)
[2019-03-16] MEDS: CLOPIDOGREL BISULFATE 75 MG TAB PO SCH (09:46)
[2019-03-16] MEDS: LISINOPRIL 5 MG TAB PO SCH (09:46)
[2019-03-16] MEDS: PANTOprazole 40 MG TAB PO SCH (09:46)
[2019-03-16] MEDS: ASPIRIN 81 MG ECTAB PO SCH (09:46)
--- NOTE | 2019-03-16 13:02 | Hospitalist Progress Note ---
Date of Service March 16, 2019 Assessment & Plan (1) Gangrene of toe of right foot: - MRI IMPRESSION: Areas of osteitis without definite evidence for osteomyelitis within the distal phalanges of the first, third, fourth, and fifth toes as described above. - Orthopedics consulted, s/p right second toe amputation and debridement on 03/10. - ID following, converted Daptomycin IV to Zyvox PO to avoid infusion appointments (end date: 03/29/19); will need f/u with ID as outpatient. - Optifoam dressing q2-3 days or as needed. - Orthopedics will stop by today to re-evaluate wound. (2) Nausea & vomiting: - Developed recurrent N/V throughout this admission - N/V is now resolved. - Significant lethargy with Ativan/Phenergan combo -- avoid sedating meds if possible. - Most recent KUB on 03/15 showed bowel gas pattern, negative for obstruction or ileus. - Continue Phenergan, Zofran prn; avoid Ativan IV. (3) Lethargy: - Likely medication induced related to Phenergan/Ativan combination, now resolving. - Avoid sedating meds, including further doses of Ativan PO/IV. (4) Atrial fibrillation: - Procedure required reversal of INR. - Monitor INR daily -- was therapeutic at 2.6 today. - Continue Warfarin 3 mg daily. (5) DMII (diabetes mellitus, type 2): - Most recent A1C was 5.1 - Does not require SSI coverage. (6) CAD (coronary artery disease): - ASA, Plavix - recent iliac stenting at end of January. (7) Chronic kidney disease, stage 3a: - Monitor renal function daily. (8) HLD (hyperlipidemia): - Not currently on statin agent. (9) Peripheral arterial disease: - Follows with Dr. Wiseman - will need to reschedule follow up appointment. - Continue aspirin and plavix as noted above. - Repeat arterial doppler showed: 1. Extensive atherosclerotic plaque about the bilateral lower extremities. 2. Triphasic waveforms noted within the bilateral common femoral arteries with biphasic waveforms about the superficial femoral arteries 3. Monophasic waveforms about the lower legs bilaterally, left greater than right. 4. No arterial occlusion or significantly elevated peak systolic velocities identified to suggest high-grade stenosis. (10) HTN (hypertension): - Continue home ACEI. (11) DVT prophylaxis: - SCDs; Coumadin. Dispo: Discharge to SNF vs. [facility] pending placement. Supervising Physician Co-Signing Physician Notes Attending Note and Attestation - Chart reviewed, care plan d/w HAL[facility] Ambriz. I agree w/ the cerrato components of her documentation. Pt's toxic encephalopathy s/p IV ativan/phenergan 2 nights ago resolved. Nausea/vomiting resolved. Eating today w/o intolerance. PT/OT re-eval -- SNF recommended. Will involve geriatric social work professor for SNF assistance. Cont abx for right foot. Garrison Liang MD Subjective Pt. is more awake, alert today after effects of Phenergan/Ativan are resolving. His was present at bedside -- she is very frustrated with care during this hospital stay. Pt. is very weak - family is uncomfortable with discharge planning. PT re-evaluation was ordered -- recommending SNF placement. Will also need OT evaluation prior to placement. He has not had any further episodes of na usea/vomiting over last 24 hours. Is eating well, drinking adequate amount. Review of Systems Review of Systems: All systems reviewed & are unremarkable except as noted in HPI & below Constitutional: + fatigue and + weakness; no fever, no chills and no anorexia Respiratory: no cough, no dyspnea and no dyspnea on exertion Cardiovascular: + edema; no chest pain and no palpitations Gastrointestinal: no abdominal pain, no nausea, no vomiting and no co nstipation Genitourinary: no difficulty urinating Musculoskeletal: no back pain and no joint pain Integumentary: + non-healing lesions (Right second toe ), + erythema and + urticaria (Bilat LE ) Allergy / Immunological: no rash Physical Exam Physical Exam: General: Pt. is sitting up in chair, in no acute distress. HEENT: NC/AT; PERRLA with EOMI; [place] conjunctiva, MMM. No erythema of posterior pharynx Neck: Supple and nontender Cardiac: RRR w/o murmurs, gallops or rubs Lungs: CTA bilaterally; No rhonchi, wheezing, or rales Abdomen: Bowel normoactive X 4; Nontender to palpation Extremities: Warm. +2 bilat LE edema, chronic. Erythema of bilat LE calves, chronic appearing. Dark tissue noted at area of amputation, slightly foul odor after removing dressing. Neuro: No focal weakness Results & Data Vital Signs (Past 12 Hours) Vital Signs Temp Pulse Resp BP Pulse Ox 03/16/19 07:18 36.4 C L 78 15 150/76 H 96 Laboratory Results 03/16/19 03/16/19 03/16/19 Range/Units 12:27 08:26 08:04 WBC (4.8-10.8) K/uL RBC (4.7-6.1) M/uL Hgb (14.0-18.0) g/dL Hct (42-52) % MCV (80-100) fL MCH (25-34) pg MCHC (32-36) g/dL RDW Std Deviation (36.4-46.3) fL RDW Coeff of Gilbert (11.5-14.5) % Plt Count (130-400) K/uL MPV (7.4-10.4) fL Immature Gran % (Auto) % Neut % (Auto) % Lymph % (Auto) % [place] % (Auto) % Eos % (Auto) % Baso % (Auto) % Immature Gran # (Auto) (0.00-0.02) K/uL Neut # (Auto) (1.4-6.5) K/uL Lymph # (Auto) (1.2-3.4) K/uL [place] # (Auto) (0.11-0.59) K/uL Eos # (Auto) (0-0.5) K/uL Baso # (Auto) (0-0.2) K/uL PT 25.0 H (9.0-12.0) Seconds INR 2.6 H (0.9-1.1) VBG pH (7.36-7.41) VBG pCO2 (38-50) mmHg VBG pO2 mmHg VBG HCO3 mmol/L VBG O2 Saturation % VBG Base Excess mEq/L Barometric Pressure mm/Hg Sodium (136-145) mmol/L Potassium (3.5-5.1) mmol/L Chloride (98-107) mmol/L Carbon Dioxide (21-32) mmol/L Anion Gap (3-11) BUN (7-18) mg/dl Creatinine (0.6-1.4) mg/dl Est Cr Clr Drug Dosing ml/min Est GFR ( Amer) Est GFR (Non-Af Amer) BUN/Creatinine Ratio (10-20) Glucose (70-99) mg/dl POC Glucose 153 H 159 H (70-99) Calcium (8.5-10.1) mg/dl 03/16/19 03/16/19 03/15/19 Range/Units 05:33 05:33 20:45 WBC 4.71 L (4.8-10.8) K/uL RBC 3.05 L (4.7-6.1) M/uL Hgb 9.7 L (14.0-18.0) g/dL Hct 28.7 L (42-52) % MCV 94.1 (80-100) fL MCH 31.8 (25-34) pg MCHC 33.8 (32-36) g/dL RDW Std Deviation 50.6 H (36.4-46.3) fL RDW Coeff of Gilbert 14.8 H (11.5-14.5) % Plt Count 231 (130-400) K/uL MPV 9.6 (7.4-10.4) fL Immature Gran % (Auto) 0.2 % Neut % (Auto) 77.2 % Lymph % (Auto) 12.5 % [place] % (Auto) 9.3 % Eos % (Auto) 0.6 % Baso % (Auto) 0.2 % Immature Gran # (Auto) 0.01 (0.00-0.02) K/uL Neut # (Auto) 3.63 (1.4-6.5) K/uL Lymph # (Auto) 0.59 L (1.2-3.4) K/uL [place] # (Auto) 0.44 (0.11-0.59) K/uL Eos # (Auto) 0.03 (0-0.5) K/uL Baso # (Auto) 0.01 (0-0.2) K/uL PT (9.0-12.0) Seconds INR (0.9-1.1) VBG pH (7.36-7.41) VBG pCO2 (38-50) mmHg VBG pO2 mmHg VBG HCO3 mmol/L VBG O2 Saturation % VBG Base Excess mEq/L Barometric Pressure mm/Hg Sodium 139 (136-145) mmol/L Potassium 3.9 (3.5-5.1) mmol/L Chloride 111 H (98-107) mmol/L Carbon Dioxide 22 (21-32) mmol/L Anion Gap 6.0 (3-11) BUN 32 H (7-18) mg/dl Creatinine 1.18 (0.6-1.4) mg/dl Est Cr Clr Drug Dosing 40.0 ml/min Est GFR ( Amer) 64.4 Est GFR (Non-Af Amer) 55.5 BUN/Creatinine Ratio 26.8 H (10-20) Glucose 126 H (70-99) mg/dl POC Glucose 168 H (70-99) Calcium 7.5 L (8.5-10.1) mg/dl 03/15/19 03/15/19 Range/Units 17:27 14:26 WBC (4.8-10.8) K/uL RBC (4.7-6.1) M/uL Hgb (14.0-18.0) g/dL Hct (42-52) % MCV (80-100) fL MCH (25-34) pg MCHC (32-36) g/dL RDW Std Deviation (36.4-46.3) fL RDW Coeff of Gilbert (11.5-14.5) % Plt Count (130-400) K/uL MPV (7.4-10.4) fL Immature Gran % (Auto) % Neut % (Auto) % Lymph % (Auto) % [place] % (Auto) % Eos % (Auto) % Baso % (Auto) % Immature Gran # (Auto) (0.00-0.02) K/uL Neut # (Auto) (1.4-6.5) K/uL Lymph # (Auto) (1.2-3.4) K/uL [place] # (Auto) (0.11-0.59) K/uL Eos # (Auto) (0-0.5) K/uL Baso # (Auto) (0-0.2) K/uL PT (9.0-12.0) Seconds INR (0.9-1.1) VBG pH 7.41 (7.36-7.41) VBG pCO2 29 L (38-50) mmHg VBG pO2 39 mmHg VBG HCO3 18 mmol/L VBG O2 Saturation 73.2 % VBG Base Excess -5.9 mEq/L Barometric Pressure 729.7 mm/Hg Sodium (136-145) mmol/L Potassium (3.5-5.1) mmol/L Chloride (98-107) mmol/L Carbon Dioxide (21-32) mmol/L Anion Gap (3-11) BUN (7-18) mg/dl Creatinine (0.6-1.4) mg/dl Est Cr Clr Drug Dosing ml/min Est GFR ( Amer) Est GFR (Non-Af Amer) BUN/Creatinine Ratio (10-20) Glucose (70-99) mg/dl POC Glucose 138 H (70-99) Calcium (8.5-10.1) mg/dl PG Care Time/CCT Total # of Minutes Spent Total Time Spent with Patient: Total time spent is greater than 50% in coordination of care (as documented) at patient's floor/unit and/or counseling patient:
[2019-03-16] MEDS: WARFARIN SOD 3 MG TAB PO SCH (16:17)
--- NOTE | 2019-03-16 19:41 | Orthopedic Progress Note ---
Date of Service March 16, 2019 Assessment & Plan (1) Gangrene of toe of right foot: POD 3 s/p Right 2nd toe amputation secondary to gangrene. PT/OT. WBAT on the heel only Can change pain medications if nausea continues. Ortho will sign off, please contact us if questions. Follow with Dr. Ramos at [facility] 10-12 days post op, call [phone] for appt. Daily dressing changes and wound checks to right foot. Weight bear as tolerated on the heel only with walker. Elevate as needed. Pain medications as needed. Subjective POD #3, Patient sitting comfortably at bedside. Denies significant foot pain. Results & Data Vital Signs (Past 12 Hours) Vital Signs Temp Pulse Resp BP Pulse Ox 03/16/19 15:08 36.6 C 84 18 157/70 H 95
--- NOTE | 2019-03-16 19:51 | Orthopedic Progress Note ---
Date of Service March 16, 2019 Assessment & Plan (1) Gangrene of toe of right foot: Gangrene second toe status post amputation postop day #6. Some further superficial skin necrosis. No clear evidence of any deep abscess that needs drainage. Would recommend leaving the sutures in place as they are holding incision together to some extent still even though there was necrosis. Need further observation to see if there is further necrosis over time that may require debridement or not. Recommend daily dressing changes and consult wound nurse for appropriate type of bandage dressing. Today I did copiously irrigate the wound with saline and hydrogen peroxide and did a superficial debridement with a gauze sponge removing some of the superficial material. Antibiotics would be recommended until the wound is stabilized and healing with antibiotic choice per infectious disease team. Patient can be weightbearing on heel. Patient okay for discharge on antibiotics with appropriate dressing changes. [place] [facility] [place]. Subjective Patient comfortable with no complaint of any pain in his right foot. Physical Exam Physical Exam: Dressing changed and patient has clear drainage from his incisional site. Since the surgery he has had some further necrosis of the skin edges but no separation of the subcutaneous tissues. I expressed his foot and put pressure and there was no pus that was able to be expressed out of the incision at all. There is mild erythema about the foot possibly related to infection. The sutures were still in place although some of the skin superficially necrosed through the sutures that were placed but they are holding the dermis together. The toenails of the great toe and third toes look better than on day of surgery. Results & Data Vital Signs (Past 12 Hours) Vital Signs Temp Pulse Resp BP Pulse Ox 03/16/19 15:08 36.6 C 84 18 157/70 H 95
[2019-03-17] MEDS: ACETAMINOPHEN 500 MG TAB PO SCH ×3 (05:28→22:22)
[2019-03-17 06:26] LABS: Basophils # (auto) 0.01 K/uL (0-0.2); Basophils % (auto) 0.2 %; Eosinophils # (auto) 0.06 K/uL (0-0.5); Hematocrit (blood only) 28.4 % (42-52); Hemoglobin 9.5 g/dL (14.0-18.0); Immature Granulocytes # (auto) 0.02 K/uL (0.00-0.02); Immature Granulocytes % (auto) 0.3 %; Lymphocytes # (auto) 0.77 K/uL (1.2-3.4); Lymphocytes % (auto) 13.3 %; Mean Corpuscular Hgb Conc 33.5 g/dL (32-36); Mean Corpuscular Volume 95.9 fL (80-100); Mean Platelet Volume 9.5 fL (7.4-10.4); Monocytes # (auto) 0.46 K/uL (0.11-0.59); Neutrophils # (auto) 4.45 K/uL (1.4-6.5); Neutrophils % (auto) 77.2 %; Platelet Count 207 K/uL (130-400); RDW Coefficient of Variation 14.7 % (11.5-14.5); RDW Standard Deviation 52.2 fL (36.4-46.3); Red Blood Count 2.96 M/uL (4.7-6.1); White Blood Count 5.77 K/uL (4.8-10.8)
[2019-03-17 06:35] LABS: INR 2.9 (0.9-1.1); Prothrombin Time 27.2 Seconds (9.0-12.0)
[2019-03-17 07:00] LABS: BUN Creatinine Ratio 26.8 (10-20); Calcium 7.8 mg/dl (8.5-10.1); Creatinine Clr Calc Pharmacy 35.5 ml/min; Est GFR (African American) 55.7; Est GFR (Non-African American) 48.1; Potassium 4.1 mmol/L (3.5-5.1)
[2019-03-17] MEDS: LISINOPRIL 5 MG TAB PO SCH (07:55)
[2019-03-17] MEDS: PANTOprazole 40 MG TAB PO SCH (07:55)
[2019-03-17] MEDS: LINEZOLID 600 MG TAB PO SCH ×2 (07:55→20:58)
[2019-03-17] MEDS: CLOPIDOGREL BISULFATE 75 MG TAB PO SCH (07:55)
[2019-03-17] MEDS: ASCORBIC ACID 500 MG TAB PO SCH (07:55)
[2019-03-17] MEDS: ASPIRIN 81 MG ECTAB PO SCH (07:55)
[2019-03-17] MEDS: FERROUS SULFATE 325 MG TAB PO SCH ×2 (07:56→20:57)
[2019-03-17] MEDS: DOCUSATE SODIUM 100 MG CAP PO SCH ×2 (09:18→20:56)
--- NOTE | 2019-03-17 11:00 | Hospitalist Progress Note ---
Date of Service March 17, 2019 Assessment & Plan (1) Gangrene of toe of right foot: - MRI: Areas of osteitis without definite evidence for osteomyelitis within the distal phalanges of the first, third, fourth, and fifth toes as described above. - Orthopedics consulted, s/p right second toe amputation and debridement on 03/10. - ID following, continue Zyvox PO to avoid infusion appointments (end date: 03/29/19); will need to f/u with ID in 5-7 days. - Optifoam dressing q1-2 days or as needed; will also consult wound care nurse for evaluation. - Orthopedics re-evaluated wound on 03/16, superficial debridement of necrotic tissue completed. Will need to f/u with ortho on Thursday03/22/19. (2) Nausea & vomiting: - Developed recurrent N/V throughout this admission; episode this afternoon -- may be related to MOM administration vs. constipation. - Significant lethargy with Ativan/Phenergan combo -- avoid sedating meds. - KUB showed diffuse gaseous distention and stool at site of rectum. - Manually disimpacted at bedside; will also give fleet enema. - Continue Phenergan, Zofran prn; avoid Ativan IV. (3) Lethargy: - Likely medication induced related to Phenergan/Ativan combination, now resolved. - Avoid sedating meds, including further doses of Ativan. (4) Atrial fibrillation: - Procedure required reversal of INR. - Monitor INR daily -- was therapeutic at 2.9 today. - Continue Warfarin -- will decrease to 2.5 mg daily to avoid supratherapeutic levels. (5) DMII (diabetes mellitus, type 2): - Most recent A1C was 5.1 - Does not require SSI coverage. (6) CAD (coronary artery disease): - ASA, Plavix - recent iliac stenting at end of January. (7) Chronic kidney disease, stage 3a: - Monitor renal function daily. (8) HLD (hyperlipidemia): - Not currently on statin agent. (9) Peripheral arterial disease: - Follows with Dr. Wiseman - will need to reschedule follow up appointment. - Continue aspirin and plavix as noted above. - Repeat arterial doppler showed: 1. Extensive atherosclerotic plaque about the bilateral lower extremities. 2. Triphasic waveforms noted within the bilateral common femoral arteries with biphasic waveforms about the superficial femoral arteries 3. Monophasic waveforms about the lower legs bilaterally, left greater than right. 4. No arterial occlusion or significantly elevated peak systolic velocities identified to suggest high-grade stenosis. (10) HTN (hypertension): - Continue home ACEI. (11) DVT prophylaxis: - SCDs; Coumadin. Dispo: Discharge to home pending improvement in N/V -- likely on 03/18/19. Home health is arranged starting Thursday03/19/19. Supervising Physician Co-Signing Physician Notes Attending Note and Attestation - Chart reviewed, care plan d/w HALLE Ambriz. I agree w/ the cerrato components of her documentation. Patient with recurrent GI symptoms today; specifically had nausea/emesis after he drank mild of magnesia for constipation. X-rays suggestive of ileus. I personally reviewed this x-ray with Ms Ambriz. Had distal stool on that x-ray and Ms Ambriz performed rectal exam confirming presence of copious rectal stool. Agree w/ enema. Try to limit any narcotics. Electrolytes noted to be normal. Dispo planning in process. Ms Ambriz has been keeping Mrs Lawson informed daily. Garrison Liang MD Subjective Pt. is doing well overall. He is eating/drinking well. Denies further episodes of nausea/vomiting over last 48 hours. Is having regular BMs per nursing staff. Denies urinary retention. Plan for rehab placement pending acceptance -- [facility] vs. SNF. Family has been updated with plan of care. Pt. had an episode of vomiting this afternoon. Has stool at site of rectum on KUB but no obstruction noted. Will give enema and monitor overnight. Review of Systems Review of Systems: All systems reviewed & are unremarkable except as noted in HPI & below Constitutional: no fever, no chills, no fatigue and no weakness Respiratory: no cough, no dyspnea and no dyspnea on exertion Cardiovascular: no chest pain, no palpitations and no edema Gastrointestinal: no abdominal pain, no nausea, no vomiting and no constipation Genitourinary: no difficulty urinating Musculoskeletal: no back pain and no joint pain Integumentary: no non-healing lesions Allergy / Immunological: no rash Physical Exam Physical Exam: General: In no acute distress. HEENT: NC/AT; PERRLA with EOMI; [place] conjunctiva, MMM. No erythema of posterior pharynx Neck: Supple and nontender Cardiac: RRR w/o murmurs, gallops or rubs Lungs: CTA bilaterally; No rhonchi, wheezing, or rales Abdomen: Bowel normoactive X 4; Nontender to palpation Extremities: Warm. +1 bilat LE edema, chronic. Erythema of bilat LE calves, chronic. Optifoam at site of amputation. Neuro: No focal weakness Results & Data Vital Signs (Past 12 Hours) Vital Signs Temp Pulse Resp BP Pulse Ox 03/17/19 07:32 36.5 C 76 18 146/74 H 97 03/16/19 23:08 36.8 C 97 H 18 139/60 95 Laboratory Results 03/17/19 03/17/19 03/17/19 Range/Units 05:42 05:42 05:42 WBC 5.77 (4.8-10.8) K/uL RBC 2.96 L (4.7-6.1) M/uL Hgb 9.5 L (14.0-18.0) g/dL Hct 28.4 L (42-52) % MCV 95.9 (80-100) fL MCH 32.1 (25-34) pg MCHC 33.5 (32-36) g/dL RDW Std Deviation 52.2 H (36.4-46.3) fL RDW Coeff of Gilbert 14.7 H (11.5-14.5) % Plt Count 207 (130-400) K/uL MPV 9.5 (7.4-10.4) fL Immature Gran % (Auto) 0.3 % Neut % (Auto) 77.2 % Lymph % (Auto) 13.3 % Saline % (Auto) 8.0 % Eos % (Auto) 1.0 % Baso % (Auto) 0.2 % Immature Gran # (Auto) 0.02 (0.00-0.02) K/uL Neut # (Auto) 4.45 (1.4-6.5) K/uL Lymph # (Auto) 0.77 L (1.2-3.4) K/uL Saline # (Auto) 0.46 (0.11-0.59) K/uL Eos # (Auto) 0.06 (0-0.5) K/uL Baso # (Auto) 0.01 (0-0.2) K/uL PT 27.2 H (9.0-12.0) Seconds INR 2.9 H (0.9-1.1) Sodium 140 (136-145) mmol/L Potassium 4.1 (3.5-5.1) mmol/L Chloride 111 H (98-107) mmol/L Carbon Dioxide 22 (21-32) mmol/L Anion Gap 7.0 (3-11) BUN 36 H (7-18) mg/dl Creatinine 1.33 (0.6-1.4) mg/dl Est Cr Clr Drug Dosing 35.5 ml/min Est GFR ( Amer) 55.7 Est GFR (Non-Af Amer) 48.1 BUN/Creatinine Ratio 26.8 H (10-20) Glucose 109 H (70-99) mg/dl POC Glucose (70-99) Calcium 7.8 L (8.5-10.1) mg/dl 03/16/19 03/16/19 03/16/19 Range/Units 20:33 17:03 12:27 WBC (4.8-10.8) K/uL RBC (4.7-6.1) M/uL Hgb (14.0-18.0) g/dL Hct (42-52) % MCV (80-100) fL MCH (25-34) pg MCHC (32-36) g/dL RDW Std Deviation (36.4-46.3) fL RDW Coeff of Gilbert (11.5-14.5) % Plt Count (130-400) K/uL MPV (7.4-10.4) fL Immature Gran % (Auto) % Neut % (Auto) % Lymph % (Auto) % Saline % (Auto) % Eos % (Auto) % Baso % (Auto) % Immature Gran # (Auto) (0.00-0.02) K/uL Neut # (Auto) (1.4-6.5) K/uL Lymph # (Auto) (1.2-3.4) K/uL Saline # (Auto) (0.11-0.59) K/uL Eos # (Auto) (0-0.5) K/uL Baso # (Auto) (0-0.2) K/uL PT (9.0-12.0) Seconds INR (0.9-1.1) Sodium (136-145) mmol/L Potassium (3.5-5.1) mmol/L Chloride (98-107) mmol/L Carbon Dioxide (21-32) mmol/L Anion Gap (3-11) BUN (7-18) mg/dl Creatinine (0.6-1.4) mg/dl Est Cr Clr Drug Dosing ml/min Est GFR ( Amer) Est GFR (Non-Af Amer) BUN/Creatinine Ratio (10-20) Glucose (70-99) mg/dl POC Glucose 142 H 126 H 153 H (70-99) Calcium (8.5-10.1) mg/dl PG Care Time/CCT Total # of Minutes Spent Total Time Spent with Patient: Total time spent is greater than 50% in coordination of care (as documented) at patient's floor/unit and/or counseling patient:
[2019-03-17] MEDS: ONDANSETRON INJ 2 MG/ML 2 ML VIAL IV PRN ×2 (14:21→19:56)
--- NOTE | 2019-03-17 15:20 | XRay Report ---
XR KUB/Abdomen 1 view CLINICAL HISTORY: 88 years-old Male presenting with Rule out obstruction. TECHNIQUE: Single supine view of the abdomen was obtained. COMPARISON: 03/15/2019. FINDINGS: Cholecystectomy clips, renal artery stents, bilateral common iliac stents, and endovascular coils not ed. Mild diffuse gaseous distention of large and small bowel. Small bowel wall thickening may be pres ent in the right abdomen. Nonobstructive bowel gas pattern. No gross pneumoperitoneum allowing for gregory pine technique. Limited evaluation for calcifications given the bowel gas and stool. Atherosclerotic calcifications n oted in the iliac and femoral regions. Degenerative changes of the spine. Lung bases clear. IMPRESSION: 1. Diffuse gaseous distention of large and small bowel without convincing evidence of obstruction. 2. Small bowel wall thickening may be present, which suggests enteritis. Electronically signed by: Deondre Schulz M.D. 03/17/2019 3:18 PM
[2019-03-17] MEDS: WARFARIN SOD 2.5 MG TAB PO SCH (17:09)
[2019-03-17] MEDS: SOD PHOSPHATE/SOD BIPHOSPHATE ENEMA 132 ML BTL PR STA ×2 (17:10→17:51)
[2019-03-17] MEDS ORDERED: IOVERSOL 100ml IV PRN (21:55)
--- NOTE | 2019-03-17 22:26 | CT Scan Report ---
CT OF THE ABDOMEN AND PELVIS WITH CONTRAST CLINICAL HISTORY: Persistent nausea/vomiting. COMPARISON STUDY: CT of the abdomen and pelvis August 25, 2011. KUB March 17, 2019. TECHNIQUE: Following IV administration of 94 mL of Optiray-320, axial images of the abdomen and pelvi s were obtained from the lung bases to the proximal femurs. Images were reviewed in the axial, sagitt al, and coronal planes. IV contrast was administered without complication. Automated exposure contro l was utilized for the study. A dose lowering technique was utilized adhering to the principles of A SUE. Oral contrast was administered. CT DOSE: 308.14 mGy.cm FINDINGS: Visualized portions of the lower chest demonstrate moderate cardiomegaly with small right a nd trace left pleural effusions. No pneumatosis, free air or portal venous gas is present. There is f atty infiltration of the liver. There is no biliary ductal dilatation status post cholecystectomy. A few renal cysts are noted. Several subcentimeter bilateral renal lesions are too small to characteriz e. There is no hydronephrosis. The spleen, adrenal glands and pancreas are unremarkable. There is no pancreatic ductal dilatation. Anasarca is noted. There is no evidence for a bowel obstruction. A mode rate amount of stool within the colon is noted. Prominent mesenteric lymph nodes measure up to 1 cm i n short axis diameter. There is extensive atherosclerotic plaque within the major vessels. Bilateral renal artery stents are noted. These are suboptimally assessed on this non-CTA exam. The infrarenal b owel aorta is ectatic. No suspicious osseous lesions are noted. Hypodensities within the proximal bi lateral inguinal canals could reflect fluid or hernia repairs with mesh. IMPRESSION: 1. No bowel obstruction. Moderate amount of stool within the colon. 2. Anasarca. Small right and trace left pleural effusions. 3. Fatty infiltration of the liver. 4. Prominent mesenteric lymph nodes which are probably benign. Electronically signed by: Gabriel Sanchez M.D. 03/17/2019 10:24 PM
[2019-03-18] MEDS: ONDANSETRON INJ 2 MG/ML 2 ML VIAL IV PRN (02:59)
[2019-03-18] MEDS: ACETAMINOPHEN 500 MG TAB PO SCH ×3 (05:52→21:47)
[2019-03-18 06:24] LABS: BUN Creatinine Ratio 28.1 (10-20); Creatinine Clr Calc Pharmacy 41.8 ml/min; Est GFR (African American) 67.8; Est GFR (Non-African American) 58.5; Magnesium 1.6 mg/dl (1.8-2.4); Potassium 4.1 mmol/L (3.5-5.1)
[2019-03-18] MEDS ORDERED: MAGNESIUM CITRATE 296 ML/BTL PO SCH (08:30)
[2019-03-18] MEDS: DOCUSATE SODIUM 100 MG CAP PO SCH ×2 (08:33→20:25)
[2019-03-18] MEDS: PANTOprazole 40 MG TAB PO SCH ×2 (08:33→20:25)
[2019-03-18] MEDS: CLOPIDOGREL BISULFATE 75 MG TAB PO SCH (08:33)
[2019-03-18] MEDS: LISINOPRIL 5 MG TAB PO SCH (08:33)
[2019-03-18] MEDS: MAGNESIUM SULFATE / D5W 1 GM/100 ML BAG IV SCH ×2 (08:34→09:46)
[2019-03-18] MEDS: ASCORBIC ACID 500 MG TAB PO SCH (08:34)
[2019-03-18] MEDS: LINEZOLID 600 MG TAB PO SCH ×2 (08:34→20:25)
[2019-03-18] MEDS: FERROUS SULFATE 325 MG TAB PO SCH ×2 (08:34→20:26)
[2019-03-18] MEDS: ASPIRIN 81 MG ECTAB PO SCH (08:34)
[2019-03-18 09:11] LABS: Prothrombin Time 38.3 Seconds (9.0-12.0)
[2019-03-18 09:14] LABS: INR 4.1 (0.9-1.1)
[2019-03-18] MEDS ORDERED: METOCLOPRAMIDE HCL INJ 5 MG/ML 2 ML VIAL IV PRN (10:17)
[2019-03-18] MEDS ORDERED: BISACODYL 5 MG TABEC PO ONE (10:34)
[2019-03-18] MEDS: POLYETHYLENE (MIRALAX) 17 GM PACK PO SCH ×2 (11:00→14:13)
--- NOTE | 2019-03-18 12:31 | Hospitalist Progress Note ---
Date of Service March 18, 2019 Assessment & Plan (1) Gangrene of toe of right foot: - MRI: Areas of osteitis without definite evidence for osteomyelitis within the distal phalanges of the first, third, fourth, and fifth toes as described above. - Orthopedics consulted, s/p right second toe amputation and debridement on 03/10. - ID following, continue Zyvox PO (end date: 03/29/19); will need to f/u with ID after discharge. - Optifoam dressing q1-2 days or as needed; also consulted wound care nurse. - Orthopedics re-evaluated wound on 03/16, superficial debridement of necrotic tissue completed. Will need to f/u with ortho on Thursday03/22/19. (2) Nausea & vomiting: - Has had N/V throughout admission; had resolved but reoccurred starting 03/17/19. - Acute N/V may be related to constipation vs. new antibiotic (Zyvox) vs. gastritis. - CT A/P on 03/17 was negative for SBO, had moderate amount of stool within the colon and numerous small bowel diverticula with no evidence of diverticulitis. - Colace BID, will also started Miralax q4hr and give Dulcolax 5 mg x 1 dose for constipation. Consider enema if necessary. - Increase PPI to BID for gastritis. Consider GI consult for EGD if no improvement. - Will continue Zyvox at this point -- limited options for treatment choices, would require [facility] appt for Daptomycin. - Schedule Reglan 5 mg IV q6hr, Zofran prn; avoid Ativan IV due to recent sedating side effects. (3) Lethargy: - Likely medication induced related to Phenergan/Ativan combination, now resolved. - Avoid sedating meds, including further doses of Ativan. (4) Atrial fibrillation: - Procedure required reversal of INR. - Monitor INR daily -- was supratherapeutic at 4.1 today. - Will hold medication this evening, re-evaluate on 03/19/19. (5) DMII (diabetes mellitus, type 2): - Most recent A1C was 5.1 - Does not require SSI coverage. (6) CAD (coronary artery disease): - ASA, Plavix - recent iliac stenting at end of January. (7) Chronic kidney disease, stage 3a: - Monitor renal function daily. (8) HLD (hyperlipidemia): - Not currently on statin agent. (9) Peripheral arterial disease: - Follows with Dr. Wiseman - will need to reschedule follow up appointment. - Continue aspirin and plavix as noted above. - Repeat arterial doppler showed: 1. Extensive atherosclerotic plaque about the bilateral lower extremities. 2. Triphasic waveforms noted within the bilateral common femoral arteries with biphasic waveforms about the superficial femoral arteries 3. Monophasic waveforms about the lower legs bilaterally, left greater than right. 4. No arterial occlusion or significantly elevated peak systolic velocities identified to suggest high-grade stenosis. (10) HTN (hypertension): - Continue home ACEI. (11) Electrolyte abnormality: - Mag level 1.6 - ordered mag sulfate 2 gm IV. (12) DVT prophylaxis: - SCDs; Coumadin currently on hold due to elevated INR levels. Dispo: Discharge to home pending improvement in N/V/C -- will need home nursing. Supervising Physician Co-Signing Physician Notes Attending Note and Attestation - Chart reviewed, care plan d/w HALLE Ambriz. I agree w/ the cerrato components of her documentation. CT abd/pelvis was ultimately obtained last PM due to going GI intolerance/nausea/emesis. This did NOT show obstruction. A few loops of small bowel were mildly dilated. Copious colonic stool seen. I believe he has had a low-grade post-op ileus / obstipation since his right 2nd toe amputation. Cont bowel regimen and symptomatic care. Agree with increase in PPI. VERY LOW THRESHOLD for GI consultation if we cannot get his GI symptoms to resolve. Electrolytes and other labs continue to be acceptable. Cont antibiotics. Garrison Liang MD Subjective Pt. had recurrent nausea throughout the night. He ate breakfast this morning but developed nausea after meal. Last episode of vomiting was in the evening. He had a large BM after [place] yesterday but CT A/P showed moderate stool burden. Will continue to give meds for constipation. Pt. is not appropriate for discharge to home at this point. Review of Systems Review of Systems: All systems reviewed & are unremarkable except as noted in HPI & below Constitutional: no fever, no chills, no fatigue, no weakness and no anorexia Respiratory: no cough, no dyspnea and no dyspnea on exertion Cardiovascular: no chest pain, no palpitations and no edema Gastrointestinal: + nausea, + vomiting and + constipation; no abdominal pain and no diarrhea/loose stools Genitourinary: no difficulty urinating Musculoskeletal: no back pain and no joint pain Integumentary: no non-healing lesions Allergy / Immunological: no rash Physical Exam Physical Exam: General: In no acute distress. HEENT: NC/AT; PERRLA with EOMI; [place] conjunctiva, MMM. No erythema of posterior pharynx Neck: Supple and nontender Cardiac: RRR w/o murmurs, gallops or rubs Lungs: CTA bilaterally; No rhonchi, wheezing, or rales Abdomen: Abd is slightly distended; Bowel normoactive X 4; Nontender to palpation Extremities: Warm. Bilat LE edema. Erythema of bilat LE calves, likely chronic. Optifoam at site of amputation. Neuro: No focal weakness Results & Data Vital Signs (Past 12 Hours) Vital Signs Temp Pulse Resp BP Pulse Ox 03/18/19 07:51 36.7 C 94 H 16 113/65 98 Laboratory Results 03/18/19 03/18/19 03/18/19 Range/Units 12:04 08:40 07:54 PT 38.3 H (9.0-12.0) Seconds INR 4.1 H (0.9-1.1) Sodium (136-145) mmol/L Potassium (3.5-5.1) mmol/L Chloride (98-107) mmol/L Carbon Dioxide (21-32) mmol/L Anion Gap (3-11) BUN (7-18) mg/dl Creatinine (0.6-1.4) mg/dl Est Cr Clr Drug Dosing ml/min Est GFR ( Amer) Est GFR (Non-Af Amer) BUN/Creatinine Ratio (10-20) Glucose (70-99) mg/dl POC Glucose 147 H 97 (70-99) Calcium (8.5-10.1) mg/dl Magnesium (1.8-2.4) mg/dl 03/18/19 Range/Units 05:29 PT (9.0-12.0) Seconds INR (0.9-1.1) Sodium 134 L (136-145) mmol/L Potassium 4.1 (3.5-5.1) mmol/L Chloride 105 (98-107) mmol/L Carbon Dioxide 22 (21-32) mmol/L Anion Gap 7.0 (3-11) BUN 32 H (7-18) mg/dl Creatinine 1.13 (0.6-1.4) mg/dl Est Cr Clr Drug Dosing 41.8 ml/min Est GFR ( Amer) 67.8 Est GFR (Non-Af Amer) 58.5 BUN/Creatinine Ratio 28.1 H (10-20) Glucose 104 H (70-99) mg/dl POC Glucose (70-99) Calcium 8.0 L (8.5-10.1) mg/dl Magnesium 1.6 L (1.8-2.4) mg/dl PG Care Time/CCT Total # of Minutes Spent Total Time Spent with Patient: Total time spent is greater than 50% in coordination of care (as documented) at patient's floor/unit and/or counseling patient:
[2019-03-18] MEDS ORDERED: POLYETHYLENE (MIRALAX) 17 GM PACK PO SCH (13:00)
[2019-03-18] MEDS: METOCLOPRAMIDE HCL INJ 5 MG/ML 2 ML VIAL IV SCH ×2 (14:12→20:24)
[2019-03-18] MEDS ORDERED: POLYETHYLENE (MIRALAX) 17 GM PACK PO PRN (14:51)
--- NOTE | 2019-03-18 15:50 | Infectious Disease Progress Nt ---
Date of Service March 18, 2019 Assessment & Plan (1) Gangrene of toe of right foot: Patient with gangrene of the right second toe in the setting of diabetes and severe peripheral arterial disease. Now s/p amputation of the toe. Patient to be continued on oral Zyvox 600 mg twice daily. If continues to have GI distress, would consider transition to combination of Bactrim and Augmentin. Will follow. Subjective Patient seen in follow-up for gangrenous right second toe status post amputation. Patient with some nausea and vomiting since on Zyvox, but states he has had good bowel movement and now feels significantly better. Remains afeb rile. Pain controlled. No other new complaints. Review of Systems Review of Systems: All systems reviewed & are unremarkable except as noted in HPI & below Physical Exam Constitutional: WD/WN, vitals as above comfortable; no acute distress Eyes: PERRL, conjunctivae normal, anicteric sclerae ENMT: external ear and nose normal, oropharynx normal Neck: trachea midline, no thyromegaly neck nontender Respiratory: normal respiratory effort, lungs clear to auscultation normal percussion; does not use accessory muscles Cardiovascular: Rate/Rhythm: regular rate and regular rhythm Heart Sounds: normal S1 and normal S2; no gallop, no murmur and no cardiac rub Vessels: normal peripheral pulses; no JVD Gastrointestinal (Abdomen): normal bowel sounds, soft, nontender, no hepatosplenomegaly Musculoskeletal: no cyanosis or clubbing, extremities motor strength 5/5 Spine: thoracic spine normal to inspection and lumbar spine normal to inspection; no cervical spinal tenderness Skin: normal turgor; no rashes Neurologic: moves all extremities and awake; no focal motor deficits Psychiatric: A+Ox3, euthymic affect Orientation: cooperative Lymphatic: no cervical or axillary lymphadenopathy no inguinal lymphadenopathy Results & Data Vital Signs (Past 12 Hours) Vital Signs Temp Pulse Resp BP Pulse Ox 03/18/19 14:51 36.2 C L 80 16 154/60 H 96 03/18/19 07:51 36.7 C 94 H 16 113/65 98 Laboratory Results [facility] 03/18/19 05:29 Sodium 134 L Potassium 4.1 Chloride 105 Carbon Dioxide 22 BUN 32 H Creatinine 1.13 Glucose 104 H Calcium 8.0 L
[2019-03-19] MEDS: METOCLOPRAMIDE HCL INJ 5 MG/ML 2 ML VIAL IV SCH (03:28)
[2019-03-19 06:00] LABS: Hematocrit (blood only) 27.7 % (42-52); Hemoglobin 9.4 g/dL (14.0-18.0); Mean Corpuscular Hgb Conc 33.9 g/dL (32-36); Mean Corpuscular Volume 94.5 fL (80-100); Mean Platelet Volume 9.4 fL (7.4-10.4); Platelet Count 237 K/uL (130-400); RDW Coefficient of Variation 14.6 % (11.5-14.5); RDW Standard Deviation 50.2 fL (36.4-46.3); Red Blood Count 2.93 M/uL (4.7-6.1); White Blood Count 3.97 K/uL (4.8-10.8)
[2019-03-19] MEDS: ACETAMINOPHEN 500 MG TAB PO SCH ×3 (06:06→22:03)
[2019-03-19 06:37] LABS: BUN Creatinine Ratio 24.5 (10-20); Calcium 7.7 mg/dl (8.5-10.1); Est GFR (African American) 70.1; Est GFR (Non-African American) 60.5; Magnesium 1.7 mg/dl (1.8-2.4); Potassium 3.9 mmol/L (3.5-5.1)
[2019-03-19 06:57] LABS: INR 4.6 (0.9-1.1)
[2019-03-19] MEDS ORDERED: METOCLOPRAMIDE HCL INJ 5 MG/ML 2 ML VIAL IV PRN (09:25)
[2019-03-19] MEDS: LINEZOLID 600 MG TAB PO SCH ×2 (10:25→20:38)
[2019-03-19] MEDS: FERROUS SULFATE 325 MG TAB PO SCH ×2 (10:26→20:38)
[2019-03-19] MEDS: ASPIRIN 81 MG ECTAB PO SCH (10:26)
[2019-03-19] MEDS: ASCORBIC ACID 500 MG TAB PO SCH (10:26)
[2019-03-19] MEDS: CLOPIDOGREL BISULFATE 75 MG TAB PO SCH (10:27)
[2019-03-19] MEDS: DOCUSATE SODIUM 100 MG CAP PO SCH ×2 (10:27→20:38)
[2019-03-19] MEDS: PANTOprazole 40 MG TAB PO SCH ×2 (10:27→20:38)
[2019-03-19] MEDS: LISINOPRIL 5 MG TAB PO SCH (10:28)
[2019-03-19] MEDS: MAGNESIUM SULFATE / D5W 1 GM/100 ML BAG IV SCH ×2 (10:56→12:04)
--- NOTE | 2019-03-19 14:30 | Hospitalist Progress Note ---
Date of Service March 19, 2019 Assessment & Plan (1) Gangrene of toe of right foot: - MRI: Areas of osteitis without definite evidence for osteomyelitis within the distal phalanges of the first, third, fourth, and fifth toes as described above. - Orthopedics consulted, s/p right second toe amputation and debridement on 03/10. - ID following, continue Zyvox PO (end date: 03/29/19) -- consider transitioning to Bactrim/Augmentin if GI upset persists. - Optifoam dressing to be applied to site; consulted wound care nurse. - Orthopedics re-evaluated wound on 03/16, superficial debridement of necrotic tissue completed. Will need to f/u with ortho on Thursday03/22/19. (2) Fall: - Fell in the restroom today -- likely related to a mechanical fall. No LOC or acute injury noted with exception of elbow with serous drainage. - PT previously evaluated -- recommended rehab but his preferred discharge to home. At this point, pt would benefit from SNF placement (was denied acute rehab) - called and left a voicemail to discuss discharge planning. - Will need insurance authorization on Thursday. (3) Nausea & vomiting: - Has had N/V throughout admission; now resolved >24 hours. - Acute N/V was likely related to constipation vs. new antibiotic (Zyvox) vs. gastritis. - CT A/P on 03/17 was negative for SBO, had moderate amount of stool within the colon and numerous small bowel diverticula with no evidence of diverticulitis. - Colace BID scheduled; had multiple large BMs yesterday with aggressive regimen. - Increased PPI to BID for gastritis; consider GI consult for EGD if no improvement. - Continue Zyvox; consider converting to Bactrim/Augmentin if symptoms return. - Convert Reglan back to prn; Zofran also ordered as needed. (4) Lethargy: - Likely medication induced related to Phenergan/Ativan combination, now resolved. - Avoid sedating meds, including further doses of Ativan. (5) Atrial fibrillation: - Procedure required reversal of INR. - Monitor INR daily -- was supratherapeutic at 4.6 today. - Will hold medication this evening; monitor INR daily. (6) DMII (diabetes mellitus, type 2): - Most recent A1C was 5.1 - Does not require SSI coverage. (7) CAD (coronary artery disease): - ASA, Plavix - recent iliac stenting at end of January. (8) Chronic kidney disease, stage 3a: - Monitor renal function daily. (9) HLD (hyperlipidemia): - Not currently on statin agent. (10) Peripheral arterial disease: - Follows with Dr. Wiseman - will need to reschedule follow up appointment. - Continue aspirin and plavix as noted above. - Repeat arterial doppler showed: 1. Extensive atherosclerotic plaque about the bilateral lower extremities. 2. Triphasic waveforms noted within the bilateral common femoral arteries with biphasic waveforms about the superficial femoral arteries 3. Monophasic waveforms about the lower legs bilaterally, left greater than right. 4. No arterial occlusion or significantly elevated peak systolic velocities identified to suggest high-grade stenosis. (11) HTN (hypertension): - Continue home ACEI. (12) Electrolyte abnormality: - Mag level 1.7 - ordered mag sulfate replacement. (13) DVT prophylaxis: - SCDs; Coumadin currently on hold due to elevated INR levels. Dispo: Discharge to SNF pending placement - will need insurance auth on Thursday. Supervising Physician Co-Signing Physician Notes Attending Note and Attestation - Chart reviewed, care plan d/w HALLE Ambriz. I agree w/ the cerrato components of her documentation. Nausea/emesis resolved; none in 24+ hours. Eating well now w/o intolerance. Multiple BMs. Unfortunately had fall today. Staff report he got up to use commode and did not ring for assistance. No apparent fractures or head trauma from this incident. Apparently hit his left elbow and has minor skin trauma in that elbow region from the fall. Ms Ambriz re-examined him post-fall and found no major injuries. Would have low threshold for head CT in light of supratherapeutic INR even though he is denying lose of consciousness or hitting his head. HOLD coumadin today. Labs - very mild hyponatremia, leukopenia (chronic), mild anemia (chronic). Vitals stable. Fall precautions, bed alarm, etc. Cont antibiotics. Dispo planning - snf?? Repeat labs am. Garrison Liang MD Subjective Pt. fell this afternoon in the restroom -- he was found sitting by the commode. He denies hitting his head; did land on his elbow. Denies dizziness/chest pain/SOB prior to fall. Was likely mechanical. Pt. feels well otherwise -- nausea now resolved, had a large breakfast. Had mutiple BMs yesterday throughout the day. Will need rehab placement -- called the to discuss plan of care but have not heard back yet. Will need insurance authorization on Thursday. Review of Systems Review of Systems: All systems reviewed & are unremarkable except as noted in HPI & below Constitutional: no fever, no chills, no fatigue, no weakness and no anorexia Respiratory: no cough, no dyspnea and no dyspnea on exertion Cardiovascular: no chest pain, no palpitations, no lightheadedness, no syncope and no edema Gastrointestinal: no abdominal pain, no nausea, no vomiting, no constipation and no diarrhea/loose stools Genitourinary: no difficulty urinating Musculoskeletal: no back pain and no joint pain Integumentary: no non-healing lesions Neurologic: + falls; no dizziness Allergy / Immunological: no rash Physical Exam Physical Exam: General: In no acute distress. HEENT: NC/AT; PERRLA with EOMI; [place] conjunctiva, MMM. No erythema of posterior pharynx Neck: Supple and nontender Cardiac: RRR Lungs: CTA bilaterally; No rhonchi, wheezing, or rales Abdomen: Abd is slightly distended; Bowel normoactive X 4; Nontender to palpation Extremities: Warm. Mild erythema of left calf; site of right 2nd toe amputation is unchanged, is healing well. Neuro: No focal weakness Results & Data Vital Signs (Past 12 Hours) Vital Signs Temp Pulse Resp BP Pulse Ox 03/19/19 07:00 36.5 C 74 16 132/61 96 Laboratory Results 03/19/19 03/19/19 03/19/19 Range/Units 12:06 08:15 05:24 WBC (4.8-10.8) K/uL RBC (4.7-6.1) M/uL Hgb (14.0-18.0) g/dL Hct (42-52) % MCV (80-100) fL MCH (25-34) pg MCHC (32-36) g/dL RDW Std Deviation (36.4-46.3) fL RDW Coeff of Gilbert (11.5-14.5) % Plt Count (130-400) K/uL MPV (7.4-10.4) fL PT (9.0-12.0) Seconds INR (0.9-1.1) Sodium 133 L (136-145) mmol/L Potassium 3.9 (3.5-5.1) mmol/L Chloride 105 (98-107) mmol/L Carbon Dioxide 22 (21-32) mmol/L Anion Gap 6.0 (3-11) BUN 27 H (7-18) mg/dl Creatinine 1.10 (0.6-1.4) mg/dl Est Cr Clr Drug Dosing 43.0 ml/min Est GFR ( Amer) 70.1 Est GFR (Non-Af Amer) 60.5 BUN/Creatinine Ratio 24.5 H (10-20) Glucose 71 (70-99) mg/dl POC Glucose 106 H 80 (70-99) Calcium 7.7 L (8.5-10.1) mg/dl Magnesium 1.7 L (1.8-2.4) mg/dl 03/19/19 03/19/19 03/18/19 Range/Units 05:24 05:24 21:02 WBC 3.97 L (4.8-10.8) K/uL RBC 2.93 L (4.7-6.1) M/uL Hgb 9.4 L (14.0-18.0) g/dL Hct 27.7 L (42-52) % MCV 94.5 (80-100) fL MCH 32.1 (25-34) pg MCHC 33.9 (32-36) g/dL RDW Std Deviation 50.2 H (36.4-46.3) fL RDW Coeff of Gilbert 14.6 H (11.5-14.5) % Plt Count 237 (130-400) K/uL MPV 9.4 (7.4-10.4) fL PT 42.0 H (9.0-12.0) Seconds INR 4.6 H (0.9-1.1) Sodium (136-145) mmol/L Potassium (3.5-5.1) mmol/L Chloride (98-107) mmol/L Carbon Dioxide (21-32) mmol/L Anion Gap (3-11) BUN (7-18) mg/dl Creatinine (0.6-1.4) mg/dl Est Cr Clr Drug Dosing ml/min Est GFR ( Amer) Est GFR (Non-Af Amer) BUN/Creatinine Ratio (10-20) Glucose (70-99) mg/dl POC Glucose 97 (70-99) Calcium (8.5-10.1) mg/dl Magnesium (1.8-2.4) mg/dl 03/18/19 Range/Units 17:29 WBC (4.8-10.8) K/uL RBC (4.7-6.1) M/uL Hgb (14.0-18.0) g/dL Hct (42-52) % MCV (80-100) fL MCH (25-34) pg MCHC (32-36) g/dL RDW Std Deviation (36.4-46.3) fL RDW Coeff of Gilbert (11.5-14.5) % Plt Count (130-400) K/uL MPV (7.4-10.4) fL PT (9.0-12.0) Seconds INR (0.9-1.1) Sodium (136-145) mmol/L Potassium (3.5-5.1) mmol/L Chloride (98-107) mmol/L Carbon Dioxide (21-32) mmol/L Anion Gap (3-11) BUN (7-18) mg/dl Creatinine (0.6-1.4) mg/dl Est Cr Clr Drug Dosing ml/min Est GFR ( Amer) Est GFR (Non-Af Amer) BUN/Creatinine Ratio (10-20) Glucose (70-99) mg/dl POC Glucose 96 (70-99) Calcium (8.5-10.1) mg/dl Magnesium (1.8-2.4) mg/dl PG Care Time/CCT Total # of Minutes Spent Total Time Spent with Patient: Total time spent is greater than 50% in coordination of care (as documented) at patient's floor/unit and/or counseling patient:
[2019-03-19] MEDS: WARFARIN SOD 2.5 MG TAB PO SCH (16:04)
[2019-03-20] MEDS: ACETAMINOPHEN 500 MG TAB PO SCH ×3 (05:42→22:05)
[2019-03-20 06:46] LABS: Prothrombin Time 44.9 Seconds (9.0-12.0)
[2019-03-20 07:25] LABS: INR 4.9 (0.9-1.1)
[2019-03-20] MEDS: DOCUSATE SODIUM 100 MG CAP PO SCH ×3 (08:45→22:06)
[2019-03-20] MEDS: CLOPIDOGREL BISULFATE 75 MG TAB PO SCH (08:46)
[2019-03-20] MEDS: LINEZOLID 600 MG TAB PO SCH ×2 (08:46→20:45)
[2019-03-20] MEDS: FERROUS SULFATE 325 MG TAB PO SCH ×2 (08:46→20:44)
[2019-03-20] MEDS: ASCORBIC ACID 500 MG TAB PO SCH (08:46)
[2019-03-20] MEDS: PANTOprazole 40 MG TAB PO SCH ×2 (08:46→20:44)
[2019-03-20] MEDS: LISINOPRIL 5 MG TAB PO SCH (08:47)
[2019-03-20] MEDS: ASPIRIN 81 MG ECTAB PO SCH (09:29)
--- NOTE | 2019-03-20 12:46 | Hospitalist Progress Note ---
Date of Service March 20, 2019 Assessment & Plan (1) Gangrene of toe of right foot: - MRI: Areas of osteitis without definite evidence for osteomyelitis within the distal phalanges of the first, third, fourth, and fifth toes as described above. - Orthopedics consulted, s/p right second toe amputation and debridement on 03/10. - ID following, continue Zyvox PO (end date: 03/29/19) -- consider transitioning to Bactrim/Augmentin PO if he has recurrent GI upset. - Optifoam dressing to be applied to site; consulted wound care nurse. - Orthopedics re-evaluated wound on 03/16, superficial debridement of necrotic tissue completed. Will need to f/u with ortho on 03/22/19. (2) Fall: - Fell in the restroom on 03/19 -- likely related to a mechanical fall. No LOC or acute injury noted with exception of elbow with serous drainage. - At this point, pt would benefit from SNF placement (was denied acute rehab) - Discussed with and she is agreeable to placement. Will need insurance authorization on Wednesday 03/21. - Low threshold to consider CT of head in setting of supratherapeutic INR. (3) Nausea & vomiting: - Has had N/V throughout admission; now resolved. - Acute N/V was likely related to constipation vs. new antibiotic (Zyvox) - CT A/P on 03/17 was negative for SBO, had moderate amount of stool within the colon and numerous small bowel diverticula with no evidence of diverticulitis. - Colace BID scheduled; having regular BMs over last 48 hours. - Increased PPI to BID for gastritis. - Continue Zyvox; consider converting to Bactrim/Augmentin if symptoms return. - Reglan and Zofran prn. (4) Lethargy: - Likely medication induced related to Phenergan/Ativan combination, now resolved. - Avoid sedating meds, including further doses of Ativan. (5) Atrial fibrillation: - Procedure required reversal of INR. - Monitor INR daily -- was supratherapeutic at 4.9 today. - Will hold medication; monitor INR daily. (6) DMII (diabetes mellitus, type 2): - Most recent A1C was 5.1 - Does not require SSI coverage. (7) CAD (coronary artery disease): - ASA, Plavix - recent iliac stenting at end of January. (8) Chronic kidney disease, stage 3a: - Monitor renal function daily. (9) HLD (hyperlipidemia): - Not currently on statin agent. (10) Peripheral arterial disease: - Follows with Dr. Wiseman - will need to reschedule follow up appointment. - Continue aspirin and plavix as noted above. - Repeat arterial doppler showed: 1. Extensive atherosclerotic plaque about the bilateral lower extremities. 2. Triphasic waveforms noted within the bilateral common femoral arteries with biphasic waveforms about the superficial femoral arteries 3. Monophasic waveforms about the lower legs bilaterally, left greater than right. 4. No arterial occlusion or significantly elevated peak systolic velocities identified to suggest high-grade stenosis. (11) HTN (hypertension): - Continue home ACEI. (12) Electrolyte abnormality: - Monitor and replace prn. (13) DVT prophylaxis: - SCDs; Coumadin currently on hold due to elevated INR levels. Dispo: Discharge to SNF pending placement - will need insurance auth on Thursday. Subjective Pt. is doing well overall. He denies nausea/vomiting -- has been tolerating PO intake. Is having regular BMs after starting aggressive bowel regimen. S/p fall yesterday -- denies pain in hips, knees. Does have open lesion at left elbow -- dressing in place due to drainage. Denies headache, vision changes. Discussed discharge planning with via phonecall -- will plan for SNF placement pending insurance auth. Review of Systems Review of Systems: All systems reviewed & are unremarkable except as noted in HPI & below Constitutional: no fever, no chills, no fatigue, no weakness and no anorexia Respiratory: no cough, no dyspnea and no dyspnea on exertion Cardiovascular: no chest pain, no palpitations and no edema Gastrointestinal: no abdominal pain, no nausea, no vomiting and no constipation Genitourinary: no difficulty urinating Musculoskeletal: no back pain and no joint pain Integumentary: + lesions (left elbow 2/2 fall ) Allergy / Immunological: no rash Physical Exam Physical Exam: General: In no acute distress. HEENT: NC/AT; PERRLA with EOMI; [place] conjunctiva, MMM. No erythema of posterior pharynx Neck: Supple and nontender Cardiac: RRR Lungs: CTA bilaterally Abdomen: Bowel normoactive X 4; Nontender to palpation Extremities: Warm. Erythema of bilat LE calves, likely chronic. Optifoam at site of amputation. Neuro: No focal weakness Skin: Open abrasion/laceration on left elbow, dressing in place. Results & Data Vital Signs (Past 12 Hours) Vital Signs Temp Pulse Resp BP Pulse Ox 03/20/19 07:35 36.7 C 90 16 121/63 98 Laboratory Results 03/20/19 03/20/19 03/19/19 Range/Units 08:04 05:27 20:35 PT 44.9 H (9.0-12.0) Seconds INR 4.9 H (0.9-1.1) POC Glucose 107 H 101 H (70-99) 03/19/19 Range/Units 17:08 PT (9.0-12.0) Seconds INR (0.9-1.1) POC Glucose 97 (70-99) PG Care Time/CCT Total # of Minutes Spent Total Time Spent with Patient: Total time spent is greater than 50% in coordination of care (as documented) at patient's floor/unit and/or counseling patient:
[2019-03-20] MEDS: METOCLOPRAMIDE HCL INJ 5 MG/ML 2 ML VIAL IV SCH (15:23)
[2019-03-21] MEDS: ACETAMINOPHEN 500 MG TAB PO SCH ×3 (05:19→21:00)
[2019-03-21 06:06] LABS: Hematocrit (blood only) 27.5 % (42-52); Hemoglobin 9.2 g/dL (14.0-18.0); Mean Corpuscular Hgb Conc 33.5 g/dL (32-36); Mean Corpuscular Volume 93.5 fL (80-100); Mean Platelet Volume 9.3 fL (7.4-10.4); Platelet Count 216 K/uL (130-400); RDW Coefficient of Variation 14.7 % (11.5-14.5); RDW Standard Deviation 50.1 fL (36.4-46.3); Red Blood Count 2.94 M/uL (4.7-6.1); White Blood Count 4.63 K/uL (4.8-10.8)
[2019-03-21 06:38] LABS: BUN Creatinine Ratio 18.7 (10-20); Calcium 7.6 mg/dl (8.5-10.1); Creatinine Clr Calc Pharmacy 42.6 ml/min; Est GFR (African American) 69.3; Est GFR (Non-African American) 59.8; Potassium 4.3 mmol/L (3.5-5.1)
[2019-03-21 07:07] LABS: Prothrombin Time 41.2 Seconds (9.0-12.0)
[2019-03-21 07:12] LABS: INR 4.5 (0.9-1.1)
[2019-03-21] MEDS: ASPIRIN 81 MG ECTAB PO SCH (08:16)
[2019-03-21] MEDS: LINEZOLID 600 MG TAB PO SCH ×2 (08:16→20:59)
[2019-03-21] MEDS: PANTOprazole 40 MG TAB PO SCH ×2 (08:17→20:58)
[2019-03-21] MEDS: CLOPIDOGREL BISULFATE 75 MG TAB PO SCH (08:17)
[2019-03-21] MEDS: LISINOPRIL 5 MG TAB PO SCH (08:17)
[2019-03-21] MEDS: ASCORBIC ACID 500 MG TAB PO SCH (08:17)
[2019-03-21] MEDS: FERROUS SULFATE 325 MG TAB PO SCH ×2 (08:17→20:58)
[2019-03-21] MEDS: DOCUSATE SODIUM 100 MG CAP PO SCH ×2 (08:18→20:58)
--- NOTE | 2019-03-21 15:30 | Hospitalist Progress Note ---
Date of Service March 21, 2019 Assessment & Plan (1) Gangrene of toe of right foot: - MRI with areas of osteitis without definitive evidence for osteomyelitis within the distal phalanges of the 1st, 3rd, 4th, and 5th toes; S/P R 2nd toe amputation and debridement on 03/10 - Continue Zyvox (end date 03/29) - may need longer pending wound stabilization -- Currently GI upset resolved but could consider Bactrim/Augment if GI issues arise again - Wound care following - discussed with Kelly - continue daily and PRN dressing changes; clean with saline and cover with Aquacel AG and secure with Optifoam -- Consider Santyl for debridement if needed - Orthopedics following - discussed with Toi today - performed superficial debridement and left sutures in place on 03/16 but now may need further intervention and placed NPO at midnight (2) Fall: - Fell in restroom on 03/19 - appears mechanical with no LOC or acute injury minus elbow abrasions with drainage - Mentation is baseline and no pain - low threshold for additional testing given supratherapeutic INRs - PT/OT evaluations; awaiting authorization for [facility] (3) Nausea & vomiting: - Currently resolved - likely constipation vs antibiotic induced - patient reports improvement with adequate bowel movements - Will continue Abx as previously prescribed; PRN anti-emetics (4) Lethargy: - Currently resolved - possibly medication induced with Phenergan/Ativan (5) Atrial fibrillation: - Rate Controlled - Continues with supratherapeutic INR however no obvious bleeding - will continue to hold Warfarin and trend INR - Currently not on rate controlling medications (6) DMII (diabetes mellitus, type 2): - Most recent A1C was 5.1 - Does not require SSI coverage. (7) CAD (coronary artery disease): - Continue ASA and Plavix; recent iliac stent placed in January - Is on triple therapy and may need to discuss the long-term plan if it is to consider triple therapy or reduction of an agent (8) Chronic kidney disease, stage 3a: - STABLE - will continue to monitor (9) HLD (hyperlipidemia): - Not currently on statin agent - appears this was D/C'd in setting of Daptomycin therapy (10) Peripheral arterial disease: - Follows with Dr. Wiseman - will need to reschedule follow up appointment. - Continue aspirin and plavix as noted above. - Repeat arterial doppler showed: extensive atherosclerotic plaque about the b/l lower extremities; triphasic waveforms within b/l common femoral arteries with biphasic waveforms about the superficial femoral arteries; monophasic waverforms about the lower legs b/l with L > R; no arterial occlusion or significantly elevated peak systolic velocities identified to suggest high-grade stenosis (11) HTN (hypertension): - Continue Lisinopril 5 mg daily (12) DVT prophylaxis: - SCDs; Coumadin currently on hold due to elevated INR levels. Dispo: Possible need for further debridement/surgical intervention; awaiting SNF Auth Subjective Reports feeling well today. No further complaints of GI upset and moving bowels appropriately. Not having any pain in the foot but states he does intermittently get pain in the forefoot. Continues to have an elevated INR but no signs of bleeding. Elbow with drainage but no bleeding and no complaints of pain. Awaiting approval for [employer] Review of Systems Constitutional: no fever and no chills Respiratory: no cough and no dyspnea Cardiovascular: no chest pain, no palpitations, no lightheadedness and no edema Gastrointestinal: + diarrhea/loose stools; no abdominal pain, no nausea, no vomiting and no constipation Genitourinary: no dysuria Musculoskeletal: no joint pain Integumentary: no rash Physical Exam Constitutional: WD/WN, vitals as above Eyes: + anicteric sclerae ENMT: Ears: no hearing impairment Neck: trachea midline Respiratory: normal respiratory effort, lungs clear to auscultation Cardiovascular: Rate/Rhythm: regular rate and regular rhythm Heart Sounds: + murmur Gastrointestinal (Abdomen): Inspection/Auscultation: normal bowel sounds Percussion/Palpation: abdomen soft; abdomen nontender Musculoskeletal: Head/Neck/Chest: normocephalic and head atraumatic Skin: multiple small superficial abrasions to L elbow with drainage on dressing; 2nd toe amputation site with sutures in place with some yellow slough and pink/red rim Neurologic: moves all extremities Psychiatric: A+Ox3, euthymic affect Results & Data Vital Signs (Past 12 Hours) Vital Signs Temp Pulse Resp BP Pulse Ox 03/21/19 07:04 36.5 C 71 16 131/66 97 PG Care Time/CCT Total # of Minutes Spent Total Time Spent with Patient: Total time spent is greater than 50[facility] (as documented) at patient's floor/unit and/or counseling patient:
--- NOTE | 2019-03-21 16:38 | Orthopedic Progress Note ---
Date of Service March 21, 2019 Assessment & Plan (1) Gangrene of toe of right foot: POD 11 s/p Right 2nd toe amputation Continue current dressing changes per wound care. Discussed the case with Dr. Ramos. Plan to make the patient NPO after midnight. He will assess wound and decide if further debridement will be needed. Subjective Pt lying in bed. No complaints. Comfortable. States his toe amp site is feeling ok. No overt pain. Physical Exam Physical Exam: Optifoam removed. Current wound care dressing is Aquacel AG soaked with saline. This was pulled back to see the 2nd toe amp site which looks a little necrotic on the plantar side with the dorsal side Showing tannish spongy tissue. Sutures appear intact. Some erythema noted. Below the black eschar/necrotic area is some tannish tissue as well. Aquacel AG placed back on wound and covered with 4x4 gauze/kerlix. Results & Data Vital Signs (Past 12 Hours) Vital Signs Temp Pulse Resp BP Pulse Ox 03/21/19 15:34 36.3 C L 61 17 122/55 L 100 03/21/19 07:04 36.5 C 71 16 131/66 97
[2019-03-22] MEDS: ACETAMINOPHEN 500 MG TAB PO SCH ×3 (05:51→21:52)
[2019-03-22 06:16] LABS: INR 2.8 (0.9-1.1); Prothrombin Time 26.4 Seconds (9.0-12.0)
[2019-03-22] MEDS: GLUCOSE 40% GEL 15 GM TUBE PO PRN (06:25)
--- NOTE | 2019-03-22 08:34 | Anesthesiology Consultation ---
Date of Service March 22, 2019 Assessment & Plan (1) Encounter for pre-operative examination: Chart Review Chart Review: Acceptable Risk for Surgery and Patient NOT seen in Pre Admission Testing Consults Requested none History Surgery Operation Date: 03/10/19 13:05 Proposed Procedures p Right 2nd Toe Amputation - Miki Ramos MD Operation Date: 03/22/19 07:15 Proposed Procedures p Right Incision and Drainage 2nd Toe Wound and Packing - Miki Ramos MD Height/Weight Height: 5 ft 7 in Weight: 63.2 kg Allergies Allergy/AdvReac Type Severity Reaction Status Date / Time No Known Allergies Allergy Unknown Verified 03/07/19 08:45 Medications Home Medications Medication Instructions Recorded Confirmed Last Taken ascorbic acid (vitamin C) 500 mg PO DAILY #0 03/17/18 03/07/19 03/07/19 aspirin 81 mg PO DAILY #0 03/17/18 03/07/19 03/06/19 cholecalciferol (vitamin D3) 2,000 unit PO DAILY #0 03/17/18 03/07/19 03/07/19 [Vitamin D3] omeprazole 40 mg PO DAILY #0 03/17/18 03/07/19 03/06/19 ferrous sulfate 325 mg PO BID 01/22/19 03/07/19 03/07/19 lisinopril 0 mg PO DAILY 02/06/19 03/07/19 03/06/19 daptomycin 350 mg IV DAILY #1 ea 02/19/19 03/07/19 03/06/19 warfarin 3 mg PO DAILY #0 tab 02/19/19 03/07/19 03/07/19 hydrocodone 5 mg-acetaminophen 325 See Rx Instructions PO Q4H PRN #60 03/02/19 03/07/19 03/06/19 mg tablet tab linezolid [Zyvox] 600 mg PO BID #26 tab 03/15/19 Unknown Active Medications Generic Name Dose Route Start Last Admin Trade Name Freq PRN Reason Stop Dose Admin Acetaminophen 1,000 mg 03/12/19 20:00 03/22/19 14:48 Tylenol PO 04/11/19 19:59 Not Given Q8 NIKIA Ascorbic Acid 500 mg 03/08/19 09:00 03/22/19 09:09 Vitamin C PO 04/07/19 08:59 500 mg DAILY NIKIA Administration Aspirin 81 mg 03/08/19 16:30 03/22/19 09:06 Ecotrin Ectab PO 04/07/19 16:29 Not Given DAILY [facility] Clopidogrel Bisulfate 75 mg 03/09/19 09:00 03/22/19 09:06 Plavix PO 04/08/19 08:59 Not Given QAM [facility] Docusate Sodium 100 mg 03/17/19 09:00 03/22/19 09:08 Colace PO 04/16/19 08:59 Not Given BID [facility] Ferrous Sulfate 325 mg 03/07/19 21:00 03/22/19 09:09 Feosol PO 04/06/19 20:59 325 mg BID NIKIA Administration Glucose 15 - 30 gm 03/07/19 12:33 03/22/19 06:25 Glucose 40% PO 04/06/19 12:32 15 gm UD PRN Administration Hypoglycemia Protocol Protocol Heparin Sodium (Beef Lung) 5 ml 03/08/19 01:55 03/22/19 15:00 Heparin Sod 10 Unit/Ml Flush FLUSH 04/07/19 01:54 5 ml PRN PRN Administration Flush Linezolid 600 mg 03/15/19 09:45 03/22/19 09:08 Zyvox PO 03/25/19 09:44 600 mg BID NIKIA Administration Lisinopril 5 mg 03/08/19 09:00 03/22/19 09:09 Zestril PO 04/07/19 08:59 5 mg DAILY NIKIA Administration Miscellaneous 15 - 30 gm 03/07/19 12:33 03/11/19 21:20 Carbohydrates For Hypoglycemia PO 04/06/19 12:32 15 gm UD PRN Administration Hypoglycemia Treatment Ondansetron HCl 4 mg 03/10/19 17:13 03/18/19 02:59 Zofran IV 04/09/19 17:12 4 mg Q6H PRN Administration Nausea And Vomiting Oxycodone HCl 5 mg 03/12/19 09:56 03/13/19 23:55 Roxicodone Immediate Rel PO 03/26/19 09:55 5 mg Q6H PRN Administration Pain Pantoprazole Sodium 40 mg 03/18/19 09:00 03/22/19 09:08 Protonix PO 04/17/19 08:59 40 mg BID NIKIA Administration Protocol Warfarin Sodium 2.5 mg 03/17/19 16:00 06/25/19 16:16 Coumadin PO 04/16/19 15:59 Not Given DAILY@1600 NIKIA Past Medical History Medical History Inguinal hernia (Resolved) Cellulitis (Resolved) CAD (coronary artery disease) (Chronic) History of GI bleed (Resolved) KYLE (acute kidney injury) (Resolved) Diabetes mellitus (Acute) type 2 Osteomyelitis (Acute) S/P arteriogram of extremity (Acute) 2 stents in the lower legs A-fib Anemia of chronic disease CKD (chronic kidney disease), stage III Coronary artery disease GERD (gastroesophageal reflux disease) HTN (hypertension), benign History of peptic ulcer disease History of stent insertion of renal artery Right, in the 1990s Hyperlipidemia Peripheral vascular disease Subclavian artery stenosis Past Family History Family History Father Unknown family medical history Past Surgical History Surgical History H/O aortic valve replacement with tissue graft (Resolved) H/O left inguinal hernia repair (Resolved) H/O aortic valve replacement (Resolved) Aortic valve replaced (Acute) Hx of CABG (Acute) History of cholecystectomy History of left inguinal hernia repair History of thoracentesis Social History Smoking Status: Former smoker tobacco type: cigarettes Smoking cigarettes per day: 20 Do You Dip or Chew Tobacco: No Smoking End Date: 1988 Hx Alcohol Use: Yes (hx of heavy use, quit in 1995) Hx Substance Use: No substance use type: does not use Physical Exam Vital Signs Last Vital Signs Temp 36.1 C L 03/22/19 15:24 Pulse 74 03/22/19 15:24 Resp 18 03/22/19 15:24 BP 132/62 03/22/19 15:24 Pulse Ox 98 03/22/19 15:24 Testing Laboratory Results 03/21/19 05:32 03/21/19 05:32 PT 16.2 Seconds (9.0-12.0) H 03/22/19 15:00 INR 1.6 (0.9-1.1) H 03/22/19 15:00 APTT 36.7 Seconds (21.0-31.0) H 03/10/19 05:22 Hemoglobin A1c 5.1 % (4.5-5.6) 03/08/19 04:08 03/22/19 03/22/19 03/22/19 12:15 07:00 06:01 POC Glucose 84 92 74 Electrocardiogram Date: 03/18/19 Findings: + AFIB @ (68) Atrial fibrillation Left axis deviation Abnormal ECG When compared with ECG of 15-FEB-2019 18:47, No Change Confirmed by Larry Quiles ([id number]) on 03/18/2019 6:59:22 PM Echocardiogram Date: 09/22/15 EF: >70% grade 1 DD, mild cLVH, no RWMA, bioprosthetic AV with expected transvalvular velocity and gradient
[2019-03-22] MEDS: CLOPIDOGREL BISULFATE 75 MG TAB PO SCH (09:06)
[2019-03-22] MEDS: ASPIRIN 81 MG ECTAB PO SCH (09:06)
[2019-03-22] MEDS: PANTOprazole 40 MG TAB PO SCH ×2 (09:08→21:52)
[2019-03-22] MEDS: LINEZOLID 600 MG TAB PO SCH (09:08)
[2019-03-22] MEDS: DOCUSATE SODIUM 100 MG CAP PO SCH ×2 (09:08→21:52)
[2019-03-22] MEDS: FERROUS SULFATE 325 MG TAB PO SCH ×2 (09:09→21:53)
[2019-03-22] MEDS: LISINOPRIL 5 MG TAB PO SCH (09:09)
[2019-03-22] MEDS: ASCORBIC ACID 500 MG TAB PO SCH (09:09)
[2019-03-22] MEDS ORDERED: PHYTONADIONE 10 MG in SODIUM CHLORIDE 0.9% 50 ML IV ONE (09:45)
--- NOTE | 2019-03-22 11:26 | Infectious Disease Progress Nt ---
Date of Service March 22, 2019 Assessment & Plan (1) Gangrene of toe of right foot: Patient with gangrene of the right second toe in the setting of diabetes and severe peripheral arterial disease. Now s/p amputation of the toe. Patient to be continued on oral Zyvox 600 mg twice daily. If continues to have GI distress, would consider transition to combination of Bactrim and Augmentin. Will follow. Subjective Pt lying in bed. No complaints. Comfortable. States his toe amp site is feeling ok. No overt pain. Physical Exam Constitutional: WD/WN, vitals as above comfortable; no acute distress Eyes: PERRL, conjunctivae normal, anicteric sclerae ENMT: external ear and nose normal, oropharynx normal Neck: trachea midline, no thyromegaly neck nontender Respiratory: normal respiratory effort, lungs clear to auscultation normal percussion; does not use accessory muscles Cardiovascular: Rate/Rhythm: regular rate and regular rhythm Heart Sounds: normal S1 and normal S2; no gallop, no murmur and no cardiac rub Vessels: normal peripheral pulses; no JVD Gastrointestinal (Abdomen): normal bowel sounds, soft, nontender, no hepatosplenomegaly Musculoskeletal: no cyanosis or clubbing, extremities motor strength 5/5 Spine: thoracic spine normal to inspection and lumbar spine normal to inspection; no cervical spinal tenderness Skin: normal turgor; no rashes Neurologic: moves all extremities and awake; no focal motor deficits Psychiatric: A+Ox3, euthymic affect Orientation: cooperative Lymphatic: no cervical or axillary lymphadenopathy no inguinal lymphadenopathy Results & Data Vital Signs (Past 12 Hours) Vital Signs Temp Pulse Resp BP Pulse Ox 03/22/19 10:16 36.2 C L 83 16 119/59 L 99 03/22/19 09:50 36.2 C L 83 16 111/71 99 03/22/19 07:20 36.4 C L 83 17 120/70 99 Laboratory Results Laboratory Results - last 48 hr 03/20/19 03/20/19 03/21/19 17:13 20:40 05:32 WBC RBC Hgb Hct MCV MCH MCHC RDW Std Deviation RDW Coeff of Gilbert Plt Count MPV PT 41.2 H INR 4.5 H Sodium Potassium Chloride Carbon Dioxide Anion Gap BUN Creatinine Est Cr Clr Drug Dosing Est GFR ( Amer) Est GFR (Non-Af Amer) BUN/Creatinine Ratio Glucose POC Glucose 91 105 H Calcium 03/21/19 03/21/19 03/21/19 05:32 05:32 08:10 WBC 4.63 L RBC 2.94 L Hgb 9.2 L Hct 27.5 L MCV 93.5 MCH 31.3 MCHC 33.5 RDW Std Deviation 50.1 H RDW Coeff of Gilbert 14.7 H Plt Count 216 MPV 9.3 PT INR Sodium 133 L Potassium 4.3 Chloride 103 Carbon Dioxide 25 Anion Gap 5.0 BUN 21 H Creatinine 1.11 Est Cr Clr Drug Dosing 42.6 Est GFR ( Amer) 69.3 Est GFR (Non-Af Amer) 59.8 BUN/Creatinine Ratio 18.7 Glucose 79 POC Glucose 86 Calcium 7.6 L 03/21/19 03/21/19 03/21/19 12:17 17:07 20:35 WBC RBC Hgb Hct MCV MCH MCHC RDW Std Deviation RDW Coeff of Gilbert Plt Count MPV PT INR Sodium Potassium Chloride Carbon Dioxide Anion Gap BUN Creatinine Est Cr Clr Drug Dosing Est GFR ( Amer) Est GFR (Non-Af Amer) BUN/Creatinine Ratio Glucose POC Glucose 102 H 114 H 96 Calcium 03/22/19 03/22/19 03/22/19 05:41 06:01 07:00 WBC RBC Hgb Hct MCV MCH MCHC RDW Std Deviation RDW Coeff of Gilbert Plt Count MPV PT 26.4 H INR 2.8 H Sodium Potassium Chloride Carbon Dioxide Anion Gap BUN Creatinine Est Cr Clr Drug Dosing Est GFR ( Amer) Est GFR (Non-Af Amer) BUN/Creatinine Ratio Glucose POC Glucose 74 92 Calcium
[2019-03-22 12:07] LABS: INR 1.9 (0.9-1.1); Prothrombin Time 18.3 Seconds (9.0-12.0)
--- NOTE | 2019-03-22 15:17 | Hospitalist Progress Note ---
Date of Service March 22, 2019 Assessment & Plan (1) Gangrene of toe of right foot: - MRI with areas of osteitis without definitive evidence for osteomyelitis within the distal phalanges of the 1st, 3rd, 4th, and 5th toes; S/P R 2nd toe amputation and debridement on 03/10 - Continue Zyvox (end date 03/29) - may need longer pending wound stabilization -- Currently GI upset resolved but could consider Bactrim/Augment if GI issues arise again - Wound care following -- continue daily and PRN dressing changes; clean with saline and cover with Aquacel AG and secure with Optifoam -- Consider Santyl for debridement if needed - Orthopedics following - discussed with Toi today - performed superficial debridement and left sutures in place on 03/16 but now possible I&D this afternoon pending INR (2) Fall: - Fell in restroom on 03/19 - appears mechanical with no LOC or acute injury minus elbow abrasions with drainage - Mentation is baseline and no pain - low threshold for additional testing given supratherapeutic INRs - PT/OT evaluations; awaiting authorization for [facility] (3) Nausea & vomiting: - Currently resolved - likely constipation vs antibiotic induced - patient reports improvement with adequate bowel movements - Will continue Abx as previously prescribed; PRN anti-emetics (4) Lethargy: - Currently resolved - possibly medication induced with Phenergan/Ativan (5) Atrial fibrillation: - Rate Controlled - INR trending down but did need reversal due to procedure - Currently not on rate controlling medications (6) DMII (diabetes mellitus, type 2): - Most recent A1C was 5.1 - Does not require SSI coverage. (7) CAD (coronary artery disease): - Continue ASA and Plavix; recent iliac stent placed in January - Is on triple therapy and may need to discuss the long-term plan if it is to continue triple therapy or reduction of an agent (8) Chronic kidney disease, stage 3a: - STABLE - will continue to monitor (9) HLD (hyperlipidemia): - Not currently on statin agent - appears this was D/C'd in setting of Daptomycin therapy (10) Peripheral arterial disease: - Follows with Dr. Wiseman - will need to reschedule follow up appointment. - Continue aspirin and plavix as noted above. - Repeat arterial doppler showed: extensive atherosclerotic plaque about the b/l lower extremities; triphasic waveforms within b/l common femoral arteries with biphasic waveforms about the superficial femoral arteries; monophasic waverforms about the lower legs b/l with L > R; no arterial occlusion or significantly elevated peak systolic velocities identified to suggest high-grade stenosis (11) HTN (hypertension): - Continue Lisinopril 5 mg daily (12) DVT prophylaxis: - SCDs; Coumadin currently on hold due to procedure Dispo: Possible need for further debridement/surgical intervention; awaiting SNF Auth Subjective Overall feeling okay today. Some increase swelling in the foot. Not having pain. INR is trending down and anticipating I&D later today Review of Systems Constitutional: no fever and no chills Eyes: no worsening vision Respiratory: no cough and no dyspnea Cardiovascular: + edema; no chest pain and no palpitations Gastrointestinal: no abdominal pain, no nausea, no vomiting, no constipation and no diarrhea/loose stools Genitourinary: no dysuria Musculoskeletal: no body aches Integumentary: + non-healing lesions Physical Exam Constitutional: + frail appearing; no acute distress and not ill appearing Eyes: + anicteric sclerae ENMT: Ears: no hearing impairment Neck: normal visual inspection and trachea midline Respiratory: normal respiratory effort, lungs clear to auscultation Cardiovascular: Rate/Rhythm: + irregularly irregular Gastrointestinal (Abdomen): Inspection/Auscultation: normal bowel sounds Percussion/Palpation: abdomen soft; abdomen nontender Musculoskeletal: Head/Neck/Chest: normocephalic and head atraumatic Skin: dressing applied to amputation site - did not remove at this time Neurologic: moves all extremities Psychiatric: A+Ox3, euthymic affect Results & Data Vital Signs (Past 12 Hours) Vital Signs Temp Pulse Resp BP Pulse Ox 03/22/19 10:16 36.2 C L 83 16 119/59 L 99 03/22/19 09:50 36.2 C L 83 16 111/71 99 03/22/19 07:20 36.4 C L 83 17 120/70 99 PG Care Time/CCT Total # of Minutes Spent Total Time Spent with Patient: Total time spent is greater than 50% in coordination of care (as documented) at patient's floor/unit and/or counseling patient:
[2019-03-22 15:41] LABS: INR 1.6 (0.9-1.1); Prothrombin Time 16.2 Seconds (9.0-12.0)
[2019-03-22] MEDS: WARFARIN SOD 2.5 MG TAB PO SCH (16:16)
[2019-03-22] MEDS ORDERED: ONDANSETRON INJ 2 MG/ML 2 ML VIAL ONE (16:44)
[2019-03-22] MEDS ORDERED: PROPOFOL IV EMULSION 10 MG/ML 20 ML VIAL IV ONE (16:44)
[2019-03-22] MEDS ORDERED: LIDOCAINE HCL 2% 2 ML VIAL/AMP(20MG/ML) INFIL ONE (16:44)
[2019-03-22] MEDS ORDERED: DEXAMETHASONE SOD INJ 4 MG/ML VIAL ONE (16:44)
[2019-03-22] MEDS ORDERED: fentaNYL citrate 100 MCG/2 ML VIAL ONE (16:45)
[2019-03-22] MEDS ORDERED: ATROPINE SULFATE 0.1 MG/ML 10ML SYR IV PRN (16:50)
[2019-03-22] MEDS ORDERED: ONDANSETRON INJ 2 MG/ML 2 ML VIAL IV PRN (16:50)
[2019-03-22] MEDS ORDERED: LABETALOL HCL IV 5 MG/ML 20ML IV PRN (16:50)
--- NOTE | 2019-03-22 17:27 | Orthopedic Progress Note ---
Date of Service March 22, 2019 Assessment & Plan (1) Gangrene of toe of right foot: Skin necrosis of flaps due to peripheral vascular disease status post toe amputation for gangrenous toe which was definitely required due to gangrene. May have some infected necrotic superficial skin. No obvious deep abscess clinically. Proceed with skin debridement back to viable tissue. Will do dressing changes after that. I discussed case Dr. Macdonald and he thought that making any new flaps would be at risk at this time and initial step would be debridement and packing of wound if necessary. Subjective No new complaints no pain in foot unless manipulated Review of Systems Review of Systems: Does not feel ill Physical Exam Physical Exam: Right foot with lateral part of skin amputation site having superficial necrosis and some clear drainage. Some mild erythema around the area. Results & Data Vital Signs (Past 12 Hours) Vital Signs Temp Pulse Pulse Resp BP Pulse Ox 03/22/19 16:30 36.7 C 81 81 18 153/72 H 99 03/22/19 15:24 36.1 C L 74 18 132/62 98 03/22/19 10:16 36.2 C L 83 16 119/59 L 99 03/22/19 09:50 36.2 C L 83 16 111/71 99 03/22/19 07:20 36.4 C L 83 17 120/70 99
[2019-03-22] MEDS ORDERED: PHENYLEPHRINE 100MCG/ML 5ML SYR ONE (17:52)
[2019-03-22] MEDS ORDERED: ePHEDrine sulfate 50 MG/ML SYR ONE (17:56)
--- NOTE | 2019-03-22 18:18 | Post Operative Brief Note ---
Immediate Post Op Note v1 Date of Surgery March 22, 2019 Pre & Post Diagnosis Operation Date: 03/10/19 13:05 Pre-Op Diagnosis: gangrene right second toe Post-Op Diagnosis: gangrene right second toe Operation Date: 03/22/19 07:15 Pre-Op Diagnosis: Skin necrosis right foot at amputation site Post-Op Diagnosis: Skin necrosis right foot at amputation site Procedure Operation Date: 03/10/19 13:05 Actual Procedures p Right 2nd Toe Amputation - Miki Ramos MD Operation Date: 03/22/19 07:15 Actual Procedures p Right foot debridement skin subcutaneous and tendon necrotic tissue 2nd Toe incision amputation site with pulsatile lavage irrigation and Packing(Right) - Miki Ramos MD Surgeon Miki Ramos MD Linen Clerk none Estimated Blood Loss 1 Findings Consistent with Post-Op Diagnosis Specimens skin sucutaneous necrotic tissue and cultures x2 Anesthesia Type General Complications none Disposition Accompanied Patient To Recovery: No Disposition: Recovery Room Overlapping Procedure I was immediately available: during the entire case.
[2019-03-22] MEDS: HYDROmorphone INJ 1 MG/ML SYRINGE IV PRN ×3 (18:42→18:55)
[2019-03-22] MEDS ORDERED: KEFZOL SPECIAL PROCEDURE STOCK 1 GM ADDVIAL IV SCH (19:26)
--- NOTE | 2019-03-22 19:31 | Anesthesiology Progress Note ---
Date of Service March 22, 2019 Anesthesia Post Procedure Vital Signs Vital Signs: Temp Pulse Pulse Pulse Pulse Resp BP 03/22/19 19:20 36.5 C 03/22/19 19:15 72 14 120/69 03/22/19 19:11 74 14 123/57 L 03/22/19 19:10 68 14 03/22/19 19:05 80 12 115/58 L 03/22/19 19:00 101 H 14 115/58 L 03/22/19 18:55 74 12 118/57 L 03/22/19 18:50 71 14 127/56 L 03/22/19 18:45 80 14 128/65 03/22/19 18:40 77 15 121/66 03/22/19 18:35 74 13 128/67 03/22/19 18:30 76 20 127/56 L 03/22/19 18:25 74 14 123/62 03/22/19 18:22 36.9 C 80 77 17 129/56 L 03/22/19 16:30 36.7 C 81 81 18 03/22/19 15:24 36.1 C L 74 18 03/22/19 10:16 36.2 C L 83 16 03/22/19 09:50 36.2 C L 83 16 03/22/19 07:20 36.4 C L 83 17 03/21/19 23:14 36.9 C 70 16 BP Pulse Ox 03/22/19 19:20 95 03/22/19 19:15 100 03/22/19 19:11 100 03/22/19 19:10 100 03/22/19 19:05 99 03/22/19 19:00 97 03/22/19 18:55 100 03/22/19 18:50 100 03/22/19 18:45 100 03/22/19 18:40 100 03/22/19 18:35 100 03/22/19 18:30 100 03/22/19 18:25 100 03/22/19 18:22 129/56 L 100 03/22/19 16:30 153/72 H 99 03/22/19 15:24 132/62 98 03/22/19 10:16 119/59 L 99 03/22/19 09:50 111/71 99 03/22/19 07:20 120/70 99 03/21/19 23:14 146/55 H 99 Pain Intensity Bilateral Foot: Pain Intensity: 3 Right Foot: Pain Intensity: 4 Transfer of Care Handoff Completed per policy Notes Mental Status: alert / awake / arousable Patient Amnestic to Procedure: Yes Nausea / Vomiting: adequately controlled Pain: adequately controlled Airway Patency, RR, SpO2: stable & adequate BP & HR: stable & adequate Hydration State: stable & adequate Anesthetic Complications: no major complications apparent
[2019-03-22] MEDS: CEFAZOLIN 1000MG 1,000 MG/7.5 ML SYR IV SCH (21:50)
--- NOTE | 2019-03-23 01:05 | Operative Report ---
DATE OF OPERATION: 03/22/2019 INDICATION FOR PROCEDURE: This patient is an 88-year-old male who I had previously performed a toe amputation on. It was noted over time the skin flaps where we did a fish mouth amputation had necrosed due to peripheral vascular disease and he had no pus, but some chronic serous drainage and clearly skin necrosis which requires debridement. He may have some mild cellulitis potentially versus erythema due to poor vascular circulation. PREOPERATIVE DIAGNOSES: Right foot skin flap necrosis, status post wound closure, status post second toe amputation right foot with possible cellulitis, possible infection versus contamination. POSTOPERATIVE DIAGNOSES: Right foot skin flap necrosis, status post wound closure, status post second toe amputation right foot with possible cellulitis, possible infection versus contamination with full thickness skin and subcutaneous necrosis. PROCEDURES: Right foot wound debridement of necrotic skin flap tissue including skin, subcutaneous and tendon tissue with pulsatile lavage irrigation with antibiotic solution and also packing with iodoform gauze. SURGEON: Miki Ramos MD [employer]: None. ANESTHESIA: General LMA. COMPLICATIONS: None. SPECIMENS: Necrotic tissue and cultures x2. DRAINS: None. OPERATIVE PROCEDURE: The patient was taken to the Operating Room, anesthetized under general anesthetic. His right lower extremity was prepped and draped with Betadine scrub and paint. The patient had poor circulation and no tourniquet was required. After the patient was identified and appropriate timeout performed, the necrotic area of skin was excised with a scalpel. I first excised the necrotic skin, which was between the great toe and third toe where the previous second toe was amputated. There was about a centimeter diameter area of skin necrosed in this area. We sharply incised the margins back to bleeding edge and first just incised the skin and dermis, but the subcutaneous tissue had no circulation at all so there was full thickness necrosis all the way through subcutaneous tissue. I continued to debride the wound edges until we got back to some bleeding tissue. We did encounter some of the extensor tendon which was debrided as well. The metatarsal head was visible deep in the wound with arthritic, but intact articular surface still. The cultures were obtained deep in the wound down to the level of the metatarsal head. We have gotten two independent cultures and then irrigated out the wound copiously with pulsatile lavage antibiotic solution with bacitracin about 3 liters. The wound was packed with iodoform gauze and sterile dressings were applied including sterile Webril and an Nghia wrap at the completion. The patient had less than 1 mL of blood loss and tolerated the procedure well. I attest to the content of the Intraoperative Record and any orders documented therein. Any exception s are noted below.
[2019-03-23] MEDS: CEFAZOLIN 1000MG 1,000 MG/7.5 ML SYR IV SCH ×2 (02:55→12:20)
--- NOTE | 2019-03-23 05:15 | Progress Note ---
Date of Service March 23, 2019 Subjective Nurse called regarding scrotal edema and mild hematuria Pt evaluated scrotal edema mild-moderate no signficant erythema; CTAB, equal breaths sounds bilaterally no crackles appreciated Records reviewed pt's inr was elevated to 4.9 on 03/20 but has improved to 1.6 on 03/22 which could explain hematuria; pt is not on anticoag at this time as coumadin held and also not on any IVFs UA ordered Advised to elevate scrotum - nurse with elevate with pillow Results & Data Vital Signs (Past 12 Hours) Vital Signs Temp Pulse Pulse Pulse Resp BP BP 03/23/19 02:49 36.5 C 74 16 128/62 03/22/19 23:09 36.2 C L 74 16 103/56 L 03/22/19 22:35 36.2 C L 74 18 116/70 03/22/19 21:34 36.5 C 86 18 92/62 L 03/22/19 20:25 36.3 C L 74 16 106/60 03/22/19 19:55 36.0 C L 74 18 108/66 03/22/19 19:25 36.2 C L 79 14 125/73 03/22/19 19:20 36.5 C 03/22/19 19:15 72 14 120/69 03/22/19 19:11 74 14 123/57 L 03/22/19 19:10 68 14 03/22/19 19:05 80 12 115/58 L 03/22/19 19:00 101 H 14 115/58 L 03/22/19 18:55 74 12 118/57 L 03/22/19 18:50 71 14 127/56 L 03/22/19 18:45 80 14 128/65 03/22/19 18:40 77 15 121/66 03/22/19 18:35 74 13 128/67 03/22/19 18:30 76 20 127/56 L 03/22/19 18:25 74 14 123/62 03/22/19 18:22 36.9 C 80 77 17 129/56 L 129/56 L Pulse Ox 03/23/19 02:49 96 03/22/19 23:09 96 03/22/19 22:35 96 03/22/19 21:34 100 03/22/19 20:25 91 03/22/19 19:55 92 03/22/19 19:25 95 03/22/19 19:20 95 03/22/19 19:15 100 03/22/19 19:11 100 03/22/19 19:10 100 03/22/19 19:05 99 03/22/19 19:00 97 03/22/19 18:55 100 03/22/19 18:50 100 03/22/19 18:45 100 03/22/19 18:40 100 03/22/19 18:35 100 03/22/19 18:30 100 03/22/19 18:25 100 03/22/19 18:22 100 PG Care Time/CCT Total # of Minutes Spent Total Time Spent with Patient: Total time spent is greater than 50% in coordination of care (as documented) at patient's floor/unit and/or counseling patient: Resident Activity Tracking Resident Involvement: Resident Care Provided Care Provided: Adult Hospital Medicine
[2019-03-23] MEDS: ACETAMINOPHEN 500 MG TAB PO SCH ×4 (05:54→21:38)
[2019-03-23 06:02] LABS: INR 1.2 (0.9-1.1); Prothrombin Time 12.4 Seconds (9.0-12.0)
--- NOTE | 2019-03-23 08:23 | Anesthesiology Progress Note ---
Date of Service March 23, 2019 Anesthesia Post Procedure Vital Signs Vital Signs: Temp Pulse Pulse Pulse Pulse Resp BP 03/23/19 06:43 36.6 C 74 16 03/23/19 02:49 36.5 C 74 16 03/22/19 23:09 36.2 C L 74 16 03/22/19 22:35 36.2 C L 74 18 03/22/19 21:34 36.5 C 86 18 03/22/19 20:25 36.3 C L 74 16 03/22/19 19:55 36.0 C L 74 18 03/22/19 19:25 36.2 C L 79 14 03/22/19 19:20 36.5 C 03/22/19 19:15 72 14 120/69 03/22/19 19:11 74 14 123/57 L 03/22/19 19:10 68 14 03/22/19 19:05 80 12 115/58 L 03/22/19 19:00 101 H 14 115/58 L 03/22/19 18:55 74 12 118/57 L 03/22/19 18:50 71 14 127/56 L 03/22/19 18:45 80 14 128/65 03/22/19 18:40 77 15 121/66 03/22/19 18:35 74 13 128/67 03/22/19 18:30 76 20 127/56 L 03/22/19 18:25 74 14 123/62 03/22/19 18:22 36.9 C 80 77 17 129/56 L 03/22/19 16:30 36.7 C 81 81 18 03/22/19 15:24 36.1 C L 74 18 03/22/19 10:16 36.2 C L 83 16 03/22/19 09:50 36.2 C L 83 16 BP Pulse Ox 03/23/19 06:43 98/61 L 96 03/23/19 02:49 128/62 96 03/22/19 23:09 103/56 L 96 03/22/19 22:35 116/70 96 03/22/19 21:34 92/62 L 100 03/22/19 20:25 106/60 91 03/22/19 19:55 108/66 92 03/22/19 19:25 125/73 95 03/22/19 19:20 95 03/22/19 19:15 100 03/22/19 19:11 100 03/22/19 19:10 100 03/22/19 19:05 99 03/22/19 19:00 97 03/22/19 18:55 100 03/22/19 18:50 100 03/22/19 18:45 100 03/22/19 18:40 100 03/22/19 18:35 100 03/22/19 18:30 100 03/22/19 18:25 100 03/22/19 18:22 129/56 L 100 03/22/19 16:30 153/72 H 99 03/22/19 15:24 132/62 98 03/22/19 10:16 119/59 L 99 03/22/19 09:50 111/71 99 Pain Intensity Bilateral Foot: Pain Intensity: 3 Right Foot: Pain Intensity: 4 Notes Mental Status: alert / awake / arousable and participated in evaluation Patient Amnestic to Procedure: Yes Nausea / Vomiting: adequately controlled Pain: adequately controlled Airway Patency, RR, SpO2: stable & adequate BP & HR: stable & adequate Hydration State: stable & adequate Anesthetic Complications: no major complications apparent
[2019-03-23] MEDS: DOCUSATE SODIUM 100 MG CAP PO SCH ×2 (08:54→21:38)
[2019-03-23] MEDS: ASPIRIN 81 MG ECTAB PO SCH (08:57)
[2019-03-23] MEDS: ASCORBIC ACID 500 MG TAB PO SCH ×2 (08:57→12:49)
[2019-03-23] MEDS: PANTOprazole 40 MG TAB PO SCH ×2 (08:57→21:38)
[2019-03-23] MEDS: LISINOPRIL 5 MG TAB PO SCH (08:58)
--- NOTE | 2019-03-23 09:44 | Orthopedic Progress Note ---
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 I&D with iodoform packing. Heel touch weight bearing with walker. DVT proph- on ASA, okay to resume coumadin tomorrow per medicine/ primary team. D/C planning- rehab Dressings reinforced by me, will do complete dressing change tomorrow. Subjective POD #1, states right foot is comfortable. Denies SOB, CP, N/V. Physical Exam Physical Exam: Right foot dressings in tact, some bloody drainage from 4x4's, sensation ok in toes. 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
[2019-03-23 10:00] LABS: Hematocrit (blood only) 27.6 % (42-52); Hemoglobin 9.4 g/dL (14.0-18.0); Immature Granulocytes # (auto) 0.05 K/uL (0.00-0.02); Immature Granulocytes % (auto) 0.6 %; Lymphocytes # (auto) 0.49 K/uL (1.2-3.4); Mean Corpuscular Hgb Conc 34.1 g/dL (32-36); Mean Corpuscular Volume 96.5 fL (80-100); Mean Platelet Volume 9.2 fL (7.4-10.4); Monocytes % (auto) 2.5 %; Neutrophils # (auto) 7.36 K/uL (1.4-6.5); Neutrophils % (auto) 90.9 %; Platelet Count 209 K/uL (130-400); RDW Coefficient of Variation 14.8 % (11.5-14.5); RDW Standard Deviation 51.3 fL (36.4-46.3); Red Blood Count 2.86 M/uL (4.7-6.1)
[2019-03-23 10:07] LABS: Calcium 7.6 mg/dl (8.5-10.1); Creatinine Clr Calc Pharmacy 39.8 ml/min; Est GFR (African American) 63.7; Potassium 4.8 mmol/L (3.5-5.1)
[2019-03-23] MEDS ORDERED: LINEZOLID 600 MG TAB PO ONE (12:45)
[2019-03-23] MEDS: FERROUS SULFATE 325 MG TAB PO SCH ×2 (12:50→21:37)
[2019-03-23] MEDS ORDERED: FUROSEMIDE 20 MG TAB PO ONE (14:30)
--- NOTE | 2019-03-23 15:22 | Infectious Disease Progress Nt ---
Date of Service March 23, 2019 Assessment & Plan (1) Gangrene of toe of right foot: Patient with gangrene of the right second toe in the setting of diabetes and severe peripheral arterial disease. Now s/p amputation of the toe. Culture now with gram-negative bacilli, ceftriaxone added pending final identification and sensitivity. Will follow. Subjective Patient seen in follow-up for gangrenous right second toe status post amputation. Offers no new complaints today. Remains afebrile. Tolerating antibiotic reasonably well. Culture now growing gram-negative bacilli. Review of Systems Review of Systems: All systems reviewed & are unremarkable except as noted in HPI & below Physical Exam Constitutional: WD/WN, vitals as above comfortable; no acute distress Eyes: PERRL, conjunctivae normal, anicteric sclerae ENMT: external ear and nose normal, oropharynx normal Neck: trachea midline, no thyromegaly neck nontender Respiratory: normal respiratory effort, lungs clear to auscultation normal percussion; does not use accessory muscles Cardiovascular: Rate/Rhythm: regular rate and regular rhythm Heart Sounds: normal S1 and normal S2; no gallop, no murmur and no cardiac rub Vessels: normal peripheral pulses; no JVD Gastrointestinal (Abdomen): normal bowel sounds, soft, nontender, no hepatosplenomegaly Musculoskeletal: no cyanosis or clubbing, extremities motor strength 5/5 Spine: thoracic spine normal to inspection and lumbar spine normal to inspection; no cervical spinal tenderness Skin: normal turgor; no rashes Neurologic: moves all extremities and awake; no focal motor deficits Psychiatric: A+Ox3, euthymic affect Orientation: cooperative Lymphatic: no cervical or axillary lymphadenopathy no inguinal lymphadenopathy Results & Data Vital Signs (Past 12 Hours) Vital Signs Temp Pulse Resp BP Pulse Ox 03/23/19 08:55 102/62 03/23/19 06:43 36.6 C 74 16 98/61 L 96 Laboratory Results Laboratory Results - last 48 hr 03/21/19 03/21/19 03/22/19 17:07 20:35 05:41 WBC RBC Hgb Hct MCV MCH MCHC RDW Std Deviation RDW Coeff of Gilbert Plt Count MPV Immature Gran % (Auto) Neut % (Auto) Lymph % (Auto) [place] % (Auto) Eos % (Auto) Baso % (Auto) Immature Gran # (Auto) Neut # (Auto) Lymph # (Auto) [place] # (Auto) Eos # (Auto) Baso # (Auto) PT 26.4 H INR 2.8 H Sodium Potassium Chloride Carbon Dioxide Anion Gap BUN Creatinine Est Cr Clr Drug Dosing Est GFR ( Amer) Est GFR (Non-Af Amer) BUN/Creatinine Ratio Glucose POC Glucose 114 H 96 Calcium 03/22/19 03/22/19 03/22/19 06:01 07:00 11:41 WBC RBC Hgb Hct MCV MCH MCHC RDW Std Deviation RDW Coeff of Gilbert Plt Count MPV Immature Gran % (Auto) Neut % (Auto) Lymph % (Auto) [place] % (Auto) Eos % (Auto) Baso % (Auto) Immature Gran # (Auto) Neut # (Auto) Lymph # (Auto) [place] # (Auto) Eos # (Auto) Baso # (Auto) PT 18.3 H INR 1.9 H Sodium Potassium Chloride Carbon Dioxide Anion Gap BUN Creatinine Est Cr Clr Drug Dosing Est GFR ( Amer) Est GFR (Non-Af Amer) BUN/Creatinine Ratio Glucose POC Glucose 74 92 Calcium 03/22/19 03/22/19 03/22/19 12:15 15:00 16:40 WBC RBC Hgb Hct MCV MCH MCHC RDW Std Deviation RDW Coeff of Gilbert Plt Count MPV Immature Gran % (Auto) Neut % (Auto) Lymph % (Auto) [place] % (Auto) Eos % (Auto) Baso % (Auto) Immature Gran # (Auto) Neut # (Auto) Lymph # (Auto) [place] # (Auto) Eos # (Auto) Baso # (Auto) PT 16.2 H INR 1.6 H Sodium Potassium Chloride Carbon Dioxide Anion Gap BUN Creatinine Est Cr Clr Drug Dosing Est GFR ( Amer) Est GFR (Non-Af Amer) BUN/Creatinine Ratio Glucose POC Glucose 84 62 L* Calcium 03/22/19 03/22/19 03/22/19 16:42 18:23 19:30 WBC RBC Hgb Hct MCV MCH MCHC RDW Std Deviation RDW Coeff of Gilbert Plt Count MPV Immature Gran % (Auto) Neut % (Auto) Lymph % (Auto) [place] % (Auto) Eos % (Auto) Baso % (Auto) Immature Gran # (Auto) Neut # (Auto) Lymph # (Auto) [place] # (Auto) Eos # (Auto) Baso # (Auto) PT INR Sodium Potassium Chloride Carbon Dioxide Anion Gap BUN Creatinine Est Cr Clr Drug Dosing Est GFR ( Amer) Est GFR (Non-Af Amer) BUN/Creatinine Ratio Glucose POC Glucose 74 82 87 Calcium 03/22/19 03/23/19 03/23/19 21:03 05:22 05:22 WBC 8.10 RBC 2.86 L Hgb 9.4 L Hct 27.6 L MCV 96.5 MCH 32.9 MCHC 34.1 RDW Std Deviation 51.3 H RDW Coeff of Gilbert 14.8 H Plt Count 209 MPV 9.2 Immature Gran % (Auto) 0.6 Neut % (Auto) 90.9 Lymph % (Auto) 6.0 [place] % (Auto) 2.5 Eos % (Auto) 0.0 Baso % (Auto) 0.0 Immature Gran # (Auto) 0.05 H Neut # (Auto) 7.36 H Lymph # (Auto) 0.49 L [place] # (Auto) 0.20 Eos # (Auto) 0.00 Baso # (Auto) 0.00 PT INR Sodium 133 L Potassium 4.8 Chloride 102 Carbon Dioxide 24 Anion Gap 7.0 BUN 21 H Creatinine 1.19 Est Cr Clr Drug Dosing 39.8 Est GFR ( Amer) 63.7 Est GFR (Non-Af Amer) 55.0 BUN/Creatinine Ratio 18.0 Glucose 94 POC Glucose 99 Calcium 7.6 L 03/23/19 05:23 WBC RBC Hgb Hct MCV MCH MCHC RDW Std Deviation RDW Coeff of Gilbert Plt Count MPV Immature Gran % (Auto) Neut % (Auto) Lymph % (Auto) [place] % (Auto) Eos % (Auto) Baso % (Auto) Immature Gran # (Auto) Neut # (Auto) Lymph # (Auto) [place] # (Auto) Eos # (Auto) Baso # (Auto) PT 12.4 H INR 1.2 H Sodium Potassium Chloride Carbon Dioxide Anion Gap BUN Creatinine Est Cr Clr Drug Dosing Est GFR ( Amer) Est GFR (Non-Af Amer) BUN/Creatinine Ratio Glucose POC Glucose Calcium Diagnostic Findings Microbiology 03/22/19 Unknown Foot,Right Gram Stain - Final 03/22/19 Unknown Foot,Right Aerobic and Anaerobic Culture - Preliminary Gram negative bacilli 03/22/19 Unknown Foot,Right Gram Stain - Final 03/22/19 Unknown Foot,Right Aerobic and Anaerobic Culture - Preliminary Gram negative bacilli
--- NOTE | 2019-03-23 15:36 | Hospitalist Progress Note ---
Date of Service March 23, 2019 Assessment & Plan (1) Gangrene of toe of right foot: - MRI with areas of osteitis without definitive evidence for osteomyelitis within the distal phalanges of the 1st, 3rd, 4th, and 5th toes; S/P R 2nd toe amputation and debridement on 03/10; S/P I&D on 03/22 - Continue Zyvox (end date 03/29) - may need longer pending wound stabilization -- Currently GI upset resolved but could consider Bactrim/Augment if GI issues arise again - Operative Cx now with gram neg bacilli - Rocephin initiated - as he would be at risk for Pseudomonas - Wound care following -- continue daily and PRN dressing changes; clean with saline and cover with Aquacel AG and secure with Optifoam -- Consider Santyl for debridement if needed - Orthopedics following - planning on dressing change in AM (2) Scrotal edema: - Has been progressive and edema largely located to penis/scrotum but also with lower extremity edema - Continue scrotal elevation; will try Lasix x 1 dose - Having some reduced urination today and will monitor - will hold on additional IVF for now and encourage oral intake (3) Fall: - Fell in restroom on 03/19 - appears mechanical with no LOC or acute injury minus elbow abrasions with drainage - Mentation is baseline and no pain - PT/OT evaluations; awaiting authorization for [facility] (4) Nausea & vomiting: - Currently resolved - likely constipation vs antibiotic induced - patient reports improvement with adequate bowel movements - Will continue Abx as previously prescribed; PRN anti-emetics (5) Lethargy: - Currently resolved - possibly medication induced with Phenergan/Ativan (6) Atrial fibrillation: - Rate Controlled - INR revered for procedure and likely can be resumed tomorrow - Currently not on rate controlling medications (7) DMII (diabetes mellitus, type 2): - Most recent A1C was 5.1 - Does not require SSI coverage. (8) CAD (coronary artery disease): - Continue ASA and Plavix; recent iliac stent placed in January - Is on triple therapy and may need to discuss the long-term plan if it is to continue triple therapy or reduction of an agent (9) Chronic kidney disease, stage 3a: - STABLE - will continue to monitor (10) HLD (hyperlipidemia): - Not currently on statin agent - appears this was D/C'd in setting of Daptomycin therapy (11) Peripheral arterial disease: - Follows with Dr. Wiseman - will need to reschedule follow up appointment. - Continue aspirin and plavix as noted above. - Repeat arterial doppler showed: extensive atherosclerotic plaque about the b/l lower extremities; triphasic waveforms within b/l common femoral arteries with biphasic waveforms about the superficial femoral arteries; monophasic waverforms about the lower legs b/l with L > R; no arterial occlusion or significantly elevated peak systolic velocities identified to suggest high-grade stenosis (12) HTN (hypertension): - Continue Lisinopril 5 mg daily (13) DVT prophylaxis: - SCDs; Coumadin currently on hold due to procedure Dispo: Possible need for further debridement/surgical intervention; awaiting SNF Auth Subjective Reports feeling well today. Does have a couple shooting shock-like pains in the foot that last for seconds. Continues to have progressive scrotal/penile swelling. Having less urination today but no distension and bladder scan without significant amounts. New cultures show a gram neg bacilli growing. Review of Systems Constitutional: no fever and no chills Respiratory: no cough and no dyspnea Cardiovascular: + edema; no chest pain and no palpitations Gastrointestinal: no abdominal pain, no nausea, no vomiting, no constipation and no diarrhea/loose stools Genitourinary: + difficulty urinating, + urinary hesitancy and + scrotal swelling; no dysuria and no genital pain Integumentary: + non-healing lesions Physical Exam Constitutional: + frail appearing; no acute distress and not ill appearing Eyes: + anicteric sclerae ENMT: Ears: no hearing impairment Neck: normal visual inspection and trachea midline Respiratory: normal respiratory effort, lungs clear to auscultation Cardiovascular: Rate/Rhythm: regular rate, regular rhythm and + irregularly irregular Heart Sounds: + murmur Gastrointestinal (Abdomen): Inspection/Auscultation: normal bowel sounds Percussion/Palpation: abdomen soft; abdomen nontender Musculoskeletal: Head/Neck/Chest: normocephalic and head atraumatic Skin: no rashes, warm and dry Neurologic: moves all extremities Psychiatric: A+Ox3, euthymic affect Genitourinary: + edematous penis and + scrotal swelling; no erythematous penis and no erythematous scrotum Results & Data Vital Signs (Past 12 Hours) Vital Signs Temp Pulse Resp BP Pulse Ox 03/23/19 08:55 102/62 03/23/19 06:43 36.6 C 74 16 98/61 L 96 PG Care Time/CCT Total # of Minutes Spent Total Time Spent with Patient: Total time spent is greater than 50% in coordination of care (as documented) at patient's floor/unit and/or counseling patient:
[2019-03-23] MEDS: cefTRIAXone SODIUM 2,000 MG in DEXTROSE 5% 50 ML IV SCH (16:28)
[2019-03-23] MEDS: LINEZOLID 600 MG TAB PO SCH (21:39)
[2019-03-24 00:04] LABS: Appearance Urine Clear (Clear); Bilirubin Urine Negative (Negative); Blood Urine Negative (Negative); Color Urine Yellow; Glucose Urine UA Negative (Negative); Ketones Urine Trace (Negative); Leukocyte Esterase Urine Negative (Negative); Nitrite Urine Negative (Negative); Protein Urine Negative (Negative); Specific Gravity Urine 1.021 (1.000-1.030); Urobilinogen Urine Negative (Negative)
[2019-03-24] MEDS: OXYCODONE HCL IR 5 MG TAB (IMMEDIATE RELEASE) PO PRN ×2 (00:27→23:55)
[2019-03-24] MEDS ORDERED: MoRPHine SULFATE 2 MG/ML CARP IV STA (01:57)
[2019-03-24] MEDS ORDERED: MoRPHine SULFATE 2 MG/ML CARP ONE (02:01)
[2019-03-24 05:37] LABS: Hematocrit (blood only) 26.2 % (42-52); Hemoglobin 8.7 g/dL (14.0-18.0); Mean Corpuscular Hgb Conc 33.2 g/dL (32-36); Mean Corpuscular Volume 94.6 fL (80-100); Mean Platelet Volume 9.4 fL (7.4-10.4); Platelet Count 179 K/uL (130-400); RDW Coefficient of Variation 14.9 % (11.5-14.5); RDW Standard Deviation 51.3 fL (36.4-46.3); Red Blood Count 2.77 M/uL (4.7-6.1); White Blood Count 4.93 K/uL (4.8-10.8)
[2019-03-24 06:00] LABS: BUN Creatinine Ratio 15.7 (10-20); Calcium 7.2 mg/dl (8.5-10.1); Creatinine Clr Calc Pharmacy 28.9 ml/min; Est GFR (African American) 43.2; Est GFR (Non-African American) 37.3; Potassium 4.9 mmol/L (3.5-5.1)
[2019-03-24] MEDS: ACETAMINOPHEN 500 MG TAB PO SCH ×3 (06:12→20:57)
[2019-03-24] MEDS: DOCUSATE SODIUM 100 MG CAP PO SCH ×2 (08:22→17:02)
[2019-03-24] MEDS: PANTOprazole 40 MG TAB PO SCH ×2 (08:22→20:56)
[2019-03-24] MEDS: ASPIRIN 81 MG ECTAB PO SCH (08:23)
[2019-03-24] MEDS: LINEZOLID 600 MG TAB PO SCH ×2 (08:23→20:57)
[2019-03-24] MEDS: ASCORBIC ACID 500 MG TAB PO SCH (08:23)
[2019-03-24] MEDS: LISINOPRIL 5 MG TAB PO SCH (08:23)
[2019-03-24] MEDS: FERROUS SULFATE 325 MG TAB PO SCH ×2 (08:43→20:56)
--- NOTE | 2019-03-24 09:18 | Orthopedic Progress Note ---
Date of Service March 24, 2019 Assessment & Plan (1) Gangrene of toe of right foot: POD #2, Right foot debridement/ I&D necrotic tissue and 2nd toe amputation with iodoform packing PT/ OT- Heel touch weight bearing w walker. DVT proph- asa D/C planning- as per primary team. On ceftriaxone and zyvox As per medicine and ID. Dressings changed and partial packing pulled by me this AM. Subjective POD #2, states foot feels better sitting in chair, doing well this AM sitting comfortably at bedside. Denies sob, cp, n/v. Foot pain minimal this AM. Physical Exam Physical Exam: Right foot wound clean dry and in tact. No active drainage, no erythema. Packing in place. Results & Data Vital Signs (Past 12 Hours) Vital Signs Temp Pulse Resp BP Pulse Ox 03/24/19 07:00 36.3 C L 64 18 100/58 L 99 03/23/19 23:24 36.2 C L 63 18 122/64 99 03/23/19 23:23 36.2 C L
--- NOTE | 2019-03-24 14:25 | Hospitalist Progress Note ---
Date of Service March 24, 2019 Assessment & Plan (1) Gangrene of toe of right foot: - MRI with areas of osteitis without definitive evidence for osteomyelitis within the distal phalanges of the 1st, 3rd, 4th, and 5th toes; S/P R 2nd toe amputation and debridement on 03/10; S/P I&D on 03/22 - Continue Zyvox (end date 03/29) - may need longer pending wound stabilization -- Currently GI upset resolved but could consider Bactrim/Augment if GI issues arise again - Operative Cx now with gram neg bacilli x 2 - Rocephin initiated by ID - will add Levaquin 750 mg daily for now given risk for Pseudomonas and further Abx can be adjusted pending results and dual gram neg coverage wouldn't be necessary - Wound care following -- continue daily and PRN dressing changes; clean with saline and cover with Aquacel AG and secure with Optifoam -- Consider Santyl for debridement if necessary pending evaluation - Orthopedics following - part of packing removed today - appreciate surgical management (2) Scrotal edema: - Has been progressive and edema largely located to penis/scrotum but also with lower extremity edema - Continue scrotal elevation; given Lasix yesterday but mild bump in Cr and will monitor - Scale suggests a 10 lb weight gain from 03/23 to 03/24 - he is edematous however not much changed from previous day and trend of weight shows approx. 10 lbs weight loss a few days back - will continue to monitor - Urination improved today (3) Fall: - Fell in restroom on 03/19 - appears mechanical with no LOC or acute injury minus elbow abrasions with drainage - Mentation is baseline and no pain - PT/OT evaluations; awaiting authorization for [facility] (4) Nausea & vomiting: - Currently resolved - likely constipation vs antibiotic induced - patient reports improvement with adequate bowel movements - Will continue Abx as previously prescribed; PRN anti-emetics (5) Lethargy: - Currently resolved - possibly medication induced with Phenergan/Ativan (6) Atrial fibrillation: - Rate Controlled - INR reversed for procedure and will watch pending wound assessment and likely can resume Coumadin tomorrow - Currently not on rate controlling medications (7) DMII (diabetes mellitus, type 2): - Most recent A1C was 5.1 - Does not require SSI coverage. (8) CAD (coronary artery disease): - Continue ASA and Plavix; recent iliac stent placed in January - Is on triple therapy and may need to discuss the long-term plan if it is to continue triple therapy or reduction of an agent (9) Chronic kidney disease, stage 3a: - STABLE - will continue to monitor (10) HLD (hyperlipidemia): - Not currently on statin agent - appears this was D/C'd in setting of Daptomycin therapy -- Now off Dapto likely can resume given his PAD (11) Peripheral arterial disease: - Follows with Dr. Wiseman - will need to reschedule follow up appointment. - Continue aspirin and plavix as noted above. - Repeat arterial doppler showed: extensive atherosclerotic plaque about the b/l lower extremities; triphasic waveforms within b/l common femoral arteries with biphasic waveforms about the superficial femoral arteries; monophasic waveforms about the lower legs b/l with L > R; no arterial occlusion or significantly elevated peak systolic velocities identified to suggest high-grade stenosis (12) HTN (hypertension): - Continue Lisinopril 5 mg daily (13) DVT prophylaxis: - SCDs; Coumadin currently on hold due to procedure Dispo: Await wound monitoring; planning on [place] Subjective Patient reports doing well this afternoon. Got poor sleep overnight due to pain in the foot when laying in bed. Pain improves with leg dangling which likely correlates with peripheral artery disease claudication which is does have none vascular disease. Continues to be edematous and would recommend extremity elevation. His wound Cx with gram neg bacilli x 2 and awaiting identification Review of Systems Constitutional: + fatigue; no fever and no chills Respiratory: no cough and no dyspnea Cardiovascular: + edema; no chest pain and no palpitations Gastrointestinal: no abdominal pain, no nausea, no vomiting, no constipation and no diarrhea/loose stools Genitourinary: + scrotal swelling; no dysuria, no difficulty urinating, no urinary hesitancy and no genital pain Integumentary: + non-healing lesions Physical Exam Constitutional: WD/WN, vitals as above + frail appearing; no acute distress and not ill appearing Eyes: + anicteric sclerae ENMT: Ears: no hearing impairment Neck: normal visual inspection and trachea midline Respiratory: normal respiratory effort, lungs clear to auscultation Cardiovascular: Rate/Rhythm: regular rate and + irregularly irregular Heart Sounds: + murmur Gastrointestinal (Abdomen): Inspection/Auscultation: normal bowel sounds Percussion/Palpation: abdomen soft; abdomen nontender Musculoskeletal: Head/Neck/Chest: normocephalic and head atraumatic b/l lower extremity edema with R > L; thickened skin temperatures equal with chronic pink/red skin Skin: no rashes, warm and dry Neurologic: moves all extremities Psychiatric: A+Ox3, euthymic affect Genitourinary: + edematous penis and + scrotal swelling; no erythematous penis and no erythematous scrotum Results & Data Vital Signs (Past 12 Hours) Vital Signs Temp Pulse Resp BP Pulse Ox 03/24/19 07:00 36.3 C L 64 18 100/58 L 99 PG Care Time/CCT Total # of Minutes Spent Total Time Spent with Patient: Total time spent is greater than 50% in coordination of care (as documented) at patient's floor/unit and/or counseling patient:
[2019-03-24] MEDS: levoFLOXacin 750 MG TAB PO SCH (14:33)
[2019-03-24] MEDS: cefTRIAXone SODIUM 2,000 MG in DEXTROSE 5% 50 ML IV SCH (15:34)
[2019-03-24] MEDS: ONDANSETRON INJ 2 MG/ML 2 ML VIAL IV PRN (20:54)
[2019-03-25] MEDS: ACETAMINOPHEN 500 MG TAB PO SCH ×3 (06:13→20:53)
[2019-03-25] MEDS: ONDANSETRON INJ 2 MG/ML 2 ML VIAL IV PRN (08:37)
--- NOTE | 2019-03-25 08:39 | Orthopedic Progress Note ---
Date of Service March 25, 2019 Assessment & Plan (1) Gangrene of toe of right foot: POD #3, Right foot debridement/ I&D necrotic tissue and 2nd toe amputation with iodoform packing PT/ OT- Heel touch weight bearing w walker. DVT proph- asa D/C planning- as per primary team. On ceftriaxone and zyvox As per medicine and ID. Dressings changed and remaining packing pulled by me this AM. Will consult wound care nurse. Subjective POD #3, states foot feels better sitting in chair, doing well this AM sitting comfortably at bedside. Denies sob, cp, n/v. Foot pain minimal this AM. Physical Exam Physical Exam: Left foot wound with some bloody drainage only. No erythema, No odor. Results & Data Vital Signs (Past 12 Hours) Vital Signs Temp Pulse Pulse Resp BP Pulse Ox 03/25/19 07:19 36.5 C 78 16 106/53 L 97 03/25/19 00:00 36.4 C L 77 20 107/53 L 99
[2019-03-25] MEDS: ASCORBIC ACID 500 MG TAB PO SCH (11:18)
[2019-03-25] MEDS: LISINOPRIL 5 MG TAB PO SCH (11:18)
[2019-03-25] MEDS: LINEZOLID 600 MG TAB PO SCH ×2 (11:18→20:54)
[2019-03-25] MEDS: DOCUSATE SODIUM 100 MG CAP PO SCH ×2 (11:19→20:54)
[2019-03-25] MEDS: FERROUS SULFATE 325 MG TAB PO SCH ×2 (11:19→20:54)
[2019-03-25] MEDS: PANTOprazole 40 MG TAB PO SCH ×2 (11:19→20:54)
[2019-03-25] MEDS: ASPIRIN 81 MG ECTAB PO SCH (11:19)
--- NOTE | 2019-03-25 15:52 | Hospitalist Progress Note ---
Date of Service March 25, 2019 Assessment & Plan (1) Gangrene of toe of right foot: - MRI with areas of osteitis without definitive evidence for osteomyelitis within the distal phalanges of the 1st, 3rd, 4th, and 5th toes; S/P R 2nd toe amputation and debridement on 03/10; S/P I&D on 03/22 - Continue Zyvox (end date 03/29) - may need longer pending wound stabilization - Operative Cx now with pansensitive e. coli and pseudomonas - stopped IV Ceftriaxone and started Levaquin 750 mg Q48H for renal dosing - appreciate any adjustments per ID - Wound care following -- continue daily and PRN dressing changes; clean with saline and cover with Aquacel AG and secure with Optifoam; possibility of wound vac? - Orthopedics following - packing removed - appreciate surgical management (2) Scrotal edema: - Has been progressive and edema largely located to penis/scrotum but also with lower extremity edema - Continue scrotal elevation/extremity elevation; given Lasix previous days with bump in renal function and will hold further diuretic therapy - Scale suggests a 10 lb weight gain from 03/23 to 03/24 - he is edematous however not much changed from previous days and trend of weight shows approx. 10 lbs weight loss a few days back - will continue to monitor - Urination improved today (3) Fall: - Fell in restroom on 03/19 - appears mechanical with no LOC or acute injury minus elbow abrasions with drainage - Mentation is baseline and no pain - PT/OT evaluations; awaiting authorization for [facility] (4) Nausea & vomiting: - Currently resolved - likely constipation vs antibiotic induced - patient reports improvement with adequate bowel movements however some reoccurrence with additional antibiotics initiation - Will continue Abx as previously prescribed; PRN anti-emetics - Will start Carafate for a couple days to help reduce irritation (5) Lethargy: - Currently resolved - possibly medication induced with Phenergan/Ativan (6) Atrial fibrillation: - Rate Controlled - INR reversed for procedure and will watch pending wound assessment for vac then can resume Coumadin - Currently not on rate controlling medications (7) DMII (diabetes mellitus, type 2): - Most recent A1C was 5.1 - Does not require SSI coverage. (8) CAD (coronary artery disease): - Continue ASA and Plavix; recent iliac stent placed in January - Is on triple therapy and may need to discuss the long-term plan if it is to continue triple therapy or reduction of an agent (9) Chronic kidney disease, stage 3a: - STABLE - will continue to monitor (10) HLD (hyperlipidemia): - Not currently on statin agent - appears this was D/C'd in setting of Daptomycin therapy -- Now off Dapto likely can resume given his PAD (11) Peripheral arterial disease: - Follows with Dr. Wiseman - will need to reschedule follow up appointment. - Continue aspirin and plavix as noted above. - Repeat arterial doppler showed: extensive atherosclerotic plaque about the b/l lower extremities; triphasic waveforms within b/l common femoral arteries with biphasic waveforms about the superficial femoral arteries; monophasic waveforms about the lower legs b/l with L > R; no arterial occlusion or significantly elevated peak systolic velocities identified to suggest high-grade stenosis (12) HTN (hypertension): - Continue Lisinopril 5 mg daily (13) DVT prophylaxis: - SCDs; Coumadin currently on hold pending wound assessment Dispo: Possible wound vac; planning on [place] Subjective Reports feeling okay this afternoon just tired. Did have some upset stomach this morning and nausea. Seems to correlate with additional Abx administrations. Is growing pseudomonas in his wound cx and e. coli. Continues to have dependent edema in hands/scrotum/legs. Possibly needs a wound vac per ortho. Having less leg pain today. Yesterday endorsed some claudication symptoms which states is chronic at home as well. Updated patient and family at bedside. Review of Systems Constitutional: + fatigue; no fever and no chills Respiratory: no cough and no dyspnea Cardiovascular: + edema; no chest pain and no palpitations Gastrointestinal: + nausea and + vomiting; no abdominal pain, no constipation and no diarrhea/loose stools Genitourinary: + scrotal swelling; no dysuria, no difficulty urinating, no urinary hesitancy and no genital pain Integumentary: + non-healing lesions Physical Exam Constitutional: WD/WN, vitals as above + frail appearing; no acute distress and not ill appearing Eyes: + anicteric sclerae ENMT: Ears: no hearing impairment Neck: normal visual inspection and trachea midline Respiratory: normal respiratory effort, lungs clear to auscultation Cardiovascular: Rate/Rhythm: regular rate and + irregularly irregular Heart Sounds: + murmur Gastrointestinal (Abdomen): Inspection/Auscultation: normal bowel sounds Percussion/Palpation: abdomen soft; abdomen nontender Musculoskeletal: Head/Neck/Chest: normocephalic and head atraumatic Skin: no rashes, warm and dry Neurologic: moves all extremities Psychiatric: A+Ox3, euthymic affect Genitourinary: + edematous penis and + scrotal swelling; no erythematous penis and no erythematous scrotum Results & Data Vital Signs (Past 12 Hours) Vital Signs Temp Pulse Pulse Resp BP Pulse Ox 03/25/19 15:02 36.6 C 78 18 131/56 L 96 03/25/19 07:19 36.5 C 78 16 106/53 L 97 PG Care Time/CCT Total # of Minutes Spent Total Time Spent with Patient: Total time spent is greater than 50% in coordination of care (as documented) at patient's floor/unit and/or counseling patient:
[2019-03-25] MEDS: LACTOBACILLUS ACIDOPHILUS (FLORANEX) TAB PO SCH (16:02)
[2019-03-25] MEDS: SUCRALFATE 1 GM/10 ML UDC PO SCH ×2 (16:02→20:54)
--- NOTE | 2019-03-25 16:43 | Infectious Disease Progress Nt ---
Date of Service March 25, 2019 Assessment & Plan (1) Gangrene of toe of right foot: Patient with gangrene of the right second toe in the setting of diabetes and severe peripheral arterial disease. Now s/p amputation of the toe. Culture now with E. coli and pseudomonas aeruginosa. Agree with addition of levofloxacin. Will follow. Subjective states foot feels better sitting in chair, doing well this AM sitting comfortably at bedside. Denies sob, cp, n/v. Foot pain minimal this AM. No fever. Wound cultures have grown pansensitive E. coli and pseudomonas aeruginosa. Review of Systems Review of Systems: All systems reviewed & are unremarkable except as noted in HPI & below Physical Exam Constitutional: WD/WN, vitals as above comfortable; no acute distress Eyes: PERRL, conjunctivae normal, anicteric sclerae ENMT: external ear and nose normal, oropharynx normal Neck: trachea midline, no thyromegaly neck nontender Respiratory: normal respiratory effort, lungs clear to auscultation normal percussion; does not use accessory muscles Cardiovascular: Rate/Rhythm: regular rate and regular rhythm Heart Sounds: normal S1 and normal S2; no gallop, no murmur and no cardiac rub Vessels: normal peripheral pulses; no JVD Gastrointestinal (Abdomen): normal bowel sounds, soft, nontender, no hepatosplenomegaly Musculoskeletal: no cyanosis or clubbing, extremities motor strength 5/5 Spine: thoracic spine normal to inspection and lumbar spine normal to inspection; no cervical spinal tenderness Skin: normal turgor; no rashes Neurologic: moves all extremities and awake; no focal motor deficits Psychiatric: A+Ox3, euthymic affect Orientation: cooperative Lymphatic: no cervical or axillary lymphadenopathy no inguinal lymphadenopathy Results & Data Vital Signs (Past 12 Hours) Vital Signs Temp Pulse Pulse Resp BP Pulse Ox 03/25/19 15:02 36.6 C 78 18 131/56 L 96 03/25/19 07:19 36.5 C 78 16 106/53 L 97 Laboratory Results Laboratory Results - last 48 hr 03/23/19 03/23/19 03/23/19 17:22 21:06 23:41 WBC RBC Hgb Hct MCV MCH MCHC RDW Std Deviation RDW Coeff of Gilbert Plt Count MPV Sodium Potassium Chloride Carbon Dioxide Anion Gap BUN Creatinine Est Cr Clr Drug Dosing Est GFR ( Amer) Est GFR (Non-Af Amer) BUN/Creatinine Ratio Glucose POC Glucose 110 H 125 H Calcium Urine Color Yellow Urine Appearance Clear Urine pH 5.0 Ur Specific [place] 1.021 Urine Protein Negative Urine Glucose (UA) Negative Urine Ketones Trace H Urine Blood Negative Urine Nitrite Negative Urine Bilirubin Negative Urine Urobilinogen Negative Ur Leukocyte Esterase Negative 03/24/19 03/24/19 03/24/19 05:16 05:16 08:21 WBC 4.93 RBC 2.77 L Hgb 8.7 L Hct 26.2 L MCV 94.6 MCH 31.4 MCHC 33.2 RDW Std Deviation 51.3 H RDW Coeff of [place] 14.9 H Plt Count 179 MPV 9.4 Sodium 131 L Potassium 4.9 Chloride 101 Carbon Dioxide 20 L Anion Gap 10.0 BUN 26 H Creatinine 1.64 H D Est Cr Clr Drug Dosing 28.9 Est GFR ( Amer) 43.2 Est GFR (Non-Af Amer) 37.3 BUN/Creatinine Ratio 15.7 Glucose 111 H POC Glucose 101 H Calcium 7.2 L Urine Color Urine Appearance Urine pH Ur Specific [place] Urine Protein Urine Glucose (UA) Urine Ketones Urine Blood Urine Nitrite Urine Bilirubin Urine Urobilinogen Ur Leukocyte Esterase 03/24/19 03/24/19 03/24/19 12:20 17:12 20:52 WBC RBC Hgb Hct MCV MCH MCHC RDW Std Deviation RDW Coeff of [place] Plt Count MPV Sodium Potassium Chloride Carbon Dioxide Anion Gap BUN Creatinine Est Cr Clr Drug Dosing Est GFR ( Amer) Est GFR (Non-Af Amer) BUN/Creatinine Ratio Glucose POC Glucose 85 113 H 129 H Calcium Urine Color Urine Appearance Urine pH Ur Specific [place] Urine Protein Urine Glucose (UA) Urine Ketones Urine Blood Urine Nitrite Urine Bilirubin Urine Urobilinogen Ur Leukocyte Esterase Diagnostic Findings Microbiology 03/22/19 Unknown Foot,Right Gram Stain - Final 03/22/19 Unknown Foot,Right Aerobic and Anaerobic Culture - Preliminary Escherichia coli Pseudomonas aeruginosa 03/22/19 Unknown Foot,Right Gram Stain - Final 03/22/19 Unknown Foot,Right Aerobic and Anaerobic Culture - Preliminary Escherichia coli Pseudomonas aeruginosa
[2019-03-26] MEDS ORDERED: COUGH DROP (SUGAR FREE) LOZ 24 LOZ/1 BOX BUCCAL ONE (04:54)
[2019-03-26] MEDS: ACETAMINOPHEN 500 MG TAB PO SCH ×3 (06:18→21:29)
[2019-03-26 06:42] LABS: Hematocrit (blood only) 24.1 % (42-52); Hemoglobin 8.1 g/dL (14.0-18.0); Mean Corpuscular Hgb Conc 33.6 g/dL (32-36); Mean Corpuscular Volume 94.5 fL (80-100); Nucleated RBC # (auto) 0.02 K/uL (0-0); Nucleated RBC % (auto) 0.5 %; Platelet Count 133 K/uL (130-400); RDW Coefficient of Variation 14.8 % (11.5-14.5); RDW Standard Deviation 50.8 fL (36.4-46.3); Red Blood Count 2.55 M/uL (4.7-6.1); White Blood Count 4.27 K/uL (4.8-10.8)
[2019-03-26 07:10] LABS: BUN Creatinine Ratio 20.4 (10-20); Calcium 7.9 mg/dl (8.5-10.1); Creatinine Clr Calc Pharmacy 35.4 ml/min; Est GFR (African American) 52.4; Est GFR (Non-African American) 45.2; Potassium 4.7 mmol/L (3.5-5.1)
[2019-03-26] MEDS: FERROUS SULFATE 325 MG TAB PO SCH ×2 (08:26→21:29)
[2019-03-26] MEDS: DOCUSATE SODIUM 100 MG CAP PO SCH ×2 (08:27→21:27)
[2019-03-26] MEDS: SUCRALFATE 1 GM/10 ML UDC PO SCH ×4 (08:27→21:27)
[2019-03-26] MEDS: LINEZOLID 600 MG TAB PO SCH ×2 (08:27→21:28)
[2019-03-26] MEDS: PANTOprazole 40 MG TAB PO SCH ×2 (08:27→21:28)
[2019-03-26] MEDS: ASPIRIN 81 MG ECTAB PO SCH (08:27)
[2019-03-26] MEDS: ASCORBIC ACID 500 MG TAB PO SCH (08:27)
[2019-03-26] MEDS: LISINOPRIL 5 MG TAB PO SCH (08:27)
[2019-03-26] MEDS: LACTOBACILLUS ACIDOPHILUS (FLORANEX) TAB PO SCH ×3 (08:27→16:54)
[2019-03-26] MEDS: ONDANSETRON INJ 2 MG/ML 2 ML VIAL IV PRN (12:30)
--- NOTE | 2019-03-26 13:31 | Hospitalist Progress Note ---
Date of Service March 26, 2019 Assessment & Plan (1) Gangrene of toe of right foot: - MRI with areas of osteitis without definitive evidence for osteomyelitis within the distal phalanges of the 1st, 3rd, 4th, and 5th toes; S/P R 2nd toe amputation and debridement on 03/10; S/P I&D on 03/22 - Continue Zyvox (end date 03/29) - may need longer pending wound stabilization - Operative Cx now with pansensitive e. coli and pseudomonas - stopped IV Ceftriaxone and started Levaquin 750 mg Q48H for renal dosing - appreciate any adjustments per ID - Wound care following -- continue daily and PRN dressing changes; clean with saline and cover with Aquacel AG and secure with Optifoam; possibility of wound vac? - Orthopedics following - packing removed - appreciate surgical management (2) Scrotal edema: - Has been progressive and edema largely located to penis/scrotum (penis edema slightly improved) but also with lower extremity edema and hand/wrist - largely of dependent areas - Continue scrotal elevation/extremity elevation; given Lasix previous days with bump in renal function and will hold further diuretic therapy - Scale suggests a 10 lb weight gain from 03/23 to 03/24 - he is edematous however not much changed from previous days and trend of weight shows approx. 10 lbs weight loss a few days back - will continue to monitor - Urination improved today (3) Fall: - Fell in restroom on 03/19 - appears mechanical with no LOC or acute injury minus elbow abrasions with drainage - Mentation is baseline and no pain - PT/OT evaluations; awaiting authorization for [facility] (4) Nausea & vomiting: - Currently resolved - likely constipation vs antibiotic induced - patient reports improvement with adequate bowel movements however some reoccurrence with additional antibiotics initiation - Will continue Abx as previously prescribed; PRN anti-emetics - Will start Carafate for a couple days to help reduce irritation; probiotics (5) Lethargy: - Currently resolved - possibly medication induced with Phenergan/Ativan (6) Atrial fibrillation: - Rate Controlled - INR reversed for procedure; will resume Warfarin at 1 mg daily given concurrent Levaquin treatment - Currently not on rate controlling medications (7) DMII (diabetes mellitus, type 2): - Most recent A1C was 5.1 - Does not require SSI coverage. (8) CAD (coronary artery disease): - Continue ASA and Plavix; recent iliac stent placed in January - Is on triple therapy and may need to discuss the long-term plan if it is to continue triple therapy or reduction of an agent (9) Chronic kidney disease, stage 3a: - STABLE - will continue to monitor (10) HLD (hyperlipidemia): - Not currently on statin agent - appears this was D/C'd in setting of Daptomycin therapy -- Now off Dapto likely can resume given his PAD (11) Peripheral arterial disease: - Follows with Dr. Wiseman - will need to reschedule follow up appointment. - Continue aspirin and plavix as noted above. - Repeat arterial doppler showed: extensive atherosclerotic plaque about the b/l lower extremities; triphasic waveforms within b/l common femoral arteries with biphasic waveforms about the superficial femoral arteries; monophasic waveforms about the lower legs b/l with L > R; no arterial occlusion or significantly elevated peak systolic velocities identified to suggest high-grade stenosis (12) HTN (hypertension): - Continue Lisinopril 5 mg daily (13) DVT prophylaxis: - SCDs; Resume Coumadin Dispo: Possible wound vac; planning on [facility] maybe Thursday Subjective Reports doing well today just bored and eager to get to rehab. States he normally walks a couple miles a day so he is getting a little discouraged. Reporting less frequent shooting pains from his foot but still doesn't like to lay in bed. Continues to have dependent edema but penile edema seems to be slightly better Reporting less GI issues today Review of Systems Constitutional: + fatigue; no fever and no chills Cardiovascular: + edema; no chest pain and no palpitations Gastrointestinal: + nausea and + vomiting; no abdominal pain, no constipation and no diarrhea/loose stools Genitourinary: + scrotal swelling; no dysuria, no difficulty urinating, no urinary hesitancy and no genital pain Integumentary: + non-healing lesions Neurologic: + falls; no dizziness Physical Exam Constitutional: WD/WN, vitals as above + frail appearing; no acute distress and not ill appearing Eyes: + anicteric sclerae ENMT: Ears: no hearing impairment Neck: normal visual inspection and trachea midline Respiratory: normal respiratory effort, lungs clear to auscultation Cardiovascular: Rate/Rhythm: regular rate and + irregularly irregular Heart Sounds: + murmur Gastrointestinal (Abdomen): Inspection/Auscultation: normal bowel sounds Percussion/Palpation: abdomen soft; abdomen nontender Musculoskeletal: Head/Neck/Chest: normocephalic and head atraumatic Skin: no rashes, warm and dry Neurologic: moves all extremities Psychiatric: A+Ox3, euthymic affect Genitourinary: + edematous penis and + scrotal swelling; no erythematous penis and no erythematous scrotum Results & Data Vital Signs (Past 12 Hours) Vital Signs Temp Pulse Resp BP Pulse Ox 03/26/19 07:06 36.5 C 88 16 123/65 95 PG Care Time/CCT Total # of Minutes Spent Total Time Spent with Patient: Total time spent is greater than 50% in coordination of care (as documented) at patient's floor/unit and/or counseling patient:
[2019-03-26] MEDS: levoFLOXacin 750 MG TAB PO SCH (16:53)
[2019-03-26] MEDS: WARFARIN SOD 1 MG TAB PO SCH (16:55)
[2019-03-27] MEDS: ACETAMINOPHEN 500 MG TAB PO SCH (05:39)
[2019-03-27 06:39] LABS: Hematocrit (blood only) 23.3 % (42-52); Hemoglobin 7.8 g/dL (14.0-18.0); Mean Corpuscular Hgb Conc 33.5 g/dL (32-36); Mean Corpuscular Volume 94.7 fL (80-100); Mean Platelet Volume 10.3 fL (7.4-10.4); Platelet Count 121 K/uL (130-400); RDW Coefficient of Variation 14.8 % (11.5-14.5); Red Blood Count 2.46 M/uL (4.7-6.1); White Blood Count 3.61 K/uL (4.8-10.8)
[2019-03-27] MEDS: DOCUSATE SODIUM 100 MG CAP PO SCH (08:06)
[2019-03-27] MEDS: ASPIRIN 81 MG ECTAB PO SCH (08:06)
[2019-03-27] MEDS: FERROUS SULFATE 325 MG TAB PO SCH (08:06)
[2019-03-27] MEDS: ASCORBIC ACID 500 MG TAB PO SCH (08:06)
[2019-03-27] MEDS: SUCRALFATE 1 GM/10 ML UDC PO SCH (08:06)
[2019-03-27] MEDS: LISINOPRIL 5 MG TAB PO SCH (08:06)
[2019-03-27] MEDS: LACTOBACILLUS ACIDOPHILUS (FLORANEX) TAB PO SCH (08:07)
[2019-03-27] MEDS: LINEZOLID 600 MG TAB PO SCH ×2 (08:07→20:52)
[2019-03-27] MEDS: PANTOprazole 40 MG TAB PO SCH ×2 (08:07→20:52)
[2019-03-27] MEDS ORDERED: DOCUSATE SODIUM 100 MG CAP PO PRN (09:09)
[2019-03-27] MEDS ORDERED: SUCRALFATE 1 GM/10 ML UDC PO PRN (09:09)
[2019-03-27] MEDS ORDERED: ALUMINUM/MAGNESIUM SUSP 30 ML UDC PO PRN (13:07)
[2019-03-27] MEDS ORDERED: ALUMINUM/MAGNESIUM SUSP 18 ML, LIDOCAINE HCL VISCOUS 2% 6 ML, BARCODE IDENTIFIER 1 EA PO ONE (13:07)
[2019-03-27 13:08] LABS: Hematocrit (blood only) 25.2 % (42-52); Hemoglobin 8.4 g/dL (14.0-18.0)
[2019-03-27] MEDS: WARFARIN SOD 1 MG TAB PO SCH (15:37)
--- NOTE | 2019-03-27 15:59 | Hospitalist Progress Note ---
Date of Service March 27, 2019 Assessment & Plan (1) Gangrene of toe of right foot: - MRI with areas of osteitis without definitive evidence for osteomyelitis within the distal phalanges of the 1st, 3rd, 4th, and 5th toes; S/P R 2nd toe amputation and debridement on 03/10; S/P I&D on 03/22 - Continue Zyvox (end date 03/29) - may need longer pending wound stabilization per ortho - Operative Cx now with pansensitive e. coli and pseudomonas - stopped IV Ceftriaxone and started Levaquin 750 mg Q48H for renal dosing - appreciate any adjustments per ID - Wound care following -- continue daily and PRN dressing changes; clean with saline and cover with Aquacel AG and secure with Optifoam; possibility of wound vac which hasn't been decided on at this time but if would looks acceptable at this time this could be arranged as outpatient/at [facility] to not delay discharge - Orthopedics following - packing removed - appreciate surgical management (2) Scrotal edema: - Has been progressive and edema largely located to penis/scrotum (penis edema slightly improved) but also with lower extremity edema and hand/wrist - largely of dependent areas -- Hands are improving but some swelling into forearm and weeping - can try some compression to help move fluid especially when not elevating the extremities and penile swelling is improving - likely some component of low albumin contributing and could consider boost supplementation however that would be long-term benefit - Continue scrotal elevation/extremity elevation; given Lasix on a previous day with bump in renal function and will hold further diuretic therapy and likely this would have limited affect - Scale suggests a 10 lb weight gain from 03/23 to 03/24 - he is edematous however not much changed from previous days and trend of weight shows approx. 10 lbs weight loss a few days back - will continue to monitor - Urination improved today (3) Fall: - Fell in restroom on 03/19 - appears mechanical with no LOC or acute injury minus elbow abrasions with drainage - Mentation is baseline and no pain - PT/OT evaluations; awaiting authorization for [facility] (4) Nausea & vomiting: - Continues to have intermittent nausea mostly with pills - this did stabilize until the new antibiotic was initiated so likely that could be the cause however he is at risk for gastritis/PUD - however is on Protonix BID and is established with [facility] and maybe would benefit from an outpatient F/U - He is anemic and earlier in admission he was heme+ and does have a H/O GI bleed in the past per - vomiting when it does occur seems to be more solid foods so may be regurgitation more than vomiting - Carafate did help some but he said it was gritty - will do GI cocktail x 1 and can use Maalox PRN - Did hold non-essential medications and will hold [place] until GI symptoms improve as he states he commonly has issues with this even though he has been on this awhile - it appears this is a chronic thing as states he would try and take pepto-bismol for these symptoms and would even get nauseous with that - Having adequate bowel movements - Will continue Abx as previously prescribed; PRN anti-emetics (5) Lethargy: - Currently resolved - possibly medication induced with Phenergan/Ativan (6) Atrial fibrillation: - Rate Controlled - INR reversed for procedure; will resume Warfarin at 1 mg daily given concurrent Levaquin treatment and trend INR - Currently not on rate controlling medications - appears to have been D/C'd on previous admission (7) DMII (diabetes mellitus, type 2): - Most recent A1C was 5.1 - Does not require SSI coverage. (8) CAD (coronary artery disease): - Recent iliac stent placed in January but has been on triple therapy since - review of cards notes recommended continuation of Plavix and Coumadin and will therefore D/C ASA (9) Chronic kidney disease, stage 3a: - STABLE - will continue to monitor (10) HLD (hyperlipidemia): - Not currently on statin agent - appears this was D/C'd in setting of Daptomycin therapy -- Now off Dapto likely can resume given his PAD (11) Peripheral arterial disease: - Follows with Dr. Wiseman - will need to reschedule follow up appointment. - Continue plavix as noted above. - Repeat arterial doppler showed: extensive atherosclerotic plaque about the b/l lower extremities; triphasic waveforms within b/l common femoral arteries with biphasic waveforms about the superficial femoral arteries; monophasic waveforms about the lower legs b/l with L > R; no arterial occlusion or significantly elevated peak systolic velocities identified to suggest high-grade stenosis (12) HTN (hypertension): - Continue Lisinopril 5 mg daily (13) DVT prophylaxis: - SCDs; Resume Coumadin Dispo: Possible wound vac; planning on maybe Thursday as a wound vac could be arranged as outpatient if wound is stable per orthopedics; could see GI as outpatient Subjective Patient reports overall feeling okay today. States he continues to have an upset stomach when taking his pills and may have some chronic component to it as his states he would sometimes vomit when taking pepto-bismol to help with symptoms. This did stabilize until an additional antibiotic was added. But would be at risk for gastritis/PUD and also is a celiac. He states the Carafate may have helped some but was gritty and will try a GI cocktail and can use PRN Maalox. Beginning to have some seeping from his arms which the hand swelling is improving with elevation and can continue some compression to help move fluid. Also continue to elevate scrotum and legs. Penile edema is slightly improving Verbalizes no complaints at this time. Review of Systems Review of Systems: Pertinent positives and negatives reviewed in HPI--all others negative Constitutional: + fatigue; no fever and no chills Cardiovascular: + edema; no chest pain and no palpitations Gastrointestinal: + nausea and + vomiting; no abdominal pain, no constipation and no diarrhea/loose stools Genitourinary: + scrotal swelling; no dysuria, no difficulty urinating, no urinary hesitancy and no genital pain Integumentary: + non-healing lesions Neurologic: + falls; no dizziness Physical Exam Constitutional: WD/WN, vitals as above + frail appearing; no acute distress and not ill appearing Eyes: + anicteric sclerae ENMT: Ears: no hearing impairment Neck: normal visual inspection and trachea midline Respiratory: normal respiratory effort, lungs clear to auscultation Cardiovascular: Rate/Rhythm: regular rate and + irregularly irregular Heart Sounds: + murmur Gastrointestinal (Abdomen): Inspection/Auscultation: normal bowel sounds Percussion/Palpation: abdomen soft; abdomen nontender Musculoskeletal: Head/Neck/Chest: normocephalic and head atraumatic Skin: no rashes, warm and dry Neurologic: moves all extremities Psychiatric: A+Ox3, euthymic affect Genitourinary: + edematous penis and + scrotal swelling; no erythematous penis and no erythematous scrotum Results & Data Vital Signs (Past 12 Hours) Vital Signs Temp Pulse Resp BP Pulse Ox 03/27/19 15:07 36.4 C L 76 16 110/68 94 03/27/19 07:26 36.4 C L 18 102/58 L 97 PG Care Time/CCT Total # of Minutes Spent Total Time Spent with Patient: Total time spent is greater than 50% in coordination of care (as documented) at patient's floor/unit and/or counseling patient:
[2019-03-27] MEDS: ONDANSETRON INJ 2 MG/ML 2 ML VIAL IV PRN (17:27)
[2019-03-27] MEDS: ACETAMINOPHEN 500 MG TAB PO PRN (19:30)
[2019-03-28] MEDS: OXYCODONE HCL IR 5 MG TAB (IMMEDIATE RELEASE) PO PRN (00:09)
[2019-03-28 06:17] LABS: Hematocrit (blood only) 22.3 % (42-52); Hemoglobin 7.6 g/dL (14.0-18.0); Mean Corpuscular Hgb Conc 34.1 g/dL (32-36); Mean Corpuscular Volume 96.1 fL (80-100); RDW Coefficient of Variation 14.8 % (11.5-14.5); RDW Standard Deviation 51.1 fL (36.4-46.3); Red Blood Count 2.32 M/uL (4.7-6.1); White Blood Count 2.66 K/uL (4.8-10.8)
[2019-03-28 06:26] LABS: Prothrombin Time 10.2 Seconds (9.0-12.0)
[2019-03-28 06:38] LABS: Mean Platelet Volume 10.5 fL (7.4-10.4); Platelet Count 95 K/uL (130-400)
[2019-03-28 06:39] LABS: Platelet Estimate Decreased (Normal)
[2019-03-28 06:55] LABS: BUN Creatinine Ratio 21.1 (10-20); Calcium 7.5 mg/dl (8.5-10.1); Est GFR (African American) 46.3; Est GFR (Non-African American) 39.9; Potassium 4.7 mmol/L (3.5-5.1)
[2019-03-28] MEDS: ONDANSETRON INJ 2 MG/ML 2 ML VIAL IV PRN (08:08)
[2019-03-28] MEDS: ASCORBIC ACID 500 MG TAB PO SCH (08:10)
[2019-03-28] MEDS: LINEZOLID 600 MG TAB PO SCH ×2 (08:10→22:17)
[2019-03-28] MEDS: PANTOprazole 40 MG TAB PO SCH (08:10)
[2019-03-28] MEDS ORDERED: SODIUM CHLORIDE 0.9% 250 ML IV PRN (08:48)
[2019-03-28] MEDS ORDERED: CLOPIDOGREL BISULFATE 75 MG TAB PO SCH (09:00)
--- NOTE | 2019-03-28 14:30 | Hospitalist Progress Note ---
Date of Service March 28, 2019 Assessment & Plan (1) Gangrene of toe of right foot: - MRI with areas of osteitis without definitive evidence for osteomyelitis within the distal phalanges of the 1st, 3rd, 4th, and 5th toes; S/P R 2nd toe amputation and debridement on 03/10 followed by I&D on 03/22. - Most recent culture from I&D positive for E. coli and Pseudomonas. - Continue Zyvox (end date: 03/29); also on Levaquin 750 mg q48hr per sensitivities. - ID following, appreciate input. - Wound care following; continue daily dressing changes; clean with saline and cover with Aquacel AG and secure with Optifoam. - May require wound vac placement -- follow up with orthopedics (also following as inpt) as outpatient to discuss. (2) GI bleed: - FOBT was positive this afternoon in setting of anemia; previous FOBT also positive on 03/09/19. - Will consult GI for evaluation due to ongoing N/V, worsening anemia and +FOBT. - Convert PPI PO BID to Famotidine IV BID (Protonix IV shortage) - Hold Coumadin in setting of acute bleed -- INR was subtherapeutic this morning. - May require endoscopy on 03/29 -- NPO after midnight for possible procedure. (3) Anemia: - Significant drop in hgb below baseline -- was 7.6 this morning. - Transfused 2 units PRBCs, post transfusion H/H pending. - GI bleed work up as noted above. - Monitor CBC twice daily in setting of acute bleed. (4) Nausea & vomiting: - Continues with intermittent nausea/vomiting throughout this admission -- unclear etiology, GERD vs. gastritis/PUD with active bleeding vs. medication related. - Does have h/o GI bleed -- consulting GI as noted above. - Holding non-essential medications, including ferrous sulfate, at this time. - Famotidine IV BID; Maalox prn. - Continue Zyvox/Levaquin as prescribed - abx may be contributing to N/V. (5) Scrotal edema: - Has progressive edema in scrotal area - no significant edema noted in other areas. - Continue scrotal elevation; holding diuresis due to increase in Creatinine level. - Monitor I/Os and daily weights -- weight has trended up overall since admission. (6) Fall: - Fell in restroom on 03/19 - appears mechanical, no indication for further work up. - PT/OT evaluations; discharge to [facility] once medically stable. (7) Atrial fibrillation: - INR reversed for procedure; resumed Warfarin 1 mg daily given concurrent Levaquin treatment, will hold in setting of acute GI bleed. - Monitor INR daily -- was subtherapeutic at 1.0 today. - Currently not on rate controlling medications. (8) DMII (diabetes mellitus, type 2): - Most recent A1C was 5.1 - Does not require SSI coverage. (9) CAD (coronary artery disease): - Recent iliac stent placed in January but has been on triple therapy since . - Hold Plavix/Coumadin in setting of acute bleed -- d/c'ed Aspirin per previous cardiology notes. - Will resume statin as prescribed. (10) Chronic kidney disease, stage 3a: - Renal function is currently stable. (11) HLD (hyperlipidemia): - Resume statin agent following discontinuation of Dapto. (12) Peripheral arterial disease: - Follows with Dr. Wiseman; will need appt at discharge. - Holding Plavix as noted above; resuming statin. - Repeat arterial doppler showed: extensive atherosclerotic plaque about the b/l lower extremities; triphasic waveforms within b/l common femoral arteries with biphasic waveforms about the superficial femoral arteries; monophasic waveforms about the lower legs b/l with L > R; no arterial occlusion or significantly elevated peak systolic velocities identified to suggest high-grade stenosis. (13) HTN (hypertension): - Holding Lisinopril -- has been hypotensive. (14) DVT prophylaxis: - SCDs; Holding Coumadin due to acute bleed. Dispo: [facility] placement once medically stable. Supervising Physician Co-Signing Physician Notes HALLE Supervision Note: I did not personally see or examine the patient today, but I verified all cerrato points of HALLE Ambriz's assessment and plan with the following exceptions/additions: None Subjective Pt. complains of diarrhea -- he had a BM in bed last evening, did not make it to the restroom. Also has ongoing nausea, denies vomiting. Concern for GI bleed in setting of downtrending hemoglobin and recent positive FOBT, repeat FOBT is pending. Plan for placement at rehab once pt. is medically stable. Review of Systems Review of Systems: All systems reviewed & are unremarkable except as noted in HPI & below Constitutional: no fever, no chills, no fatigue, no weakness and no anorexia Respiratory: no cough, no dyspnea, no dyspnea on exertion and no wheezing Cardiovascular: no chest pain, no palpitations and no edema Gastrointestinal: + nausea and + diarrhea/loose stools; no abdominal pain, no vomiting, no constipation, no blood in stools and no melena Genitourinary: no difficulty urinating Musculoskeletal: no back pain and no joint pain Integumentary: no non-healing lesions Allergy / Immunological: no rash Physical Exam Physical Exam: General: Resting comfortably in no apparent distress HEENT: NC/AT; PERRLA with EOMI; [place] conjunctiva, MMM. No erythema of posterior pharynx Neck: Supple and nontender Cardiac: RRR Lungs: CTA bilaterally Abdomen: Bowel normoactive X 4; Nontender to palpation Extremities: Warm. No edema present Neuro: No focal weakness Skin: No rash; optifoam in place over right second toe amputation site. Results & Data Vital Signs (Past 12 Hours) Vital Signs Temp Pulse Pulse Resp BP BP Pulse Ox 03/28/19 14:16 36.4 C L 89 18 114/68 96 03/28/19 13:48 36.5 C 69 16 103/59 L 93 03/28/19 13:37 36.5 C 94 H 18 114/61 92 03/28/19 13:14 36.4 C L 96 H 20 104/60 03/28/19 13:11 36.4 C L 96 H 20 104/60 03/28/19 12:53 36.4 C L 88 20 03/28/19 11:55 36.5 C 88 16 102/61 92 03/28/19 10:50 36.4 C L 85 16 100/61 92 03/28/19 10:20 36.5 C 85 16 109/51 L 92 03/28/19 10:10 36.7 C 83 16 108/53 L 92 03/28/19 09:52 36.5 C 84 20 101/58 L 03/28/19 08:03 91 H 93/58 L 03/28/19 07:28 36.5 C 99 H 14 82/49 L 95 Laboratory Results 03/28/19 03/28/19 03/28/19 Range/Units 09:30 05:39 05:39 WBC (4.8-10.8) K/uL RBC (4.7-6.1) M/uL Hgb (14.0-18.0) g/dL Hct (42-52) % MCV (80-100) fL MCH (25-34) pg MCHC (32-36) g/dL RDW Std Deviation (36.4-46.3) fL RDW Coeff of Gilbert (11.5-14.5) % Plt Count (130-400) K/uL MPV (7.4-10.4) fL Platelet Estimate (Normal) PT 10.2 (9.0-12.0) Seconds INR 1.0 (0.9-1.1) Sodium 134 L (136-145) mmol/L Potassium 4.7 (3.5-5.1) mmol/L Chloride 104 (98-107) mmol/L Carbon Dioxide 21 (21-32) mmol/L Anion Gap 10.0 (3-11) BUN 33 H (7-18) mg/dl Creatinine 1.55 H (0.6-1.4) mg/dl Est Cr Clr Drug Dosing 32.0 ml/min Est GFR ( Amer) 46.3 Est GFR (Non-Af Amer) 39.9 BUN/Creatinine Ratio 21.1 H (10-20) Glucose 82 (70-99) mg/dl Calcium 7.5 L (8.5-10.1) mg/dl Stool Occult Bld Scrn Cancelled Blood Type Antibody Screen Crossmatch 03/28/19 03/27/19 Range/Units 05:39 12:59 WBC 2.66 L (4.8-10.8) K/uL RBC 2.32 L (4.7-6.1) M/uL Hgb 7.6 L (14.0-18.0) g/dL Hct 22.3 L (42-52) % MCV 96.1 (80-100) fL MCH 32.8 (25-34) pg MCHC 34.1 (32-36) g/dL RDW Std Deviation 51.1 H (36.4-46.3) fL RDW Coeff of Gilbert 14.8 H (11.5-14.5) % Plt Count 95 L (130-400) K/uL MPV 10.5 H (7.4-10.4) fL Platelet Estimate Decreased L (Normal) PT (9.0-12.0) Seconds INR (0.9-1.1) Sodium (136-145) mmol/L Potassium (3.5-5.1) mmol/L Chloride (98-107) mmol/L Carbon Dioxide (21-32) mmol/L Anion Gap (3-11) BUN (7-18) mg/dl Creatinine (0.6-1.4) mg/dl Est Cr Clr Drug Dosing ml/min Est GFR ( Amer) Est GFR (Non-Af Amer) BUN/Creatinine Ratio (10-20) Glucose (70-99) mg/dl Calcium (8.5-10.1) mg/dl Stool Occult Bld Scrn Blood Type A Positive Antibody Screen NEGATIVE Crossmatch See Detail PG Care Time/CCT Total # of Minutes Spent Total Time Spent with Patient: Total time spent is greater than 50% in coordination of care (as documented) at patient's floor/unit and/or counseling patient:
[2019-03-28] MEDS: levoFLOXacin 750 MG TAB PO SCH (15:06)
[2019-03-28] MEDS: WARFARIN SOD 1 MG TAB PO SCH (17:02)
[2019-03-28] MEDS: PRAVASTATIN SOD 40 MG TAB PO SCH (18:00)
[2019-03-28] MEDS: NYSTATIN SUSP 500,000 U/5 ML UDC PO SCH ×2 (18:00→22:16)
[2019-03-28] MEDS ORDERED: FUROSEMIDE 20 MG in SYRINGE 0 ML IV ONE (18:30)
--- NOTE | 2019-03-28 18:38 | Infectious Disease Progress Nt ---
Date of Service March 28, 2019 Assessment & Plan (1) Gangrene of toe of right foot: Patient with gangrene of the right second toe in the setting of diabetes and severe peripheral arterial disease. Now s/p amputation of the toe. Culture now with E. coli and pseudomonas aeruginosa. Continue with levofloxacin. Will follow. Subjective Patient seen in follow-up for gangrenous toe status post amputation. No new complaints. Pain controlled. No fever. Cultures have grown E. coli and pseudomonas aeruginosa. Review of Systems Review of Systems: All systems reviewed & are unremarkable except as noted in HPI & below Physical Exam Constitutional: WD/WN, vitals as above comfortable; no acute distress Eyes: PERRL, conjunctivae normal, anicteric sclerae ENMT: external ear and nose normal, oropharynx normal Neck: trachea midline, no thyromegaly neck nontender Respiratory: normal respiratory effort, lungs clear to auscultation normal percussion; does not use accessory muscles Cardiovascular: Rate/Rhythm: regular rate and regular rhythm Heart Sounds: normal S1 and normal S2; no gallop, no murmur and no cardiac rub Vessels: normal peripheral pulses; no JVD Gastrointestinal (Abdomen): normal bowel sounds, soft, nontender, no hepatosplenomegaly Musculoskeletal: no cyanosis or clubbing, extremities motor strength 5/5 Spine: thoracic spine normal to inspection and lumbar spine normal to inspection; no cervical spinal tenderness Skin: normal turgor; no rashes Neurologic: moves all extremities and awake; no focal motor deficits Psychiatric: A+Ox3, euthymic affect Orientation: cooperative Lymphatic: no cervical or axillary lymphadenopathy no inguinal lymphadenopathy Results & Data Vital Signs (Past 12 Hours) Vital Signs Temp Pulse Pulse Resp BP BP Pulse Ox 03/28/19 16:50 36.5 C 79 17 109/64 100 03/28/19 16:16 36.5 C 86 16 119/66 96 03/28/19 15:18 36.3 C L 90 18 116/49 L 100 03/28/19 14:16 36.4 C L 89 18 114/68 96 03/28/19 13:48 36.5 C 69 16 103/59 L 93 03/28/19 13:37 36.5 C 94 H 18 114/61 92 03/28/19 13:14 36.4 C L 96 H 20 104/60 03/28/19 13:11 36.4 C L 96 H 20 104/60 03/28/19 12:53 36.4 C L 88 20 03/28/19 11:55 36.5 C 88 16 102/61 92 03/28/19 10:50 36.4 C L 85 16 100/61 92 03/28/19 10:20 36.5 C 85 16 109/51 L 92 03/28/19 10:10 36.7 C 83 16 108/53 L 92 03/28/19 09:52 36.5 C 84 20 101/58 L 03/28/19 08:03 91 H 93/58 L 03/28/19 07:28 36.5 C 99 H 14 82/49 L 95 Laboratory Results Short CBC 03/28/19 Range/Units 05:39 WBC 2.66 L (4.8-10.8) K/uL Hgb 7.6 L (14.0-18.0) g/dL Hct 22.3 L (42-52) % Plt Count 95 L (130-400) K/uL BMP 03/28/19 05:39 Sodium 134 L Potassium 4.7 Chloride 104 Carbon Dioxide 21 BUN 33 H Creatinine 1.55 H Glucose 82 Calcium 7.5 L Diagnostic Findings Microbiology 03/22/19 Unknown Foot,Right Gram Stain - Final 03/22/19 Unknown Foot,Right Aerobic and Anaerobic Culture - Final Escherichia coli Pseudomonas aeruginosa 03/22/19 Unknown Foot,Right Gram Stain - Final 03/22/19 Unknown Foot,Right Aerobic and Anaerobic Culture - Final Escherichia coli Pseudomonas aeruginosa
[2019-03-28 18:54] LABS: Hemoglobin 10.3 g/dL (14.0-18.0)
[2019-03-28] MEDS ORDERED: FAMOTIDINE 20MG/5ML IV PUSH IV SCH (21:00)
[2019-03-28] MEDS: FAMOTIDINE 20 MG in SYRINGE 3 ML IV SCH (22:16)
[2019-03-29] MEDS: OXYCODONE HCL IR 5 MG TAB (IMMEDIATE RELEASE) PO PRN ×2 (03:36→11:50)
[2019-03-29] MEDS: ACETAMINOPHEN 500 MG TAB PO PRN ×2 (06:20→15:41)
[2019-03-29 06:37] LABS: Hematocrit (blood only) 29.3 % (42-52); Hemoglobin 9.8 g/dL (14.0-18.0); Mean Corpuscular Hgb Conc 33.4 g/dL (32-36); Mean Corpuscular Volume 92.1 fL (80-100); RDW Coefficient of Variation 15.3 % (11.5-14.5); RDW Standard Deviation 51.4 fL (36.4-46.3); Red Blood Count 3.18 M/uL (4.7-6.1); White Blood Count 2.62 K/uL (4.8-10.8)
[2019-03-29 06:49] LABS: Prothrombin Time 10.4 Seconds (9.0-12.0)
[2019-03-29 07:08] LABS: Mean Platelet Volume 11.2 fL (7.4-10.4); Platelet Count 73 K/uL (130-400); Platelet Estimate Decreased (Normal)
[2019-03-29 07:13] LABS: BUN Creatinine Ratio 20.5 (10-20); Calcium 7.6 mg/dl (8.5-10.1); Est GFR (African American) 44.6; Est GFR (Non-African American) 38.4; Potassium 4.7 mmol/L (3.5-5.1)
[2019-03-29] MEDS: LINEZOLID 600 MG TAB PO SCH ×2 (09:10→21:06)
[2019-03-29] MEDS: NYSTATIN SUSP 500,000 U/5 ML UDC PO SCH ×4 (09:11→21:06)
[2019-03-29] MEDS: ASCORBIC ACID 500 MG TAB PO SCH (09:11)
[2019-03-29] MEDS: FAMOTIDINE 20 MG in SYRINGE 3 ML IV SCH (09:15)
[2019-03-29] MEDS: ONDANSETRON INJ 2 MG/ML 2 ML VIAL IV PRN (09:15)
--- NOTE | 2019-03-29 12:35 | Fluoroscopy Report ---
LEFT FOURTH AND FIFTH TOE 3 VIEWS CLINICAL HISTORY: 4th and 5th toe pain COMPARISON STUDY: Left foot 03/29/2019. FINDINGS: The bones are osteopenic. Mild vascular calcifications are noted. No fracture or dislocatio n within the left fourth or fifth toe. No cortical destruction to suggest osteomyelitis. Punctate rad iopaque foreign body at the plantar surface of the fifth toe likely represent superficial debris. No significant soft tissue swelling. IMPRESSION: No fracture or dislocation within the left fourth or fifth toe. Electronically signed by: Pipo Basurto M.D. 03/29/2019 12:33 PM
--- NOTE | 2019-03-29 12:38 | XRay Report ---
XR foot LT min 3V routine HISTORY: 88 years-old Male Foot/toe pain acute left foot and toe pain COMPARISON: Radiographic images of the left toes of same day TECHNIQUE: 3 views of the left foot FINDINGS: Extension of the metatarsal-phalangeal joints with mild flexion of the interphalangeal joints limits the study. Mildly demineralized appearance the bones. Moderate degenerative changes of the first MTP joint with at least mild degenerative changes of the interphalangeal joints. No acute fracture, dislo cation or opaque foreign body identified. Peripheral arterial calcifications noted. Moderate to mcmahon es about the tibiotalar joint with mild marginal spurring of the calcaneus. Mild soft tissue prominen ce with dystrophic calcifications about the distribution of the distal Achilles tendon. IMPRESSION: 1. No acute fracture or dislocation. 2. Degenerative changes as above. The above report was generated using voice recognition software. It may contain grammatical, syntax o r spelling errors. Electronically signed by: Codey Dumas M.D. 03/29/2019 12:37 PM
--- NOTE | 2019-03-29 12:42 | Hospitalist Progress Note ---
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 - Most recent culture from I&D positive for E. coli and Pseudomonas. - Continue Zyvox (end date: 03/29, today); also on Levaquin 750 mg q48hr per sensitivities. - ID following, appreciate input. - Wound care following; continue daily dressing changes; clean with saline and cover with Aquacel AG and secure with Optifoam. - May require wound vac placement -- follow up with orthopedics (also following as inpt) as outpatient to discuss. (2) GI bleed: - FOBT was positive in setting of anemia; previous FOBT also positive on 03/09/19. - Consulted GI for evaluation due to ongoing N/V, worsening anemia and +FOBT. - Famotidine IV BID (Protonix IV shortage) - Hold Coumadin and Plavix in setting of acute bleed -- INR has been subtherapeutic. - Plan for EGD on 03/30/19. (3) Anemia: - Significant drop in hgb to 7.6 on 03/28 in setting of acute bleed -- now improved following transfusion support. - GI bleed work up as noted above. - Monitor CBC daily -- stable this morning. (4) Nausea & vomiting: - Continues with intermittent nausea/vomiting throughout this admission -- unclear etiology, GERD vs. gastritis/PUD with active bleeding vs. medication related. - Does have h/o GI bleed -- consulted GI as noted above. - Holding non-essential medications, including ferrous sulfate. - Famotidine IV BID; Maalox prn. - Continue Zyvox/Levaquin as prescribed - abx may be contributing to N/V. (5) Left foot pain: - Complains of left foot 4th and 5th digit pain; TTP on exam but no open lesions noted. - Foot XR/Toe XR was negative for acute changes. - Cardiology, Dr. Wiseman, consulted due to h/o significant PAD and acute symptoms. (6) Scrotal edema: - Has progressive edema in scrotal area - no significant edema noted in other areas. - Continue scrotal elevation; hold diuresis due to elevated Cr level. - Monitor I/Os and daily weights -- weight has trended up overall. (7) Fall: - Fell in restroom on 03/19 - appears mechanical, no indication for further work up. - PT/OT evaluations; discharge to [facility] once medically stable. (8) Atrial fibrillation: - INR was reversed for recent procedure on 03/22; resumed Warfarin post op, now holding in setting of acute GI bleed. - Monitor INR daily -- was subtherapeutic at 1.0. - Currently not on rate controlling medications. (9) DMII (diabetes mellitus, type 2): - Most recent A1C was 5.1 - Does not require SSI coverage. (10) CAD (coronary artery disease): - Recent iliac stent placed in January but has been on triple therapy since . - Hold Plavix/Coumadin in setting of acute bleed -- d/c'ed Aspirin per previous cardiology notes. - Continue statin as prescribed. (11) Chronic kidney disease, stage 3a: - Renal function continues to trend up, was 1.6 today. - May be related to dehydration -- holding IV fluids due to recent scrotal edema. - Monitor levels daily. (12) HLD (hyperlipidemia): - Resumed statin agent following discontinuation of Dapto. (13) Peripheral arterial disease: - Follows with Dr. Wiseman; will need appt at discharge. - Holding Plavix as noted above; resumed statin. - Repeat arterial doppler showed: extensive atherosclerotic plaque about the b/l lower extremities; triphasic waveforms within b/l common femoral arteries with biphasic waveforms about the superficial femoral arteries; monophasic waveforms about the lower legs b/l with L > R; no arterial occlusion or significantly elevated peak systolic velocities identified to suggest high-grade stenosis. - Repeat bilat arterial duplex is pending in setting of acute left foot/toe pain. (14) HTN (hypertension): - Holding Lisinopril due to hypotension. (15) DVT prophylaxis: - SCDs; Holding Coumadin due to acute bleed. Dispo: [facility] placement once medically stable. GI consulted for possible EGD. Discussed plan of care extensively with his Jackie on the phone at 2:41 pm. Supervising Physician Co-Signing Physician Notes PA Supervision Note: I did not personally see or examine the patient today, but I verified all cerrato points of HALLE Ambriz's assessment and plan with the following exceptions/additions: None Subjective Pt. complains of left foot pain today -- specifically in the 4th and 5th toes. Pain developed over the last 24 hours. Has nausea, slightly improved, but denies vomiting. Is having regular BMs. Also complains of burning epigastric pain - may be related to PUD. GI consulted, recs pending. Review of Systems Review of Systems: All systems reviewed & are unremarkable except as noted in HPI & below Constitutional: no fever, no chills, no fatigue, no weakness and no anorexia Respiratory: no cough, no dyspnea, no dyspnea on exertion and no wheezing Cardiovascular: no chest pain, no palpitations and no edema Gastrointestinal: + nausea; no abdominal pain, no vomiting, no constipation and no diarrhea/loose stools Genitourinary: no difficulty urinating Musculoskeletal: + joint pain (Left toe pain, 4th and 5th. ); no back pain Integumentary: no non-healing lesions Allergy / Immunological: no rash Physical Exam Physical Exam: General: Resting comfortably in no apparent distress HEENT: NC/AT; PERRLA with EOMI; [place] conjunctiva, MMM. No erythema of posterior pharynx Neck: Supple and nontender Cardiac: RRR Lungs: CTA bilaterally Abdomen: Bowel normoactive X 4; Nontender to palpation Extremities: Warm. No edema present. Tender to light palpation over left 4th and 5th toes. Neuro: No focal weakness Skin: No rash; optifoam in place on right second toe. Results & Data Vital Signs (Past 12 Hours) Vital Signs Temp Pulse Resp BP Pulse Ox 03/29/19 07:35 36.4 C L 85 16 108/57 L 98 Laboratory Results 03/29/19 03/29/19 03/29/19 Range/Units 05:53 05:53 05:53 WBC 2.62 L (4.8-10.8) K/uL RBC 3.18 L (4.7-6.1) M/uL Hgb 9.8 L (14.0-18.0) g/dL Hct 29.3 L (42-52) % MCV 92.1 (80-100) fL MCH 30.8 (25-34) pg MCHC 33.4 (32-36) g/dL RDW Std Deviation 51.4 H (36.4-46.3) fL RDW Coeff of Gilbert 15.3 H (11.5-14.5) % Plt Count 73 L (130-400) K/uL MPV 11.2 H (7.4-10.4) fL Platelet Estimate Decreased L (Normal) PT 10.4 (9.0-12.0) Seconds INR 1.0 (0.9-1.1) Sodium 133 L (136-145) mmol/L Potassium 4.7 (3.5-5.1) mmol/L Chloride 105 (98-107) mmol/L Carbon Dioxide 20 L (21-32) mmol/L Anion Gap 8.0 (3-11) BUN 33 H (7-18) mg/dl Creatinine 1.60 H (0.6-1.4) mg/dl Est Cr Clr Drug Dosing 31.0 ml/min Est GFR ( Amer) 44.6 Est GFR (Non-Af Amer) 38.4 BUN/Creatinine Ratio 20.5 H (10-20) Glucose 88 (70-99) mg/dl Calcium 7.6 L (8.5-10.1) mg/dl Stool Occult Bld Scrn (Negative) Blood Type Antibody Screen Crossmatch 03/28/19 03/28/19 03/27/19 Range/Units 18:31 15:15 12:59 WBC (4.8-10.8) K/uL RBC (4.7-6.1) M/uL Hgb 10.3 L (14.0-18.0) g/dL Hct 31.0 L (42-52) % MCV (80-100) fL MCH (25-34) pg MCHC (32-36) g/dL RDW Std Deviation (36.4-46.3) fL RDW Coeff of Gilbert (11.5-14.5) % Plt Count (130-400) K/uL MPV (7.4-10.4) fL Platelet Estimate (Normal) PT (9.0-12.0) Seconds INR (0.9-1.1) Sodium (136-145) mmol/L Potassium (3.5-5.1) mmol/L Chloride (98-107) mmol/L Carbon Dioxide (21-32) mmol/L Anion Gap (3-11) BUN (7-18) mg/dl Creatinine (0.6-1.4) mg/dl Est Cr Clr Drug Dosing ml/min Est GFR ( Amer) Est GFR (Non-Af Amer) BUN/Creatinine Ratio (10-20) Glucose (70-99) mg/dl Calcium (8.5-10.1) mg/dl Stool Occult Bld Scrn Positive A (Negative) Blood Type A Positive Antibody Screen NEGATIVE Crossmatch See Detail PG Care Time/CCT Total # of Minutes Spent Total Time Spent with Patient: Total time spent is greater than 50% in coordination of care (as documented) at patient's floor/unit and/or counseling patient:
[2019-03-29] MEDS ORDERED: OXYCODONE HCL IR 5 MG TAB (IMMEDIATE RELEASE) PO STA (12:56)
--- NOTE | 2019-03-29 14:47 | Gastrointestinal Consultation ---
Date of Consultation March 29, 2019 Assessment & Plan (1) Anemia: Mr. Lawson is an 88 yr old who has had two loose black BMs and though his Hb is just a point below his baseline of 10, he has required 2 units of RBCs during this admission. Plan: Coumadin has been held starting today. Keep on clear liquids po for now. Continue Protonix drip. Will plan for EGD tomorrow by Dr. Deleon if INR <2.0. Present on Admission?: No (2) Melena: Supervising Physician Co-Signing Physician Notes I performed a history and physical examination of the patient, including specifi tavares on physical exam - soft, nontender abdomen. I have discussed the patient's management with Singh. Please refer to the nurse practitioner's note for the documented findings and plan of care. 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 Plan: EGD tomorrow. IV PPI for now. History of Present Illness Reason for Consultation: FOBT +, Anemia, N/V Requesting Physician: Grace Blankenship PA-C Attending Physician: Johanna Fitzgerald MD History of Present Illness Mr. Talon Lawson is an 88 yr old male pt of [facility] with a hx of A-fib, AVR with tissue valve, CAD, DM2, CKD-3, PAD recent stenting in January. He was admitted on 03/07 for right great toe cellulitis and underwent partial amputation of that toe on 03/27. He is maintained on warfarin and Plavix. He denies any abdominal pain. GI is consulted because he experienced anemia during this admission and stool occult was (+). Hb on arrival on 03/07 was 9.8. He received 2 units of RBCs on 03/27 and his lowest Hb was 7.6 on March 28. Hb today is 9.8 without further transfusion. Additionally, a review of the documented BMs shows that he passed one large black BM at 7AM on 03/28/19. He also passed one at 9Am on 03/26. Between these, many other BMs were documented that were brown. When asked he states that he believes that he has had black BMs "for a long time. " He denies any abdominal pain. He tells me that he believes that he has an ulcer and that he "wants to be checked." Most recent EGD was on 09/26/15 with a bleeding area within a duodenal diverticulum for which he underwent IR embolization in [place]. He underwent colonoscopy on 09/24/[address] Montague with old blood in the entire colon but no abnormalities in the colon. Allergies Allergy/AdvReac Type Severity Reaction Status Date / Time No Known Allergies Allergy Unknown Verified 03/07/19 08:45 Home Medications Home Medications Medication Instructions Recorded Confirmed Type ascorbic acid (vitamin C) 500 mg PO DAILY #0 03/17/18 03/07/19 History aspirin 81 mg PO DAILY #0 03/17/18 03/07/19 History cholecalciferol (vitamin D3) 2,000 unit PO DAILY #0 03/17/18 03/07/19 History [Vitamin D3] omeprazole 40 mg PO DAILY #0 03/17/18 03/07/19 History ferrous sulfate 325 mg PO BID 01/22/19 03/07/19 History lisinopril 0 mg PO DAILY 02/06/19 03/07/19 History daptomycin 350 mg IV DAILY #1 ea 02/19/19 03/07/19 Rx warfarin 3 mg PO DAILY #0 tab 02/19/19 03/07/19 Rx hydrocodone 5 mg-acetaminophen 325 See Rx Instructions PO Q4H PRN #60 03/02/19 03/07/19 Rx mg tablet tab linezolid [Zyvox] 600 mg PO BID #26 tab 03/15/19 Rx Patient History Medical History Inguinal hernia (Resolved) Cellulitis (Resolved) CAD (coronary artery disease) (Chronic) History of GI bleed (Resolved) KYLE (acute kidney injury) (Resolved) Diabetes mellitus (Acute) type 2 Osteomyelitis (Acute) S/P arteriogram of extremity (Acute) 2 stents in the lower legs A-fib Anemia of chronic disease CKD (chronic kidney disease), stage III Coronary artery disease GERD (gastroesophageal reflux disease) HTN (hypertension), benign History of peptic ulcer disease History of stent insertion of renal artery Right, in the Hyperlipidemia Peripheral vascular disease Subclavian artery stenosis Surgical History H/O aortic valve replacement with tissue graft (Resolved) H/O left inguinal hernia repair (Resolved) H/O aortic valve replacement (Resolved) Aortic valve replaced (Acute) Hx of CABG (Acute) History of cholecystectomy History of left inguinal hernia repair History of thoracentesis Family History Father Unknown family medical history Social History Preferred Language: Bhutanese Communication Ability: Effective Beliefs That Will Affect Care: None marital status: Current Living Situation: Spouse Feels Safe at Home: Yes Smoking Status: Former smoker Tobacco Type: cigarettes Cigarettes Per Day: 20 Second Hand Exposure: No Hx Alcohol Use: Yes (hx of heavy use, quit in 1995) Hx Substance Use: No Review of Systems Review of Systems: ROS: Gen: Some weakness, fevers, weight loss Eyes: No eye redness, or pain, no recent vision changes Resp: No SOB, no cough Cardio: No palpitations/irregular beats, no chest pain GI: No abdominal pain, no nausea/vomiting : Denies pain on urination Skin: No jaundice, itching or new rashes Ext: Rt toe pain. Physical Exam Constitutional: WD/WN, vitals as above + thin Eyes: PERRL, conjunctivae normal, anicteric sclerae ENMT: external ear and nose normal, oropharynx normal Neck: trachea midline, no thyromegaly Respiratory: normal respiratory effort, lungs clear to auscultation Cardiovascular: Rate/Rhythm: + irregularly irregular Heart Sounds: + murmur (2-3/6 systolic) Vessels: no JVD Extremities: no edema Gastrointestinal (Abdomen): normal bowel sounds, soft, nontender, no hepatosplenomegaly Musculoskeletal: bilat lower legs with slightly reddened skin. Rt long toe dressing intact Skin: no jaundice Neurologic: PERRL, EOMI, accommodation nl, no face palsy, no dysarthria Psychiatric: A+Ox3, euthymic affect Lymphatic: no cervical or axillary lymphadenopathy Results & Data Vital Signs (Past 12 Hours) Vital Signs Temp Pulse Resp BP Pulse Ox 03/29/19 07:35 36.4 C L 85 16 108/57 L 98
[2019-03-29] MEDS ORDERED: CONSULT PHARMACY STA (17:03)
--- NOTE | 2019-03-29 17:16 | Cardiology Progress Note ---
Date of Service March 29, 2019 Assessment & Plan (1) Peripheral arterial disease: 2. 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 PAF on coumadin 4. Type 2 DM 5. CAD post 2vCABG 6. History of bioprosthetic AVR 7. Anemia 8. New LT foot/digit pain. Exam suggestive of patent inflow/SFA/popliteal arteries bilaterally. Distally pulses diminished and cap refill sluggish. Concern for acute ischemia relatively low. Suspect chronic small vessel disease contributing in part to current symptoms. LE arterial duplex pending and will review. If small vessel disease may benefit from vasodilators/cilostazol Resume anticoagulation when able from a bleeding/GI standpoint. Will make a decision on restarting clopidogrel pending GI findings. Patient adamant about no additional surgeries. Will follow Subjective Patient seen today due to new pain involving digits on LT foot, particularly 4th/5th. Pain began suddenly yesterday. Now constant. No similar pain on the left before. No preceding injury. Xrays unremarkable. Review of Systems Review of Systems: All systems reviewed & are unremarkable except as noted in HPI & below Physical Exam Physical Exam: General: Comfortable, no acute distress Eyes: Sclerae anicteric Lungs: Clear to auscultation bilaterally, no rhonchi or wheezes Cardiac: Regular rate and rhythm, no murmurs, rubs or gallops. Abdomen: Soft Neuro: Nonfocal Psych: Alert and oriented Extremities/Vascular: -- 2+ femoral bilaterally -- 2+ popliteal bilaterally -- Non-palpable DP/PT on right, diminished PT on LT/nonpalp PT on LT -- RT second toe dressed, prior wound images reviewed -- trace bilateral edema in foot to ankle -- Toes on LT cool, sluggish cap refill -- Sensation intact. very tender to light touch over 4th/5th digits Results & Data Vital Signs (Past 12 Hours) Vital Signs Temp Pulse Pulse Resp BP Pulse Ox 03/29/19 15:10 36.4 C L 84 16 127/75 99 03/29/19 07:35 36.4 C L 85 16 108/57 L 98
[2019-03-29] MEDS ORDERED: PANTOprazole 80 MG in DEXTROSE 5% 100 ML IV ONE (17:30)
[2019-03-29] MEDS: PANTOprazole 40 MG in DEXTROSE 5% 100 ML IV SCH ×2 (18:07→22:16)
[2019-03-29] MEDS: PRAVASTATIN SOD 40 MG TAB PO SCH (18:28)
--- NOTE | 2019-03-29 20:28 | Infectious Disease Progress Nt ---
Date of Service March 29, 2019 Assessment & Plan (1) Gangrene of toe of right foot: Patient with gangrene of the right second toe in the setting of diabetes and severe peripheral arterial disease. Now s/p amputation of the toe. Culture now with E. coli and pseudomonas aeruginosa. Continue with levofloxacin. Will follow. Subjective Patient seen in follow-up for left foot infection. Continues on levofloxacin, tolerating without major difficulty. Has evidence of GI bleeding, plans for endoscopy noted. Remains afebrile. No other new complaints. Review of Systems Review of Systems: All systems reviewed & are unremarkable except as noted in HPI & below Physical Exam Constitutional: WD/WN, vitals as above comfortable; no acute distress Eyes: PERRL, conjunctivae normal, anicteric sclerae ENMT: external ear and nose normal, oropharynx normal Neck: trachea midline, no thyromegaly neck nontender Respiratory: normal respiratory effort, lungs clear to auscultation normal percussion; does not use accessory muscles Cardiovascular: Rate/Rhythm: regular rate and regular rhythm Heart Sounds: normal S1 and normal S2; no gallop, no murmur and no cardiac rub Vessels: normal peripheral pulses; no JVD Gastrointestinal (Abdomen): normal bowel sounds, soft, nontender, no hepatosplenomegaly Musculoskeletal: no cyanosis or clubbing, extremities motor strength 5/5 Spine: thoracic spine normal to inspection and lumbar spine normal to inspection; no cervical spinal tenderness Skin: normal turgor; no rashes Neurologic: moves all extremities and awake; no focal motor deficits Psychiatric: A+Ox3, euthymic affect Orientation: cooperative Lymphatic: no cervical or axillary lymphadenopathy no inguinal lymphadenopathy Results & Data Vital Signs (Past 12 Hours) Vital Signs Temp Pulse Resp BP Pulse Ox 03/29/19 15:10 36.4 C L 84 16 127/75 99 Laboratory Results Short CBC 03/29/19 Range/Units 05:53 WBC 2.62 L (4.8-10.8) K/uL Hgb 9.8 L (14.0-18.0) g/dL Hct 29.3 L (42-52) % Plt Count 73 L (130-400) K/uL BMP 03/29/19 05:53 Sodium 133 L Potassium 4.7 Chloride 105 Carbon Dioxide 20 L BUN 33 H Creatinine 1.60 H Glucose 88 Calcium 7.6 L Diagnostic Findings Microbiology 03/22/19 Unknown Foot,Right Gram Stain - Final 03/22/19 Unknown Foot,Right Aerobic and Anaerobic Culture - Final Escherichia coli Pseudomonas aeruginosa 03/22/19 Unknown Foot,Right Gram Stain - Final 03/22/19 Unknown Foot,Right Aerobic and Anaerobic Culture - Final Escherichia coli Pseudomonas aeruginosa XR foot LT min 3V routine HISTORY: 88 years-old Male Foot/toe pain acute left foot and toe pain COMPARISON: Radiographic images of the left toes of same day TECHNIQUE: 3 views of the left foot FINDINGS: Extension of the metatarsal-phalangeal joints with mild flexion of the interphalangeal joints limits the study. Mildly demineralized appearance the bones. Moderate degenerative changes of the first MTP joint with at least mild degenerative changes of the interphalangeal joints. No acute fracture, dislocation or opaque foreign body identified. Peripheral arterial calcifications noted. Moderate to changes about the tibiotalar joint with mild marginal spurring of the calcaneus. Mild soft tissue prominence with dystrophic calcifications about the distribution of the distal Achilles tendon. IMPRESSION: 1. No acute fracture or dislocation. 2. Degenerative changes as above. The above report was generated using voice recognition software. It may contain grammatical, syntax or spelling errors. Electronically signed by: Codey Dumas M.D. 03/29/2019 12:37 PM
--- NOTE | 2019-03-29 22:35 | Ultrasound Report ---
Study: Arterial duplex ultrasound left leg HISTORY: Toe ischemia FINDINGS: Waveforms are moderately dampened throughout. Considerable plaque formation is identified t hroughout the left leg. Ankle brachial indices could not be acquired due to calcified vessel panda. Posterior tibial velocities are approximately 250 were dorsalis pedis 70. IMPRESSION: 1. Moderate to moderately significant arterial occlusive change of the small vessels of t he left lower leg. 2. No evidence for a high grade or critical stenosis. 3. No significant change from the prior study dated 03/08/2019 Electronically signed by: Jaleel Omalley M.D. 03/29/2019 10:32 PM
[2019-03-30] MEDS: OXYCODONE HCL IR 5 MG TAB (IMMEDIATE RELEASE) PO PRN ×3 (00:41→23:34)
[2019-03-30] MEDS: PANTOprazole 40 MG in DEXTROSE 5% 100 ML IV SCH ×3 (02:20→12:56)
[2019-03-30] MEDS: ACETAMINOPHEN 1,000 MG/100 ML VIAL IV PRN ×2 (04:54→14:01)
[2019-03-30 06:34] LABS: Hematocrit (blood only) 29.8 % (42-52); Hemoglobin 9.9 g/dL (14.0-18.0); Mean Corpuscular Hgb Conc 33.2 g/dL (32-36); Mean Corpuscular Volume 92.5 fL (80-100); Platelet Count 60 K/uL (130-400); RDW Coefficient of Variation 15.1 % (11.5-14.5); RDW Standard Deviation 51.1 fL (36.4-46.3); Red Blood Count 3.22 M/uL (4.7-6.1); White Blood Count 2.88 K/uL (4.8-10.8)
[2019-03-30 06:39] LABS: Prothrombin Time 10.1 Seconds (9.0-12.0)
[2019-03-30 06:53] LABS: BUN Creatinine Ratio 21.9 (10-20); Calcium 7.6 mg/dl (8.5-10.1); Creatinine Clr Calc Pharmacy 32.6 ml/min; Est GFR (African American) 47.4; Est GFR (Non-African American) 40.9; Potassium 4.5 mmol/L (3.5-5.1)
[2019-03-30] MEDS: NYSTATIN SUSP 500,000 U/5 ML UDC PO SCH ×4 (08:22→20:40)
[2019-03-30] MEDS ORDERED: AMLODIPINE BESYLATE 5 MG TAB PO SCH (09:00)
--- NOTE | 2019-03-30 09:28 | Anesthesiology Consultation ---
Date of Service March 30, 2019 Assessment & Plan (1) Encounter for pre-operative examination: Chart Review Chart Review: Acceptable Risk for Surgery and Patient NOT seen in Pre Admission Testing Consults Requested none History Surgery Operation Date: 03/10/19 13:05 Proposed Procedures p Right 2nd Toe Amputation - Miki Ramos MD Operation Date: 03/22/19 07:15 Proposed Procedures p Right Incision and Drainage 2nd Toe Wound and Packing - Miki Ramos MD Operation Date: 03/30/19 10:50 Proposed Procedures p Esophagogastroduodenoscopy Dr Deleon - Naida Deleon MD Height/Weight Height: 5 ft 7 in Weight: 67 kg Allergies Allergy/AdvReac Type Severity Reaction Status Date / Time No Known Allergies Allergy Unknown Verified 03/07/19 08:45 Medications Home Medications Medication Instructions Recorded Confirmed Last Taken ascorbic acid (vitamin C) 500 mg PO DAILY #0 03/17/18 03/07/19 03/07/19 aspirin 81 mg PO DAILY #0 03/17/18 03/07/19 03/06/19 cholecalciferol (vitamin D3) 2,000 unit PO DAILY #0 03/17/18 03/07/19 03/07/19 [Vitamin D3] omeprazole 40 mg PO DAILY #0 03/17/18 03/07/19 03/06/19 ferrous sulfate 325 mg PO BID 01/22/19 03/07/19 03/07/19 lisinopril 0 mg PO DAILY 02/06/19 03/07/19 03/06/19 daptomycin 350 mg IV DAILY #1 ea 02/19/19 03/07/19 03/06/19 warfarin 3 mg PO DAILY #0 tab 02/19/19 03/07/19 03/07/19 hydrocodone 5 mg-acetaminophen 325 See Rx Instructions PO Q4H PRN #60 03/02/19 03/07/19 03/06/19 mg tablet tab linezolid [Zyvox] 600 mg PO BID #26 tab 03/15/19 Unknown Active Medications Generic Name Dose Route Start Last Admin Trade Name Freq PRN Reason Stop Dose Admin Acetaminophen 1,000 mg 03/27/19 09:09 03/29/19 15:41 Tylenol PO 04/11/19 19:59 1,000 mg Q8 PRN Administration Pain Al Hydrox/Mg Hydrox/Simethicone 15 ml 03/27/19 13:07 03/27/19 19:29 Maalox PO 04/26/19 13:06 15 ml Q6H PRN Administration Dyspepsia Ascorbic Acid 500 mg 03/08/19 09:00 03/29/19 09:11 Vitamin C PO 04/07/19 08:59 Not Given DAILY NIKIA Clopidogrel Bisulfate 75 mg 03/28/19 09:00 03/28/19 08:10 Plavix PO 04/27/19 08:59 75 mg QAM NIKIA Administration Ferrous Sulfate 325 mg 03/07/19 21:00 03/27/19 08:06 Feosol PO 04/06/19 20:59 Not Given BID NIKIA Glucose 15 - 30 gm 03/07/19 12:33 03/22/19 06:25 Glucose 40% PO 04/06/19 12:32 15 gm UD PRN Administration Hypoglycemia Protocol Protocol Heparin Sodium (Beef Lung) 5 ml 03/08/19 01:55 03/30/19 09:24 Heparin Sod 10 Unit/Ml Flush FLUSH 04/07/19 01:54 5 ml PRN PRN Administration Flush Pantoprazole Sodium 40 mg/ 100 mls @ 20 mls/hr 03/29/19 17:45 03/30/19 09:24 Dextrose IV 04/28/19 17:44 0 mls/hr Q5H NIKIA Infusion Acetaminophen 1,000 mg in 100 mls @ 400 mls/hr 03/30/19 04:46 03/30/19 05:18 Ofirmev IV 04/29/19 04:45 Infused Q8H PRN Infusion Pain Levofloxacin 750 mg 03/24/19 14:30 03/28/19 15:06 Levaquin PO 04/03/19 14:29 750 mg Q48H NIKIA Administration Metoclopramide HCl 5 mg 03/19/19 09:25 03/25/19 09:37 Reglan IV 04/17/19 13:59 5 mg Q6H PRN Administration nausea Miscellaneous 15 - 30 gm 03/07/19 12:33 03/11/19 21:20 Carbohydrates For Hypoglycemia PO 04/06/19 12:32 15 gm UD PRN Administration Hypoglycemia Treatment Nystatin 5 ml 03/28/19 17:00 07/03/19 08:22 Mycostatin PO 03/31/19 16:59 5 ml QID NIKIA Administration Ondansetron HCl 4 mg 03/10/19 17:13 03/29/19 09:15 Zofran IV 04/09/19 17:12 4 mg Q6H PRN Administration Nausea And Vomiting Oxycodone HCl 5 mg 03/27/19 08:40 03/30/19 08:22 Roxicodone Immediate Rel PO 04/10/19 08:39 5 mg Q6H PRN Administration Pain Polyethylene Glycol 17 gm 03/18/19 14:51 03/24/19 20:53 Miralax Powder Packet PO 04/18/19 08:59 17 gm DAILY PRN Administration constipation Pravastatin Sodium 40 mg 03/28/19 17:00 03/29/19 18:28 Pravachol PO 04/27/19 16:59 40 mg DAILY@1700 [facility] Administration Warfarin Sodium 1 mg 03/26/19 16:00 03/28/19 17:02 Coumadin PO 04/25/19 15:59 Not Given DAILY@1600 [facility] NPO Date Last Intake of Fluids: 03/21/19 Time Last Intake of Fluids: 18:00 Last Intake of Fluids Comment: sips of water this am with medicine Date Last Intake of Solids: 03/21/19 Time Last Intake of Solids: 18:00 Past Medical History Medical History Inguinal hernia (Resolved) Cellulitis (Resolved) CAD (coronary artery disease) (Chronic) History of GI bleed (Resolved) KYLE (acute kidney injury) (Resolved) Diabetes mellitus (Acute) type 2 Osteomyelitis (Acute) S/P arteriogram of extremity (Acute) 2 stents in the lower legs A-fib Anemia of chronic disease CKD (chronic kidney disease), stage III Coronary artery disease GERD (gastroesophageal reflux disease) HTN (hypertension), benign History of peptic ulcer disease History of stent insertion of renal artery Right, in the 1990s Hyperlipidemia Peripheral vascular disease Subclavian artery stenosis Exercise / Class Metabolic Activity IV < 2 Limit ADL/Bedbound Past Family History Family History Father Unknown family medical history Past Surgical History Surgical History H/O aortic valve replacement with tissue graft (Resolved) H/O left inguinal hernia repair (Resolved) H/O aortic valve replacement (Resolved) Aortic valve replaced (Acute) Hx of CABG (Acute) History of cholecystectomy History of left inguinal hernia repair History of thoracentesis Past Anesthesia History No Hx of Anesthesia Complications and No Family Hx of Anesthesia Complications History of PONV No Hx of PONV and No Hx of Motion Sickness Social History Smoking Status: Former smoker tobacco type: cigarettes Smoking cigarettes per day: 20 Do You Dip or Chew Tobacco: No Smoking End Date: 1988 Hx Alcohol Use: Yes (hx of heavy use, quit in 1995) Hx Substance Use: No substance use type: does not use Physical Exam Vital Signs Last Vital Signs Temp 36.4 C L 03/30/19 07:15 Pulse 82 03/30/19 07:15 Resp 16 03/30/19 07:15 BP 102/38 L 03/30/19 07:15 Pulse Ox 97 03/30/19 07:15 Testing Laboratory Results 03/30/19 06:01 03/30/19 06:01 PT 10.1 Seconds (9.0-12.0) 03/30/19 06:01 INR 1.0 (0.9-1.1) 03/30/19 06:01 APTT 36.7 Seconds (21.0-31.0) H 03/10/19 05:22 Hemoglobin A1c 5.1 % (4.5-5.6) 03/08/19 04:08 Urine Color Yellow 03/23/19 23:41 Urine Appearance Clear (Clear) 03/23/19 23:41 Urine pH 5.0 (4.5-7.5) 03/23/19 23:41 Ur Specific [place] 1.021 (1.000-1.030) 03/23/19 23:41 Urine Protein Negative (Negative) 03/23/19 23:41 Urine Glucose (UA) Negative (Negative) 03/23/19 23:41 Urine Ketones Trace (Negative) H 03/23/19 23:41 Urine Nitrite Negative (Negative) 03/23/19 23:41 Ur Leukocyte Esterase Negative (Negative) 03/23/19 23:41 Blood Type A Positive 03/27/19 12:59 Antibody Screen NEGATIVE 03/27/19 12:59 03/22/19 Unknown Gram Stain - Final Foot,Right Aerobic and Anaerobic Culture - Final Escherichia coli Pseudomonas aeruginosa 03/22/19 Unknown Gram Stain - Final Foot,Right Aerobic and Anaerobic Culture - Final Escherichia coli Pseudomonas aeruginosa Electrocardiogram Date: 03/18/19 Findings: + AFIB @ (68) Atrial fibrillation Left axis deviation Abnormal ECG When compared with ECG of 15-FEB-2019 18:47, No Change Confirmed by Larry Quiles ([id number]) on 03/18/2019 6:59:22 PM Echocardiogram Date: 09/22/15 EF: >70% grade 1 DD, mild cLVH, no RWMA, bioprosthetic AV with expected transvalvular velocity and gradient
--- NOTE | 2019-03-30 09:42 | History & Physical Bridge Note ---
Date of Service March 30, 2019 History & Physical Bridge Note I have examined the patient, reviewed the History & Physical and in the interval since the performance of the History & Physical I have noted the following changes of clinical significance: no changes noted
--- NOTE | 2019-03-30 10:44 | GI REPORT ---
Patient Name: Talon Lawson Procedure Date: 03/30/2019 10:16 AM Date of : 1930 Admit Type: Inpatient Age: 88 Gender: Male Attending MD: Naida Deleon MD Procedure: Upper GI endoscopy Providers: Naida Deleon MD Referring MD: Johanna Fitzgerald Md Indications: Suspected upper gastrointestinal bleeding, Anemia Medicines: Monitored Anesthesia Care Complications: No immediate complications. Estimated Blood Loss: Estimated blood loss: none. Procedure: Pre-Anesthesia Assessment: - Prior to the procedure, a History and Physical was performed, and patient medications and allergies were reviewed. The patient is competent. The risks and benefits of the procedure and the sedation options and risks were discussed with the patient. All questions were answered and informed consent was obtained. Patient identification and proposed procedure were verified by the physician and the nurse in the procedure room. Mental Status Examination: alert and oriented. Airway Examination: normal oropharyngeal airway and neck mobility. Respiratory Examination: clear to auscultation. CV Examination: normal. ASA Grade Assessment: IV - A patient with severe systemic disease that is a constant threat to life. After reviewing the risks and benefits, the patient was deemed in satisfactory condition to undergo the procedure. The anesthesia plan was to use monitored anesthesia care (MAC). Immediately prior to administration of medications, the patient was re-assessed for adequacy to receive sedatives. The heart rate, respiratory rate, oxygen saturations, blood pressure, adequacy of pulmonary ventilation, and response to care were monitored throughout the procedure. The physical status of the patient was re-assessed after the procedure. After obtaining informed consent, the endoscope was passed under direct vision. Throughout the procedure, the patient's blood pressure, pulse, and oxygen saturations were monitored continuously. The Endoscope was introduced through the mouth, and advanced to the second part of duodenum. The upper GI endoscopy was accomplished without difficulty. The patient tolerated the procedure well. Findings: Circumferential salmon-colored mucosa was present. The maximum longitudinal extent of these esophageal mucosal changes was 2 cm in length. The entire examined stomach was normal. The duodenal bulb was normal. Three large diverticuli were found in the second and third portions of the duodenum. No blood seen in the entire exam. 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 - Normal stomach. - Normal duodenal bulb. - Duodenal diverticuli. - No evidence of upper GI bleed. - No specimens collected. Recommendation: - Return patient to [facility] for [facility] care. - Advance diet as tolerated. - Black stool likely related to ferrous sulfate, monitor H/H. - Recall GI if any evidence of overt GI bleeding. - Not a candidate for Vazquez's surveillance based on age. Naida Deleon MD 03/30/2019 10:43:59 AM This report has been signed electronically. Note Initiated On: 03/30/2019 10:16 AM Number of Addenda: 0 I attest to the content of the Intraoperative Record and orders documented therein, exceptions below {[id number]}
[2019-03-30] MEDS: ASCORBIC ACID 500 MG TAB PO SCH (11:38)
--- NOTE | 2019-03-30 12:48 | Hospitalist Progress Note ---
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 - Most recent culture from I&D positive for E. coli and Pseudomonas. - Completed course of Daptomycin followed by Zyvox; on Levaquin 750 mg q48hr per sensitivities. - ID following, Dr. Germain plans to contact his regarding plan of care. - Continue daily dressing changes. - May require wound vac placement -- follow up with orthopedics as outpatient to discuss. (2) Positive occult stool blood test: - FOBT was positive with associated acute anemia on 03/28/19; previous FOBT also positive on 03/09/19. - H/o EGD with duodenal diverticuli & active bleeding s/p IR embolization on 09/26/2015 at [facility]. - Consulted GI, appreciate input. 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 - Convert Protonix drip to PPI PO BID. - On ferrous sulfate supplementation -- likely leading to +FOBT; will hold in setting of N/V. - Will resume home Plavix and Coumadin. (3) Anemia: - Significant drop in hgb to 7.6 on 03/28 -- responded well to PRBC transfusion support. - EGD negative for active bleeding as noted above; etiology of anemia is likely multifactorial related to acute hospitalization & illness, frequent bloodwork, anemia of chronic disease. - Monitor CBC daily, has been stable. - Holding ferrous sulfate in setting of N/V. (4) Thrombocytopenia: - Plt count 60 -- may be related to Zyvox therapy. - Will continue to monitor -- will need to hold Coumadin/Plavix if plt <50K. (5) Nausea & vomiting: - Continues with intermittent nausea/vomiting -- unclear etiology, GERD vs. Vazquez's esophagus vs. medication related. - Has acute N/V at this time, discussed extensively with the family this afternoon. - Does have h/o GI bleed -- EGD was negative this morning. - PPI PO BID for Vazquez's esophagus. - Continue Levaquin as prescribed - abx may be contributing to intermittent N/V. - Will increase bowel regimen -- may aid in abd bloating/nausea. (6) Left foot pain: - Complains of generalized left foot pain; is not likely related to vascular ischemia -- consider gout. - Foot XR/Toe XR was negative for acute changes. - Cardiology, Dr. Wiseman, consulted -- appreciate input. - Repeat arterial duplex was negative for acute changes. - Prednisone 30 mg daily for 5 day course for treatment of gout. - Could not tolerate vasodilator for small vessel PAD in setting of hypotension; did resume home Plavix. (7) Scrotal edema: - Scrotal edema improving. - Continue scrotal elevation. - Monitor I/Os and daily weights. (8) Fall: - Fell in restroom on 03/19 - appears mechanical, no indication for further work up. - PT/OT evaluations; discharge to [facility] once medically stable. (9) Atrial fibrillation: - Warfarin has been recently held for EGD/concern for acute upper GI bleed. EGD was negative this morning. - Monitor INR daily -- subtherapeutic at 1.0 this morning. - Will resume Coumadin at 2 mg daily this evening. - Currently not on rate controlling medications. (10) DMII (diabetes mellitus, type 2): - Most recent A1C was 5.1 - Does not require SSI coverage. (11) CAD (coronary artery disease): - Recent iliac stent placed in January but has been on triple therapy since. - Resuming Plavix/Coumadin -- d/c'ed Aspirin per previous cardiology notes. - Continue statin as prescribed. (12) Chronic kidney disease, stage 3a: - Renal function remains elevated above baseline. - Holding IV fluids due to recent scrotal edema. - Monitor levels qAM. (13) HLD (hyperlipidemia): - Resumed statin agent following discontinuation of Dapto. (14) Peripheral arterial disease: - Follows with Dr. Wiseman, consulted as inpatient for left foot pain. - Resuming Plavix; continue statin. - Arterial doppler in February 2019 showed: extensive atherosclerotic plaque about the b/l lower extremities; triphasic waveforms within b/l common femoral arteries with biphasic waveforms about the superficial femoral arteries; monophasic waveforms about the lower legs b/l with L > R; no arterial occlusion or significantly elevated peak systolic velocities identified to suggest high- grade stenosis. - Repeat bilat arterial duplex on 03/29 was unchanged. (15) HTN (hypertension): - D/c'ed Lisinopril due to hypotension. - Could not tolerate Amlodipine 2.5 mg this afternoon, will discontinue. (16) DVT prophylaxis: - SCDs; resuming Coumadin. Dispo: [place] placement once medically stable. Discussed plan of care his and daughter at bedside from 16:00 to 16:35. Supervising Physician Co-Signing Physician Notes PA Supervision Note: I personally saw and examined the patient with HALLE Ambriz. I verified all cerrato points and agree with HALLE Ambriz with the following exceptions and/or additions: none had lengthy discussion with pt and his , daughter about all his conditions. Is severely malnourished from prolonged hospitalization, poor nutrition, with low albumin likely causing anasarca. Most pressing issues at this time are pain control in the foot and nausea. Continued plan as above Subjective Pt. complains of left foot pain -- pain is now generalized throughout left foot, not specifically located in 4th and 5th toes. Will add Amlodipine 2.5 mg daily for vasodilation. Dr. Wiseman following from vascular. He is having BMs, denies ongoing N/V. Pt. is very weak -- weakness is a large concern for his . Dr. Fitzgerald and I(Grace NERI) met with the and daughter at bedside this afternoon -- 16:00 to 16:35 pm. We discussed the plan of care, including results of EGD, etiology of anemia (likely anemia of chronic disease with no evidence of active bleeding), acute foot pain (possibly related to gout flare), discharge planning (including rehab placement in the near future) and nausea/bloating. Dr. Deleon and Singh BENZ were also present for the conversation at one point -- he discussed EGD findings. Review of Systems Review of Systems: All systems reviewed & are unremarkable except as noted in HPI & below Constitutional: + fatigue and + weakness; no fever, no chills and no anorexia Respiratory: no cough, no dyspnea and no dyspnea on exertion Cardiovascular: + edema (Mild edema in all extremities ); no chest pain and no palpitations Gastrointestinal: no abdominal pain, no nausea, no vomiting, no constipation, no diarrhea/loose stools, no blood in stools and no melena Genitourinary: no difficulty urinating Musculoskeletal: + joint pain (Left foot pain ); no back pain Integumentary: no non-healing lesions Allergy / Immunological: no rash Physical Exam Physical Exam: General: Resting comfortably in no apparent distress HEENT: NC/AT; PERRLA with EOMI; [place] conjunctiva, MMM. No erythema of posterior pharynx Neck: Supple and nontender Cardiac: RRR Lungs: CTA bilaterally Abdomen: Bowel normoactive X 4; Nontender to palpation Extremities: Tenderness to light palpation over most of left foot, no specific point noted. Left foot dorsalis pedis and posterior tibial pulses very difficult to palpate. Neuro: No focal weakness Skin: No rash; site of second toe amputation is healing. Results & Data Vital Signs (Past 12 Hours) Vital Signs Temp Pulse Pulse Pulse Resp BP BP 03/30/19 12:05 91/39 L 03/30/19 12:00 73 16 88/43 L 03/30/19 11:33 36.2 C L 82 15 102/53 L 03/30/19 11:12 80 16 122/60 03/30/19 10:58 81 16 107/63 03/30/19 10:43 73 16 103/44 L 03/30/19 09:58 36.4 C L 85 18 104/35 L 03/30/19 07:15 36.4 C L 82 16 102/38 L Pulse Ox 03/30/19 12:05 03/30/19 12:00 99 03/30/19 11:33 97 03/30/19 11:12 100 03/30/19 10:58 99 03/30/19 10:43 100 03/30/19 09:58 100 03/30/19 07:15 97 Laboratory Results 03/30/19 03/30/19 03/30/19 Range/Units 06:01 06:01 06:01 WBC 2.88 L (4.8-10.8) K/uL RBC 3.22 L (4.7-6.1) M/uL Hgb 9.9 L (14.0-18.0) g/dL Hct 29.8 L (42-52) % MCV 92.5 (80-100) fL MCH 30.7 (25-34) pg MCHC 33.2 (32-36) g/dL RDW Std Deviation 51.1 H (36.4-46.3) fL RDW Coeff of Gilbert 15.1 H (11.5-14.5) % Plt Count 60 L (130-400) K/uL MPV 12.0 H (7.4-10.4) fL PT 10.1 (9.0-12.0) Seconds INR 1.0 (0.9-1.1) Sodium 134 L (136-145) mmol/L Potassium 4.5 (3.5-5.1) mmol/L Chloride 106 (98-107) mmol/L Carbon Dioxide 19 L (21-32) mmol/L Anion Gap 9.0 (3-11) BUN 33 H (7-18) mg/dl Creatinine 1.52 H (0.6-1.4) mg/dl Est Cr Clr Drug Dosing 32.6 ml/min Est GFR ( Amer) 47.4 Est GFR (Non-Af Amer) 40.9 BUN/Creatinine Ratio 21.9 H (10-20) Glucose 104 H (70-99) mg/dl Calcium 7.6 L (8.5-10.1) mg/dl PG Care Time/CCT Total # of Minutes Spent Total Time Spent with Patient: Total time spent is greater than 50% in coordination of care (as documented) at patient's floor/unit and/or counseling patient: Prolonged Care Time Prolonged Care Time: Yes Total Prolonged Care Time: 30
--- NOTE | 2019-03-30 13:43 | Anesthesiology Progress Note ---
Date of Service March 30, 2019 Anesthesia Post Procedure Vital Signs Vital Signs: Temp Pulse Pulse Pulse Resp BP BP 03/30/19 12:30 36.2 C L 80 17 100/66 03/30/19 12:05 91/39 L 03/30/19 12:00 73 16 88/43 L 03/30/19 11:33 36.2 C L 82 15 102/53 L 03/30/19 11:12 80 16 122/60 03/30/19 10:58 81 16 107/63 03/30/19 10:43 73 16 103/44 L 03/30/19 09:58 36.4 C L 85 18 104/35 L 03/30/19 07:15 36.4 C L 82 16 102/38 L 03/29/19 23:34 36.5 C 66 16 130/76 03/29/19 15:10 36.4 C L 84 16 127/75 Pulse Ox 03/30/19 12:30 100 03/30/19 12:05 03/30/19 12:00 99 03/30/19 11:33 97 03/30/19 11:12 100 03/30/19 10:58 99 03/30/19 10:43 100 03/30/19 09:58 100 03/30/19 07:15 97 03/29/19 23:34 100 03/29/19 15:10 99 Pain Intensity Bilateral Foot: Pain Intensity: 3 Right Foot: Pain Intensity: 7 Left Foot: Pain Intensity: 10 Transfer of Care Handoff Completed per policy Notes Mental Status: alert / awake / arousable and participated in evaluation Patient Amnestic to Procedure: Yes Nausea / Vomiting: adequately controlled Pain: adequately controlled Airway Patency, RR, SpO2: stable & adequate BP & HR: stable & adequate Hydration State: stable & adequate Anesthetic Complications: no major complications apparent and Pt Satisfied with anesthetic care
[2019-03-30] MEDS: levoFLOXacin 750 MG TAB PO SCH (15:06)
[2019-03-30] MEDS ORDERED: TRAMADOL HCL 50 MG TABLET PO PRN (15:38)
[2019-03-30] MEDS ORDERED: WARFARIN SOD 2 MG TAB PO SCH (16:00)
[2019-03-30] MEDS ORDERED: POLYETHYLENE (MIRALAX) 17 GM PACK PO SCH (16:30)
[2019-03-30] MEDS: POLYETHYLENE (MIRALAX) 17 GM PACK PO SCH ×2 (17:24→20:40)
[2019-03-30] MEDS ORDERED: ACETAMINOPHEN 325 MG TAB PO PRN (18:00)
[2019-03-30] MEDS: predniSONE 10 MG TABLET PO SCH (18:18)
[2019-03-30] MEDS: PRAVASTATIN SOD 40 MG TAB PO SCH (18:18)
[2019-03-30] MEDS: PANTOprazole 40 MG TAB PO SCH (20:40)
[2019-03-30] MEDS: DOCUSATE SODIUM/SENNA 50/8.6MG TAB PO SCH (20:40)
--- NOTE | 2019-03-30 22:59 | Cardiology Progress Note ---
Date of Service March 30, 2019 Assessment & Plan (1) Peripheral arterial disease: 2. 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 PAF previously on coumadin 4. Type 2 DM 5. CAD post 2vCABG 6. History of bioprosthetic AVR 7. Anemia 8. New LT foot/digit pain. Reviewed results of repeat LE arterial duplex with patient and family. No evidence of significant obstructive LE arterial disease on left. Does have some small vessel/hyperreactive disease on left but don't feel unlikely to be cause of patient's acute symptoms. Agree with trial of CCB but in the setting of relative hypotension may not tolerate. Resume anticoagulation when able from a bleeding/GI standpoint. Would still fav or apixaban over coumadin but previously resistant. Hold off on restarting plavix for now. Patient adamant about no additional surgeries. Subjective Patient seen this afternoon after EGD. Still endorsing significant LT foot pain. Worse with continued walking to bathroom. Host of other concerns including abdominal pain, bloating. Scrotal swelling. LE arterial duplex reviewed -- patent inflow, SFA/Popliteal vessel and non- obstructive tibial disease. Was given a trial of amlodipine today for small vessel vasodilation -- borderli ne hypotensive this afternoon. Review of Systems Review of Systems: All systems reviewed & are unremarkable except as noted in HPI & below Physical Exam Physical Exam: General: Comfortable, no acute distress Eyes: Sclerae anicteric Lungs: Clear to auscultation bilaterally, no rhonchi or wheezes Cardiac: Regular rate and rhythm, no murmurs. No JVD Abdomen: distended, mildly tender. Neuro: Nonfocal Psych: Alert and oriented Extremities/Vascular: + scrotal swelling, upper thigh edema -- 2+ femoral bilaterally -- 2+ popliteal bilaterally -- Non-palpable DP/PT on right, diminished PT on LT/nonpalp PT on LT -- RT second toe dressed, prior wound images reviewed -- trace bilateral edema in foot to ankle -- fingers/toes purple, nl cap refil today -- Sensation intact. very tender to light touch over 4th/5th digits Results & Data Vital Signs (Past 12 Hours) Vital Signs Temp Pulse Pulse Pulse Resp BP BP 03/30/19 21:28 124/75 03/30/19 19:39 142/72 H 03/30/19 15:23 98/60 L 03/30/19 15:18 36.2 C L 78 17 83/46 L 03/30/19 12:30 36.2 C L 80 17 100/66 03/30/19 12:05 91/39 L 03/30/19 12:00 73 16 88/43 L 03/30/19 11:33 36.2 C L 82 15 102/53 L 03/30/19 11:12 80 16 122/60 03/30/19 10:58 81 16 107/63 Pulse Ox 03/30/19 21:28 03/30/19 19:39 03/30/19 15:23 03/30/19 15:18 98 03/30/19 12:30 100 03/30/19 12:05 03/30/19 12:00 99 03/30/19 11:33 97 03/30/19 11:12 100 03/30/19 10:58 99
[2019-03-30] MEDS: ONDANSETRON INJ 2 MG/ML 2 ML VIAL IV PRN (23:34)
[2019-03-31 06:21] LABS: Hematocrit (blood only) 31.5 % (42-52); Hemoglobin 10.2 g/dL (14.0-18.0); Mean Corpuscular Hgb Conc 32.4 g/dL (32-36); RDW Standard Deviation 51.1 fL (36.4-46.3); Red Blood Count 3.35 M/uL (4.7-6.1); White Blood Count 4.22 K/uL (4.8-10.8)
[2019-03-31 06:29] LABS: Prothrombin Time 10.1 Seconds (9.0-12.0)
[2019-03-31 06:33] LABS: Mean Platelet Volume 11.8 fL (7.4-10.4); Platelet Count 49 K/uL (130-400)
[2019-03-31 07:00] LABS: BUN Creatinine Ratio 20.2 (10-20); Calcium 7.6 mg/dl (8.5-10.1); Creatinine Clr Calc Pharmacy 30.7 ml/min; Est GFR (African American) 45.2; Potassium 4.7 mmol/L (3.5-5.1)
[2019-03-31] MEDS: ONDANSETRON INJ 2 MG/ML 2 ML VIAL IV PRN (09:03)
[2019-03-31] MEDS: OXYCODONE HCL IR 5 MG TAB (IMMEDIATE RELEASE) PO PRN (10:16)
[2019-03-31] MEDS: PANTOprazole 40 MG TAB PO SCH (10:16)
[2019-03-31] MEDS: predniSONE 10 MG TABLET PO SCH (10:17)
[2019-03-31] MEDS: ASCORBIC ACID 500 MG TAB PO SCH (10:18)
[2019-03-31] MEDS: NYSTATIN SUSP 500,000 U/5 ML UDC PO SCH ×4 (10:18→20:19)
[2019-03-31] MEDS ORDERED: OXYCODONE HCL IR 5 MG TAB (IMMEDIATE RELEASE) PO PRN (11:26)
[2019-03-31] MEDS: DOCUSATE SODIUM/SENNA 50/8.6MG TAB PO SCH ×2 (11:38→20:19)
[2019-03-31] MEDS: POLYETHYLENE (MIRALAX) 17 GM PACK PO SCH (11:38)
[2019-03-31] MEDS: GABAPENTIN 100 MG CAP PO SCH ×2 (11:51→21:03)
[2019-03-31] MEDS ORDERED: ACETAMINOPHEN 500 MG TAB PO SCH (12:00)
[2019-03-31 12:28] LABS: Albumin Level 1.8 gm/dl (3.4-5.0); Bilirubin Direct 0.1 mg/dl (0-0.2); Bilirubin,Total 0.2 mg/dl (0.2-1); Prealbumin 14.5 mg/dl (20-40)
--- NOTE | 2019-03-31 12:49 | XRay Report ---
KUB HISTORY: Acute generalized abdominal pain with concern for obstruction Rule out obstruction COMPARISON: KUB and CT abdomen and pelvis 03/17/2018 FINDINGS: Gaseous distention of large and small bowel, large bowel loops measuring up to 7.3 cm and s mall bowel loops measuring up to 3.4 cm. Surgical clips are noted about the abdomen along with vascul ar stents. Prior median sternotomy with cardiac valvular prosthesis. No urolith, pneumatosis or pneum operitoneum. Degenerative changes of the bony structures. IMPRESSION: 1. Gaseous distended large and small bowel is suggestive of adynamic ileus versus less likely distal obstruction. 2. No pneumatosis or pneumoperitoneum. Electronically signed by: Codey Dumas M.D. 03/31/2019 12:47 PM
--- NOTE | 2019-03-31 13:31 | Hospitalist Progress Note ---
Date of Service March 31, 2019 Assessment & Plan (1) Gangrene of toe of right foot: - MRI with areas of osteitis without definitive evidence for osteomyelitis within the distal phalanges of the 1st, 3rd, 4th, and 5th toes; S/P R 2nd toe amputation and debridement on 03/10 followed by I&D on 03/22. - Most recent culture from I&D positive for E. coli and Pseudomonas. - Completed course of Daptomycin/Zyvox; continue Levaquin 750 mg q48hr per sensitivities. - ID following, appreciate input. - Continue daily dressing changes. - May require wound vac placement -- ortho following, would not need to remain inpt for placement. (2) Positive occult stool blood test: - FOBT was positive with associated acute anemia on 03/28/19; previous FOBT also positive on 03/09/19. - H/o EGD with duodenal diverticuli & active bleeding s/p IR embolization on 09/26/2015 at [facility]. - Consulted GI, appreciate input. 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 - On PPI PO BID. - On ferrous sulfate at home -- likely leading to +FOBT; hold in setting of N/V. - Holding Plavix/Coumadin due to thrombocytopenia. (3) Ileus: - Noted on KUB this afternoon. - Continue bowel regimen -- pt. had multiple episodes of stool incontinence overnight. - Continue diet as tolerated -- he has had very limited PO intake. - Hold IV fluids due to edema. (4) Nausea & vomiting: - Continues with intermittent nausea/vomiting -- Vazquez's esophagus vs. medication related vs. ileus. - Ongoing nausea/vomiting, no improvement with bowel regimen. - Does have h/o GI bleed -- EGD was negative on 03/30/19. - PPI PO BID for Vazquez's esophagus. - Continue Levaquin as prescribed - abx may be contributing to intermittent N/V. - Continue bowel regimen for ileus. (5) Thrombocytopenia: - Plt count is trending down, was 49K this morning. - Holding home Plavix/Coumadin. - May be related to Zyvox therapy -- expect improvement in counts over next few days following discontinuation of med. (6) Anemia: - Significant drop in hgb to 7.6 on 03/28 -- responded well to transfusion support. - EGD negative for active bleeding; etiology of anemia is likely multifactorial related to acute hospitalization & illness, frequent blood work, anemia of chronic disease. - Monitor CBC daily. - Holding ferrous sulfate in setting of N/V. (7) Left foot pain: - Complains of generalized left foot pain; is not likely related to vascular ischemia per cardiology. - Foot XR/Toe XR was negative for acute changes. - Cardiology, Dr. Wiseman, consulted -- appreciate input. - Repeat arterial duplex was negative for acute changes. - Prednisone 30 mg daily x 5 days for treatment of gout -- no improvement after starting steroids. - Could not tolerate vasodilator for small vessel PAD in setting of hypotension. - Start Gabapentin 100 mg BID for neuropathy related pain. (8) Scrotal edema: - Scrotal edema stable. - Continue scrotal elevation. - Monitor I/Os and daily weights. (9) Fall: - Fell in restroom on 03/19 - appears mechanical, no indication for further work up. - PT/OT evaluations; discharge to [facility] once medically stable. (10) Atrial fibrillation: - Warfarin has been recently held for EGD/concern for acute upper GI bleed. EGD was negative. - Monitor INR daily -- subtherapeutic at 1.0. - Holding Coumadin due to thrombocytopenia. - Currently not on rate controlling medications -- BP cannot tolerate meds. (11) DMII (diabetes mellitus, type 2): - Most recent A1C was 5.1 - Does not require SSI coverage. (12) CAD (coronary artery disease): - S/p CABG x 2 vessels (vein graft to LAD, vein graft to OM in 2010) - Holding Plavix/Coumadin due to plt <50K -- d/c'ed Aspirin per previous cardiology notes. - Continue statin as prescribed. (13) Chronic kidney disease, stage 3a: - Renal function remains elevated above baseline. - Holding IV fluids due to recent scrotal edema. - Monitor levels qAM. (14) HLD (hyperlipidemia): - Resumed statin agent following discontinuation of Dapto. (15) Peripheral arterial disease: - Follows with Dr. Wiseman, consulted as inpatient for left foot pain. - Hold Plavix; continue statin. - Arterial doppler in February 2019 showed: extensive atherosclerotic plaque about the b/l lower extremities; triphasic waveforms within b/l common femoral arteries with biphasic waveforms about the superficial femoral arteries; monophasic waveforms about the lower legs b/l with L > R; no arterial occlusion or significantly elevated peak systolic velocities identified to suggest high- grade stenosis. - Repeat bilat arterial duplex on 03/29 was unchanged. (16) HTN (hypertension): - D/c'ed Lisinopril due to hypotension. - Could not tolerate Amlodipine 2.5 mg, will discontinue. (17) Aortic stenosis: - S/p AVR in 2010. (18) Hypoalbuminemia due to protein-calorie malnutrition: - In setting of very limited PO intake. - Albumin 1.8, Pre-albumin was 14.5. - Pt. is third spacing in extremities due to malnutrition; avoid additional IV fluids if possible. - Cannot tolerate boost supplements due to N/V; encourage PO intake. (19) DVT prophylaxis: - SCDs; Holding Coumadin. Dispo: [place] placement once medically stable. Supervising Physician Co-Signing Physician Notes PA Supervision Note: I did not personally see or examine the patient today, but I verified all cerrato points of HALLE Ambriz's assessment and plan with the following exceptions/additions: None Subjective Pt. has not improved over last 24 hours. He complains of increased left foot pain -- pain is described as sharp and shooting. He cannot ambulate well due to pain. Toes are also painful/cold on left foot. Finger tips are purple, cold to palpation. Symptoms started yesterday -- h/o symptoms, usually will place digits in warm water with improvement. He complains of ongoing nausea -- PO intake has been very limited due to nausea. Had multiple BMs overnight with incontinence while lying down. KUB this morning showed ?ileus, less likely obstruction. Review of Systems Review of Systems: All systems reviewed & are unremarkable except as noted in HPI & below Constitutional: + fatigue, + weakness and + anorexia; no fever and no chills Respiratory: no cough, no dyspnea and no dyspnea on exertion Cardiovascular: + edema (Upper extremities ) and + Raynauds symptoms (Both hands ); no chest pain and no palpitations Gastrointestinal: + nausea, + vomiting and + diarrhea/loose stools; no abdominal pain and no constipation Genitourinary: no difficulty urinating Musculoskeletal: + joint pain (Left foot ); no back pain Integumentary: + non-healing lesions (Right second toe ) Neurologic: + radiating pain (Left foot ) Allergy / Immunological: no rash Physical Exam Physical Exam: General: Resting comfortably HEENT: NC/AT; PERRLA with EOMI; [place] conjunctiva, MMM. No erythema of posterior pharynx Neck: Supple and nontender Cardiac: RRR Lungs: CTA bilaterally Abdomen: Slightly distended; Bowel normoactive X 4; Nontender to palpation Extremities: Left dorsalis pedis pulse not detected with doppler, weak left posterior tibial pulse; tenderness to palpation over left foot, no specific area. +2 Bilat UE edema in forearms, +1 bilat non pitting LE edema noted. Optifoam in place at area of right second toe. Neuro: No focal weakness Skin: No rash Results & Data Vital Signs (Past 12 Hours) Vital Signs Temp Pulse Pulse Resp BP BP Pulse Ox 03/31/19 07:42 36.4 C L 87 16 116/68 100 03/31/19 04:05 36.4 C L 94 H 16 123/76 98 Laboratory Results 03/31/19 03/31/19 03/31/19 Range/Units 12:54 05:51 05:51 WBC (4.8-10.8) K/uL RBC (4.7-6.1) M/uL Hgb (14.0-18.0) g/dL Hct (42-52) % MCV (80-100) fL MCH (25-34) pg MCHC (32-36) g/dL RDW Std Deviation (36.4-46.3) fL RDW Coeff of Gilbert (11.5-14.5) % Plt Count (130-400) K/uL MPV (7.4-10.4) fL PT 10.1 (9.0-12.0) Seconds INR 1.0 (0.9-1.1) Sodium (136-145) mmol/L Potassium (3.5-5.1) mmol/L Chloride (98-107) mmol/L Carbon Dioxide (21-32) mmol/L Anion Gap (3-11) BUN (7-18) mg/dl Creatinine (0.6-1.4) mg/dl Est Cr Clr Drug Dosing ml/min Est GFR ( Amer) Est GFR (Non-Af Amer) BUN/Creatinine Ratio (10-20) Glucose (70-99) mg/dl POC Glucose (70-99) Calcium (8.5-10.1) mg/dl Total Bilirubin 0.2 (0.2-1) mg/dl Direct Bilirubin 0.1 (0-0.2) mg/dl AST 14 L (15-37) U/L ALT 21 (12-78) U/L Alkaline Phosphatase 76 (45-117) U/L Troponin I Pending Total Protein 5.0 L (6.4-8.2) gm/dl Albumin 1.8 L (3.4-5.0) gm/dl Prealbumin 14.5 L (20-40) mg/dl 03/31/19 03/31/19 03/30/19 Range/Units 05:51 05:51 20:58 WBC 4.22 L (4.8-10.8) K/uL RBC 3.35 L (4.7-6.1) M/uL Hgb 10.2 L (14.0-18.0) g/dL Hct 31.5 L (42-52) % MCV 94.0 (80-100) fL MCH 30.4 (25-34) pg MCHC 32.4 (32-36) g/dL RDW Std Deviation 51.1 H (36.4-46.3) fL RDW Coeff of Gilbert 15.0 H (11.5-14.5) % Plt Count 49 L (130-400) K/uL MPV 11.8 H (7.4-10.4) fL PT (9.0-12.0) Seconds INR (0.9-1.1) Sodium 136 (136-145) mmol/L Potassium 4.7 (3.5-5.1) mmol/L Chloride 107 (98-107) mmol/L Carbon Dioxide 19 L (21-32) mmol/L Anion Gap 10.0 (3-11) BUN 32 H (7-18) mg/dl Creatinine 1.58 H (0.6-1.4) mg/dl Est Cr Clr Drug Dosing 30.7 ml/min Est GFR ( Amer) 45.2 Est GFR (Non-Af Amer) 39.0 BUN/Creatinine Ratio 20.2 H (10-20) Glucose 155 H (70-99) mg/dl POC Glucose 110 H (70-99) Calcium 7.6 L (8.5-10.1) mg/dl Total Bilirubin (0.2-1) mg/dl Direct Bilirubin (0-0.2) mg/dl AST (15-37) U/L ALT (12-78) U/L Alkaline Phosphatase (45-117) U/L Troponin I Total Protein (6.4-8.2) gm/dl Albumin (3.4-5.0) gm/dl Prealbumin (20-40) mg/dl 03/30/19 Range/Units 17:23 WBC (4.8-10.8) K/uL RBC (4.7-6.1) M/uL Hgb (14.0-18.0) g/dL Hct (42-52) % MCV (80-100) fL MCH (25-34) pg MCHC (32-36) g/dL RDW Std Deviation (36.4-46.3) fL RDW Coeff of Gilbert (11.5-14.5) % Plt Count (130-400) K/uL MPV (7.4-10.4) fL PT (9.0-12.0) Seconds INR (0.9-1.1) Sodium (136-145) mmol/L Potassium (3.5-5.1) mmol/L Chloride (98-107) mmol/L Carbon Dioxide (21-32) mmol/L Anion Gap (3-11) BUN (7-18) mg/dl Creatinine (0.6-1.4) mg/dl Est Cr Clr Drug Dosing ml/min Est GFR ( Amer) Est GFR (Non-Af Amer) BUN/Creatinine Ratio (10-20) Glucose (70-99) mg/dl POC Glucose 82 (70-99) Calcium (8.5-10.1) mg/dl Total Bilirubin (0.2-1) mg/dl Direct Bilirubin (0-0.2) mg/dl AST (15-37) U/L ALT (12-78) U/L Alkaline Phosphatase (45-117) U/L Troponin I Total Protein (6.4-8.2) gm/dl Albumin (3.4-5.0) gm/dl Prealbumin (20-40) mg/dl PG Care Time/CCT Total # of Minutes Spent Total Time Spent with Patient: Total time spent is greater than 50% in coordination of care (as documented) at patient's floor/unit and/or counseling patient:
[2019-03-31] MEDS ORDERED: METHYLNALTREXONE BROMIDE 12 MG/0.6 ML VIAL SQ ONE (16:30)
[2019-03-31] MEDS ORDERED: MoRPHine SULFATE 2 MG/ML CARP IV PRN (16:32)
[2019-03-31] MEDS: MoRPHine SULFATE 2 MG/ML CARP IV PRN (17:25)
[2019-03-31] MEDS: FAMOTIDINE 20 MG in SYRINGE 3 ML IV SCH (18:38)
--- NOTE | 2019-03-31 19:41 | CT Scan Report ---
ABDOMEN AND PELVIS CT WITH ORAL CONTRAST CT DOSE: 363.73 mGy.cm HISTORY: Acute abdominal pain with distention Rule out obstruction TECHNIQUE: Multiaxial CT images of the abdomen and pelvis were performed following the use of oral co ntrast. A dose lowering technique was utilized adhering to the principles of ALARA. COMPARISON STUDY: KUB of same day, CT abdomen and pelvis 03/17/2019 FINDINGS: Small to moderate pleural effusions with bibasilar dependent consolidation. Motion degraded exam. No pneumatosis or pneumoperitoneum identified. Prior median sternotomy. Imaged inferior cardiac chambers are enlarged with trace pericardial effusion. Limited evaluation of the solid abdominal organs witho ut the use of IV contrast. There are suggested mild fatty infiltration of the liver. Prior cholecyste ctomy. Spleen and adrenal glands are unremarkable. Moderate generalized pancreatic atrophy. 2 mm vasc ular calcification versus calculus of the inferior pole right kidney. No ureteral calculi or obstruct vianca uropathy. 1.4 cm probable cyst of the interpolar right kidney. Wall thickening of the bladder wit h partial distention. Extensive calcified plaque the abdominal aorta. Bilateral renal arterial stent grafts. Tortuosity of the infrarenal abdominal aorta. Bilateral iliac stent graft is also noted. Contrast-filled distended stomach. Dilated contrast-filled loops of proximal small bowel measure up t o 3.9 cm transversely. Air and fluid-filled loops of colon. Gaseous distended loops of colon measure up to 4.9 cm transversely. Scattered small bowel diverticula redemonstrated. There is no focal transi tion point identified, however enteric contrast does not reach the ileocecal valve. Decompressed loop s of small bowel are seen within the abdominal right lower quadrant. Diffuse mesenteric and body wall edema. Degenerative changes of the spine, pelvis and hips. Dextroscoliosis of the lumbosacral juncti on. Prominent mesenteric lymph nodes are better seen on comparison study. IMPRESSION: 1. Limited exam without the use of IV contrast. 2. Contrast-filled distended stomach and proximal small bowel with distal small bowel loops demonstra ting decreased luminal diameter without enteric contrast extending to the ileocecal valve. No discret e transition point identified. Findings are suggestive of probable ileus with low-grade small bowel o bstruction considered less likely. Serial follow-up KUB radiographs could be considered. 3. Air and fluid-filled large bowel with suggested diarrheal illness. 4. Anasarca with bilateral pleural effusions. 5. Additional findings as above. Electronically signed by: Codey Dumas M.D. 03/31/2019 7:38 PM
[2019-03-31] MEDS ORDERED: ALBUMIN 25% 50 ML IV ONE (20:00)
[2019-03-31] MEDS ORDERED: FAMOTIDINE 20MG/5ML IV PUSH IV SCH (21:00)
[2019-03-31] MEDS: ACETAMINOPHEN 1,000 MG/100 ML VIAL IV SCH (22:44)
[2019-04-01 01:49] LABS: Hematocrit (blood only) 26.8 % (42-52); Hemoglobin 9.1 g/dL (14.0-18.0); Mean Corpuscular Volume 92.4 fL (80-100); RDW Standard Deviation 51.1 fL (36.4-46.3); White Blood Count 4.32 K/uL (4.8-10.8)
[2019-04-01 02:07] LABS: Prothrombin Time 10.2 Seconds (9.0-12.0)
[2019-04-01 02:17] LABS: BUN Creatinine Ratio 16.8 (10-20); Calcium 7.7 mg/dl (8.5-10.1); Est GFR (African American) 35.3; Est GFR (Non-African American) 30.5
[2019-04-01 02:24] LABS: Troponin I 0.076 ng/ml (0-0.045)
[2019-04-01 03:03] LABS: Mean Platelet Volume 11.8 fL (7.4-10.4); Platelet Count 31 K/uL (130-400)
[2019-04-01] MEDS: FAMOTIDINE 20 MG in SYRINGE 3 ML IV SCH ×2 (05:25→21:42)
[2019-04-01] MEDS: ACETAMINOPHEN 1,000 MG/100 ML VIAL IV SCH ×3 (05:25→21:42)
[2019-04-01] MEDS: MoRPHine SULFATE 2 MG/ML CARP IV PRN (07:39)
--- NOTE | 2019-04-01 08:04 | XRay Report ---
KUB CLINICAL HISTORY: Ileus COMPARISON STUDY: KUB and CT of the abdomen and pelvis March 31, 2019. FINDINGS: Incidental note is made of cholecystectomy clips, bilateral common iliac stents, bilateral renal artery stents and endovascular coils. Moderate gaseous distention of small and large bowel has mildly improved since CT of March 31, 2019. Oral contrast has reached the cecum. There is no evidence f or free air although sensitivity is diminished on this supine exam. IMPRESSION: Mild improvement in moderate gaseous distention of small and large bowel since CT of Mar. This favors an ileus. A bowel obstruction could appear similar although is considered less likely. Electronically signed by: Gabriel Sanchez M.D. 04/01/2019 8:03 AM
[2019-04-01] MEDS ORDERED: SODIUM CHLORIDE 0.9% 1000ML 1,000 ML IV SCH (08:15)
[2019-04-01] MEDS ORDERED: POLYETHYLENE (MIRALAX) 17 GM PACK PO SCH (09:00)
[2019-04-01] MEDS: METOCLOPRAMIDE HCL INJ 5 MG/ML 2 ML VIAL IV SCH ×3 (09:12→21:40)
[2019-04-01] MEDS: ALBUMIN 25% 50 ML IV SCH ×3 (09:12→21:48)
[2019-04-01] MEDS: DOCUSATE SODIUM/SENNA 50/8.6MG TAB PO SCH ×2 (09:13→21:41)
[2019-04-01] MEDS: GABAPENTIN 100 MG CAP PO SCH ×2 (09:13→21:41)
[2019-04-01] MEDS: NYSTATIN SUSP 500,000 U/5 ML UDC PO SCH ×4 (09:13→21:41)
[2019-04-01] MEDS ORDERED: BISACODYL 10 MG SUPP PR STA (09:56)
--- NOTE | 2019-04-01 10:08 | Gastroenterology Progress Note ---
Date of Service April 01, 2019 Assessment & Plan (1) Ileus: Likely narcotic and immobility induced ileus. 1. Recommend increasing activity if at all possible such as getting pt up to a chair or as a minimum turn Q 2 hrs. 2. Relistor Q 2 days during hospitalization - may DC if stays off narcotics (just DC'ed this morning) and ileus resolves. 3. Tap water enema then Dulcolax suppository. 4. Clear liquids po today. May advance when more substantial BMs. Present on Admission?: No Supervising Physician Co-Signing Physician Notes I performed a history and physical examination of the patient, including specifically on physical exam - soft, nontender abdomen. I have discussed the patient's management with Singh. Please refer to the nurse practitioner's note for the documented findings and plan of care. Concern about ileus from KUB followed by CT scan, no SBO. He has been on Opioids. Given enema and Relistor and had multiple large brwon colored bowel movements. Recommend: Ambulation. Laxatives as needed. Avoid Opioids. Recall GI if needed. Subjective Mr. Lawson is an 88 yr old male admitted with cellulitis on 03/07, underwent toe amputation, experienced melena. Because recent PVD stenting was on coumadin and ASA which have been held. Underwent EGD on03/30 with [facility]ret[place] and a duodenal diverticulum but without any bleeding and black BMs though to be caused by po iron supplementation. We were asked to see this pt again for abdominal distention. CT on 03/31 with ileus vs. less likely SBO. BMs: one moderate size liquid yesterday at noon and smearing a few times since then. X-ray today with less distension but still appears as ileus. On exam this morning, pt with hyperactive BS and abdomen is mildly distended, but not taunt and pt only mildly uncomfortable with palpation. Digital rectal exam without impaction and with return of flatus and green liquid fecal material. Review of Systems Review of Systems: ROS: Gen: Chronically weak; no fevers Eyes: No eye redness, or pain, no recent vision changes Resp: No SOB, no cough Cardio: No palpitations/irregular beats, no chest pain GI: + pt c/o of abdominal discomfort but does not describe as pain; no nausea/vomiting : Denies pain on urination Skin: No jaundice, itching or new rashes Ext: right foot pain from toe amputation. Physical Exam Constitutional: WD/WN, vitals as above Eyes: PERRL, conjunctivae normal, anicteric sclerae ENMT: external ear and nose normal, oropharynx normal Neck: trachea midline, no thyromegaly Respiratory: normal respiratory effort, lungs clear to auscultation Cardiovascular: RRR, no murmur, no edema Gastrointestinal (Abdomen): mild distention; BS hyperactive throughout; mild discomfort with palpation Skin: no rashes, warm and dry dressing intact over right 2nd toe Neurologic: PERRL, EOMI, accommodation nl, no face palsy, no dysarthria Psychiatric: Orientation: oriented x 3 Lymphatic: no cervical or axillary lymphadenopathy Results & Data Vital Signs (Past 12 Hours) Vital Signs Temp Pulse Pulse Resp BP Pulse Ox 04/01/19 09:47 36.4 C L 61 16 111/60 98 04/01/19 08:21 36.6 C 81 15 112/63 98 03/31/19 23:10 36.3 C L 81 16 100/[address] abd/pelvis without contrast 03/30/19: 1. Limited exam without the use of IV contrast. 2. Contrast-filled distended stomach and proximal small bowel with distal small bowel loops demonstrating decreased luminal diameter without enteric contrast extending to the ileocecal valve. No discrete transition point identified. Findings are suggestive of probable ileus with low-grade small bowel obstruction considered less likely. Serial follow-up KUB radiographs could be considered. 3. Air and fluid-filled large bowel with suggested diarrheal illness. 4. Anasarca with bilateral pleural effusions. 5. Additional findings as above.
[2019-04-01] MEDS: METHYLNALTREXONE BROMIDE 12 MG/0.6 ML VIAL SQ SCH (11:27)
--- NOTE | 2019-04-01 11:30 | Hospitalist Progress Note ---
Date of Service April 01, 2019 Assessment & Plan (1) Gangrene of toe of right foot: - MRI with areas of osteitis without definitive evidence for osteomyelitis within the distal phalanges of the 1st, 3rd, 4th, and 5th toes; S/P R 2nd toe amputation and debridement on 03/10 followed by I&D on 03/22. - Most recent culture from I&D positive for E. coli and Pseudomonas. - Completed course of Daptomycin/Zyvox; continue Levaquin 750 mg q48hr per sensitivities. - ID following, appreciate input. - Continue daily dressing changes with optifoam placement. - May require wound vac placement -- ortho following, follow up as outpatient. (2) Positive occult stool blood test: - FOBT was positive with associated acute anemia on 03/28/19; previous FOBT also positive on 03/09/19. - H/o EGD with duodenal diverticuli & active bleeding s/p IR embolization on at [facility]. - GI following, appreciate input. 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 - On ferrous sulfate at home -- likely leading to +FOBT; hold in setting of nausea. - Holding Plavix/Coumadin due to worsening thrombocytopenia. - Famotidine IV BID. (3) Ileus: - Noted on KUB and CT A/P on ; likely narcotic & immobility induced -- has been using multiple doses of Oxycodone per day for foot pain. - GI following, appreciate input. - Tap water enema followed by dulcolax suppository today; will also give Relistor q2days while inpatient. - Advance to CLD as tolerated for lunch. - Encourage activity every 2 hours. - Reglan 10 mg IV q6hr scheduled for nausea. (4) Nausea & vomiting: - Continues with intermittent nausea/vomiting -- Vazquez's esophagus vs. medication related vs. ileus. - Ongoing nausea/vomiting with abd bloating in setting of ileus. - Does have h/o GI bleed -- EGD was negative on 03/30/19. - Famotidine IV BID for Vazquez's esophagus. - Continue Levaquin as prescribed - abx may be contributing to intermittent N/V. - Ileus treatment as noted above; started Reglan 10 mg IV q6hr scheduled. (5) Anemia: - Significant drop in hgb on 03/28 -- responded well to transfusion support. - EGD negative for active bleeding; etiology of anemia is likely multifactorial related to acute hospitalization & illness, frequent blood work, anemia of criminal research specialist chirag disease. - Monitor CBC daily -- H/H has been stable. - Holding ferrous sulfate in setting of N/V. Iron studies pending in the morning. (6) Thrombocytopenia: - Plt count is trending down, was 31K. - Holding home Plavix/Coumadin. - May be related to antibiotic therapy -- expect improvement in counts over next week if this is medication induced. - Consulted hematology for evaluation -- may require bone marrow biopsy in future if no improvement, monitor as inpt. (7) Left foot pain: - Complains of generalized left foot pain; is not likely related to vascular ischemia per cardiology. - Foot XR/Toe XR was negative for acute changes. - Cardiology, Dr. Wiseman, consulted -- appreciate input. - Repeat arterial duplex was negative for acute changes. - Received Pred 30 mg daily x 2 days with no improvement -- not likely related to gout. - Could not tolerate vasodilator for small vessel PAD in setting of hypotension. - Started Gabapentin for neuropathy related pain -- will increase to 200 mg BID (can tolerate max of 700 mg/day) - Holding narcotics due to ileus -- d/c'ed Morphine IV this morning; Tylenol 1 gm IV q8hr for pain. (8) Scrotal edema: - Scrotal edema unchanged -- third spacing in setting of low albumin levels. - Continue scrotal elevation. - Monitor I/Os and daily weights - weight trending down in setting of dehydration. (9) Fall: - Fell in restroom on 03/19 - appears mechanical, no indication for further work up. - PT/OT evaluations; discharge to [facility] in future. (10) Atrial fibrillation: - Warfarin has been recently held for EGD/concern for acute upper GI bleed. EGD was negative. - Monitor INR daily -- has been subtherapeutic. - Holding Coumadin due to thrombocytopenia. - Currently not on rate controlling medications -- BP cannot tolerate meds. (11) DMII (diabetes mellitus, type 2): - Most recent A1C was 5.1 - Does not require SSI coverage. (12) CAD (coronary artery disease): - S/p CABG x 2 vessels (vein graft to LAD, vein graft to OM in 2010) - Holding Plavix/Coumadin due to plt <50K; d/c'ed Aspirin per previous cardiology notes. -Statin is on hold as was on daptomycin but could likely restart when taking adequate p.o. again (13) Acute kidney injury: - Creatinine level 1.9 -- likely pre-renal related to dehydration in setting of NPO status. - Pt. is also third spacing due to low albumin/malnutrition -- will start NS at 50 cc/hr and Albumin 25% q6hr scheduled. - Repeat BMP this evening to evaluate for improvement. - Monitor volume status/weights throughout day. (14) Chronic kidney disease, stage 3a: - Renal function elevated as noted above. (15) HLD (hyperlipidemia): -Holding statin. (16) Peripheral arterial disease: - Follows with Dr. Wiseman, consulted as inpatient for left foot pain. - Hold Plavix; currently holding statin. - Arterial doppler in February 2019 showed: extensive atherosclerotic plaque about the b/l lower extremities; triphasic waveforms within b/l common femoral arteries with biphasic waveforms about the superficial femoral arteries; monophasic waveforms about the lower legs b/l with L > R; no arterial occlusion or significantly elevated peak systolic velocities identified to suggest high- grade stenosis. - Repeat bilat arterial duplex on 03/29 was unchanged. (17) HTN (hypertension): - D/c'ed Lisinopril due to hypotension. - Could not tolerate Amlodipine 2.5 mg, will discontinue. (18) Aortic stenosis: - S/p AVR in 2010. (19) Hypoalbuminemia due to protein-calorie malnutrition: - In setting of very limited PO intake. - Albumin 1.8, Pre-albumin was 14.5. - Pt. is third spacing in extremities due to malnutrition; will start Albumin 25% q8hr. - CLD as tolerated; IVFs at 50 cc/hr. (20) DVT prophylaxis: - SCDs; Holding Coumadin. Dispo: [place] placement once medically stable. Updated and daughter at bedside from 12:50 to 1:20 pm regarding plan of care, including thrombocytopenia, ileus, anemia, left foot pain. Supervising Physician Co-Signing Physician Notes PA Supervision Note: I personally saw and examined the patient. I verified all cerrato points and agree with HALLE Ambriz with the following exceptions and/or additions: Later in the evening, staff is having trouble getting a good blood pressure reading and he had severe hypoglycemia down into the 40s-the reading of 15 was apparent. He had some mild abdominal distention and the same complaints as earlier in the day but nothing new. He remained afebrile. His labs were showing a worsening metabolic acidosis based on VBG pH and anion gap metabolic acidosis on chemistry panel which is likely secondary to his acute kidney injury and possibly some intravascular depletion/dehydration. He was transferred to the PCU for closer monitoring. His lactate was mildly elevated which again is likely secondary to dehydration He was started on D5 normal saline in addition to his IV albumin. Blood cultures were drawn but no antibiotics started as he is afebrile and there is no current source of infection. Review of the pictures from his toe wound do not appear like the toe is infected. His abdomen had mild distention but with active bowel sounds and no rigidity, no tenderness. He was given an amp of D50 for his hypoglycemia with good response. His blood pressure after transfer to PCU was within normal limits. Vitals reviewed Abdominal exam as above In general, he appeared in no acute distress and was talking to his daughter on the phone without difficulty Unlabored breathing With anasarca 1+ pitting edema in the upper and lower extremities bilaterally 88-year-old male with complex medical history with numerous ongoing issues as above -With ongoing ileus likely secondary to opioid use-plan as above -Gabapentin only for pain as well as Tylenol but no opioids We will attempt to increase his intravascular volume with IV albumin and crystalloid solution -We will discontinue Pepcid as this could also cause thrombocytopenia Subjective Pt. is unchanged -- he complains of increased numbness in both hands, L>R. Left foot pain is currently well controlled but he received dose of narcotics this morning. Breathing is stable, denies SOB or chest pain. Has nausea with abd bloating -- having intermittent BMs. KUB and CT Abd showed ileus -- GI following, appreciate input. Review of Systems Review of Systems: All systems reviewed & are unremarkable except as noted in HPI & below Constitutional: + fatigue, + weakness and + anorexia; no fever and no chills Respiratory: no cough, no dyspnea, no dyspnea on exertion and no wheezing Cardiovascular: + edema (All extremities, UE>LE. ); no chest pain, no palpitations and no lightheadedness Gastrointestinal: + abdominal pain, + bloating and + nausea; no vomiting, no constipation and no diarrhea/loose stools Genitourinary: no difficulty urinating Musculoskeletal: + joint pain (Left foot/toes ); no back pain Integumentary: + non-healing lesions (Right foot, second toe amputation. ), + erythema (All fingers, left toes. ) and + change in skin color (Distal part of all fingers, some mild color change in left toes. ) Neurologic: + numbness (Bilateral hands ) Allergy / Immunological: no rash Physical Exam Physical Exam: Results & Data Vital Signs (Past 12 Hours) Vital Signs Temp Pulse Pulse Resp BP Pulse Ox 04/01/19 09:47 36.4 C L 61 16 111/60 98 04/01/19 08:21 36.6 C 81 15 112/63 98 Laboratory Results 04/01/19 04/01/19 04/01/19 Range/Units 01:08 01:08 01:08 WBC 4.32 L (4.8-10.8) K/uL RBC 2.90 L (4.7-6.1) M/uL Hgb 9.1 L (14.0-18.0) g/dL Hct 26.8 L (42-52) % MCV 92.4 (80-100) fL MCH 31.4 (25-34) pg MCHC 34.0 (32-36) g/dL RDW Std Deviation 51.1 H (36.4-46.3) fL RDW Coeff of Gilbert 15.0 H (11.5-14.5) % Plt Count 31 L (130-400) K/uL MPV 11.8 H (7.4-10.4) fL Absolute Nucleated RBC 0.00 (0-0) K/uL Nucleated RBC % (auto) 0.0 % Peripher Smr Path Cons PT 10.2 (9.0-12.0) Seconds INR 1.0 (0.9-1.1) Sodium 133 L (136-145) mmol/L Potassium 5.0 (3.5-5.1) mmol/L Chloride 105 (98-107) mmol/L Carbon Dioxide 19 L (21-32) mmol/L Anion Gap 9.0 (3-11) BUN 33 H (7-18) mg/dl Creatinine 1.94 H D (0.6-1.4) mg/dl Est Cr Clr Drug Dosing 25.0 ml/min Est GFR ( Amer) 35.3 Est GFR (Non-Af Amer) 30.5 BUN/Creatinine Ratio 16.8 (10-20) Glucose 133 H (70-99) mg/dl Calcium 7.7 L (8.5-10.1) mg/dl Total Bilirubin (0.2-1) mg/dl Direct Bilirubin (0-0.2) mg/dl AST (15-37) U/L ALT (12-78) U/L Alkaline Phosphatase (45-117) U/L Troponin I 0.076 H* (0-0.045) ng/ml Total Protein (6.4-8.2) gm/dl Albumin (3.4-5.0) gm/dl Prealbumin (20-40) mg/dl 03/31/19 03/31/19 03/31/19 Range/Units 19:57 12:54 05:51 WBC (4.8-10.8) K/uL RBC (4.7-6.1) M/uL Hgb (14.0-18.0) g/dL Hct (42-52) % MCV (80-100) fL MCH (25-34) pg MCHC (32-36) g/dL RDW Std Deviation (36.4-46.3) fL RDW Coeff of Gilbert (11.5-14.5) % Plt Count (130-400) K/uL MPV (7.4-10.4) fL Absolute Nucleated RBC (0-0) K/uL Nucleated RBC % (auto) % Peripher Smr Path Cons PT (9.0-12.0) Seconds INR (0.9-1.1) Sodium (136-145) mmol/L Potassium (3.5-5.1) mmol/L Chloride (98-107) mmol/L Carbon Dioxide (21-32) mmol/L Anion Gap (3-11) BUN (7-18) mg/dl Creatinine (0.6-1.4) mg/dl Est Cr Clr Drug Dosing ml/min Est GFR ( Amer) Est GFR (Non-Af Amer) BUN/Creatinine Ratio (10-20) Glucose (70-99) mg/dl Calcium (8.5-10.1) mg/dl Total Bilirubin 0.2 (0.2-1) mg/dl Direct Bilirubin 0.1 (0-0.2) mg/dl AST 14 L (15-37) U/L ALT 21 (12-78) U/L Alkaline Phosphatase 76 (45-117) U/L Troponin I 0.085 H* 0.095 H* (0-0.045) ng/ml Total Protein 5.0 L (6.4-8.2) gm/dl Albumin 1.8 L (3.4-5.0) gm/dl Prealbumin 14.5 L (20-40) mg/dl PG Care Time/CCT Total # of Minutes Spent Total Time Spent with Patient: Total time spent is greater than 50% in coordination of care (as documented) at patient's floor/unit and/or counseling patient: Prolonged Care Time Prolonged Care Time: Yes Total Prolonged Care Time: 30
--- NOTE | 2019-04-01 13:18 | Consultation Report ---
DATE OF CONSULTATION: 04/01/2019 HEMATOLOGY CONSULTATION REASON FOR CONSULTATION: Progressing thrombocytopenia. HISTORY OF PRESENT ILLNESS: Mr. Lawson is a very pleasant 88-year-old gentleman who was admitted to [facility] originally back on 03/07 because of rapid deterioration of his right second toe. He had been under treatment by infectious disease with ongoing cellulitis. Apparently, he was brought in in anticipation of amputating the affected toe. He has significant comorbid issues, has battled with osteomyelitis along with multiple other medical issues prolonging his stay. I was consulted by the hospitalist service because of his stepwise decline in platelet count. The patient has been on long-standing broad spectrum antibiotics and medical team became concerned as his platelet count continues to drop over the past 5 days or so. PAST MEDICAL HISTORY: Again, this gentleman has multiple medical issues including history of cellulitis, gastrointestinal bleeding, acute renal injury, type 2 diabetes mellitus, osteomyelitis, peripheral vascular disease, anemia of chronic disease, chronic kidney disease, gastroesophageal reflux disease, hypertension, peptic ulcer disease, stent insertion in the right renal artery, hyperlipidemia and subclavian artery stenosis. PAST SURGICAL HISTORY: Includes aortic valve repair with tissue graft, history of left inguinal hernia repair, aortic valve replacement, history of coronary artery disease, status post stenting, cholecystectomy and left inguinal hernia repair. MEDICATIONS: Prior to admission include vitamin C 500 mg p.o. daily, aspirin 81 mg p.o. daily, cholecalciferol 2000 units p.o. daily, omeprazole 40 mg p.o. daily, ferrous sulfate 325 mg p.o. b.i.d., lisinopril dose unknown, clopidogrel 75 mg p.o. daily, daptomycin 350 mg IV daily, warfarin 3 mg p.o. daily, hydrocodone/acetaminophen 5/325 mg p.o. q. 4 hours p.r.n. ALLERGIES: No known drug allergies. FAMILY HISTORY: Unknown. SOCIAL HISTORY: The patient is , retired and lives with his spouse. Prior cigarette smoker. He also has a history of significant alcohol use but quit in 1995. REVIEW OF SYSTEMS: CONSTITUTIONAL: Negative for fevers, chills or sweats. He has been hospitalized for 25 days now. No acute skin rashes or dermatoses. HEENT: He denies any ongoing headache, lightheadedness or dizziness. No acute visual or hearing deficit. No sinus symptoms, sore throat or dysphagia. LYMPHATICS: No history of lymphoproliferative disease. CARDIAC: Positive history of coronary artery disease. No current angina or palpitation. PULMONARY: Negative for shortness of breath, dyspnea or orthopnea. No cough or hemoptysis. GASTROINTESTINAL: Question of gastrointestinal bleeding. GI on consultation. No current nausea or vomiting, no diarrhea or constipation. GENITOURINARY: No history of prostate disease. No hematuria, dysuria, or urinary incontinence. PSYCHIATRIC: Negative for anxiety, depression or psychoses. ENDOCRINE: Positive for diabetes mellitus. MUSCULOSKELETAL: Negative for acute-onset arthralgias or myalgias. NEUROLOGIC: Negative for seizure, stroke, or migraine headache. HEMATOLOGIC: Positive for normocytic normochromic anemia and thrombocytopenia. PHYSICAL EXAMINATION: GENERAL: Very pleasant 88-year-old gentleman, awake, alert and appropriate, in no acute distress. VITAL SIGNS: Temperature 36.6, pulse 81, respiratory rate 15, blood pressure 112/63. SKIN: Warm, dry, noncyanotic without petechia, rash or ecchymosis. Hyperpigmentation in his lower extremities is attributable to venous insufficiency. HEENT: Head atraumatic, normocephalic. Eyes: PERRLA, EOMI. Sclerae nonicteric. Nares patent without rhinorrhea or discharge. Throat clear. Tongue midline. Mucous membranes are moist. No buccal lesions or ulcerations. NECK: No cervical or supraclavicular palpable nodes. HEART: Regular rate and rhythm. No clicks, rubs, murmurs, or gallops. LUNGS: Clear to auscultation bilaterally. ABDOMEN: Soft, nontender, nondistended. EXTREMITIES: No clubbing or edema. His distal toes are somewhat cyanotic. Second toe in the right foot is packed. NEUROLOGIC: Awake, alert, and oriented x3. Cranial nerves are intact. LABORATORY DATA: WBC count 43.20, hemoglobin 9.1, platelet count 31,000. PT 10.2 seconds, INR of 1. Sodium 133, potassium 5, chloride 105, carbon dioxide 19, creatinine 1.94, BUN 33. RADIOGRAPHIC DATA: KUB was done this morning with mild improvement in moderate gaseous distention of the small and large bowel. IMPRESSION: 1. Normocytic normochromic anemia. 2. Progressive thrombocytopenia. 3. Gangrene, second toe of right foot. 4. Positive occult blood in stool. 5. Ileus. 6. Nausea and vomiting. 7. Atrial fibrillation. 8. Type 2 diabetes mellitus. 9. Acute on chronic kidney disease. PLAN: Hospitalist service has asked me to evaluate Mr. Lawson who is an 88-year-old gentleman with multiple comorbid issues and a prolonged hospitalization. Reviewed multiple peripheral blood counts over the past week and indeed his platelet count has progressively dropped. At first glance, with his history of osteomyelitis and a prolonged antibiotic therapy, there are some cephalosporins that can indeed a drop patient's platelet count. I also took a note of the patient's worsening creatinine and became somewhat concerned of possible emerging thrombotic thrombocytopenic purpura. However, Mr. Lawson's case does not fit the pentad, particularly with a normal neurologic status and absence of fever. I reviewed his most recent peripheral smear which is also devoid of schistocytosis. His coags are within normal limits, thus eliminating a DIC as an etiologic factor. With positive blood cultures and his history of infection, certainly myelosuppression itself is most likely the culprit. Would continue to monitor his counts on a daily basis and transfuse platelets if he should fall below 20,000. In regard to his anemia, there again conceivably he suffers from anemia of chronic disease/renal insufficiency. However, 9 g/dL does not need addressed immediately. Perhaps checking iron studies on him would be helpful in preparation to initiate supplemental erythropoietin in the future. Obviously, myelodysplasia is not ruled out; however, in the setting of chronic infection, would not pursue bone marrow biopsy and aspiration until he stabilizes medically. I will continue to follow him periodically during his stay. Thank you very much for allowing me to participate in his care. JAIME
[2019-04-01] MEDS ORDERED: LEVOFLOXACIN/D5W 750 MG/150 ML BAG IV SCH (15:00)
[2019-04-01] MEDS: CARBOHYDRATES FOR HYPOGLYCEMIA PO PRN (17:45)
[2019-04-01 17:50] LABS: Calcium 7.7 mg/dl (8.5-10.1); Creatinine Clr Calc Pharmacy 24.6 ml/min; Est GFR (African American) 35.1; Est GFR (Non-African American) 30.3; Potassium 4.4 mmol/L (3.5-5.1)
[2019-04-01] MEDS: GLUCOSE 40% GEL 15 GM TUBE PO PRN (18:02)
[2019-04-01] MEDS ORDERED: DEXTROSE 50% 50 ML SYRINGE IV STA (18:22)
[2019-04-01] MEDS ORDERED: D5W AND NSS 1,000 ML IV SCH (18:45)
[2019-04-01 19:32] LABS: Base Excess VBG -12.5 mEq/L; Oxygen Saturation VBG 73.8 %; pH VBG 7.24 (7.36-7.41)
--- NOTE | 2019-04-01 19:59 | XRay Report ---
KUB HISTORY: Acute generalized abdominal pain with distention Rule out pneumoperitoneum COMPARISON: KUB of same day at 7:52 AM FINDINGS: Gaseous distention of the large and small bowel redemonstrated with large bowel loops measu ring up to 6.8 cm transversely, previously 5.7 cm. No pneumatosis or pneumoperitoneum identified. Deandre gical clips and vascular stents of the abdomen redemonstrated. No urolith identified. Degenerative ch anges of the spine, pelvis and hips. IMPRESSION: 1. Persistent large and small bowel distention suggestive of ileus. 2. No pneumatosis or pneumoperitoneum identified. Electronically signed by: Codey Dumas M.D. 04/01/2019 7:57 PM
[2019-04-01] MEDS ORDERED: SIMETHICONE 80 MG CHEW PO PRN (20:29)
[2019-04-01] MEDS ORDERED: ALUMINUM/MAGNESIUM SUSP 30 ML UDC PO PRN (20:29)
[2019-04-01 21:31] LABS: Hematocrit (blood only) 28.1 % (42-52); Hemoglobin 9.5 g/dL (14.0-18.0); Mean Corpuscular Hgb Conc 33.8 g/dL (32-36); Mean Platelet Volume 13.1 fL (7.4-10.4); Platelet Count 25 K/uL (130-400); Platelet Estimate SIGNIFIC DECREASED (Normal); RDW Coefficient of Variation 14.9 % (11.5-14.5); RDW Standard Deviation 50.7 fL (36.4-46.3); Red Blood Count 2.99 M/uL (4.7-6.1); White Blood Count 4.29 K/uL (4.8-10.8)
[2019-04-02] MEDS: LIDOCAINE 5% 1 PATCH TD SCH ×2 (00:31→21:31)
[2019-04-02 01:21] LABS: Albumin Level 2.2 gm/dl (3.4-5.0); BUN Creatinine Ratio 18.4 (10-20); Calcium 7.3 mg/dl (8.5-10.1); Creatinine Clr Calc Pharmacy 26.3 ml/min; Est GFR (African American) 38.1; Est GFR (Non-African American) 32.9; Potassium 4.2 mmol/L (3.5-5.1)
[2019-04-02 01:24] LABS: Albumin Globulin Ratio 0.8 (0.9-2); Bilirubin,Total 0.2 mg/dl (0.2-1); Ferritin 195.3 ng/ml (8-388); Globulin 2.8 gm/dl (2.5-4.0); Hematocrit (blood only) 26.4 % (42-52); Hemoglobin 8.7 g/dL (14.0-18.0); Mean Corpuscular Volume 91.7 fL (80-100); Mean Platelet Volume 11.9 fL (7.4-10.4); Platelet Count 22 K/uL (130-400); RDW Standard Deviation 50.6 fL (36.4-46.3); Red Blood Count 2.88 M/uL (4.7-6.1); White Blood Count 3.23 K/uL (4.8-10.8)
[2019-04-02] MEDS: METOCLOPRAMIDE HCL INJ 5 MG/ML 2 ML VIAL IV SCH ×3 (02:32→15:00)
[2019-04-02] MEDS: ALBUMIN 25% 50 ML IV SCH ×4 (03:03→20:02)
[2019-04-02] MEDS: ACETAMINOPHEN 1,000 MG/100 ML VIAL IV SCH ×2 (05:54→14:59)
[2019-04-02 06:47] LABS: BUN Creatinine Ratio 18.7 (10-20); Calcium 7.7 mg/dl (8.5-10.1); Creatinine Clr Calc Pharmacy 26.8 ml/min; Est GFR (African American) 38.9; Est GFR (Non-African American) 33.6; Potassium 4.3 mmol/L (3.5-5.1)
[2019-04-02 06:56] LABS: Hematocrit (blood only) 26.2 % (42-52); Hemoglobin 8.9 g/dL (14.0-18.0); Mean Platelet Volume 13.2 fL (7.4-10.4); Platelet Count 19 K/uL (130-400); RDW Coefficient of Variation 14.8 % (11.5-14.5); RDW Standard Deviation 49.8 fL (36.4-46.3); Red Blood Count 2.88 M/uL (4.7-6.1); White Blood Count 2.67 K/uL (4.8-10.8)
[2019-04-02 06:57] LABS: Acanthocytes 1+; Echinocytes 2+; Eosinophils # (auto) 0.04 K/uL (0-0.5); Eosinophils % (auto) 1.5 %; Immature Granulocytes # (auto) 0.01 K/uL (0.00-0.02); Immature Granulocytes % (auto) 0.4 %; Lymphocytes % (auto) 11.2 %; Monocytes # (auto) 0.16 K/uL (0.11-0.59); Neutrophils # (auto) 2.16 K/uL (1.4-6.5); Neutrophils % (auto) 80.9 %; Platelet Estimate SIGNIFIC DECREASED (Normal)
[2019-04-02] MEDS ORDERED: SODIUM CHLORIDE 0.9% 250 ML IV PRN (08:51)
[2019-04-02] MEDS ORDERED: LIDOCAINE 5% 1 PATCH TD SCH (09:00)
[2019-04-02] MEDS: GABAPENTIN 100 MG CAP PO SCH ×2 (09:17→21:31)
[2019-04-02] MEDS: NYSTATIN SUSP 500,000 U/5 ML UDC PO SCH ×4 (09:17→21:32)
[2019-04-02] MEDS: DOCUSATE SODIUM/SENNA 50/8.6MG TAB PO SCH ×2 (09:17→21:35)
--- NOTE | 2019-04-02 10:09 | Nephrology Consultation ---
Date of Consultation April 02, 2019 Assessment & Plan (1) Acute kidney injury: 88-year-old gentlemen admitted to the hospital with osteomyelitis, prolonged hospital course complicated by multiple issues including small bowel obstruction, anemia, thrombocytopenia. Has baseline stage III CKD, baseline creatinine 1.1-1.3 with prior history of multiple acute kidney injury. Developed acute kidney injury and electrolyte abnormality in the setting of small bowel obstruction, significant hypoalbuminemia with possible intravascular volume depletion. Metabolic acidosis most likely combination of gap and non gap metabolic acidosis. --check urine anion gap --change IV fluid to D 5 with bicarbonate --encourage protein intake --avoid hypotension, avoid nephrotoxic medications Will follow Thank you for the consultation. (2) Metabolic acidosis: (3) Anemia: (4) HTN (hypertension): (5) Anemia of chronic disease: (6) Chronic kidney disease, stage 3a: History of Present Illness Reason for Consultation: Acute kidney injury, electrolyte abnormality. Attending Physician: Johanna Fitzgerald MD History of Present Illness Talon Lawson is a 88-year-old gentlemen with multiple comorbidities admitted to the hospital almost 4 weeks ago with left infected to osteomyelitis. Nephrology consult was requested to manage acute kidney injury and metabolic abnormality. Electronic medical records including labs and imaging are reviewed in detail during patient's visit. Ricco was admitted to hospital on 03/07/2019 with left foot infected toe. Hospital course was complicated by multiple other issues including recent bone marrow suppression with persistent pancytopenia, partial small-bowel obstruction with Ileus, pleural effusion, ascites, malnutrition and hypoalbuminemia, acute kidney injury and electrolyte abnormality. Baseline creatinine has been around 1.1-1.3 with prior history of acute kidney injury. Renal function has been initially at baseline however over last more than a week developed acute kidney injury and creatinine has been staying around 1.7-1.9. Remain non-oliguric. Blood pressure has been well controlled without significant hypotensive episode. Urinalysis unremarkable, no proteinuria hematuria. Abdomen pelvis CT on 03/31/2019 showed Ileus but no hydronephrosis. Was on Zyvox and developed progressive thrombocytopenia and was discontinued. Albumin has been low around 2.0, previously could not tolerate post. Currently getting IV albumin. Appetite remained poor and also has been on clear liquid because of bowel obstruction. Has been having left-sided chest pain since last night, no shortness of breath or palpitation. Has been afebrile. Allergies Allergy/AdvReac Type Severity Reaction Status Date / Time No Known Allergies Allergy Unknown Verified 03/07/19 08:45 Home Medications Home Medications Medication Instructions Recorded Confirmed Type ascorbic acid (vitamin C) 500 mg PO DAILY #0 03/17/18 03/07/19 History aspirin 81 mg PO DAILY #0 03/17/18 03/07/19 History cholecalciferol (vitamin D3) 2,000 unit PO DAILY #0 03/17/18 03/07/19 History [Vitamin D3] omeprazole 40 mg PO DAILY #0 03/17/18 03/07/19 History ferrous sulfate 325 mg PO BID 01/22/19 03/07/19 History lisinopril 0 mg PO DAILY 02/06/19 03/07/19 History daptomycin 350 mg IV DAILY #1 ea 02/19/19 03/07/19 Rx warfarin 3 mg PO DAILY #0 tab 02/19/19 03/07/19 Rx hydrocodone 5 mg-acetaminophen 325 See Rx Instructions PO Q4H PRN #60 03/02/19 03/07/19 Rx mg tablet tab linezolid [Zyvox] 600 mg PO BID #26 tab 03/15/19 Rx Patient History Medical History Inguinal hernia (Resolved) Cellulitis (Resolved) CAD (coronary artery disease) (Chronic) History of GI bleed (Resolved) KYLE (acute kidney injury) (Resolved) Diabetes mellitus (Acute) type 2 Osteomyelitis (Acute) S/P arteriogram of extremity (Acute) 2 stents in the lower legs A-fib Anemia of chronic disease CKD (chronic kidney disease), stage III Coronary artery disease GERD (gastroesophageal reflux disease) HTN (hypertension), benign History of peptic ulcer disease History of stent insertion of renal artery Right, in the 1990s Hyperlipidemia Peripheral vascular disease Subclavian artery stenosis Surgical History H/O aortic valve replacement with tissue graft (Resolved) H/O left inguinal hernia repair (Resolved) H/O aortic valve replacement (Resolved) Aortic valve replaced (Acute) Hx of CABG (Acute) History of cholecystectomy History of left inguinal hernia repair History of thoracentesis Family History Father Unknown family medical history Social History Preferred Language: [place] Communication Ability: Effective Beliefs That Will Affect Care: None marital status: Current Living Situation: Spouse Feels Safe at Home: Yes Smoking Status: Former smoker Tobacco Type: cigarettes Cigarettes Per Day: 20 Second Hand Exposure: No Hx Alcohol Use: Yes (hx of heavy use, quit in 1995) Hx Substance Use: No Review of Systems Review of Systems: All systems reviewed & are unremarkable except as noted in HPI & below Physical Exam Constitutional: + ill appearing Neck: trachea midline, no thyromegaly Respiratory: normal respiratory effort Auscultation: + diminished lung sounds Cardiovascular: Heart Sounds: normal S1 and normal S2 Extremities: + edema Gastrointestinal (Abdomen): Inspection/Auscultation: + abdomen distended and + hyperactive bowel sounds Skin: Bluish discoloration of fingers. Neurologic: PERRL, EOMI, accommodation nl, no face palsy, no dysarthria Psychiatric: A+Ox3, euthymic affect Results & Data Vital Signs (Past 12 Hours) Vital Signs Temp Pulse Resp BP BP BP Pulse Ox 04/02/19 06:55 36.3 C L 68 18 116/47 L 98 04/02/19 04:06 36.3 C L 66 18 128/69 100 04/02/19 00:00 36.3 C L 79 20 122/78 100
--- NOTE | 2019-04-02 11:03 | Hospitalist Progress Note ---
Date of Service April 02, 2019 Assessment & Plan (1) Left-sided chest wall pain: - H/o CAD, CABG as noted below; developed left sided chest pain last evening. - EKG with no significant changes; Trop was 0.122; will repeat at 5 pm. - Lidocaine patch applied topically with some relief. - Continue home cardiac meds; currently holding Plavix/Coumadin due to thrombocytopenia. - Pt. does describe pleuritic chest pain; CT PE contraindicated due to ARF, D- dimer would likely be elevated due to acute illness. Cannot tolerate anticoagulation, therefore will not investigate PE at this time. (2) Acute kidney injury: - Creatinine level elevated above baseline -- likely pre-renal related, is intravascularly depleted but third spacing due to hypoalbuminemia. - Nephrology consulted, appreciate input. - Start Sodium bicarb drip + Dextrose at 50 cc/hr -- monitor volume status closely, has diffuse edema/anasarca. - Albumin 25% q6hr to prevent third spacing; also encourage PO intake. - Repeat BMP this evening. (3) Metabolic acidosis: - Related to acute renal failure vs. infection; lactic acid level was mildly elevated, now trending down. - CO2 continues to trend down, gap noted on AM lab work. - Started sodium bicarb drip this morning; repeat BMP this evening. - Nephrology following, appreciate input. - Blood cultures pending to rule out infection (does have PICC line). (4) Ileus: - Noted on KUB and CT A/P on ; likely narcotic & immobility induced -- was using multiple doses of Oxycodone per day for foot pain. - Most recent KUB 04/01/19 showed persistent ileus; monitor serial KUBs. - GI following, appreciate input. - Relistor q2days while inpatient; Senokot S BID. - CLD as tolerated -- avoid advancing diet unless instructed by GI. - Reglan 10 mg IV q6hr scheduled for nausea. (5) Nausea & vomiting: - Intermittent nausea/vomiting -- Vazquez's esophagus vs. medication related vs. ileus. - Does have h/o GI bleed -- EGD was negative on 03/30/19. - On PPI PO BID. - Continue Levaquin - may be contributing to intermittent N/V. - Ileus treatment as noted above; Reglan 10 mg IV q6hr scheduled. (6) Anemia: - Significant drop in hgb on 03/28 -- responded to transfusion support. - EGD negative for active bleeding; etiology of anemia is likely multifactorial (acute hospitalization & illness, frequent blood work, anemia of chronic disease) - Monitor CBC daily, H/H trending down. - Holding ferrous sulfate in setting of N/V. Iron studies c/w anemia of chronic disease. (7) Thrombocytopenia: - Plt count is trending down, 19K this morning. Will transfuse 1 unit platelets and repeat CBC this evening. - Holding home Plavix/Coumadin. - May be related to antibiotic therapy -- expect improvement in counts if this is contributing. - Consulted hematology, appreciate input -- may require bone marrow biopsy in future if no improvement. (8) Left foot pain: - Complains of generalized left foot pain over last 4-5 days. - Foot XR/Toe XR was negative for acute changes. - Cardiology, Dr. Wiseman, consulted -- appreciate input. Pain is not likely related to vascular ischemia. - Repeat arterial duplex was negative for acute changes. - Received Pred 30 mg daily x 2 days with no improvement -- not likely related to gout. - Could not tolerate vasodilator for small vessel PAD in setting of hypotension. - Started Gabapentin for neuropathy -- 200 mg BID (can tolerate max of 700 mg/day, consider increasing on 04/03/19) - Holding narcotics due to ileus -- d/c'ed Morphine IV on 04/01; Tylenol 1 gm IV q8hr for pain, will also add Tramadol due to uncontrolled pain. (9) Hypoglycemia: - Most recent A1C was 5.1 - BG has been very low -- 40-60's. Continue bicarb drip with dextrose. (10) Positive occult stool blood test: - FOBT was positive with acute anemia on 03/28/19; previous FOBT also positive on 03/09/19. 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 - GI following, appreciate input. 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 - On ferrous sulfate at home -- may be leading to +FOBT; hold in setting of nausea. - Holding Plavix/Coumadin due to thrombocytopenia. - PPI PO BID. 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 - Most recent culture from I&D positive for E. coli and Pseudomonas. - Completed course of Daptomycin/Zyvox; continue Levaquin 750 mg q48hr. - ID following, appreciate input. - Continue daily dressing changes with optifoam placement. - May require wound vac placement -- ortho following, follow up as outpatient. (12) Scrotal edema: - Scrotal edema unchanged -- third spacing in setting of low albumin levels. - Continue scrotal elevation. - Monitor I/Os and daily weights - weight trending down due to dehydration. (13) Fall: - Fell in restroom on 03/19 - appears mechanical, no indication for further work up. - PT/OT evaluations; discharge to [facility] in future. (14) Atrial fibrillation: - Rate controlled, in A. fib on surveillance system monitor. - Warfarin has been recently held for EGD/concern for acute upper GI bleed. EGD was negative. - Monitor INR q48hr -- has been subtherapeutic. - Holding Coumadin due to thrombocytopenia. - Currently not on rate controlling medications -- BP cannot tolerate meds. (15) CAD (coronary artery disease): - S/p CABG x 2 vessels (vein graft to LAD, vein graft to OM in 2010) - Holding Plavix/Coumadin due to plt <50K; d/c'ed Aspirin per previous cardiology notes. - Continue statin. (16) Chronic kidney disease, stage 3a: - Renal function elevated as noted above. (17) HLD (hyperlipidemia): - Resume statin. (18) Peripheral arterial disease: - Follows with Dr. Wiseman. - Hold Plavix; resume statin. - Arterial doppler in February 2019 showed: extensive atherosclerotic plaque about the b/l lower extremities; triphasic waveforms within b/l common femoral art eries with biphasic waveforms about the superficial femoral arteries; monophasic waveforms about the lower legs b/l with L > R; no arterial occlusion or significantly elevated peak systolic velocities identified to suggest high-grade stenosis. - Repeat bilat arterial duplex on 03/29 was unchanged. (19) HTN (hypertension): - D/c'ed Lisinopril due to hypotension. - Could not tolerate Amlodipine 2.5 mg, discontinued. (20) Aortic stenosis: - S/p AVR in 2010. (21) Hypoalbuminemia due to protein-calorie malnutrition: - In setting of very limited PO intake. - Albumin 2.2; Pre-albumin was 14.5. - Pt. is third spacing in extremities due to malnutrition; continue Albumin 25% q6hr. - CLD; IVFs at 50 cc/hr. (22) Elevated TSH: - TSH was 8.2; will obtain Free T4. (23) DVT prophylaxis: - SCDs; Holding Coumadin. Dispo: [place] placement once medically stable. Supervising Physician Co-Signing Physician Notes PA Supervision Note: I did not personally see or examine the patient today, but I verified all cerrato points of HALLE Ambriz's assessment and plan with the following exceptions/ additions: None Subjective Upgraded to PCU last evening for closer monitoring. He complains of left sided chest discomfort -- started last evening. Is rated as a 10/10 on pain scale, denies radiation of pain, N/V, SOB. Pain increased with inspiration/expiration, nontender to palp on exam. Lidocaine patch was ordered last evening with some improvement. Has increased UE and LE edema. Finger tips are purple, cold -- both unchanged. Complains of left heel burning but left foot pain is improving. Is nauseous, tolerating some PO intake but nutrition is limited. Review of Systems Review of Systems: All systems reviewed & are unremarkable except as noted in HPI & below Constitutional: + fatigue, + weakness and + anorexia; no fever and no chills Respiratory: no cough, no dyspnea, no dyspnea on exertion and no wheezing Cardiovascular: + chest pain and + edema; no radiating jaw, neck or arm pain, no palpitations and no lightheadedness Gastrointestinal: + abdominal pain, + bloating and + nausea; no vomiting, no constipation and no diarrhea/loose stools Genitourinary: no difficulty urinating Musculoskeletal: + joint pain (Left foot ); no back pain Integumentary: + change in skin color (All fingers, left foot/toes ); no non- healing lesions Allergy / Immunological: no rash Physical Exam Physical Exam: General: Chronically ill appearing elderly male. HEENT: NC/AT; PERRLA with EOMI; [place] conjunctiva, MMM. No erythema of posterior pharynx Neck: Supple and nontender Cardiac: Irregular, rate controlled. Lungs: CTA bilaterally Abdomen: Slight distention; Bowel normoactive X 4; Nontender to palpation : Scrotal edema noted. Extremities: Warm. No TTP on left foot. Purple discoloration on all finger tips, cold to palpation. Optifoam in place on right second toe site. Weak left posterior tibial pulse, no detectable pulse left dorsalis pedis. Skin: No rash Results & Data Vital Signs (Past 12 Hours) Vital Signs Temp Pulse Pulse Resp BP BP BP 04/02/19 10:51 36.4 C L 70 18 134/69 04/02/19 10:36 36.3 C L 78 18 132/67 04/02/19 10:13 36.3 C L 80 18 122/71 04/02/19 06:55 36.3 C L 68 18 116/47 L 04/02/19 04:06 36.3 C L 66 18 04/02/19 00:00 36.3 C L 79 20 122/78 BP Pulse Ox 04/02/19 10:51 100 04/02/19 10:36 100 04/02/19 10:13 95 04/02/19 06:55 98 04/02/19 04:06 128/69 100 04/02/19 00:00 100 Laboratory Results 04/02/19 04/02/19 04/02/19 Range/Units 06:03 06:03 06:03 WBC (4.8-10.8) K/uL RBC (4.7-6.1) M/uL Hgb (14.0-18.0) g/dL Hct (42-52) % MCV (80-100) fL MCH (25-34) pg MCHC (32-36) g/dL RDW Std Deviation (36.4-46.3) fL RDW Coeff of Gilbert (11.5-14.5) % Plt Count (130-400) K/uL MPV (7.4-10.4) fL Immature Gran % (Auto) % Neut % (Auto) % Lymph % (Auto) % [place] % (Auto) % Eos % (Auto) % Baso % (Auto) % Immature Gran # (Auto) (0.00-0.02) K/uL Neut # (Auto) (1.4-6.5) K/uL Lymph # (Auto) (1.2-3.4) K/uL [place] # (Auto) (0.11-0.59) K/uL Eos # (Auto) (0-0.5) K/uL Baso # (Auto) (0-0.2) K/uL Platelet Estimate (Normal) Echinocytes Acanthocytes (Spur) VBG pH (7.36-7.41) VBG pCO2 (38-50) mmHg VBG pO2 mmHg VBG HCO3 mmol/L VBG O2 Saturation % VBG Base Excess mEq/L Barometric Pressure mm/Hg Sodium 135 L (136-145) mmol/L Potassium 4.3 (3.5-5.1) mmol/L Chloride 105 (98-107) mmol/L Carbon Dioxide 16 L (21-32) mmol/L Anion Gap 13.0 H (3-11) BUN 33 H (7-18) mg/dl Creatinine 1.79 H (0.6-1.4) mg/dl Est Cr Clr Drug Dosing 26.8 ml/min Est GFR ( Amer) 38.9 Est GFR (Non-Af Amer) 33.6 BUN/Creatinine Ratio 18.7 (10-20) Glucose 67 L (70-99) mg/dl POC Glucose (70-99) Lactate 2.0 (0.4-2.0) mmol/L Calcium 7.7 L (8.5-10.1) mg/dl Iron (35-175) mcg/dl TIBC (250-450) mcg/dl Transferrin (200-360) mg/dl Transferrin % Sat (20-50) % Ferritin (8-388) ng/ml Total Bilirubin (0.2-1) mg/dl AST (15-37) U/L ALT (12-78) U/L Alkaline Phosphatase (45-117) U/L Total Protein (6.4-8.2) gm/dl Albumin (3.4-5.0) gm/dl Globulin (2.5-4.0) gm/dl Albumin/Globulin Ratio (0.9-2) Procalcitonin (0-0.5) ng/ml TSH 8.210 H (0.300-4.500) uIu/ml Random Cortisol mcg/dl 04/02/19 04/02/19 04/02/19 Range/Units 06:03 00:54 00:54 WBC 2.67 L (4.8-10.8) K/uL RBC 2.88 L (4.7-6.1) M/uL Hgb 8.9 L (14.0-18.0) g/dL Hct 26.2 L (42-52) % MCV 91.0 (80-100) fL MCH 30.9 (25-34) pg MCHC 34.0 (32-36) g/dL RDW Std Deviation 49.8 H (36.4-46.3) fL RDW Coeff of Gilbert 14.8 H (11.5-14.5) % Plt Count 19 L* (130-400) K/uL MPV 13.2 H (7.4-10.4) fL Immature Gran % (Auto) 0.4 % Neut % (Auto) 80.9 % Lymph % (Auto) 11.2 % [place] % (Auto) 6.0 % Eos % (Auto) 1.5 % Baso % (Auto) 0.0 % Immature Gran # (Auto) 0.01 (0.00-0.02) K/uL Neut # (Auto) 2.16 (1.4-6.5) K/uL Lymph # (Auto) 0.30 L (1.2-3.4) K/uL [place] # (Auto) 0.16 (0.11-0.59) K/uL Eos # (Auto) 0.04 (0-0.5) K/uL Baso # (Auto) 0.00 (0-0.2) K/uL Platelet Estimate SIGNIFIC DECREASED (Normal) Echinocytes 2+ Acanthocytes (Spur) 1+ VBG pH (7.36-7.41) VBG pCO2 (38-50) mmHg VBG pO2 mmHg VBG HCO3 mmol/L VBG O2 Saturation % VBG Base Excess mEq/L Barometric Pressure mm/Hg Sodium 132 L (136-145) mmol/L Potassium 4.2 (3.5-5.1) mmol/L Chloride 104 (98-107) mmol/L Carbon Dioxide 17 L (21-32) mmol/L Anion Gap 11.0 (3-11) BUN 33 H (7-18) mg/dl Creatinine 1.82 H (0.6-1.4) mg/dl Est Cr Clr Drug Dosing 26.3 ml/min Est GFR ( Amer) 38.1 Est GFR (Non-Af Amer) 32.9 BUN/Creatinine Ratio 18.4 (10-20) Glucose 85 (70-99) mg/dl POC Glucose (70-99) Lactate 2.3 H* (0.4-2.0) mmol/L Calcium 7.3 L (8.5-10.1) mg/dl Iron 98 (35-175) mcg/dl TIBC 119 L (250-450) mcg/dl Transferrin 74 L (200-360) mg/dl Transferrin % Sat 94 H (20-50) % Ferritin 195.3 (8-388) ng/ml Total Bilirubin 0.2 (0.2-1) mg/dl AST 12 L (15-37) U/L ALT 13 (12-78) U/L Alkaline Phosphatase 65 (45-117) U/L Total Protein 5.0 L (6.4-8.2) gm/dl Albumin 2.2 L (3.4-5.0) gm/dl Globulin 2.8 (2.5-4.0) gm/dl Albumin/Globulin Ratio 0.8 L (0.9-2) Procalcitonin (0-0.5) ng/ml TSH (0.300-4.500) uIu/ml Random Cortisol mcg/dl 04/02/19 04/01/19 04/01/19 Range/Units 00:54 21:52 20:37 WBC 3.23 L 4.29 L (4.8-10.8) K/uL RBC 2.88 L 2.99 L (4.7-6.1) M/uL Hgb 8.7 L 9.5 L (14.0-18.0) g/dL Hct 26.4 L 28.1 L (42-52) % MCV 91.7 94.0 (80-100) fL MCH 30.2 31.8 (25-34) pg MCHC 33.0 33.8 (32-36) g/dL RDW Std Deviation 50.6 H 50.7 H (36.4-46.3) fL RDW Coeff of Gilbert 15.0 H 14.9 H (11.5-14.5) % Plt Count 22 L* 25 L* (130-400) K/uL MPV 11.9 H 13.1 H (7.4-10.4) fL Immature Gran % (Auto) % Neut % (Auto) % Lymph % (Auto) % [place] % (Auto) % Eos % (Auto) % Baso % (Auto) % Immature Gran # (Auto) (0.00-0.02) K/uL Neut # (Auto) (1.4-6.5) K/uL Lymph # (Auto) (1.2-3.4) K/uL [place] # (Auto) (0.11-0.59) K/uL Eos # (Auto) (0-0.5) K/uL Baso # (Auto) (0-0.2) K/uL Platelet Estimate SIGNIFIC DECREASED (Normal) Echinocytes Acanthocytes (Spur) VBG pH (7.36-7.41) VBG pCO2 (38-50) mmHg VBG pO2 mmHg VBG HCO3 mmol/L VBG O2 Saturation % VBG Base Excess mEq/L Barometric Pressure mm/Hg Sodium (136-145) mmol/L Potassium (3.5-5.1) mmol/L Chloride (98-107) mmol/L Carbon Dioxide (21-32) mmol/L Anion Gap (3-11) BUN (7-18) mg/dl Creatinine (0.6-1.4) mg/dl Est Cr Clr Drug Dosing ml/min Est GFR ( Amer) Est GFR (Non-Af Amer) BUN/Creatinine Ratio (10-20) Glucose (70-99) mg/dl POC Glucose 106 H (70-99) Lactate (0.4-2.0) mmol/L Calcium (8.5-10.1) mg/dl Iron (35-175) mcg/dl TIBC (250-450) mcg/dl Transferrin (200-360) mg/dl Transferrin % Sat (20-50) % Ferritin (8-388) ng/ml Total Bilirubin (0.2-1) mg/dl AST (15-37) U/L ALT (12-78) U/L Alkaline Phosphatase (45-117) U/L Total Protein (6.4-8.2) gm/dl Albumin (3.4-5.0) gm/dl Globulin (2.5-4.0) gm/dl Albumin/Globulin Ratio (0.9-2) Procalcitonin (0-0.5) ng/ml TSH (0.300-4.500) uIu/ml Random Cortisol mcg/dl 04/01/19 04/01/19 04/01/19 Range/Units 19:39 19:08 19:01 WBC (4.8-10.8) K/uL RBC (4.7-6.1) M/uL Hgb (14.0-18.0) g/dL Hct (42-52) % MCV (80-100) fL MCH (25-34) pg MCHC (32-36) g/dL RDW Std Deviation (36.4-46.3) fL RDW Coeff of Gilbert (11.5-14.5) % Plt Count (130-400) K/uL MPV (7.4-10.4) fL Immature Gran % (Auto) % Neut % (Auto) % Lymph % (Auto) % [place] % (Auto) % Eos % (Auto) % Baso % (Auto) % Immature Gran # (Auto) (0.00-0.02) K/uL Neut # (Auto) (1.4-6.5) K/uL Lymph # (Auto) (1.2-3.4) K/uL [place] # (Auto) (0.11-0.59) K/uL Eos # (Auto) (0-0.5) K/uL Baso # (Auto) (0-0.2) K/uL Platelet Estimate (Normal) Echinocytes Acanthocytes (Spur) VBG pH (7.36-7.41) VBG pCO2 (38-50) mmHg VBG pO2 mmHg VBG HCO3 mmol/L VBG O2 Saturation % VBG Base Excess mEq/L Barometric Pressure mm/Hg Sodium (136-145) mmol/L Potassium (3.5-5.1) mmol/L Chloride (98-107) mmol/L Carbon Dioxide (21-32) mmol/L Anion Gap (3-11) BUN (7-18) mg/dl Creatinine (0.6-1.4) mg/dl Est Cr Clr Drug Dosing ml/min Est GFR ( Amer) Est GFR (Non-Af Amer) BUN/Creatinine Ratio (10-20) Glucose (70-99) mg/dl POC Glucose 186 H 41 L* 236 H (70-99) Lactate (0.4-2.0) mmol/L Calcium (8.5-10.1) mg/dl Iron (35-175) mcg/dl TIBC (250-450) mcg/dl Transferrin (200-360) mg/dl Transferrin % Sat (20-50) % Ferritin (8-388) ng/ml Total Bilirubin (0.2-1) mg/dl AST (15-37) U/L ALT (12-78) U/L Alkaline Phosphatase (45-117) U/L Total Protein (6.4-8.2) gm/dl Albumin (3.4-5.0) gm/dl Globulin (2.5-4.0) gm/dl Albumin/Globulin Ratio (0.9-2) Procalcitonin (0-0.5) ng/ml TSH (0.300-4.500) uIu/ml Random Cortisol mcg/dl 04/01/19 04/01/19 04/01/19 Range/Units 18:50 18:50 18:50 WBC (4.8-10.8) K/uL RBC (4.7-6.1) M/uL Hgb (14.0-18.0) g/dL Hct (42-52) % MCV (80-100) fL MCH (25-34) pg MCHC (32-36) g/dL RDW Std Deviation (36.4-46.3) fL RDW Coeff of Gilbert (11.5-14.5) % Plt Count (130-400) K/uL MPV (7.4-10.4) fL Immature Gran % (Auto) % Neut % (Auto) % Lymph % (Auto) % [place] % (Auto) % Eos % (Auto) % Baso % (Auto) % Immature Gran # (Auto) (0.00-0.02) K/uL Neut # (Auto) (1.4-6.5) K/uL Lymph # (Auto) (1.2-3.4) K/uL [place] # (Auto) (0.11-0.59) K/uL Eos # (Auto) (0-0.5) K/uL Baso # (Auto) (0-0.2) K/uL Platelet Estimate (Normal) Echinocytes Acanthocytes (Spur) VBG pH 7.24 L (7.36-7.41) VBG pCO2 32 L (38-50) mmHg VBG pO2 40 mmHg VBG HCO3 14 mmol/L VBG O2 Saturation 73.8 % VBG Base Excess -12.5 mEq/L Barometric Pressure 733.6 mm/Hg Sodium (136-145) mmol/L Potassium (3.5-5.1) mmol/L Chloride (98-107) mmol/L Carbon Dioxide (21-32) mmol/L Anion Gap (3-11) BUN (7-18) mg/dl Creatinine (0.6-1.4) mg/dl Est Cr Clr Drug Dosing ml/min Est GFR ( Amer) Est GFR (Non-Af Amer) BUN/Creatinine Ratio (10-20) Glucose (70-99) mg/dl POC Glucose (70-99) Lactate (0.4-2.0) mmol/L Calcium (8.5-10.1) mg/dl Iron (35-175) mcg/dl TIBC (250-450) mcg/dl Transferrin (200-360) mg/dl Transferrin % Sat (20-50) % Ferritin (8-388) ng/ml Total Bilirubin (0.2-1) mg/dl AST (15-37) U/L ALT (12-78) U/L Alkaline Phosphatase (45-117) U/L Total Protein (6.4-8.2) gm/dl Albumin (3.4-5.0) gm/dl Globulin (2.5-4.0) gm/dl Albumin/Globulin Ratio (0.9-2) Procalcitonin 1.06 H (0-0.5) ng/ml TSH (0.300-4.500) uIu/ml Random Cortisol 16.62 mcg/dl 04/01/19 04/01/19 04/01/19 Range/Units 18:50 18:22 18:19 WBC (4.8-10.8) K/uL RBC (4.7-6.1) M/uL Hgb (14.0-18.0) g/dL Hct (42-52) % MCV (80-100) fL MCH (25-34) pg MCHC (32-36) g/dL RDW Std Deviation (36.4-46.3) fL RDW Coeff of Gilbert (11.5-14.5) % Plt Count (130-400) K/uL MPV (7.4-10.4) fL Immature Gran % (Auto) % Neut % (Auto) % Lymph % (Auto) % [place] % (Auto) % Eos % (Auto) % Baso % (Auto) % Immature Gran # (Auto) (0.00-0.02) K/uL Neut # (Auto) (1.4-6.5) K/uL Lymph # (Auto) (1.2-3.4) K/uL [place] # (Auto) (0.11-0.59) K/uL Eos # (Auto) (0-0.5) K/uL Baso # (Auto) (0-0.2) K/uL Platelet Estimate (Normal) Echinocytes Acanthocytes (Spur) VBG pH (7.36-7.41) VBG pCO2 (38-50) mmHg VBG pO2 mmHg VBG HCO3 mmol/L VBG O2 Saturation % VBG Base Excess mEq/L Barometric Pressure mm/Hg Sodium (136-145) mmol/L Potassium (3.5-5.1) mmol/L Chloride (98-107) mmol/L Carbon Dioxide (21-32) mmol/L Anion Gap (3-11) BUN (7-18) mg/dl Creatinine (0.6-1.4) mg/dl Est Cr Clr Drug Dosing ml/min Est GFR ( Amer) Est GFR (Non-Af Amer) BUN/Creatinine Ratio (10-20) Glucose (70-99) mg/dl POC Glucose 32 L* 30 L* (70-99) Lactate 2.8 H* (0.4-2.0) mmol/L Calcium (8.5-10.1) mg/dl Iron (35-175) mcg/dl TIBC (250-450) mcg/dl Transferrin (200-360) mg/dl Transferrin % Sat (20-50) % Ferritin (8-388) ng/ml Total Bilirubin (0.2-1) mg/dl AST (15-37) U/L ALT (12-78) U/L Alkaline Phosphatase (45-117) U/L Total Protein (6.4-8.2) gm/dl Albumin (3.4-5.0) gm/dl Globulin (2.5-4.0) gm/dl Albumin/Globulin Ratio (0.9-2) Procalcitonin (0-0.5) ng/ml TSH (0.300-4.500) uIu/ml Random Cortisol mcg/dl 04/01/19 04/01/19 04/01/19 Range/Units 18:00 17:57 17:36 WBC (4.8-10.8) K/uL RBC (4.7-6.1) M/uL Hgb (14.0-18.0) g/dL Hct (42-52) % MCV (80-100) fL MCH (25-34) pg MCHC (32-36) g/dL RDW Std Deviation (36.4-46.3) fL RDW Coeff of Gilbert (11.5-14.5) % Plt Count (130-400) K/uL MPV (7.4-10.4) fL Immature Gran % (Auto) % Neut % (Auto) % Lymph % (Auto) % [place] % (Auto) % Eos % (Auto) % Baso % (Auto) % Immature Gran # (Auto) (0.00-0.02) K/uL Neut # (Auto) (1.4-6.5) K/uL Lymph # (Auto) (1.2-3.4) K/uL [place] # (Auto) (0.11-0.59) K/uL Eos # (Auto) (0-0.5) K/uL Baso # (Auto) (0-0.2) K/uL Platelet Estimate (Normal) Echinocytes Acanthocytes (Spur) VBG pH (7.36-7.41) VBG pCO2 (38-50) mmHg VBG pO2 mmHg VBG HCO3 mmol/L VBG O2 Saturation % VBG Base Excess mEq/L Barometric Pressure mm/Hg Sodium (136-145) mmol/L Potassium (3.5-5.1) mmol/L Chloride (98-107) mmol/L Carbon Dioxide (21-32) mmol/L Anion Gap (3-11) BUN (7-18) mg/dl Creatinine (0.6-1.4) mg/dl Est Cr Clr Drug Dosing ml/min Est GFR ( Amer) Est GFR (Non-Af Amer) BUN/Creatinine Ratio (10-20) Glucose (70-99) mg/dl POC Glucose 48 L* 15 L* 41 L* (70-99) Lactate (0.4-2.0) mmol/L Calcium (8.5-10.1) mg/dl Iron (35-175) mcg/dl TIBC (250-450) mcg/dl Transferrin (200-360) mg/dl Transferrin % Sat (20-50) % Ferritin (8-388) ng/ml Total Bilirubin (0.2-1) mg/dl AST (15-37) U/L ALT (12-78) U/L Alkaline Phosphatase (45-117) U/L Total Protein (6.4-8.2) gm/dl Albumin (3.4-5.0) gm/dl Globulin (2.5-4.0) gm/dl Albumin/Globulin Ratio (0.9-2) Procalcitonin (0-0.5) ng/ml TSH (0.300-4.500) uIu/ml Random Cortisol mcg/dl 04/01/19 04/01/19 Range/Units 17:33 17:13 WBC (4.8-10.8) K/uL RBC (4.7-6.1) M/uL Hgb (14.0-18.0) g/dL Hct (42-52) % MCV (80-100) fL MCH (25-34) pg MCHC (32-36) g/dL RDW Std Deviation (36.4-46.3) fL RDW Coeff of Gilbert (11.5-14.5) % Plt Count (130-400) K/uL MPV (7.4-10.4) fL Immature Gran % (Auto) % Neut % (Auto) % Lymph % (Auto) % [place] % (Auto) % Eos % (Auto) % Baso % (Auto) % Immature Gran # (Auto) (0.00-0.02) K/uL Neut # (Auto) (1.4-6.5) K/uL Lymph # (Auto) (1.2-3.4) K/uL Denton # (Auto) (0.11-0.59) K/uL Eos # (Auto) (0-0.5) K/uL Baso # (Auto) (0-0.2) K/uL Platelet Estimate (Normal) Echinocytes Acanthocytes (Spur) VBG pH (7.36-7.41) VBG pCO2 (38-50) mmHg VBG pO2 mmHg VBG HCO3 mmol/L VBG O2 Saturation % VBG Base Excess mEq/L Barometric Pressure mm/Hg Sodium 133 L (136-145) mmol/L Potassium 4.4 (3.5-5.1) mmol/L Chloride 104 (98-107) mmol/L Carbon Dioxide 17 L (21-32) mmol/L Anion Gap 12.0 H (3-11) BUN 35 H (7-18) mg/dl Creatinine 1.95 H (0.6-1.4) mg/dl Est Cr Clr Drug Dosing 24.6 ml/min Est GFR ( Amer) 35.1 Est GFR (Non-Af Amer) 30.3 BUN/Creatinine Ratio 18.0 (10-20) Glucose 104 H (70-99) mg/dl POC Glucose 51 L* (70-99) Lactate (0.4-2.0) mmol/L Calcium 7.7 L (8.5-10.1) mg/dl Iron (35-175) mcg/dl TIBC (250-450) mcg/dl Transferrin (200-360) mg/dl Transferrin % Sat (20-50) % Ferritin (8-388) ng/ml Total Bilirubin (0.2-1) mg/dl AST (15-37) U/L ALT (12-78) U/L Alkaline Phosphatase (45-117) U/L Total Protein (6.4-8.2) gm/dl Albumin (3.4-5.0) gm/dl Globulin (2.5-4.0) gm/dl Albumin/Globulin Ratio (0.9-2) Procalcitonin (0-0.5) ng/ml TSH (0.300-4.500) uIu/ml Random Cortisol mcg/dl PG Care Time/CCT Total # of Minutes Spent Total Time Spent with Patient: Total time spent is greater than 50% in coordination of care (as documented) at patient's floor/unit and/or counseling patient:
[2019-04-02] MEDS: TRAMADOL HCL 50 MG TABLET PO PRN ×2 (11:32→21:30)
[2019-04-02] MEDS: PANTOprazole 40 MG TAB PO SCH ×2 (12:22→21:32)
[2019-04-02] MEDS: SODIUM BICARBONATE 8.4% 75 MEQ in DEXTROSE 5% 1,000 ML IV SCH (13:11)
[2019-04-02] MEDS ORDERED: LIDOCAINE 2% JELLY 5 ML TUBE EXT ONE (14:32)
[2019-04-02] MEDS ORDERED: LIDOCAINE 2% JELLY 5 ML TUBE ONE (14:32)
[2019-04-02 15:33] LABS: T4 Free Thyroxine 1.03 ng/dl (0.8-1.6); Troponin I 0.183 ng/ml (0-0.045)
[2019-04-02 17:17] LABS: Appearance Urine Clear (Clear); Bilirubin Urine Negative (Negative); Blood Urine Negative (Negative); Color Urine Yellow; Glucose Urine UA Negative (Negative); Ketones Urine Negative (Negative); Leukocyte Esterase Urine Negative (Negative); Nitrite Urine Negative (Negative); Protein Urine Negative (Negative); Specific Gravity Urine 1.015 (1.000-1.030); Urobilinogen Urine Negative (Negative)
[2019-04-02] MEDS: PRAVASTATIN SOD 40 MG TAB PO SCH (17:47)
[2019-04-02 18:02] LABS: Hematocrit (blood only) 25.7 % (42-52); Hemoglobin 8.6 g/dL (14.0-18.0); Mean Corpuscular Hgb Conc 33.5 g/dL (32-36); Mean Corpuscular Volume 91.1 fL (80-100); Platelet Count 47 K/uL (130-400); RDW Coefficient of Variation 14.9 % (11.5-14.5); RDW Standard Deviation 49.7 fL (36.4-46.3); Red Blood Count 2.82 M/uL (4.7-6.1); White Blood Count 2.58 K/uL (4.8-10.8)
[2019-04-02 18:21] LABS: BUN Creatinine Ratio 18.8 (10-20); Calcium 7.7 mg/dl (8.5-10.1); Est GFR (African American) 42.9; Potassium 4.1 mmol/L (3.5-5.1)
[2019-04-02] MEDS: ONDANSETRON INJ 2 MG/ML 2 ML VIAL IV PRN (20:02)
[2019-04-02] MEDS: ACETAMINOPHEN 500 MG TAB PO SCH (21:30)
[2019-04-02] MEDS: METOCLOPRAMIDE HCL 5 MG TABLET PO SCH (21:31)
[2019-04-03] MEDS: TRAMADOL HCL 50 MG TABLET PO PRN (03:30)
[2019-04-03] MEDS: METOCLOPRAMIDE HCL 5 MG TABLET PO SCH ×3 (03:31→14:34)
[2019-04-03] MEDS: ALBUMIN 25% 50 ML IV SCH ×3 (03:37→14:34)
[2019-04-03 03:49] LABS: Hematocrit (blood only) 24.9 % (42-52); Hemoglobin 8.5 g/dL (14.0-18.0); Mean Corpuscular Hgb Conc 34.1 g/dL (32-36); Mean Corpuscular Volume 90.5 fL (80-100); RDW Coefficient of Variation 14.9 % (11.5-14.5); RDW Standard Deviation 49.1 fL (36.4-46.3); Red Blood Count 2.75 M/uL (4.7-6.1); White Blood Count 2.29 K/uL (4.8-10.8)
[2019-04-03 03:57] LABS: Mean Platelet Volume 9.6 fL (7.4-10.4); Platelet Count 40 K/uL (130-400)
[2019-04-03 04:06] LABS: BUN Creatinine Ratio 19.7 (10-20); Calcium 7.5 mg/dl (8.5-10.1); Creatinine Clr Calc Pharmacy 32.2 ml/min; Est GFR (African American) 48.6; Est GFR (Non-African American) 41.9; Potassium 4.2 mmol/L (3.5-5.1)
[2019-04-03 04:07] LABS: Prothrombin Time 10.7 Seconds (9.0-12.0)
[2019-04-03 04:13] LABS: Troponin I 0.218 ng/ml (0-0.045)
[2019-04-03 04:34] LABS: Echinocytes 1+; Eosinophils # (auto) 0.03 K/uL (0-0.5); Eosinophils % (auto) 1.3 %; Giant Platelets 2+; Immature Granulocytes # (auto) 0.01 K/uL (0.00-0.02); Immature Granulocytes % (auto) 0.4 %; Lymphocytes # (auto) 0.35 K/uL (1.2-3.4); Lymphocytes % (auto) 15.3 %; Monocytes # (auto) 0.15 K/uL (0.11-0.59); Monocytes % (auto) 6.6 %; Neutrophils # (auto) 1.75 K/uL (1.4-6.5); Neutrophils % (auto) 76.4 %
[2019-04-03] MEDS: ACETAMINOPHEN 500 MG TAB PO SCH ×2 (05:27→14:34)
[2019-04-03] MEDS: NYSTATIN SUSP 500,000 U/5 ML UDC PO SCH ×2 (08:59→12:14)
[2019-04-03] MEDS: PANTOprazole 40 MG TAB PO SCH (09:01)
[2019-04-03] MEDS: GABAPENTIN 100 MG CAP PO SCH (09:01)
[2019-04-03] MEDS: DOCUSATE SODIUM/SENNA 50/8.6MG TAB PO SCH (09:06)
[2019-04-03] MEDS: SODIUM BICARBONATE 8.4% 75 MEQ in DEXTROSE 5% 1,000 ML IV SCH (09:48)
--- NOTE | 2019-04-03 10:33 | Nephrology Progress Note ---
Date of Service April 03, 2019 Assessment & Plan (1) Acute kidney injury: 88-year-old gentlemen admitted to the hospital with osteomyelitis, prolonged hospital course complicated by multiple issues including small bowel obstruction, anemia, thrombocytopenia. Has baseline stage III CKD, baseline creatinine 1.1-1.3 with prior history of multiple acute kidney injury. Developed acute kidney injury and electrolyte abnormality in the setting of small bowel obstruction, significant hypoalbuminemia with possible intravascular volume depletion. UA un remarkable, imaging negative for post renal obstruction. Metabolic acidosis in the setting of KYLE. Urien AG not suggestive of GI causes. Had CP with mildly elevated trop with h/o CABG >15 years ago. Anemia of chronic disease. --continue IV fluid to D 5 with bicarbonate --encourage protein intake --avoid hypotension, avoid nephrotoxic medications Will follow Subjective Bill was seen and examined in his room this am. Chest pain resolved but overall does not feel that different. Had BM yesterday. Renal function improving. Decent UO, BP low but stable. Review of Systems Review of Systems: All systems reviewed & are unremarkable except as noted in HPI & below Physical Exam Constitutional: + ill appearing Respiratory: normal respiratory effort Auscultation: + diminished lung sounds Gastrointestinal (Abdomen): Inspection/Auscultation: + abdomen distended and + hyperactive bowel sounds Neurologic: PERRL, EOMI, accommodation nl, no face palsy, no dysarthria Psychiatric: A+Ox3, euthymic affect Results & Data Vital Signs (Past 12 Hours) Vital Signs Temp Pulse Pulse Pulse Resp BP BP 04/03/19 07:31 60 14 108/57 L 04/03/19 03:43 36.4 C L 62 19 144/80 H 04/02/19 23:59 36.4 C L 60 20 122/67 04/02/19 23:25 68 Pulse Ox 04/03/19 07:31 96 04/03/19 03:43 99 04/02/19 23:59 98 04/02/19 23:25
[2019-04-03] MEDS ORDERED: levoFLOXacin 750 MG TAB PO SCH (11:00)
[2019-04-03] MEDS ORDERED: ALBUTEROL 0.083% NEBU SOLN 3 ML VIAL NEB PRN (11:37)
[2019-04-03] MEDS ORDERED: ALBUTEROL 0.083% NEBU SOLN 3 ML VIAL NEB STA (11:37)
[2019-04-03] MEDS: METHYLNALTREXONE BROMIDE 12 MG/0.6 ML VIAL SQ SCH (12:13)
--- NOTE | 2019-04-03 12:51 | Discharge Summary ---
Date of Service April 03, 2019 Admission HPI Per Admitting Provider 88 y/o M c/o R 2nd toe discoloration. states that pt had been noted with dry and flaking skin on the R 2nd toe with underlying redness. She states he was seen by the [facility] clinical coordinator and advised to use Eucerin cream. Over the last few days pt has had an eruption of black discoloration after the flaking skin peeled away and his toe his now purple distal to that black discoloration. There is swelling. There are no issues with other toes. No bleeding noted. He has pain to this toe. He has been following with Dr. Germain and has been on dapto for an ongoing cellulitis. He has been seen by Dr. Macdonald in the past. No hx with [facility]. Pt follows with Dr. Wiseman for vascular care. He has hx of stenting and there was plan for a new stent on 03/15. Pt has no other current health concerns. Pt denies fever, SOB, chest pain, abd pain, n/v/c/d, LE pain or swelling. Principal Diagnosis Right second toe osteomyelitis, Severe PAD Failure to thrive, Anasarca, Ileus Discharge Exam Constitutional + ill appearing and + lethargic; no acute distress Eyes + anicteric sclerae ENMT Ears: + hearing impairment Nose: + dry nasal mucous membranes Neck trachea midline, no thyromegaly Respiratory no labored breathing Auscultation: + diminished lung sounds (at bases) and + wheezes (exp wheezes upper airways); no crackles Cardiovascular Rate/Rhythm: regular rate and + irregularly irregular Heart Sounds: no murmur Extremities: + edema (2+ anasarca all limbs, abdomen, scrotal edema, RUE>LUE) all fingertips with purple discoloration, nonpalpable pedal pulses Right second toe amputation with dressing in place c/d/i Left 4th and 5th toes with petechiae, +cap refill present in all extremities but sluggish Gastrointestinal (Abdomen) Inspection/Auscultation: abdomen normal to inspection and normal bowel sounds Percussion/Palpation: abdomen soft; abdomen nontender, no guarding and abdomen not rigid Musculoskeletal Extremities: no clubbing Skin no rashes petechiae left 4th and 5th toes as above, purplish discoloration of fingertips Neurologic moves all extremities and awake; no focal motor deficits Psychiatric Orientation: alert (but lethargic), oriented to person, oriented to place and cooperative Genitourinary Bhatti in place Discharge Data Allergies Allergy/AdvReac Type Severity Reaction Status Date / Time No Known Allergies Allergy Unknown Verified 03/07/19 08:45 Consultations 03/07/19 10:33 ED Decision to Admit Stat 03/07/19 12:33 Consult Case Management - Discharge Planning Routine Consult Infectious Diseases Routine Consult Orthopedic Surgery Routine 03/28/19 16:55 Consult Gastroenterology Routine 03/29/19 15:24 Consult Cardiology Routine 04/01/19 08:04 Consult Hematology Routine 04/02/19 08:11 Consult Nephrology Routine Procedures Performed Operation Date: 03/10/19 13:05 Actual Procedures p Right 2nd Toe Amputation - Miki Ramos MD Operation Date: 03/22/19 07:15 Actual Procedures p Right Incision and Drainage 2nd Toe Wound and Packing(Right) - Miki Ramos MD Operation Date: 03/30/19 10:50 Actual Procedures p Esophagogastroduodenoscopy - Naida Deleon MD Ordered Studies 03/07/19 12:33 MR foot RT w/o con Stat 03/08/19 16:35 US arterial duplex LE BI Routine 03/17/19 18:47 CT abd pelvis oral and IV con Urgent 03/29/19 11:35 FL toe LT 2V Urgent 03/29/19 17:06 US arterial duplex LE LT Urgent 03/31/19 16:28 CT abd pelvis oral con only Urgent Multiple CXRs, KUBs, Abomen series Hospital Course (1) Acute kidney injury: - Creatinine level elevated above baseline -- likely pre-renal related, is intravascularly depleted but third spacing due to hypoalbuminemia. Risk Management Manager improved today with IV albumin and Bicarb gtt - Nephrology consulted, appreciate input. -cont Sodium bicarb drip + Dextrose at 50 cc/hr -- monitor volume status clos eduar, has diffuse edema/anasarca. - continue 25% q6hr to prevent third spacing x 2 more doses; also encourage PO intake. - follow BMP (2) Metabolic acidosis: - Related to acute renal failure vs. infection; lactic acid level was mildly elevated, now trending down. - HCO3 stable at 18, on HCO3 gtt - Nephrology following, appreciate input. - Blood cultures pending to rule out infection (does have PICC line)-NGTD (3) Ileus: - Noted on KUB and CT A/P on ; likely narcotic & immobility induced -- was using multiple doses of Oxycodone per day for foot pain. - Most recent KUB 04/01/19 showed persistent ileus; monitor serial KUBs. - GI following, appreciate input. -received Relistor x 1 dose on 04/01; continue Senokot S BID. Is now passing flatus and stool daily, less abdominal distension -continue to advance diet as tolerated -continue Reglan 5mg po qachs -repeat Abd xray today (4) Nausea & vomiting: - Intermittent nausea/vomiting -- related to ileus vs med side effects - Does have h/o GI bleed with previous duodenal diverticular bleed -- EGD was negative on 03/30/19. - On PPI PO BID. - Continue Levaquin - may be contributing to intermittent N/V. -also discontinued home Vit C, iron in case contributing - Ileus treatment as noted above; continue Reglan (5) Anemia: - Significant drop in hgb on 03/28 -- responded to transfusion support of 2 units PRBCs on 03/30. Hgb now trending back downward again to 8.5 - EGD negative for active bleeding; etiology of anemia is likely multifactorial (acute hospitalization & illness, frequent blood work, anemia of chronic disease, but also with Heme positive stool) - Monitor CBC daily - Holding ferrous sulfate in setting of N/V. Iron studies c/w anemia of chronic disease. -No plans for colonoscopy given frail state and lack of gross GI bleeding (6) Thrombocytopenia: - Plt count continued to trend downward, 19K at [facility] on 04/02 and was given 1 unit platelets -plts now up to 47k then back down to 40k on 04/03 - continue holding home Plavix/Coumadin. - May be related to antibiotic therapy, specifically the Zyvox he was on previously--> this was completed on 03/29 -- expect improvement in counts if this is contributing. - Consulted hematology, appreciate input -- may require bone marrow biopsy in future if no improvement. Peripheral smear shows no plt clumps, Pathologist suggested checking Immature platelet fraction test if persists -follow CBC, no transfusion needed today (7) Left foot pain: - Complains of generalized left foot pain that started on 03/29 - Foot XR/Toe XR was negative for acute changes. - Cardiology, Dr. Wiseman, consulted -- appreciate input. Pain is not likely related to vascular ischemia May be small vessel disease, but BP could not tolerate a trial of amlodipine - Repeat arterial duplex was negative for acute changes. - Received Pred 30 mg daily x 2 days with no improvement -- not likely related to gout and therefore prednisone was stopped. - Started Gabapentin for neuropathy -- 200 mg BID (renal function allows max of 700 mg/day) - Holding narcotics due to ileus -- d/c'ed Morphine IV on 04/01; Tylenol 1 gm IV q8hr for pain, trialed Tramadol due to uncontrolled pain, but this is making him lethargic again-will dc -lidocaine patch as needed to foot (8) Hypoglycemia: - Most recent A1C was 5.1 - BG has been very low at times, 40-60's. Continue bicarb drip with dextrose. Likely secondary to poorpo intake Cortisol random level was normal at 16 (9) Positive occult stool blood test: - FOBT was positive with acute anemia on 03/28/19; previous FOBT also positive on 03/09/19. 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 - GI following, appreciate input. 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 - On ferrous sulfate at home -- may be leading to +FOBT; hold in setting of nausea. - Holding Plavix/Coumadin due to thrombocytopenia. - PPI PO BID. -no gross bleeding (10) Gangrene of toe of right foot: - MRI with areas of osteitis without definitive evidence for osteomyelitis within the distal phalanges of the 1st, 3rd, 4th, and 5th toes; S/P R 2nd toe amputation and debridement on 03/10 followed by I&D on 03/22. - Most recent culture from I&D positive for E. coli and Pseudomonas. - Completed course of Daptomycin/Zyvox; continue Levaquin 750 mg q48hr for several more weeks. - ID following, appreciate input. - Continue daily dressing changes with optifoam placement. - May require wound vac placement -- ortho following, follow up as outpatient. (11) Scrotal edema: - Scrotal edema unchanged -- third spacing in setting of low albumin levels. - Continue scrotal elevation. - Monitor I/Os and daily weights - weight trending down due to dehydration. (12) Fall: - Fell in restroom on 03/19 - appears mechanical, no indication for further work up. No injuries that are severe - PT/OT evaluations -very immobile at this point due to other comorbid issues (13) Atrial fibrillation: - Rate controlled, in A. fib on playground monitor. - Warfarin has been recently held for worsening anemia and thrombocytopenia. EGD was negative as above - Currently not on rate controlling medications -- BP and heart rate at times cannot tolerate meds. (14) CAD (coronary artery disease): - S/p CABG x 2 vessels (vein graft to LAD, vein graft to OM in 2010) - Holding Plavix/Coumadin due to plt <50K; d/c'ed Aspirin per previous cardiology notes. - Continue statin. (15) Chronic kidney disease, stage 3a: - avoid nephrotoxins -renally dose meds where appropriate (16) HLD (hyperlipidemia): - continue statin. (17) Peripheral arterial disease: - Follows with Dr. Wiseman. had bilateral iliac stents placed in 01/2019 - Holding Plavix for thrombocytopenia as above -continue statin. - Arterial doppler in February 2019 showed: extensive atherosclerotic plaque about the b/l lower extremities; triphasic waveforms within b/l common femoral arteries with biphasic waveforms about the superficial femoral arteries; monophasic waveforms about the lower legs b/l with L > R; no arterial occlusion or significantly elevated peak systolic velocities identified to suggest high- grade stenosis. - Repeat bilat arterial duplex on 03/29 was unchanged. -restart Plavix as soon as platelets allow (when platelets > 50k) (18) HTN (hypertension): - D/c'ed Lisinopril due to hypotension. - Could not tolerate Amlodipine 2.5 mg, discontinued. (19) Aortic stenosis: - S/p bioprosthetic AVR in 2010. (20) Hypoalbuminemia due to protein-calorie malnutrition: - In setting of very limited PO intake. 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 - Pt. is third spacing with anasarca due to malnutrition; continue Albumin 25% q6hr. (21) Elevated TSH: - TSH was 8.2; Free T4 normal at 1.0 -consider adding LT4 but likely due to euthyroid sick syndrome (22) Left-sided chest wall pain: - H/o CAD, CABG as noted below; developed left sided chest pain on 04/02--> now resolved with no specific intervention except pain meds as above - EKG with no significant changes; Trop was again mildly elevated but has been in the setting of KYLE and did not trend upward - Lidocaine patch applied topically with some relief suggestive of a MSK component - Continue home cardiac meds; currently holding Plavix/Coumadin due to thrombocytopenia. - Pt. does describe pleuritic chest pain; CT PE contraindicated due to ARF, D- dimer would likely be elevated due to acute illness. Cannot tolerate anticoagulation, therefore will not investigate PE at this time. (23) DVT prophylaxis: - SCDs; Holding Coumadin. Dispo: At family's request, due to not improving, will transfer to [facility] in [place] for second opinion-accepting Physician is Dr. Dobson Greatly appreciate Dr. Dobson accepting this patient in transfer Discussed all care with pt, , and daughter at bedside in depth Total Time Total Time Spent Total Time Spent (In Minutes): >30 min Total Time Includes: Examination of the Patient, Discharge Planning and Medication Reconciliation Discharge Plan Discharge Items Patient Disposition: Home - Home Health Services Reason For Visit: OSTEOMYELITIS Discharge Diagnosis: Gangrene of the right foot/toe, Failure to thrive, Anasarca, ileus Condition: Fair Discharge Goals: Diagnostic testing, Improve disease control, Improve nutritional status, Learn about illness and Prevent disease Activity: As commented below Lifting: None Bathing: No limitations Exercise/Sports: Rest today Weightbearing: Right partial Weightbearing Comment: Right weight bear as tolerated on the heel only Non-emergency contact: Primary Care Provider and Surgeon Call non-emergency contact if: you have any medication questions, your symptoms worsen, your pain is not controlled, your pain is worsening, your pain is unusual for you, your pain is concerning for you, you have a fever, your wound has increased redness and your wound has increased drainage Follow-up/Referrals: Ab Germain MD [Physician] - 03/29/19 1:30 pm (A follow up appt. has been made for you with Dr. Germain on March 29 at 1:30pm.) Fito Oakley III, MD [Physician] - 03/28/19 1:50 pm (Please follow up with Dr. Oakley at PCP office on March 28 at 1:50pm.) Ange Christy CRNP [Primary Care Provider] - Manuelito Wiseman MD [Physician] - (F/u within the next 7 days. ) Albin Macdonald DO [Surgeon] - 03/22/19 3:00 pm (A follow up appt. has been made with Jaleel Figueroa PA-C for March 22 at 3:00pm.) Diet: Gluten Free and Heart Healthy Other Ambulatory Orders: Prothrombin Time INR (Timed) Timeframe: 3 Days Location: Determined by Patient Ordered By: Grace Barkley Provider Instructions: 1. Gangrene of the right foot/toe * S/p right 2nd toe amputation on 03/10/19. * Continue weight bearing as tolerated on the right heel * Please follow up with Dr. Macdonald of Orthopedics after discharge * Please follow up with Dr. Germain of Infectious Disease after discharge Transferred to [facility] Prescriptions: New nystatin 100,000 unit/mL Suspension 5 ml PO QID Qty: 300 RF: 0 albuterol sulfate 2.5 mg /3 mL (0.083 %) Solution For Nebulization 2.5 mg NEB Q6R PRN (Reason: shortness of breath or wheezing) Qty: 90 RF: 0 levofloxacin 750 mg Tablet 750 mg PO Q2D@1100 Qty: 15 RF: 0 pravastatin 40 mg Tablet 40 mg PO DAILY@1700 Qty: 30 RF: 0 acetaminophen [Tylenol Extra Strength] 500 mg Tablet 1,000 mg PO Q8 Qty: 30 RF: 0 metoclopramide HCl 5 mg Tablet 5 mg PO Q6H Qty: 30 RF: 0 gabapentin 100 mg Capsule 200 mg PO BID Qty: 15 RF: 0 ondansetron HCl (PF) 4 mg/2 mL Solution 4 mg IV Q6H PRN (Reason: nausea and vomiting) Qty: 10 RF: 0 sennosides-docusate sodium [Senokot-S] 8.6-50 mg Tablet 1 tab PO BID Qty: 60 RF: 0 pantoprazole 40 mg Tablet,Delayed Release (Dr/Ec) 40 mg PO BID Qty: 60 RF: 0 lidocaine 5 % Adhesive Patch,Medicated 1 patch transdermal HS Qty: 1 RF: 0 Continued cholecalciferol (vitamin D3) [Vitamin D3] 1,000 unit Capsule 2,000 unit PO DAILY Qty: 0 RF: 0 Discontinued omeprazole 40 mg Capsule,Delayed Release(Dr/Ec) 40 mg PO DAILY Qty: 0 RF: 0 aspirin 81 mg Tablet,Delayed Release (Dr/Ec) 81 mg PO DAILY Qty: 0 RF: 0 ascorbic acid (vitamin C) 500 mg Tablet 500 mg PO DAILY Qty: 0 RF: 0 hydrocodone-acetaminophen 5-325 mg tablet See Rx Instructions PO Q4H PRN (Reason: pain) Qty: 60 RF: 0 daptomycin 350 mg recon soln 350 mg IV DAILY Qty: 1 RF: 0 warfarin 3 mg Tablet 3 mg PO DAILY Qty: 0 RF: 0 ferrous sulfate 325 mg (65 mg iron) Tablet 325 mg PO BID RF: 0 lisinopril 5 mg tablet PO DAILY RF: 0 Stand-Alone Forms: [employer], Opioid Pain Management [facility]/Other Patient Handouts: Surgery Prevent DVT After, Coumadin Discharge Orders: Discharge Order (Routine); Ordered 04/03/19 Ordered By: Johanna Fitzgerald Admission Data Admit Date/Time: 03/07/19 10:59 Attending Provider: Johanna Fitzgerald Admit Provider: Sandy Glass Primary Care Provider: Ange Christy Other Providers: Home,Nursing Agency ; Manuelito Wiseman ; Miguel Dalton V ; Kalin Tsang ; Albin Macdonald ; Ab Germain ; Sandy Glass ; Margie Wren Service: Telemetry Other Interventions: Discharge Summary Assessment (RN) Last Done: 03/14/19 15:35 Pending Studies at Discharge: No
--- NOTE | 2019-04-03 13:34 | XRay Report ---
XR abdomen 2V w PA chest HISTORY: 88 years-old Male SOB,Nausea acute shortness of breath with nausea COMPARISON: KUB 04/01/2019, chest radiograph 01/17/2019 TECHNIQUE: AP view the chest with left lateral decubitus and supine views of the abdomen FINDINGS: Cardiac silhouette is enlarged, unchanged. Prior median sternotomy with cardiac valvular prosthesis. Calcification of the thoracic aortic arch. No pneumothorax. Pulmonary vascular congestion with mild i nterstitial coarsening and hazy ill-defined bibasilar opacities. Suspected trace pleural effusions. D egenerative changes of the shoulders and spine. Surgical clips are noted about the right upper quadrant abdomen. Multiple vascular stents. No definit e urolith or acute fracture. Gaseous distention of large and small bowel redemonstrated with air-flui d levels. No pneumatosis or pneumoperitoneum. IMPRESSION: 1. Cardiac megaly with suggestion of mild pulmonary edema and trace pleural effusions. 2. Persistent gaseous distention of large and small bowel suggestive of probable ileus. Distal obstru ction is also within the differential. Continued follow-up recommended. 3. No pneumatosis or pneumoperitoneum. The above report was generated using voice recognition software. It may contain grammatical, syntax o r spelling errors. Electronically signed by: Codey Dumas M.D. 04/03/2019 1:32 PM
== END 2019-04-03 15:50 | disposition short-term general hospital (02) | DRG 256 ==
LOC: ED 08:11 → 3W 10:59 → SUATTDRO 10:59 → 3W 11:29 → 3N 03-16 14:02 → 2S 04-01 19:33
DX: D69.6 Thrombocytopenia, unspecified; I25.10 Atherosclerotic heart disease of native coronary artery without angina pectoris; I12.9 Hypertensive chronic kidney disease with stage 1 through stage 4 chronic kidney disease, or unspecified chronic kidney disease; N18.3 Chronic kidney disease, stage 3 (moderate); Z87.891 Personal history of nicotine dependence; E87.2 Acidosis; E11.52 Type 2 diabetes mellitus with diabetic peripheral angiopathy with gangrene; L03.115 Cellulitis of right lower limb; M86.8X7 Other osteomyelitis, ankle and foot; K92.1 Melena; E11.22 Type 2 diabetes mellitus with diabetic chronic kidney disease; E11.649 Type 2 diabetes mellitus with hypoglycemia without coma; K56.7 Ileus, unspecified; Z95.1 Presence of aortocoronary bypass graft; D64.9 Anemia, unspecified; Y92.239 Unspecified place in hospital as the place of occurrence of the external cause; R62.7 Adult failure to thrive; E46 Unspecified protein-calorie malnutrition; L97.519 Non-pressure chronic ulcer of other part of right foot with unspecified severity; Z79.02 Long term (current) use of antithrombotics/antiplatelets; K22.70 Barrett's esophagus without dysplasia; T40.605A Adverse effect of unspecified narcotics, initial encounter; Z79.82 Long term (current) use of aspirin; N50.89 Other specified disorders of the male genital organs; Z79.01 Long term (current) use of anticoagulants; K57.10 Diverticulosis of small intestine without perforation or abscess without bleeding; E11.69 Type 2 diabetes mellitus with other specified complication; I48.0 Paroxysmal atrial fibrillation